=== PATIENT | male | born 1950 | race Caucasian/White ===

== ENCOUNTER 2023-07-01 06:32 | Outpatient (RCR) | payer MEDICARE, OTHER, SELFPAY | END 2023-07-01 23:59 | disposition home or self-care (01) | LOC: RST 06:32 | PROVIDERS: ATTENDING PHYSICIAN Specialist; FAMILY PHYSICIAN Family Medicine | DX: G31.09 Other frontotemporal neurocognitive disorder (principal); G40.89 Other seizures; R41.841 Cognitive communication deficit; R41.844 Frontal lobe and executive function deficit | CPT/HCPCS: 96125 ==

== ENCOUNTER 2023-08-11 09:22 | Outpatient (RCR) | payer MEDICARE, OTHER, SELFPAY | END 2023-08-11 23:59 | disposition home or self-care (01) | LOC: RST 09:22 | PROVIDERS: ATTENDING PHYSICIAN Specialist; FAMILY PHYSICIAN Family Medicine | DX: G31.09 Other frontotemporal neurocognitive disorder (principal); G40.89 Other seizures; R41.844 Frontal lobe and executive function deficit; R41.841 Cognitive communication deficit | CPT/HCPCS: 97129; 97130 ==

== ENCOUNTER 2023-09-08 09:39 | Outpatient (RCR) | payer MEDICARE, OTHER, SELFPAY | END 2023-09-08 23:59 | disposition home or self-care (01) | LOC: ROT 09:39 | PROVIDERS: ATTENDING PHYSICIAN Specialist; FAMILY PHYSICIAN Family Medicine | DX: G40.89 Other seizures (principal); Z73.6 Limitation of activities due to disability; G31.09 Other frontotemporal neurocognitive disorder; R41.841 Cognitive communication deficit; R41.844 Frontal lobe and executive function deficit | CPT/HCPCS: 97129; 97130; 97167; 97530; 97537 ==

== ENCOUNTER 2023-10-11 07:56 | Outpatient (RCR) | payer MEDICARE, OTHER, SELFPAY | END 2023-10-11 23:59 | disposition home or self-care (01) | LOC: ROT 07:56 | PROVIDERS: ATTENDING PHYSICIAN Specialist; FAMILY PHYSICIAN Family Medicine | DX: G40.89 Other seizures (principal); Z73.6 Limitation of activities due to disability; G31.09 Other frontotemporal neurocognitive disorder; R41.841 Cognitive communication deficit; R41.844 Frontal lobe and executive function deficit | CPT/HCPCS: 97129; 97130; 97537 ==

== ENCOUNTER 2023-10-25 06:27 | Outpatient (RCR) | payer MEDICARE, OTHER, SELFPAY | END 2023-10-25 23:59 | disposition home or self-care (01) | LOC: ROT 06:27 | PROVIDERS: ATTENDING PHYSICIAN Specialist; FAMILY PHYSICIAN Family Medicine | DX: G40.89 Other seizures (principal); Z73.6 Limitation of activities due to disability; G31.09 Other frontotemporal neurocognitive disorder; R41.841 Cognitive communication deficit; R41.844 Frontal lobe and executive function deficit | CPT/HCPCS: 97129; 97130; 97530 ==

== ENCOUNTER 2023-12-30 16:58 | Inpatient (IN) | payer MEDICARE, OTHER, SELFPAY ==
[2023-12-30] VITALS (8 sets, daily range): BP systolic 103–126; BP diastolic 68–88; BMI 21.2; BMI 20.7
[2023-12-30 12:18] LABS: % Basophils 0.6 % (0-2); % Eosinophils 1.6 % (0-6); % Immature Granulocytes 0.2 % (0-0.5); % Lymphocytes 12.7 % (20.5-51.1); % Monocytes 13.3 % (1.7-9.3); % Neutrophils 71.6 % (42.2-75.2); Absolute Eosinophils 0.1 10^3/uL (0-0.7); Absolute Lymphocytes 0.6 10^3/uL (1.2-3.4); Absolute Monocytes 0.7 10^3/uL (0.1-0.6); Absolute Neutrophils 3.5 10^3/uL (1.4-6.5); Hematocrit 40.5 % (39.0-52.0); Hemoglobin 13.7 g/dL (13.0-18.0); Mean Corp Hgb Conc. 33.8 g/dL (33.0-37.0); Mean Corpuscular Hgb 31.1 pg (27.0-31.0); Mean Platelet Volume 9.6 fL (7.4-10.4); Nucleated Red Blood Cells % 0 % (-); Platelet Count 208 10^3/uL (130-400)
[2023-12-30 12:35] LABS: Urine Albumin Negative (Neg - Trace); Urine Bilirubin Negative (Negative); Urine Character Clear (Clear); Urine Color Yellow; Urine Glucose Negative (Negative); Urine Ketone Negative (Negative); Urine Leukocyte Negative (Negative); Urine Nitrite Negative (Negative); Urine Occult Blood Negative (Negative); Urine Specific Gravity 1.005 (<1.030); Urine Urobilinogen Negative (Neg - 1+)
[2023-12-30 12:36] LABS: ALT (SGPT) 350 U/L (0-50); AST (SGOT) 228 U/L (17-59); Albumin 4.4 g/dl (3.5-5.0); Alkaline Phosphatase 370 U/L (38-126); Blood Urea Nitrogen 13 mg/dl (9-20); Calcium 9.9 mg/dl (8.4-10.2); Carbon Dioxide 28 mmol/L (22-30); Chloride 101 mmol/L (98-107); Glucose 136 mg/dl (70-99); Potassium 4.2 mmol/L (3.5-5.1); Sodium 138 mmol/L (135-145); Total Bilirubin 8.9 mg/dl (0.2-1.3); Total Protein 6.8 g/dl (6.3-8.2); eGFR > 60.00
--- NOTE | 2023-12-30 13:39 | ED.GENMED ---
History of Present Illness
General
Chief Complaint: Abnormal Lab Value
Time Seen by Provider: 12/30/23 13:27
History of Present Illness
History of Present Illness:
73-year-old male with history of hyperlipidemia and asthma stenosis presents to the emergency department due to abdominal pain and abnormal outpatient labs. He states that throughout the week he has had diffuse abdominal pain without modifying
factors, saw his PCP yesterday and had abnormal LFTs and thus was directed to the emergency department. Denies any fevers or chills. He does report dark urine and fady colored stool but denies any melena or hematochezia. Past history of
appendectomy
Past History
Past History
ED Past Medical History: Seizures (History of 1 seizure suspected to be related to sertraline) and Other (Asbestosis, diverticulosis, anxiety, depression)
Review of Systems
Review of Systems
Allergies reviewed?: Yes
All Other Systems: ROS reviewed and negative except as documented in HPI and ROS
Phy Exam
Physical Exam
Physical Exam:
GEN: Well appearing, NAD, WDWN
Eyes: PERRLA, EOMs intact, mild scleral icterus
HENT: NCAT, oral mucosa moist, no JVD, no cervical adenopathy.
Lungs: CTAB, no wheezes, rales, rhonchi, normal chest wall excursion
Cardiac: RRR, no M/R/G, no peripheral edema. Radial pulses 2+ bilat
Abdomen: Protuberant abdomen with diffuse tenderness and positive rebound tenderness, negative Garcia sign
Neuro: AO x 3
MSK: No gross deformity or ecchymosis. No edema. No digital clubbing
Skin: No rashes, petechiae. Normal color, no pallor or jaundice.
Psych: Calm, cooperative, proper hygiene
Course
Orders/Labs/Results
Orders:
Orders
12/30/23 12:05
Complete Blood Count/With Diff Urgent
Comprehensive Metabolic Panel Urgent
Creatine Phosphokinase Urgent
Comment: ADD ON
Lipase Urgent
Comment: ADD ON
12/30/23 12:06
Urinalysis Reflex To Culture Urgent
Date Specimen was Collected: 12/30/23
Time Specimen was Collected: 11:58
12/30/23 13:35
Add On- LAB Urgent
Tests Added?: lipase; CPK
CT Abd/Pel (IV only)-DH only Urgent
Comment:
Reason For Exam: abd pain, jaundice
12/30/23 13:39
HYDROmorphone [Dilaudid] 0.5 mg IV NOW STA
12/30/23 14:59
HYDROmorphone [Dilaudid] 0.5 mg IV NOW STA
12/30/23 Dinner
Regular
12/30/23 15:04
Prothrombin Time Urgent
12/30/23 15:15
GASTROINTESTINAL CONSULT Routine
Consulting Provider: Sharmin Olvera
Was physician already notified: Yes
Reason for consult: obstructive jaundice due to pancreatic head mass
12/30/23 16:47
Admit/Transfer Patient As Directed
Co-Sign Provider:
Level of Care: Inpatient admission
Assign to:: Medical/Surgical
Physician / Group: gerson juan
Diagnosis: obstructive jaundice 2/2 pancreatic head mass adenocarcinoma new,met r lung
Reason for Hospitalization: obstructive jaundice 2/2 pancreatic head mass adenocarcinoma new,met r lung
Expected length of stay greater than two midnights?: Yes
ELOS- Estimated Length of Stay in days: 4
I certify the patient meets the requirements for IP care: Yes
Code Status As Directed
Resuscitation Status: Do not resuscitate
Reached after discussion with pt or family/Healthcare POA: Yes
Based on pt advanced directive or healthcare POA form: Yes
Decision communicated with: Per patient with present
DNR Bracelet Application ONCE
12/30/23 16:49
PRN Pain Medication Management As Directed
May give lesser potent ordered pain med per pt: Yes
preference::
Protocol:: Medication orders for pain may be administered in a
manner that supports deferring to patient preference
when the pt is:
- Requesting an ordered lesser potent pain medication.
Least to most potent pain medications are defined
as: acetaminophen < NSAID < tramadol < opioids
(morphine, oxycodone, hydromorphone).
- Requesting a lesser dose of the same medication IF
ORDERED.
- Requesting a less intrusive route of administration
if both routes are prescribed by the provider (PO <
IV).
12/31/23 06:00
CA 19-9 [S] IN AM
Abnormal Lab Results
12/30/23 12/30/23
12:05 15:04
RBC 4.40 L 10^6/uL
(4.70-6.10)
MCH 31.1 H pg
(27.0-31.0)
Absolute Lymphs (auto) 0.6 L 10^3/uL
(1.2-3.4)
Absolute Monos (auto) 0.7 H 10^3/uL
(0.1-0.6)
Lymphocytes % 12.7 L %
(20.5-51.1)
Monocytes % 13.3 H %
(1.7-9.3)
PT 15.3 H Sec
(11.4-14.6)
Glucose 136 H mg/dl
(70-99)
Total Bilirubin 8.9 H mg/dl
(0.2-1.3)
AST 228 H U/L
(17-59)
ALT 350 H U/L
(0-50)
Alkaline Phosphatase 370 H U/L
(38-126)
Creatine Kinase 324 H U/L
(55-170)
12/30/23 12:05
12/30/23 12:05
Vital Signs
Initial and Last Documented VS:
Initial Vital Signs
Temp Pulse Resp BP Pulse Ox
98.1 F 92 18 108/73 92
12/30/23 11:55 12/30/23 11:55 12/30/23 11:55 12/30/23 11:55 12/30/23 11:55
Last Documented Vital Signs
Temp Pulse Resp BP Pulse Ox
98.1 F 92 18 108/82 94
12/30/23 11:55 12/30/23 11:55 12/30/23 11:55 12/30/23 19:00 12/30/23 19:00
MDM/Problems Addressed
MDM/Problems Addressed:
Patient is unfortunately found to have a pancreatic mass highly suspicious for neoplasm with obstructive cholestasis. Initially plan to admit the patient to this hospital for further management however for the immediate future we do not have
advanced GI interventions available, case was discussed with gastroenterology as well as [facility] for transfer, the case was accepted for transfer however due to capacity issues they will not feel the except the patient for
at least 24 to 48 hours. Will be admitted to the hospitalist service in the interim pending transfer
*Critical Care Note
Total Time (30-74mins, 75-104mins- exclusive of procedures): Not Applicable
ED Attending Note
-
Portions of this chart may have been created with voice recognition software.� Occasional wrong word or��sound alike� substitutions may have occurred due to the inherent limitations of voice recognition software.
Discharge Plan
Departure
Patient Disposition: Admit
Date of Disposition: 12/30/23
Time of Disposition: 15:00
Presentation/result/management discussed w/ accepting MD/DO: Hospitalist
Discharge Problem:
Mass of pancreas, Obstructive jaundice
Interventions
Interventions:
*Risk Screen - Suicide Last Done: 12/30/23 11:55
*General Assessment Last Done: 12/30/23 11:55
*Neglect/Abuse Screening Last Done: 12/30/23 11:55
*ED COVID-19 Vaccine History Last Done: 12/30/23 15:52
[2023-12-30 14:09] LABS: Creatine Phosphokinase 324 U/L (55-170); Lipase 151 U/L (23-300)
[2023-12-30] MEDS: DILAUDID 0.5 MG IV ×2 (15:05→21:54)
--- NOTE | 2023-12-30 15:07 | HPS.HSE ---
Addendum entered and electronically signed by NGOC Gaines 12/30/23 19:39:
Per Zelalem BARTHOLOMEW in [facility] confirm not likely to have a bed for the patient in the next 48 hours
Original Note:
Family Physician
-
Family Physician: Tanja Garcia PA-C
Chief Complaint
-
Abdominal pain, abnormal LFTs outpatient.
History of Present Illness
73-year-old male complaining of abdominal pain and outpatient abnormal labs. He reports having lower abdominal pain over the past week had outpatient labs drawn by his PCP showing abnormal LFTs and was advised to come to the ER. He is also
reporting dark urine and gordon colored stools over the past week. He states this is his chronic normal abdomen although appears distended to me on exam he denies that along with . He does report some decreased appetite and nausea this past week
and weight loss of 25 pounds in the past 6 months. He denies melena or hematochezia, fever, chills, chest pain, palpitations, shortness breath, cough, nausea, vomiting, urinary symptoms. He has past medical history of HLD, asthma, anxiety,
depression, diverticulosis, asbestosis, history of seizure suspect related to Wellbutrin 2020, second seizure March 14, 2023.
Medical History
Past Medical History
Past Medical History: Reports Other
Additional Past Medical History:
HLD
asthma
anxiety
depression
diverticulosis
asbestosis
history of seizure suspect related to Wellbutrin 2020, second seizure March 14, 2023.
Past Surgical History: Reports Other
Additional Past Surgical History:
Appendectomy
Cervical lumbar fusion
Hernia repair left inguinal
Nasal surgery
Social History
Tobacco: Non-smoker
Alcohol: None
Drug: None
Personal: ()
Living: With Family
Employment: Retired
Family History
Family History: Other (Mother [place] age 69, father age 85 old age, maternal grandfather gastric cancer, maternal grandmother breast cancer)
Allergies / Home Medications
Allergies reflects when Allergies were last updated in [employer].
Home Medications with original date entered in [employer]
Allergy/Medication List:
Allergies
Allergy/AdvReac Type Severity Reaction Status Date / Time
sertraline Allergy seizure Verified 12/30/23 11:55
Home Medications
acetaminophen 325 mg tablet (Tylenol) 650 mg PO Q6HPRN PRN mild pain 03/14/23
lamotrigine 150 mg tablet (Lamictal) 300 mg PO HS seizure 03/14/23
simvastatin 20 mg tablet (Zocor) 20 mg PO HS High Cholesterol 03/14/23
therapeutic multivitamin 1 tab PO QPM Supplement 03/14/23
lacosamide 100 mg tablet (Vimpat) 100 mg PO BID #60 tabs 03/18/23
aspirin 81 mg tablet,delayed release 81 mg PO DAILY 12/30/23
desvenlafaxine succinate 50 mg tablet,extended release 24 hr 50 mg PO DAILY 12/30/23
lamotrigine 25 mg tablet (Lamictal) 50 mg PO HS 12/30/23
quetiapine 25 mg tablet (Seroquel) 25 mg PO HS 12/30/23
Review of Systems
-
History Source: Patient and Family ( at bedside)
A 12 point ROS was completed and negative except as noted: Yes
Constitutional: Reports Weight Loss (25 pounds past 6 months); Denies Fever, Fatigue or Chills
EENT: Denies Sore Throat or Runny Nose
Respiratory: Denies Cough or Trouble Breathing
Cardiac: Denies Chest Pain, Diaphoresis or Palpitations
Abdomen/GI: Reports Abdominal Pain (Lower abdomen) and Other (Gordon colored stools); Denies Nausea, Vomiting, Diarrhea, Constipated, Bloody Stools or Black Stools
: Reports Dark Urine (Saadia); Denies Dysuria, Frequency, Flank Pain, Incontinence, Difficulty Voiding, Urgency or Bleeding
Musculoskeletal: Denies Joint Pain or Edema
Skin: Denies Itching or Rash
Neurological: Denies Dizzy, Headache or Weakness
Endocrine: Reports No Symptoms
Hematologic/Lymphatic: Reports No Symptoms
Psych: Reports Calm
Physical Exam
Vital Signs
Vital Signs
Temp Pulse Resp BP Pulse Ox
98.1 F 92 18 108/73 92
12/30/23 11:55 12/30/23 11:55 12/30/23 11:55 12/30/23 11:55 12/30/23 11:55
Physical Exam
General: Comfortable and Conversant; No Pain, Fever or Chills
HEENT: NormoCephalic, Anicteric, Moist mucous membranes, PERRLA, [place] Conjunctivae and No Ptosis
Respiratory: Clear; No Wheezes, Rales or Rhonchi
Cardiac: S1/S2 and Regular Rhythm; No Murmur, Rub, Gallop or Peripheral Edema
GI: Soft and Tender (Lower abdomen below umbilicus, tympanic with distention although patient with ports that is normal abdomen)
Rectal: Deferred by Provider
Genito-urinary: Deferred by me
Musculoskeletal: No Clubbing, No Cyanosis and No Edema
Skin: Warm and Dry; No Rash
Neuro: AO x 3, No Motor Deficits, Nonfocal/grossly intact, Cranial Nerves Intact and No Sensory Deficits; No Slurred Speech, Facial Droop, Tremors or Sedated
Psych: Calm
Laboratory Results
-
12/30/23 12:05
12/30/23 12:05
Laboratory Results
Total Bilirubin 8.9 mg/dl (0.2-1.3) H 12/30/23 12:05
AST 228 U/L (17-59) H 12/30/23 12:05
ALT 350 U/L (0-50) H 12/30/23 12:05
Alkaline Phosphatase 370 U/L (38-126) H 12/30/23 12:05
Lipase 151 U/L (23-300) 12/30/23 12:05
Impression/Plan
-
If unable to transfer to [facility] will admit here with below plan
Impression/plan:
Admit to [facility]
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
T. bili 8.9
AST 228, ALT 350, alk phos 370
-INR 1.22
-ER arranging admission to [facility] for endoscopic ultrasound with stent, unsure when bed will become available
-Consult GI
-IV Dilaudid as needed pain, IV Zofran as needed
-HOLD Zocor and aspirin
CT abdomen pelvis IV contrast:
1. PANCREATIC HEAD ADENOCARCINOMA completely obstructing the common bile and pancreatic ducts. Malignancy encasing and narrowing the common and proper hepatic arteries and occluding the
portal-mesenteric vein confluence.
2. Severe intrahepatic, proximal extrahepatic, and gallbladder distention secondary to SEVERE BILIARY OBSTRUCTION.
3. Moderate diffuse distention of the colon with air and fecal material suggesting an adynamic colonic ileus.
4. Mild circumferential wall thickening in the esophagus and gastroesophageal junction which is probably secondary to esophagitis and gastritis.
5. Severe multilevel discogenic degenerative disease in the lumbar spine and evidence for previous bilateral posterior instrumentation from L2 to L5.
6. New solid pulmonary nodules in the right middle and lower lobes. Diagnostic possibilities are (1) pulmonary metastases or (2) infectious/inflammatory pulmonary nodules.
#NEW Pancreatic head ADENOCARCINOMA with METS to lung RIGHT Middle lobe and Lower lobes�new
-Consult Oncology
#Colonic ileus-patient comfortable with bowel movements and able to eat food without vomiting
-Will continue regular diet monitor for nausea and vomiting
-IV NSS
-Monitor bowel movements
#Hx of seizures that were suspected related to Wellbutrin started 2020 with 1 seizure
Second seizure was March 14, 2023
-Continue Vimpat 100 mg twice daily, Lamictal 350 mg at bedtime
#HLD
-Hold Zocor
#Anxiety/depression
-Continue Seroquel 25 mg at bedtime, Pristiq 50 mg daily
Other PMH:
History asbestosis
Diverticulosis
DVT prophylaxis
SCDs
DNR per patient with present at bedside
[2023-12-30 15:24] LABS: INR 1.22; PT 15.3 Sec (11.4-14.6)
--- NOTE | 2023-12-30 15:52 | CON.GI ---
Addendum entered and electronically signed by Sharmin Olvera MD 12/30/23 17:11:
I saw and examined the patient.
The API ARCHITECT or PA's note was reviewed and I agree with the note.
Comment:
This patient is a 73-year-old man with a history of hyperlipidemia, asbestosis, and GERD. He is experiencing a 25 pound weight loss and some abdominal pain. He did notice that his urine was dark and did have incidental labs. His labs were
markedly abnormal including a bilirubin that was over 8. He was told by his physician to go to the emergency room. In the ER he did have a CAT scan that showed a complete obstruction of the CBD and pancreatic duct concerning for malignancy. There
was also a concern for mets.
abd: distended but soft
icteric, oriented
impression
obstructive jaundice
ileus, abd distention
plan:
diet as tolerated
follow lfts
will need transfer as our interventional endoscopist is not available for the next week. He does need transfer to a facility that has interventional endoscopy available. The ER is aware as is the family and tentatively the transfer is to [facility].
Original Note:
Consultation
-
Date/Time Consultation Requested: 12/30/23 1515
Date/Time Consultation Performed: 12/30/23 1530
Requesting Provider: NGOC Gaines
Performing Provider: NGOC Covarrubias, Sharmin Olvera MD
Reason for Consultation: obstructive Jaundice
Medical History
Chief Complaint / HPI
Chief Complaint: abdominal pain, jaundice
History of Present Illness:
Pt is a 73yo with hx Hyperlipidemia, asbestosis, seizure disorder, sleep apnea, diverticulosis, anxiety/depression presents with 25 lbs wt loss over last few months with increased GERD, and now mild abdominal pain. He also admits to dark urine and
soto stools and mild pain over last week with abnormal labs. On admission noted with stable CBC and rise in LFT's with bili 8.9, AST 228, ALT 350, alk phos [address] concerning for pancreatic head adeno CA wih complete obstruction of
CBD and pancreatic duct with concern for malignancy and narrowing of common and proper hepatic arteries and occluding portal mesenteric vein confluence with severe ductal and GB distention. Also noted ileus with distal esophageal thickening with
concern for pulm mets. No hx EGD in past. colonoscopy with diverticulosis about 3 years ago.
At this time patient admits to GERD but denies dysphagia, nausea/vomiting, diarrhea, constipation, or rectal bleeding.
Past Medical History
Past Medical History: Hypercholesterolemia, Seizures (? medication related last seizure 03/2023), Psychiatric (anxiety/depression) and Other (asbetosis, diverticulosis, sleep apnea)
Social History
Tobacco: Non-Smoker
Alcohol: None
Drug: None
Personal:
Living: With Family
Employment: Retired
Family History
Family History: Other (no family hx colon CA/polyps, pancreatic problems)
Allergies / Home Medications
Allergy/AdvReac Type Severity Reaction Status Date / Time
sertraline Allergy seizure Verified 12/30/23 11:55
�Medication �Instructions �Recorded
acetaminophen 325 mg tablet 650 mg PO Q6HPRN PRN mild pain 03/14/23
(Tylenol)
lamotrigine 150 mg tablet 300 mg PO HS seizure 03/14/23
(Lamictal)
simvastatin 20 mg tablet (Zocor) 20 mg PO HS High Cholesterol 03/14/23
therapeutic multivitamin 1 tab PO QPM Supplement 03/14/23
lacosamide 100 mg tablet (Vimpat) 100 mg PO BID #60 tabs 03/18/23
aspirin 81 mg tablet,delayed 81 mg PO DAILY 12/30/23
release
desvenlafaxine succinate 50 mg 50 mg PO DAILY 12/30/23
tablet,extended release 24 hr
lamotrigine 25 mg tablet (Lamictal) 50 mg PO HS 12/30/23
quetiapine 25 mg tablet (Seroquel) 25 mg PO HS 12/30/23
Review of Systems
-
History Source: Patient and Family
Constitutional: Reports Weight Loss and Other (decrease appetite )
EENT: Reports No Symptoms
Respiratory: Reports No Symptoms
Abdomen/GI: Reports Abdominal Pain and Other (decrease appetite , soto stools)
: Reports Dark Urine
Musculoskeletal: Reports No Symptoms
Skin: Reports No Symptoms
Neurological: Reports Weakness
Endocrine: Reports No Symptoms
Hematologic/Lymphatic: Reports No Symptoms
Vital Signs
Temp Pulse Resp BP Pulse Ox
98.1 F 92 18 108/73 92
12/30/23 11:55 12/30/23 11:55 12/30/23 11:55 12/30/23 11:55 12/30/23 11:55
Physical Exam
Exam
General: Well Developed, Well Nourished and No Apparent Distress
HEENT: Normocephalic and Other (jaundice with icteric sclera )
Respiratory: Clear
Cardiac: Regular Rhythm
GI: Soft, Non Tender and Distended (mild -- per pt chronic distention)
Musculoskeletal: No Clubbing and No Cyanosis
Skin: Warm and Dry
Neuro: Awake, Alert and AO x 3
Psych: Calm
Results
WBC 5.0 10^3/uL (4.8-10.8) 12/30/23 12:05
Hgb 13.7 g/dL (13.0-18.0) 12/30/23 12:05
Hct 40.5 % (39.0-52.0) 12/30/23 12:05
MCV 92.0 fL (80.0-94.0) 12/30/23 12:05
Plt Count 208 10^3/uL (130-400) 12/30/23 12:05
Absolute Neuts (auto) 3.5 10^3/uL (1.4-6.5) 12/30/23 12:05
PT 15.3 Sec (11.4-14.6) H 12/30/23 15:04
INR 1.22 12/30/23 15:04
Sodium 138 mmol/L (135-145) 12/30/23 12:05
Potassium 4.2 mmol/L (3.5-5.1) 12/30/23 12:05
Chloride 101 mmol/L (98-107) 12/30/23 12:05
Carbon Dioxide 28 mmol/L (22-30) 12/30/23 12:05
BUN 13 mg/dl (9-20) 12/30/23 12:05
Creatinine 0.8 mg/dL (0.7-1.3) 12/30/23 12:05
Calcium 9.9 mg/dl (8.4-10.2) 12/30/23 12:05
Total Bilirubin 8.9 mg/dl (0.2-1.3) H 12/30/23 12:05
AST 228 U/L (17-59) H 12/30/23 12:05
ALT 350 U/L (0-50) H 12/30/23 12:05
Alkaline Phosphatase 370 U/L (38-126) H 12/30/23 12:05
Lipase 151 U/L (23-300) 12/30/23 12:05
Diagnostic Image Results:
12/30/23 CT A/p with IV contrast
1. PANCREATIC HEAD ADENOCARCINOMA completely obstructing the common bile and pancreatic ducts. Malignancy encasing and narrowing the common and proper hepatic arteries and occluding the portal-mesenteric vein confluence.
2. Severe intrahepatic, proximal extrahepatic, and gallbladder distention secondary to SEVERE BILIARY OBSTRUCTION.
3. Moderate diffuse distention of the colon with air and fecal material suggesting an adynamic colonic ileus.
4. Mild circumferential wall thickening in the esophagus and gastroesophageal junction which is probably secondary to esophagitis and gastritis.
5. Severe multilevel discogenic degenerative disease in the lumbar spine and evidence for previous bilateral posterior instrumentation from L2 to L5.
6. New solid pulmonary nodules in the right middle and lower lobes. Diagnostic possibilities are (1) pulmonary metastases or (2) infectious/inflammatory pulmonary nodules.
Prior GI Procedures:
EGD: none
Colonoscopy: 3 years ago recalls diverticulosis.
Assessment / Plan
-
Pt is a 73yo with hx Hyperlipidemia, asbestosis, seizure disorder, sleep apnea, diverticulosis, anxiety/depression presents with 25 lbs wt loss over last few months with increased GERD, and now mild abdominal pain. He also admits to dark urine and
soto stools and mild pain over last week with abnormal labs. On admission noted with stable CBC and rise in LFT's with bili 8.9, AST 228, ALT 350, alk phos [address] concerning for pancreatic head adeno CA wih complete obstruction of
CBD and pancreatic duct with concern for malignancy and narrowing of common and proper hepatic arteries and occluding portal mesenteric vein confluence with severe ductal and GB distention. Also noted ileus with distal esophageal thickening with
concern for pulm mets.
-CT concern for pancreatic adeno with completed obstruction and occlusion of portal mesenteric vein confluence
-onset of wt loss, GERD, decreased appetite
-abdominal distention - chronic per patient noted ileus on CT
-esophageal thickening
-concern for pulm mets
other med problems:
-hyperlipidemia
-asbestosis
-seizure D/o
-sleep apnea
-diverticulosis
-anxiety/depression
PLAN:
etiology of jaundice with LFT's elevation with concern for obstructing pancreatic adeno CA vs other
pt will need EUS with ERCP
I reviewed with Dr. Davila unable to do today and no availability at [facility] for next 2 weeks
ER will reach out to other facility to see if can do ER to ER transfer
if unable to accept will need to reach out for transfer
trend LFT's
some ileus/distention but has been chronic and tolerating diet earlier today ok for diet with monitoring
add CA 19-9
updated hospitalist and ER
family updated
-
-
Thank you for consultation and allowing me to participate in the patient's care. Please call the novelty balloon assembler and packer GI physician during the after hours with any questions or concerns.
--- NOTE | 2023-12-30 16:59 | W.PN.UPDATE ---
Update Note
Progress Note Update
This is an addendum to the H&P written by aLchelle Davies on 12/30/2023. Patient seen and examined dependently with [employer].
73-year-old male past medical history of hyperlipidemia, asthma, anxiety/depression, diverticulosis, asbestosis, seizure related to Wellbutrin here with abdominal pain, dark urine and fady colored stool over the past week and abnormal outpatient
LFTs with weight loss and decreased appetite.
Labs show severe transaminitis with hyperbilirubinemia. CT abdomen pelvis shows pancreatic head adenocarcinoma completely obstructing common bile duct and pancreatic duct. Malignancy encasing and narrowing the common and proper hepatic arteries
and occluding the portal mesenteric vein confluence. There is severe biliary obstruction. Moderate diffuse distention of the colon with air and fecal matter suggesting adynamic colonic ileus. Mild circumferential wall thickening in the
esophagus/gastroesophageal junction secondary esophagitis/gastritis.
GI consulted as patient will require endoscopic ultrasound. Patient accepted at [facility] but no beds available. Regular diet. Hold statin.
--- NOTE | 2023-12-30 20:15 | PTCARENOTE ---
Received pt from ED via Stretcher. Pt able to ambulate off stretcher to standing scale with minimal assistance. AAO*4, VSS, Patient denies any chest pain or shortness of breath. All orders reviewed and acknowledged. Plan of care reviewed with
patient. Patient oriented to room with bed placed in low position and call blount within reach.
[2023-12-30] MEDS: NSS 1000 IV (21:05)
[2023-12-30] MEDS: LAMICTAL 350 MG PO (21:07)
[2023-12-30] MEDS: SEROQUEL 25 MG PO (21:07)
[2023-12-30] MEDS: VIMPAT 100 MG PO (21:07)
[2023-12-30 22:51] LABS: COVID-19 Antigen Negative (Negative)
--- NOTE | 2023-12-31 01:19 | W.PN.UPDATE ---
Update Note
Progress Note Update
RN notified DOCTOR OF [facility], patient has bed available at [facility] and berry picker machine operator time is at 0145. Transfer Authorization and Information form completed and in chart. Will place order to discharge patient.
--- NOTE | 2023-12-31 01:37 | PTCARENOTE ---
Patient being transferred to [facility] as per Transfer Authorization and Information Form for Pancreatic Mass. Transfer center at [facility] arranged BLS transport to [facility] at [facility] for room number
246. Nursing Hot Dog Vendor and covering ALTERATION TAILOR provider updated with transfer. Copies of chart, along with face sheet and transfer from given to transport. Patient updated with Hospital transfer and new room number.
== END 2023-12-31 01:40 | disposition short-term general hospital (02) | DRG 435 ==
LOC: 4 EAST ACU 16:58
PROVIDERS: Emergency Medicine; Physician Assistant; ADMITTING PHYSICIAN Hospitalist; CONSULT PHYSICIAN Internal Medicine; EMERGENCY PHYSICIAN Emergency Medicine; FAMILY PHYSICIAN Physician Assistant Medical
DX: C25.0 Malignant neoplasm of head of pancreas (principal); K83.1 Obstruction of bile duct; C78.01 Secondary malignant neoplasm of right lung; K56.7 Ileus, unspecified; K21.00 Gastro-esophageal reflux disease with esophagitis, without bleeding; K29.70 Gastritis, unspecified, without bleeding; F32.A Depression, unspecified; Z66 Do not resuscitate; F41.9 Anxiety disorder, unspecified; Z79.899 Other long term (current) drug therapy; Z79.82 Long term (current) use of aspirin
CPT/HCPCS: 74177; 80053; 81003; 82550; 83690; 85025; 85610; 87811; 96374; 96376; 99284; Q9967

== ENCOUNTER 2024-01-04 20:42 | Emergency (ER) | payer MEDICARE, OTHER, SELFPAY ==
[2024-01-04 20:51] VITALS: BP 94/71
--- NOTE | 2024-01-04 21:40 | ED.GENMED ---
History of Present Illness
General
Chief Complaint: Abdominal Pain
Source: patient and spouse
Time Seen by Provider: 01/04/24 21:23
History of Present Illness
History of Present Illness:
73-year-old male presents to the emergency room complaining of severe abdominal pain. Patient was recently seen here in the emerge at [place] and found to have a pancreatic mass. He was transferred to [facility] where he had a
endoscopic ultrasound with biopsy as well as biliary stent placement. Patient was discharged yesterday. He was having some mild to moderate pain but the pain became more severe today around dinnertime. Patient was discharged on oxycodone and
thought the pain might just be related to his last dose of medication wearing off. However he was given his evening dose of pain medicine without improvement. Also consideration to constipation because his last bowel movement was 2 days ago.
has observed his abdomen seems much more distended today. He is nauseous but has not vomited. Patient did take the Colace earlier today but has not had a bowel movement.
Past History
Past History
ED Past Medical History: Seizures (History of 1 seizure suspected to be related to sertraline) and Other (Asbestosis, diverticulosis, anxiety, depression)
Phy Exam
Physical Exam
Physical Exam:
General: Awake, Alert, Oriented X3. No acute distress.
Vitals: unremarkable
Head: Atraumatic
Eyes: Pupils equal, EOMI, scleral icterus
Throat: Airway intact, no exudates, mildly dry mucosa
Neck: Trachea midline
Lungs: Clear and equal b/l
Heart: Regular rate, no murmurs
Abd: Soft, distended, significantly tender to palpation,, No pulsatile mass
Rectal: No stool in the rectal
Neuro: Nonfocal
Skin: Warm, dry, no rash
Extremities: pulses equal b/l, no edema
Course
Orders/Labs/Results
Orders:
Orders
01/04/24 21:38
CT Abd/Pel (IV only)-DH only Urgent
Comment:
Reason For Exam: severe abd pain
Urinalysis Reflex To Culture Urgent
HYDROmorphone [Dilaudid] 1 mg IV NOW STA
Ondansetron Injectable [Zofran] 4 mg IV NOW STA
01/04/24 21:39
Lactated Ringers [Lr] 1,000 ml IV BOLUS
01/04/24 22:09
Complete Blood Count/With Diff Urgent
Comprehensive Metabolic Panel Urgent
Lipase Urgent
01/05/24 00:09
HYDROmorphone [Dilaudid] 1 mg .ROUTE .STK-MED ONE
01/05/24 00:14
HYDROmorphone [Dilaudid] 1 mg IV NOW STA
01/05/24 00:37
NG Tube [GI tube insertion- Treatment] ONCE
01/05/24 00:59
Lidocaine 2% [Lidocaine Uro-Jet 2%] 1 syringe .ROUTE .STK-MED ONE
Abnormal Lab Results
01/04/24
22:09
WBC 13.2 H 10^3/uL
(4.8-10.8)
RBC 4.51 L 10^6/uL
(4.70-6.10)
MCH 31.7 H pg
(27.0-31.0)
Abs Immat Gran (auto) 0.1 H 10^3/uL
(0-0.05)
Absolute Neuts (auto) 12.0 H 10^3/uL
(1.4-6.5)
Absolute Lymphs (auto) 0.2 L 10^3/uL
(1.2-3.4)
Absolute Monos (auto) 0.9 H 10^3/uL
(0.1-0.6)
Immature Gran % 0.6 H %
(0-0.5)
Neutrophils % 91.1 H %
(42.2-75.2)
Lymphocytes % 1.4 L %
(20.5-51.1)
Sodium 133 L mmol/L
(135-145)
Chloride 95 L mmol/L
(98-107)
Glucose 199 H mg/dl
(70-99)
Total Bilirubin 7.3 H mg/dl
(0.2-1.3)
AST 192 H U/L
(17-59)
ALT 310 H U/L
(0-50)
Alkaline Phosphatase 438 H U/L
(38-126)
01/04/24 22:09
01/04/24 22:09
Vital Signs
Initial and Last Documented VS:
Initial Vital Signs
Temp Pulse Resp BP Pulse Ox
97.8 F 111 20 94/71 90
01/04/24 20:51 01/04/24 20:51 01/04/24 20:51 01/04/24 20:51 01/04/24 20:51
Last Documented Vital Signs
Temp Pulse Resp BP Pulse Ox
97.8 F 100 18 118/93 89
01/04/24 20:51 01/05/24 01:45 01/05/24 01:45 01/05/24 01:00 01/05/24 01:30
MDM/Problems Addressed
Differential Diagnosis Includes:
Constipation, bowel obstruction, gastric outlet obstruction, ascites
MDM/Problems Addressed:
Patient presents with significant abdominal pain and abdominal distention. CT shows markedly dilated stomach and evidence of gastric outlet obstruction. NG tube was placed with large amount of gastric contents and air retrieved. Patient has
improvement in his level of pain. Given he just had procedure performed at [facility] we do not have endoscopic she can perform advanced procedures at this time we will transfer the patient back to [place]. Patient accepted by the hospitalist at
[facility].
*Radiology
Radiology exam reviewed: radiology read reviewed ([facility] report reviewed)
*Pulse Oximetry
Patient hypoxic: no
*Critical Care Note
Total Time (30-74mins, 75-104mins- exclusive of procedures): Not Applicable
Data Reviewed
Review of Other/Old Records Reveals: Other (Recent CT, ED record)
Patient Management
Social determinants of health affecting care: Strong social support
ED Attending Note
-
Portions of this chart may have been created with voice recognition software.� Occasional wrong word or��sound alike� substitutions may have occurred due to the inherent limitations of voice recognition software.
Discharge Plan
Departure
Patient Disposition: Acute Care Hospital
Date of Disposition: 01/05/24
Time of Disposition: 01:14
Admit to: Med/Surg
Condition: Fair
Discharge Problem:
Gastric outlet obstruction, Mass of pancreas
Prescriptions:
No Action
lamotrigine [Lamictal] 150 mg Tablet
300 mg PO HS
acetaminophen [Tylenol] 325 mg Tablet
650 mg PO Q6HPRN PRN (Reason: mild pain)
therapeutic multivitamin Tablet
1 tab PO DAILY
simvastatin [Zocor] 20 mg Tablet
20 mg PO HS
lacosamide [Vimpat] 100 mg tablet
100 mg PO BID Qty: 60 0RF
quetiapine [Seroquel] 25 mg Tablet
25 mg PO HS
aspirin 81 mg Tablet,Delayed Release (Dr/Ec)
81 mg PO DAILY
lamotrigine [Lamictal] 25 mg Tablet
50 mg PO HS
desvenlafaxine succinate 50 mg Tablet Extended Release 24 Hr
50 mg PO DAILY
Referrals:
Tanja Garcia PA-C [Family Provider] -
Hospital Transfer
Other hospital: [facility]
I certify that the patient requires transfer: Yes
Discussed case with accepting physician: Dr. Vu
Reason for transfer: availability of service and specialties available
Interventions
Interventions:
*Risk Screen - Suicide Last Done: 01/04/24 20:51
*General Assessment Last Done: 01/04/24 22:22
*Neglect/Abuse Screening Last Done: 01/04/24 20:51
ED- Fall Risk Assessment Last Done: 01/04/24 22:23
*ED COVID-19 Vaccine History Last Done: 01/04/24 22:22
FN-Vyeign-Bhzmwxpeci Assessment Last Done: 01/04/24 22:23
Discharge Date and Time
Print Language: ROMANSH
[2024-01-04 21:57] VITALS: BMI 21.0
[2024-01-04] MEDS: DILAUDID 1 MG IV (22:05)
[2024-01-04] MEDS: LR 1000 IV (22:06)
[2024-01-04] MEDS: ZOFRAN 4 MG IV (22:06)
[2024-01-04 22:21] LABS: % Basophils 0.3 % (0-2); % Immature Granulocytes 0.6 % (0-0.5); % Lymphocytes 1.4 % (20.5-51.1); % Monocytes 6.6 % (1.7-9.3); % Neutrophils 91.1 % (42.2-75.2); Absolute Immature Granulocytes 0.1 10^3/uL (0-0.05); Absolute Lymphocytes 0.2 10^3/uL (1.2-3.4); Absolute Monocytes 0.9 10^3/uL (0.1-0.6); Hematocrit 40.7 % (39.0-52.0); Hemoglobin 14.3 g/dL (13.0-18.0); Mean Corp Hgb Conc. 35.1 g/dL (33.0-37.0); Mean Corpuscular Hgb 31.7 pg (27.0-31.0); Mean Corpuscular Volume 90.2 fL (80.0-94.0); Mean Platelet Volume 9.8 fL (7.4-10.4); Nucleated Red Blood Cells % 0 % (-); Platelet Count 253 10^3/uL (130-400); Red Blood Cell Count 4.51 10^6/uL (4.70-6.10); Red Cell Dist. Width 13.4 % (11.5-14.5); White Blood Cell Count 13.2 10^3/uL (4.8-10.8)
[2024-01-04 22:39] LABS: ALT (SGPT) 310 U/L (0-50); AST (SGOT) 192 U/L (17-59); Albumin 4.3 g/dl (3.5-5.0); Alkaline Phosphatase 438 U/L (38-126); Blood Urea Nitrogen 14 mg/dl (9-20); Calcium 9.9 mg/dl (8.4-10.2); Carbon Dioxide 22 mmol/L (22-30); Chloride 95 mmol/L (98-107); Estimated Creatinine Clearance 84 ml/min; Glucose 199 mg/dl (70-99); Lipase 100 U/L (23-300); Potassium 3.9 mmol/L (3.5-5.1); Sodium 133 mmol/L (135-145); Total Bilirubin 7.3 mg/dl (0.2-1.3); Total Protein 6.8 g/dl (6.3-8.2); eGFR > 60.00
[2024-01-04 22:52] VITALS: BP 120/86
[2024-01-04 23:00] VITALS: BP 115/85
[2024-01-05 00:11] VITALS: BP 133/93
[2024-01-05] MEDS: DILAUDID 1 MG IV (00:14)
[2024-01-05 01:00] VITALS: BP 118/93
[2024-01-05 02:00] VITALS: BP 105/87
[2024-01-05] MEDS: DILAUDID 0.5 MG IV (03:24)
== END 2024-01-05 03:35 | disposition short-term general hospital (02) ==
LOC: EMR 20:42
PROVIDERS: EMERGENCY PHYSICIAN Emergency Medicine; FAMILY PHYSICIAN Physician Assistant Medical
DX: K31.1 Adult hypertrophic pyloric stenosis (principal); K86.9 Disease of pancreas, unspecified
CPT/HCPCS: 96374; 96375; 96376; 96361; 99285; 74177; 80053; 83690; 85025; Q9967

== ENCOUNTER 2024-02-11 03:39 | Inpatient (IN) | payer MEDICARE, OTHER, SELFPAY ==
[2024-02-10] VITALS (7 sets, daily range): BP systolic 84–96; BP diastolic 52–65; BMI 21.5
[2024-02-10 22:05] LABS: Hematocrit 12.1 % (39.0-52.0); Hemoglobin 3.6 g/dL (13.0-18.0); Mean Corp Hgb Conc. 29.8 g/dL (33.0-37.0); Mean Corpuscular Hgb 32.1 pg (27.0-31.0); Mean Platelet Volume 9.6 fL (7.4-10.4); Platelet Count 353 10^3/uL (130-400); Red Blood Cell Count 1.12 10^6/uL (4.70-6.10); Red Cell Dist. Width 18.7 % (11.5-14.5); White Blood Cell Count 10.7 10^3/uL (4.8-10.8)
[2024-02-10 22:17] LABS: Anisocytosis 4+; Normal RBC Morphology No
[2024-02-10 22:18] LABS: Acanthocytes 1+; Microcytosis 3+; Ovalocytes 1+; Polychromasia 2+; Target Cells 1+
[2024-02-10 22:19] LABS: Poikilocytosis 1+
[2024-02-10 22:20] LABS: % Basophils 0.1 % (0-2); % Eosinophils 0.2 % (0-6); % Immature Granulocytes 2.7 % (0-0.5); % Lymphocytes 6.6 % (20.5-51.1); % Monocytes 7.3 % (1.7-9.3); % Neutrophils 83.1 % (42.2-75.2); Absolute Immature Granulocytes 0.3 10^3/uL (0-0.05); Absolute Lymphocytes 0.7 10^3/uL (1.2-3.4); Absolute Monocytes 0.8 10^3/uL (0.1-0.6); Absolute Neutrophils 8.9 10^3/uL (1.4-6.5); Nucleated Red Blood Cells % 0.9 % (-)
[2024-02-10 22:23] LABS: ALT (SGPT) 43 U/L (0-50); AST (SGOT) 38 U/L (17-59); Albumin 2.7 g/dl (3.5-5.0); Alkaline Phosphatase 81 U/L (38-126); Blood Urea Nitrogen 43 mg/dl (9-20); Calcium 8.2 mg/dl (8.4-10.2); Carbon Dioxide 11 mmol/L (22-30); Chloride 101 mmol/L (98-107); Estimated Creatinine Clearance 74 ml/min; Glucose 250 mg/dl (70-99); Potassium 4.7 mmol/L (3.5-5.1); Sodium 137 mmol/L (135-145); Total Bilirubin 0.7 mg/dl (0.2-1.3); Total Protein 4.7 g/dl (6.3-8.2); eGFR > 60.00
--- NOTE | 2024-02-10 22:28 | ED.GENMED ---
History of Present Illness
<Zelalem García PA-C - Last Filed: 02/11/24 01:32>
General
Chief Complaint: Fainting/Passed Out
Time Seen by Provider: 02/10/24 21:56
History of Present Illness
History of Present Illness:
73-year-old male with history of pancreatic cancer presents to the emergency department for evaluation after a syncopal event at home. states the patient has been increasingly fatigued over the past week however today attempting to get up the
stairs he syncopized. Arrives by EMS. Markedly pale and hypotensive. He is scheduled to begin chemotherapy next week at [facility]. After initial diagnosis in mid December he was transferred to [place] where he had endoscopic ultrasound
with biopsy and biliary stent placement, this was then complicated by a gastric outlet obstruction and placement of a PEG tube.
Past History
<Zelalem García PA-C - Last Filed: 02/11/24 01:32>
Past History
ED Past Medical History: Seizures (History of 1 seizure suspected to be related to sertraline) and Other (Asbestosis, diverticulosis, anxiety, depression)
Review of Systems
<Zelalem García PA-C - Last Filed: 02/11/24 01:32>
Review of Systems
Allergies reviewed?: Yes
All Other Systems: ROS reviewed and negative except as documented in HPI and ROS
Phy Exam
<SHAUNNA Diaz Last Filed: 02/11/24 01:32>
Physical Exam
Physical Exam:
GEN: W ill-appearing, markedly pale, somnolent
Eyes: PERRLA, EOMs intact, no scleral icterus
HENT: NCAT, oral mucosa dry
Lungs: CTAB, no wheezes, rales, rhonchi, normal chest wall excursion
Cardiac: RRR, no M/R/G, no peripheral edema. Radial pulses 2+ bilat
Abdomen: Soft, mildly distended, biliary drain and feeding tube in place
Neuro: Somnolent, arouses to voice, disoriented, moves all extremities freely
MSK: No gross deformity or ecchymosis. No edema. No digital clubbing
Skin: No rashes, petechiae. Normal color, no pallor or jaundice.
Psych: Calm, cooperative, proper hygiene
Course
<Zelalem García PA-C - Last Filed: 02/11/24 01:32>
Orders/Labs/Results
Orders:
Orders
02/10/24 21:39
Electrocardiogram (*1) Urgent
Reason for Study: Syncope
02/10/24 21:41
EKG- Treatment ONCE
02/10/24 21:43
Complete Blood Count/With Diff Urgent
Comprehensive Metabolic Panel Urgent
02/10/24 22:05
Type And Crossmatch [Type+Screen] Urgent
02/10/24 22:11
Blood Bank Products [* Blood Bank Products] Urgent
Blood Bank Products: *Packed RBC Leuko(PRBC's)
Quantity: 2
Transfuse Today: Yes
Reason: Anemia
02/10/24 22:13
ABO2 Urgent
BBK Wristband Number:
Associate notified that ABO2 has been ordered: [id number]/CHIN
Date: 02/10/24
Time: 22:01
Underground Utility Locator ID: [id number]
02/10/24 22:23
Prothrombin Time Urgent
Is patient on Coumadin/Warfarin?: Unknown
02/10/24 22:31
Venous Blood Gas Urgent
%Oxygen/Room Air: 99
02/10/24 22:53
Blood Culture Q30M
ILONEL Source: Blood/Venous
Specimen Description:
02/10/24 22:55
Blood Culture Q30M
LIONEL Source: Blood/Venous
Specimen Description:
02/11/24 00:00
Ct Chest/Abd/Pel Angio W/Wo Iv Urgent
Reason For Exam: severe/rapid anemia eval for occult hemorrhage
02/11/24 00:48
Pantoprazole [Protonix IV] 80 mg IV NOW STA
02/11/24 01:00
Pantoprazole 80 mg/100 ml Nss [Protonix] 80 mg in 100 ml IV Q10H
Abnormal Lab Results
02/10/24 02/10/24 02/10/24
21:43 22:05 22:23
RBC 1.12 L 10^6/uL
(4.70-6.10)
Hgb 3.6 L* g/dL
(13.0-18.0)
Hct 12.1 L* %
(39.0-52.0)
MCV 108.0 H fL
(80.0-94.0)
MCH 32.1 H pg
(27.0-31.0)
MCHC 29.8 L g/dL
(33.0-37.0)
RDW 18.7 H %
(11.5-14.5)
Abs Immat Gran (auto) 0.3 H 10^3/uL
(0-0.05)
Absolute Neuts (auto) 8.9 H 10^3/uL
(1.4-6.5)
Absolute Lymphs (auto) 0.7 L 10^3/uL
(1.2-3.4)
Absolute Monos (auto) 0.8 H 10^3/uL
(0.1-0.6)
Immature Gran % 2.7 H %
(0-0.5)
Neutrophils % 83.1 H %
(42.2-75.2)
Lymphocytes % 6.6 L %
(20.5-51.1)
PT 15.7 H Sec
(11.4-14.6)
VBG pCO2
VBG pO2
VBG HCO3
Carbon Dioxide 11 L* mmol/L
(22-30)
BUN 43 H mg/dl
(9-20)
Glucose 250 H mg/dl
(70-99)
Calcium 8.2 L mg/dl
(8.4-10.2)
Total Protein 4.7 L g/dl
(6.3-8.2)
Albumin 2.7 L g/dl
(3.5-5.0)
Crossmatch IS Only See Detail
02/10/24
22:31
RBC
Hgb
Hct
MCV
MCH
MCHC
RDW
Abs Immat Gran (auto)
Absolute Neuts (auto)
Absolute Lymphs (auto)
Absolute Monos (auto)
Immature Gran %
Neutrophils %
Lymphocytes %
PT
VBG pCO2 32 L mmHg
(35-48)
VBG pO2 72 H mmHg
(30-50)
VBG HCO3 16.5 L mmol/L
(22-27)
Carbon Dioxide
BUN
Glucose
Calcium
Total Protein
Albumin
Crossmatch IS Only
02/10/24 21:43
02/10/24 21:43
Vital Signs
Initial and Last Documented VS:
Initial Vital Signs
BP
88/52
02/10/24 21:40
Last Documented Vital Signs
Temp Pulse Resp BP Pulse Ox
98.0 F 91 18 98/60 98
02/11/24 01:20 02/11/24 01:20 02/11/24 01:20 02/11/24 01:20 02/11/24 01:20
<Kacie Cuba MD - Last Filed: 02/10/24 23:14>
Orders/Labs/Results
Orders:
Orders
02/10/24 21:39
Electrocardiogram (*1) Urgent
Reason for Study: Syncope
02/10/24 21:41
EKG- Treatment ONCE
02/10/24 21:43
Complete Blood Count/With Diff Urgent
Comprehensive Metabolic Panel Urgent
02/10/24 22:05
Type And Crossmatch [Type+Screen] Urgent
02/10/24 22:11
Blood Bank Products [* Blood Bank Products] Urgent
Blood Bank Products: *Packed RBC Leuko(PRBC's)
Quantity: 2
Transfuse Today: Yes
Reason: Anemia
02/10/24 22:13
ABO2 Urgent
BBK Wristband Number:
Associate notified that ABO2 has been ordered: [id number]/CHIN
Date: 02/10/24
Time: 22:01
Underground Utility Locator ID: [id number]
02/10/24 22:23
Prothrombin Time Urgent
Is patient on Coumadin/Warfarin?: Unknown
02/10/24 22:31
Venous Blood Gas Urgent
%Oxygen/Room Air: 99
02/10/24 22:53
Blood Culture Q30M
LIONEL Source: Blood/Venous
Specimen Description:
02/10/24 22:55
Blood Culture Q30M
LIONEL Source: Blood/Venous
Specimen Description:
02/11/24 00:00
Ct Chest/Abd/Pel Angio W/Wo Iv Urgent
Reason For Exam: severe/rapid anemia eval for occult hemorrhage
02/11/24 00:48
Pantoprazole [Protonix IV] 80 mg IV NOW STA
02/11/24 01:00
Pantoprazole 80 mg/100 ml Nss [Protonix] 80 mg in 100 ml IV Q10H
Abnormal Lab Results
02/10/24 02/10/24 02/10/24
21:43 22:05 22:23
RBC 1.12 L 10^6/uL
(4.70-6.10)
Hgb 3.6 L* g/dL
(13.0-18.0)
Hct 12.1 L* %
(39.0-52.0)
MCV 108.0 H fL
(80.0-94.0)
MCH 32.1 H pg
(27.0-31.0)
MCHC 29.8 L g/dL
(33.0-37.0)
RDW 18.7 H %
(11.5-14.5)
Abs Immat Gran (auto) 0.3 H 10^3/uL
(0-0.05)
Absolute Neuts (auto) 8.9 H 10^3/uL
(1.4-6.5)
Absolute Lymphs (auto) 0.7 L 10^3/uL
(1.2-3.4)
Absolute Monos (auto) 0.8 H 10^3/uL
(0.1-0.6)
Immature Gran % 2.7 H %
(0-0.5)
Neutrophils % 83.1 H %
(42.2-75.2)
Lymphocytes % 6.6 L %
(20.5-51.1)
PT 15.7 H Sec
(11.4-14.6)
VBG pCO2
VBG pO2
VBG HCO3
Carbon Dioxide 11 L* mmol/L
(22-30)
BUN 43 H mg/dl
(9-20)
Glucose 250 H mg/dl
(70-99)
Calcium 8.2 L mg/dl
(8.4-10.2)
Total Protein 4.7 L g/dl
(6.3-8.2)
Albumin 2.7 L g/dl
(3.5-5.0)
Crossmatch IS Only See Detail
02/10/24
22:31
RBC
Hgb
Hct
MCV
MCH
MCHC
RDW
Abs Immat Gran (auto)
Absolute Neuts (auto)
Absolute Lymphs (auto)
Absolute Monos (auto)
Immature Gran %
Neutrophils %
Lymphocytes %
PT
VBG pCO2 32 L mmHg
(35-48)
VBG pO2 72 H mmHg
(30-50)
VBG HCO3 16.5 L mmol/L
(22-27)
Carbon Dioxide
BUN
Glucose
Calcium
Total Protein
Albumin
Crossmatch IS Only
02/10/24 21:43
02/10/24 21:43
Vital Signs
Initial and Last Documented VS:
Initial Vital Signs
BP
88/52
02/10/24 21:40
Last Documented Vital Signs
Temp Pulse Resp BP Pulse Ox
98.0 F 91 18 98/60 98
02/11/24 01:20 02/11/24 01:20 02/11/24 01:20 02/11/24 01:20 02/11/24 01:20
<Zelalem García PA-C - Last Filed: 02/11/24 01:32>
MDM/Problems Addressed
MDM/Problems Addressed:
Patient's severe blood loss anemia is most likely on the basis of occult GI bleed, CT does reveal severe reflux esophagitis and this may be contributory. Hemoccult was performed however there was no stool in the rectal vault thus this was likely a
false negative. Initially the CT angiogram of the chest abdomen pelvis was ordered due to the uncertainty regarding the chronicity of her severe anemia and this did not show any clear evidence of active extravasation however did incidentally note
bilateral subsegmental pulmonary emboli. At this time I feel it is advantageous to treat the patient's blood loss anemia and presumed GI bleed and withhold any anticoagulation for pulmonary embolisms particularly given that these are subsegmental
with no evidence for right heart strain. Certainly this could put the patient at high risk of further decompensation however he will be admitted to the IMU hospitalist service for further management.
<Zelalem García PA-C - Last Filed: 02/11/24 01:32>
*Critical Care Note
Total Time (30-74mins, 75-104mins- exclusive of procedures): 40 minutes
comment:
Critical care time: 40 minutes
Critical care time was exclusive of: Separately billable procedures, treating other patients, and teaching time
Critical care was necessary to treat or prevent imminent or life-threatening deterioration of the following conditions: Acute blood loss anemia/hypotension
Critical care time spent personally by me on the following activities:
[x] Review of old charts
[x] Obtaining history from patient or surrogate
[x] Ordering and review of the laboratory studies
[x] Ordering and review of radiographic studies
[x] Ordering and performing treatments and interventions
[x] Patient patient's response to treatment
[x] Development of treatment plan with patient or surrogate
<Zelalem García PA-C - Last Filed: 02/11/24 01:32>
Update Note
Update Note:
Reviewed notes from discharge summary from [place], where patient was admitted throughout the bulk of the early part of January. Patient was found during that hospital stay to have cholecystitis and biliary tube was placed, additionally due to
gastric outlet obstruction a gastrostomy tube was placed within a plan to exchange for a GJ tube 1 month later. His hemoglobin did downtrend from 10.4 down to a sonal of 8.1 during hospital stay, at time of discharge on 01/27 his hemoglobin was 8.4.
ED Attending Note
<Zelalem García PA-C - Last Filed: 02/11/24 01:32>
-
Portions of this chart may have been created with voice recognition software.� Occasional wrong word or��sound alike� substitutions may have occurred due to the inherent limitations of voice recognition software.
<Kacie Cuba MD - Last Filed: 02/10/24 23:14>
ED Attending Note
Patient seen and examined by attending physician: Yes
I performed the substantive portion of visit, reviewed & personally made and approve the management plan that is documented in note by myself or SOL.: Yes
ED Attending Note:
73 yr old male with recent dx of pancreatic ca, presents after experiencing syncope, overall profound weakness. noted to be pale and hypotensive. Of note, did have labs drawn 2 days ago in [place], ?results. Pt reports feeling tired/week,
denies bleeding/black stool/hematemsis/epistaxis etc etc. On exam, extremely pale, conj pale, mmdry, awake and oriented. Anemia noted, tx ordered as well as imaging to define etiology.
Discharge Plan
Departure
Patient Disposition: Admit
Date of Disposition: 02/11/24
Time of Disposition: 00:48
Admit to: IMU
Presentation/result/management discussed w/ accepting MD/DO: Hospitalist
Discharge Problem:
Acute blood loss anemia, Syncope, Bilateral pulmonary embolism, Esophagitis, reflux
Prescriptions:
No Action
lamotrigine [Lamictal] 150 mg Tablet
300 mg PO HS
acetaminophen [Tylenol] 325 mg Tablet
650 mg PO Q6HPRN PRN (Reason: mild pain)
therapeutic multivitamin Tablet
1 tab PO DAILY
simvastatin [Zocor] 20 mg Tablet
20 mg PO HS
lacosamide [Vimpat] 100 mg tablet
100 mg PO BID Qty: 60 0RF
quetiapine [Seroquel] 25 mg Tablet
25 mg PO HS
aspirin 81 mg Tablet,Delayed Release (Dr/Ec)
81 mg PO DAILY
lamotrigine [Lamictal] 25 mg Tablet
50 mg PO HS
desvenlafaxine succinate 50 mg Tablet Extended Release 24 Hr
50 mg PO DAILY
Referrals:
Van Duke MD [Family Provider] -
Interventions
Interventions:
*Risk Screen - Suicide Last Done: 02/10/24 21:45
*General Assessment Last Done: 02/10/24 21:45
*Neglect/Abuse Screening Last Done: 02/10/24 21:45
*ED COVID-19 Vaccine History Last Done: 02/10/24 21:54
ED- Cardiac Assessment Last Done: 02/10/24 21:54
ED- Neurological Assessment Last Done: 02/10/24 21:54
Discharge Date and Time
Print Language: MACEDONIAN
[2024-02-10 22:39] LABS: INR 1.22; PT 15.7 Sec (11.4-14.6)
[2024-02-10 22:49] LABS: Venous Blood Gas B.E. -8.9 mmol/L (-4 to +4); Venous Blood Gas HCO3 16.5 mmol/L (22-27); Venous Blood Gas O2 Sat % 98.1 %; Venous Blood Gas pCO2 32 mmHg (35-48); Venous Blood Gas pH 7.32 (7.32-7.43); Venous Blood Gas pO2 72 mmHg (30-50)
[2024-02-11] VITALS (40 sets, daily range): BP systolic 89–120; BP diastolic 54–77; BMI 19.7
[2024-02-11] MEDS: PROTONIX IV 80 MG IV (01:04)
[2024-02-11] MEDS: PROTONIX 100 IV ×2 (01:10→09:23)
--- NOTE | 2024-02-11 03:15 | HPS.HSE ---
Family Physician
-
Family Physician: Van Duke
Chief Complaint
-
Syncope
History of Present Illness
Patient is a 73y M with PMH significant for recently diagnosed pancreatic cancer with multiple associated complications who presents to ED complaining of syncope event at home. Patient states that he has been feeling progressively more weak and
fatigued over the past several days. He was initially hospitalized here 12/29 and found to have new pancreatic mass. He was transferred to [facility] at that time for endoscopic exam / stenting. He has since had multiple admissions at [facility] and was most
recently discharged Tuesday. He had placement of G-tube during that most recent hospital stay.
Patient notes progressive weakness / fatigue since his return home. Today while climbing the stairs with assistance from his , the patient became extremely weak and lost consciousness. He was lowered to the ground and there was apparently no
significant trauma or injury. Patient was brought to the ED for further evaluation and treatment.
Patient is extremely stoic and essentially denies all complaints other than fatigue at this time.
He denies any abdominal pain, back pain, N/V/D, bloody or black stools, chest pain, dyspnea, fevers / chills, etc.
Medical History
Past Medical History
Past Medical History: Reports Other
Additional Past Medical History:
Metastatic Pancreatic Cancer
Emphysematous Cholecystitis
Gastric Outlet Obstruction
Asbestosis
Anxiety / Depression
Seizure Disorder (presumed secondary to Wellbutrin)
Past Surgical History: Reports Other
Additional Past Surgical History:
ERCP with Bare Metal Biliary Stent
Cholecystostomy Tube Placement
Gastrostomy Tube Placement
R ACW Port Placement
Hernia Repair
Cervical Fusion
Nasal Surgery
Social History
Tobacco: Non-smoker
Alcohol: None
Drug: None
Personal:
Family History
Family History: Other (Mother: CAD MGF: Gastric Cancer MGM: Breast Cancer)
Allergies / Home Medications
Allergies reflects when Allergies were last updated in [employer].
Home Medications with original date entered in [employer]
Allergy/Medication List:
Allergies
Allergy/AdvReac Type Severity Reaction Status Date / Time
sertraline Allergy seizure Verified 01/04/24 20:51
Home Medications
acetaminophen 325 mg tablet (Tylenol) 650 mg PO Q6HPRN PRN mild pain 03/14/23
lamotrigine 150 mg tablet (Lamictal) 300 mg PO HS seizure 03/14/23
simvastatin 20 mg tablet (Zocor) 20 mg PO HS High Cholesterol 03/14/23
therapeutic multivitamin 1 tab PO DAILY Supplement 03/14/23
lacosamide 100 mg tablet (Vimpat) 100 mg PO BID #60 tabs 03/18/23
aspirin 81 mg tablet,delayed release 81 mg PO DAILY Blood Clot Prevention/Tx 12/30/23
desvenlafaxine succinate 50 mg tablet,extended release 24 hr 50 mg PO DAILY Mental Health/Anxiety 12/30/23
lamotrigine 25 mg tablet (Lamictal) 50 mg PO HS Seizures 12/30/23
quetiapine 25 mg tablet (Seroquel) 25 mg PO HS Mental Health/Anxiety 12/30/23
Review of Systems
-
History Source: Patient
A 12 point ROS was completed and negative except as noted: Yes
Constitutional: Reports Fatigue; Denies Fever or Chills
EENT: Denies Sore Throat
Respiratory: Denies Cough or Trouble Breathing
Cardiac: Denies Chest Pain or Palpitations
Abdomen/GI: Denies Abdominal Pain, Nausea, Vomiting, Diarrhea, Constipated, Bloody Stools, Black Stools or Anorexia
: Denies Dysuria, Frequency or Flank Pain
Musculoskeletal: Denies Joint Pain
Neurological: Reports Weakness; Denies Dizzy or Headache
Psych: Denies Depression or Anxiety
Physical Exam
Vital Signs
Vital Signs
Temp Pulse Resp BP Pulse Ox
98.1 F 88 18 100/65 100
02/11/24 02:39 02/11/24 02:39 02/11/24 02:39 02/11/24 02:39 02/11/24 02:39
Physical Exam
General: Other (Frail, chronically ill-appearing 73y M in no acute distress. Pale appearing.)
HEENT: PERRLA and Other (Dry MM.)
Respiratory: Other (Decreased at bases - otherwise clear.)
Cardiac: S1/S2 and Regular Rhythm; No Murmur
GI: Soft, Non Tender, Non Distended, Normal Bowel Sounds and Other (G-tube in place without bleeding / erythema. Med tube in place with scant biliary drainage in device. Site OK. No tenderness. Pos BS.)
Musculoskeletal: No Clubbing, No Cyanosis and Other (1+ pitting pedal edema.)
Skin: Other (R ACW port in place. Mild erythema overlying tunneled portion of port. No tenderness / induration.)
Neuro: Awake and Alert
Laboratory Results
-
02/10/24 21:43
02/10/24 21:43
Laboratory Results
PT 15.7 Sec (11.4-14.6) H 02/10/24 22:23
INR 1.22 02/10/24 22:23
Total Bilirubin 0.7 mg/dl (0.2-1.3) 02/10/24 21:43
AST 38 U/L (17-59) 02/10/24 21:43
ALT 43 U/L (0-50) 02/10/24 21:43
Alkaline Phosphatase 81 U/L (38-126) 02/10/24 21:43
Impression/Plan
-
A/P: Patient is a 73y M with PMH significant for pancreatic cancer and multiple associated complications who presents to ED this evening following a syncopal episode at home.
Severe Symptomatic Anemia
- Admit for further evaluation and treatment.
- Hgb today is 3.6. Recent discharge from [facility] (Tuesday) Hgb was 8.4. Was 14 during initial visit here in December.
- Patient denies any noted / gross bleeding at home. Including black / dark stools.
- Hemoccult in the ED today was reportedly negative but with no stool in rectal vault.
- Transfused initial 2 units PRBCs for now - will very likely require additional blood product support.
- Follow H&H and transfuse additional units as needed.
- CTA done in the ED this evening with no evidence of significant intra-abdominal / retroperitoneal bleeding, etc.
- Perhaps mild suggestion of R psoas hematoma - but doubtful this would account for such a precipitous Hgb drop.
- Patient not yet started on any chemo agents that could contribute to cytopenias.
- PPI infusion started in the ED and will continue.
- GI evaluation for additional recommendations.
- Monitor for clinical improvement coincident with improvement in anemia.
Syncope
- Syncopal episode at home very likely secondary to severe symptomatic anemia as noted above.
- ? seizure activity as well given prior h/o same (though reportedly med-induced) and marked anion gap acidosis on initial labs.
- Monitor on telemetry for any arrhythmia.
- Follow for any new/ recurrent symptoms.
Anion Gap Metabolic Acidosis
- Anion gap on initial labs is 25. Lactate added to labs and is pending.
- No known history of DM, but with new pancreatic malignancy, hyperglycemia, etc.
- IVF support with supplemental bicarb for now.
- Follow-up lactate level, A1C, etc.
- Follow labs / lytes for improvement with volume replacement, transfusion, etc.
Adenocarcinoma of the Pancreas
Emphysematous Cholecystitis secondary to the above
Gastric Outlet Obstruction secondary to the above
- Recent diagnosis with multiple complications as noted. Not yet started chemo (due to begin Tuesday per patient).
- Maintain med tube for now and monitor outputs.
- G-tube somewhat confounding as records note this was placed for functional gastric outlet obstruction / decompression; however, it was then utilized for feeds?
- There was tentative plan for exchange to G-J tube would would allow both - but this has not yet occurred.
- Will hold on tube feeds for now. G-tube can be used to vent to gravity if any N/V, etc.
- GI evaluation as noted above.
- Oncology evaluation for additional recommendations.
- Speech evaluation prior to advancing oral diet.
Bilateral Subsegmental Pulmonary Emboli
- Noted on CTA done today. No chest pain, dyspnea, palpitations, etc.
- Will hold on therapeutic anticoagulation for now given severe anemia / presumed blood loss and absence of symptoms related to PE.
- Heme/Onc evaluation as noted above.
- IR eval for consideration of IVC filter placement?
- Monitor for any new symptoms, hypoxemic, etc.
- Check Echo.
Seizure Disorder
- Reportedly seizures were attributed to Wellbutrin; however, patient remains on AED regimen.
- ? recurrent seizure resulting in syncope today - especially given acidosis?
- Seizure precautions.
- Continue current AED regimen without interruption.
- Monitor for any evidence of recurrent seizures.
Code Status: Full
[2024-02-11 03:42] LABS: Lactic Acid 2.2 mmol/L (0.7-2.0)
[2024-02-11 06:36] LABS: Glucose - Point of Care 140 mg/dl (70-99)
[2024-02-11 06:58] LABS: Hematocrit 16.1 % (39.0-52.0); Hemoglobin 5.4 g/dL (13.0-18.0)
[2024-02-11] MEDS: NOVOLOG FLEXPEN-LOW RESISTANCE SC ×2 (07:02→16:56)
--- NOTE | 2024-02-11 07:08 | CON.ONC ---
Impression
Impression
newly diagnosed metastatic pancreatic cancer, has not started systemic therapy yet
cholecystitis s/p perc med
G tube placed for functional gastric outlet obstruction/decompression but now being used for tube feeding since 01/25
symptomatic severe anemia
Plan
Plan
check ferritin, TIBC, iron sat, iron, B12, folate, retic
follow Bcx, Ucx
check heme stool, monitor for bleeding
check US LE
agree with transfusion support
OP follow up with primary oncologist at [facility] for next steps in medical oncology care.
Patient History
History of Present Illness
73yo M with recently diagnosed pancreatic cancer presented after a syncopal event at home. He has been feeling progressively weak for the past several days and upon climbing the stairs with his 's assistance, he experienced syncope. He was
lowered to the ground without traumatic injury. He had a G tube placed during his most recent [facility] hospitalization. Initial evaluation was notable for a Hgb 3.6g/dL, which has trended down from Hgb was 8.4g/dL during last [facility]
hospitalization, and 14g/dL during initial visit here in December. He denies any overt bleeding. CTA chest, ab, pelvis is pending. He was admitted and transfused with prbc.
Recall that he presented din December with obstructive jaundice, 25lb weight loss, and abdominal pain for which further work-up was diagnostic for pancreatic cancer. His diagnosis has been complicated by emphysematous cholecystitis s/p perc med
and he had a G tube placed for functional gastric outlet obstruction/decompression but now being used for tube feeding. There was a tentative plan to transition to GJ tube to allow for feeding and decompression, however, has not occurred yet. Due
to recurrent hospitalizations, no treatment has been initiated for his pancreatic cancer yet.
Clinically, denies fever, chills, cough, sob, sarkar, chest pain, palpitations, n/v/d/c or abdominal pain.
Afebrile, no hypoxia or hypotension
Past-Medical/Surgical History
PMH hyperlipidemia, asbestosis, seizure secondary to Wellbutrin, depression, anxiety, [place], and GERD
PSH ERCP with Bare Metal Biliary Stent, Cholecystostomy Tube Placement , Gastrostomy Tube Placement, R ACW Port Placement, Hernia Repair, Cervical Fusion, Nasal Surgery
Social non-smoker, denies ETOH or recreational drugs. LIves with
Family maternal grandmother breast cancer, maternal grandfather gastric cancer.
Patient Medication
�Medication �Instructions �Recorded �Confirmed �Last Taken �Type
acetaminophen 325 mg tablet 650 mg PO Q6HPRN PRN mild pain 03/14/23 02/10/24 12/29/23 History
(Tylenol)
lamotrigine 150 mg tablet 300 mg PO HS seizure 03/14/23 02/10/24 12/29/23 History
(Lamictal)
simvastatin 20 mg tablet (Zocor) 20 mg PO HS High Cholesterol 03/14/23 02/10/24 12/29/23 History
therapeutic multivitamin 1 tab PO DAILY Supplement 03/14/23 02/10/24 12/29/23 History
lacosamide 100 mg tablet (Vimpat) 100 mg PO BID #60 tabs 03/18/23 02/10/24 12/30/23 Rx
aspirin 81 mg tablet,delayed 81 mg PO DAILY Blood Clot 12/30/23 02/10/24 12/30/23 History
release Prevention/Tx
desvenlafaxine succinate 50 mg 50 mg PO DAILY Mental 12/30/23 02/10/24 12/30/23 History
tablet,extended release 24 hr Health/Anxiety
lamotrigine 25 mg tablet (Lamictal) 50 mg PO HS Seizures 12/30/23 02/10/24 12/29/23 History
quetiapine 25 mg tablet (Seroquel) 25 mg PO HS Mental Health/Anxiety 12/30/23 02/10/24 12/29/23 History
Active Medications
Generic Name Dose Route Start Last Admin
Trade Name Freq PRN Reason Stop Dose Admin
Acetaminophen 650 mg 02/11/24 05:59
Acetaminophen 325 Mg Tablet PO 03/10/24 05:58
Q4HPRN PRN
Mild Pain / Temp > 101
Dextrose 12.5 grams 02/11/24 05:59
Dextrose 50% (0.5 Grams/Ml) 50 Ml Syringe IV 03/10/24 05:58
[id number] PRN
hypoglycemia
Protocol
Glucagon 1 mg 02/11/24 05:59
Glucagon 1 Mg Vial IM 03/10/24 05:58
PRN PRN
hypoglycemia
Protocol
Pantoprazole Sodium 80 mg in 100 mls @ 10 mls/hr 02/11/24 01:00 02/11/24 01:10
Protonix IV 100 mls
Q10H BAO Administration
8 MG/HR
Sodium Bicarbonate 150 meq/ 1,150 mls @ 100 mls/hr 02/11/24 05:59
Sterile Water IV 02/12/24 05:58
.[id number] BAO
Insulin Aspart 0 units 02/11/24 06:00 02/11/24 07:02
Insulin Aspart Low Resistance 300 Units/3 Ml Pen.Injctr SC 03/10/24 05:59 Not Given
Q6 BAO
Protocol
Lacosamide 100 mg 02/11/24 08:00
Lacosamide (Vimpat) 100 Mg Tablet PO 03/10/24 07:59
BID BAO
Lamotrigine 300 mg 02/11/24 22:00
Lamotrigine 100 Mg Tablet PO 03/10/24 21:59
HS BAO
Lamotrigine 50 mg 02/11/24 22:00
Lamotrigine 25 Mg Chewable Tablet PO 03/10/24 21:59
HS BAO
Morphine Sulfate 2 mg 02/11/24 05:59
Morphine 2 Mg/Ml Syringe IV 02/25/24 05:58
Q4HPRN PRN
Severe Pain
Ondansetron HCl 4 mg 02/11/24 05:59
Ondansetron 4 Mg/2 Ml Vial IV 03/10/24 05:58
Q6HPRN PRN
nausea and vomiting
Quetiapine Fumarate 25 mg 02/11/24 22:00
Quetiapine 25 Mg Tablet PO 03/10/24 21:59
HS ABO
Sodium Chloride 0 flush 02/11/24 07:00
Sodium Chloride 0.9% (Flush) Syringe IV 03/10/24 06:59
PER PROTOCOL BAO
Review of Systems
-
Review of systems notable for HPI, otherwise negative
Physical Exam
-
General: No Apparent Distress
HEENT: Moist Mucous Membranes; Negative Jaundice
Cardiology: Normal Sinus Rhythm
Pulmonary: Clear
GI: Soft and Other (G tube)
Extremities: Pulses Present and Edema (+1 b/l LE)
Neurology: Non Focal
Skin: Warm and Other (mild erythema over chest port)
Psych: Calm
Labs
Lab Results
WBC 10.7 10^3/uL (4.8-10.8) 02/10/24 21:43
RBC 1.12 10^6/uL (4.70-6.10) L 02/10/24 21:43
Hgb Cancelled 02/11/24 23:59
Hct Cancelled 02/11/24 23:59
MCV 108.0 fL (80.0-94.0) H 02/10/24 21:43
MCH 32.1 pg (27.0-31.0) H 02/10/24 21:43
MCHC 29.8 g/dL (33.0-37.0) L 02/10/24 21:43
RDW 18.7 % (11.5-14.5) H 02/10/24 21:43
Plt Count 353 10^3/uL (130-400) 02/10/24 21:43
MPV 9.6 fL (7.4-10.4) 02/10/24 21:43
Abs Immat Gran (auto) 0.3 10^3/uL (0-0.05) H 02/10/24 21:43
Absolute Neuts (auto) 8.9 10^3/uL (1.4-6.5) H 02/10/24 21:43
Absolute Lymphs (auto) 0.7 10^3/uL (1.2-3.4) L 02/10/24 21:43
Absolute Monos (auto) 0.8 10^3/uL (0.1-0.6) H 02/10/24 21:43
Absolute Eos (auto) 0.0 10^3/uL (0-0.7) 02/10/24 21:43
Absolute Basos (auto) 0.0 10^3/uL (0-0.2) 02/10/24 21:43
Immature Gran % 2.7 % (0-0.5) H 02/10/24 21:43
Neutrophils % 83.1 % (42.2-75.2) H 02/10/24 21:43
Lymphocytes % 6.6 % (20.5-51.1) L 02/10/24 21:43
Monocytes % 7.3 % (1.7-9.3) 02/10/24 21:43
Eosinophils % 0.2 % (0-6) 02/10/24 21:43
Basophils % 0.1 % (0-2) 02/10/24 21:43
Creatinine 0.9 mg/dL (0.7-1.3) 02/10/24 21:43
Vital Signs
Vital Signs
Temp Pulse Resp BP Pulse Ox
98.1 F 91 18 107/70 96
02/11/24 02:39 02/11/24 06:01 02/11/24 05:30 02/11/24 06:00 02/11/24 06:18
--- NOTE | 2024-02-11 07:15 | PTCARENOTE ---
Pt admitted to ICU with IMU order. PT AAOX3, flat affect but pleasant. NSR in the tele monitor. +1 BLLE edema. Lung sounds are diminished and fine crackles at the bases of Rt lung. Shallow breathing, SaO2 95% in RA. Pt has a Rt biliary drain, and
mid abd Peg tube. pt states his last feed was 02/09. Pt continues to eat pureed diet. Abd is round. + BS. Q2 turn. Scarum is red and blanchable. pt appears comfortable in bed. Lab work drawn and send. Will continue w/ tx plan. Q6 accu checks done.
[2024-02-11 07:20] LABS: ALT (SGPT) 40 U/L (0-50); AST (SGOT) 59 U/L (17-59); Albumin 2.3 g/dl (3.5-5.0); Alkaline Phosphatase 60 U/L (38-126); Blood Urea Nitrogen 50 mg/dl (9-20); Calcium 7.7 mg/dl (8.4-10.2); Carbon Dioxide 26 mmol/L (22-30); Chloride 104 mmol/L (98-107); Direct Bilirubin 0.3 mg/dl (0.0-0.4); Estimated Creatinine Clearance 79 ml/min; Glucose 121 mg/dl (70-99); Magnesium 2.2 mg/dl (1.6-2.3); Phosphorus 4.6 mg/dl (2.5-4.5); Potassium 4.9 mmol/L (3.5-5.1); Sodium 137 mmol/L (135-145); Total Bilirubin 1.5 mg/dl (0.2-1.3); Total Protein 4.2 g/dl (6.3-8.2); eGFR > 60.00
[2024-02-11] MEDS: SODIUM BICARBONATE 1150 MEQ IV (07:58)
[2024-02-11 08:02] LABS: Reticulocyte Count 8.2 % (0.4-2.8)
[2024-02-11] MEDS: VIMPAT 100 MG PO ×2 (08:13→19:37)
--- NOTE | 2024-02-11 08:27 | PTCARENOTE ---
pt requested bedpan for bm. Had 50 ml clear fluid returned, no stool. GI PA at bedside and aware.
[2024-02-11 08:34] LABS: Iron 142 ug/dl (49-181)
[2024-02-11 08:41] LABS: Percent Saturation 52 % (20-50); Total Iron Binding Capacity 270 ug/dl (261-462)
--- NOTE | 2024-02-11 08:59 | CON.GI ---
Addendum entered and electronically signed by Aram Newman MD 02/11/24 13:33:
Of note, cscope [address] Cal lafleur prep and tics
Addendum entered and electronically signed by Aram Newman MD 02/11/24 13:30:
I saw and examined the patient.
The SHEARING MACHINE OPERATOR or PA's note was reviewed and I agree with the note.
Comment: 73-year-old male recent diagnosis of pancreatic cancer with plans to start chemo next week presenting with syncope in the setting of weakness and fatigue recently. He was found to have a hemoglobin of 3.6. He has been given 2 units of
blood and is currently at 5. He was discharged from [facility] according to the ER notes on January 27 with a hemoglobin of 8.4. No reports of overt bleeding. Guaiac both in the ER and by my physician plumber's assistant were negative. He underwent a CTA
chest abdomen pelvis which showed probable small intramuscular hematoma in the right psoas muscle, pulmonary emboli with no right heart strain, mild pulmonary fibrosis, stable dilated esophagus with distended stomach likely reflux disease gastric
distention improved, cholecystectomy tube, PEG tube, moderate ascites greater in the pelvis significantly progressed, pancreatic lesion with ductal dilation, portal vein thrombosis.
Patient with significant drop in hemoglobin with no overt bleeding. Hematoma may be playing a role but it is small and on discussion with Dr. Zamora hospitalist he feels it is less likely to be the explanation for such a significant drop in
hemoglobin. He could be bleeding from a GI source although would expect more overt bleeding.
Typically in the scenario with brown stool and anemia I would recommend an endoscopy and a colonoscopy but given his overall weakness and comorbidities, I think it is prudent to start with an upper endoscopy first. I discussed with the family and
patient at bedside and they are agreeable. We will plan for the endoscopy tentatively on Tuesday although if he has significant bleeding we will proceed with sooner. I will keep him on clear liquid diet in case he does have significant bleeding
requiring urgent endoscopy. I will switch his PPI drip for now to IV twice daily without significant over bleeding.
I discussed with both hospitalist and hematology and oncology regarding heparin gtt with PE/PVT decision is made to hold at this time.
Original Note:
Consultation
-
Date/Time Consultation Requested: 02/11/24 0559
Date/Time Consultation Performed: 02/11/24 0881
Requesting Provider: Dr. Arciniega
Performing Provider: Dr. Newman / Bev Webb PA-C
Reason for Consultation: anemia, pancreatic CA
Medical History
Chief Complaint / HPI
Chief Complaint: syncope
History of Present Illness:
This is a 73 year old male with a past medical history of recently diagnosed pancreatic cancer (metastatic to right lung), hyperlipidemia, asthma, seizures, depression and anxiety with multiple recent admission at [facility] (was just discharged
02/06/24) who presented to the hospital after syncopal episode at home, witnessed by , with complaints of progressive weakness and fatigue over the past few days. He denies any injury from recent syncope, states his was able to help lower
him to the ground. ER labs 02/10/24 revealed a severe anemia with hemoglobin on 3.6 and patient was transfused 2 units of PRBCs. Repeat Hgb 5.4, with macrocytic indices (MCV 108, MCH 32.1); iron studies and B12/folate pending. Patient denies any
melena or hematochezia. No dale bleeding. He denies abdominal pain, nausea, vomiting, diarrhea, fever or chills. He states he has felt constipated with last BM reportedly yesterday. CTA chest/abdomen/pelvis ordered; official read pending.
Hematology/Oncology also consulted.
Patient was last admitted at 12/30/23 with transfer to [facility] on 12/30 for EUS/ERCP as the pancreatic head mass was noted to be completely obstructing both the common bile duct and pancreatic duct, with ERCP with stenting performed on 01/02/24
at [facility]. He was discharged the following day but returned to on 01/03 with complaints of severe abdominal pain, had CT scan done with concern for gastric outlet obstruction. NGT was placed and patient was transferred back to [facility], where
he underwent endoscopy with ultimate GJ tube placement. He reports that he is scheduled to start chemotherapy next week with [facility], but also planned to seek a second opinion at [facility].
Past Medical History
Past Medical History: Other (recently diagnosed pancreatic cancer (metastatic to right lung), hyperlipidemia, asthma, seizures, depression and anxiety)
Past Surgical History: Other (ERCP with Metal Biliary Stent, Cholecystostomy Tube Placement, Gastrostomy Tube Placement, R ACW Port Placement, Hernia Repair, Cervical Fusion, Nasal Surgery)
Social History
Tobacco: Non-Smoker
Alcohol: None
Drug: None
Living: With Family
Family History
Family History: Other (maternal grandfather had stomach cancer; no other family history of GI malignancies)
Allergies / Home Medications
Allergy/AdvReac Type Severity Reaction Status Date / Time
sertraline Allergy seizure Verified 01/04/24 20:51
�Medication �Instructions �Recorded
acetaminophen 325 mg tablet 650 mg PO Q6HPRN PRN mild pain 03/14/23
(Tylenol)
lamotrigine 150 mg tablet 300 mg PO HS seizure 03/14/23
(Lamictal)
simvastatin 20 mg tablet (Zocor) 20 mg PO HS High Cholesterol 03/14/23
therapeutic multivitamin 1 tab PO DAILY Supplement 03/14/23
lacosamide 100 mg tablet (Vimpat) 100 mg PO BID #60 tabs 03/18/23
aspirin 81 mg tablet,delayed 81 mg PO DAILY Blood Clot 12/30/23
release Prevention/Tx
desvenlafaxine succinate 50 mg 50 mg PO DAILY Mental 12/30/23
tablet,extended release 24 hr Health/Anxiety
lamotrigine 25 mg tablet (Lamictal) 50 mg PO HS Seizures 12/30/23
quetiapine 25 mg tablet (Seroquel) 25 mg PO HS Mental Health/Anxiety 12/30/23
Review of Systems
-
History Source: Patient
All other systems: A 12 pt ROS was Negative except as stated above in HPI
Vital Signs
Temp Pulse Resp BP Pulse Ox
97.8 F 90 18 107/62 94
02/11/24 07:35 02/11/24 08:00 02/11/24 05:30 02/11/24 08:00 02/11/24 08:36
Physical Exam
Exam
General: Well Developed, Well Nourished and No Apparent Distress
Respiratory: Clear
Cardiac: Regular Rhythm
GI: Soft, Non Tender, Non Distended and Normal Bowel Sounds
Rectal: Other (no stool present in rectal vault; hemoccult negative)
Skin: Warm and Dry
Neuro: AO x 3
Psych: Calm
Results
WBC 10.7 10^3/uL (4.8-10.8) 02/10/24 21:43
Hgb Cancelled 02/11/24 23:59
Hct Cancelled 02/11/24 23:59
MCV 108.0 fL (80.0-94.0) H 02/10/24 21:43
Plt Count 353 10^3/uL (130-400) 02/10/24 21:43
Absolute Neuts (auto) 8.9 10^3/uL (1.4-6.5) H 02/10/24 21:43
PT 15.7 Sec (11.4-14.6) H 02/10/24 22:23
INR 1.22 02/10/24 22:23
Sodium 137 mmol/L (135-145) 02/11/24 06:35
Potassium 4.9 mmol/L (3.5-5.1) 02/11/24 06:35
Chloride 104 mmol/L (98-107) 02/11/24 06:35
Carbon Dioxide 26 mmol/L (22-30) 02/11/24 06:35
BUN 50 mg/dl (9-20) H 02/11/24 06:35
Creatinine 0.8 mg/dL (0.7-1.3) 02/11/24 06:35
Calcium 7.7 mg/dl (8.4-10.2) L 02/11/24 06:35
Total Bilirubin 1.5 mg/dl (0.2-1.3) H 02/11/24 06:35
AST 59 U/L (17-59) 02/11/24 06:35
ALT 40 U/L (0-50) 02/11/24 06:35
Alkaline Phosphatase 60 U/L (38-126) 02/11/24 06:35
Diagnostic Image Results:
CTA chest/abdomen/pelvis 02/11/24:
CT abdomen/pelvis 01/04/24:
1. Pronounced dilation of the stomach and proximal duodenum. Tapering of the duodenum in the region of the pancreatic head. Distention and fluid retention within the distal esophagus. Findings are suggestive of at least partial duodenal obstruction.
Evaluation for complete obstruction is limited by lack of oral contrast.
2. Interval stenting of the common bile duct with a metallic stent. Improved biliary ductal dilation. Expected pneumobilia.
3. Heterogeneity within the pancreatic head, most suggestive of pancreatic adenocarcinoma. Resulting dilation of the pancreatic duct.
4. Mild fecal retention within the cecum suggestive of mild constipation.
5. Dilation of the gallbladder, unchanged compared to prior CT.
6. Right inguinal hernia containing fat and fluid. No bowel loops within the hernia sac.
7. Small lung nodule at the right lung base, unchanged compared to prior study. Consider chest CT to evaluate for traumatic metastasis.
CT abdomen/pelvis 12/30/23:
1. PANCREATIC HEAD ADENOCARCINOMA completely obstructing the common bile and pancreatic ducts. Malignancy encasing and narrowing the common and proper hepatic arteries and occluding the portal-mesenteric vein confluence.
2. Severe intrahepatic, proximal extrahepatic, and gallbladder distention secondary to SEVERE BILIARY OBSTRUCTION.
3. Moderate diffuse distention of the colon with air and fecal material suggesting an adynamic colonic ileus.
4. Mild circumferential wall thickening in the esophagus and gastroesophageal junction which is probably secondary to esophagitis and gastritis.
5. Severe multilevel discogenic degenerative disease in the lumbar spine and evidence for previous bilateral posterior instrumentation from L2 to L5.
6. New solid pulmonary nodules in the right middle and lower lobes. Diagnostic possibilities are (1) pulmonary metastases or (2) infectious/inflammatory pulmonary nodules.
Prior GI Procedures:
EGD: at [facility] - to obtain full records for review
Colonoscopy: 2020, Dr. Mccall: fair prep; diverticulosis.
Assessment / Plan
-
73 year old male with recently diagnosed pancreatic cancer (metastatic to right lung) with multiple recent admission at [facility] (was just discharged 02/06/24) who presented to the hospital after syncopal episode with complaints of progressive
weakness, now with severe symptomatic anemia with initial hemoglobin of 3.6, now 5.4 after 2 units PRBCs. Concern for acute blood loss anemia but not presenting with melena, BRBPR and hemoccult negative on rectal exam.
IMPRESSION / PLAN:
Severe anemia, secondary to acute GI blood loss? vs other
- trend hemoglobin, tranfuse below 7 (additional order for PRBCs in per hospitalist)
- continue IVF
- continue PPI IV
- iron studies, B12 and folate pending
- appreciate Hematology input
- to consider endoscopic evaluation pending above, will discuss further with Dr. Newman
Pancreatic Adenocarcinoma
- to start chemotherapy at [facility] next week and patient reports wishing a second opinion at [facility]
- Oncology evaluation pending
G-J tube / recent GOO
- Per review of records, tube placed fro gastric oulet obstruction and then utlitzed for tube feedings, but patient had not needed tube feeds since most recent hospital discharge (02/06/24) as he was tolerating oral intake. OK to hold on tube
feeds at this time.
- NPO for now
Further GI recommendations to follow. Other medical issues managed per primary medical team and Hematology/Oncology.
-
-
Thank you for consultation and allowing me to participate in the patient's care. Please call the instrumentation engineering technician GI physician during the after hours with any questions or concerns.
[2024-02-11 10:46] LABS: Ferritin 42.7 ng/ml (17.9-464.0)
[2024-02-11 11:02] LABS: Glycohemoglobin (HgbA1c) 5.1 % (4.0-5.6)
[2024-02-11 11:18] LABS: Vitamin B12 958 pg/ml (239-931)
[2024-02-11 11:20] LABS: Hematocrit 15.8 % (39.0-52.0)
[2024-02-11 11:59] LABS: Glucose - Point of Care 152 mg/dl (70-99)
--- NOTE | 2024-02-11 12:04 | PTCARENOTE ---
Hgb resulted. N/O 2U PRCBC Pt offers no complaints. family at bedside. LE US. CB in reach
--- NOTE | 2024-02-11 12:35 | PTOTSP ---
Speech Language Pathology
Pt seen for clinical bedside swallow evaluation. Pt with hx of frontotemporal dementia with course of outpatient cognitive tx with KNITTING MACHINE TENDER at from June-October of this year. at bedside who stated G tube is used for 12 hours of tube feeds
overnight. Pt is limited to pureed items per GI at [facility] secondary to gastric outlet obstruction, but has no difficulty swallowing.
P.O. trials of thin liquids provided via cup and straw. No overt signs of aspiration. Also seen with single tsp of puree for evaluation purposes only. No oral or overt pharyngeal difficulty noted.
Recommend:
(1) Thin liquids (limited to clear liquids at this time per GI)
(2) Advance to IDDSI Level 4 (Puree) and thin liquids when cleared for solids
(3) General aspiration precautions
(4) Meds as tolerated
(5) KNITTING MACHINE TENDER to sign off. Please reconsult as indicated
[2024-02-11] MEDS: NOVOLOG FLEXPEN-LOW RESISTANCE 1 UNITS SC (12:45)
--- NOTE | 2024-02-11 13:00 | PTCARENOTE ---
VAT CALLED TO ACCESS RIGHT SQ PORT. UPON ASSESSMENT, AREA SURROUNDING PORT APPEARED SWOLLEN, WITH AREA OF 'FLUID' UNDER SKIN /SURROUNDING PORT. PER PT FAMILY, PORT RECENTLY PLACED, NEVER BEEN ACCESSED. THIS NURSE OPTED NOT TO ACCESS UNTIL MD
ASSESSES. PIV GIVEN AT THIS TIME, PRIMARY NURSE AWARE
--- NOTE | 2024-02-11 13:39 | W.PN.UPDATE ---
Update Note
Progress Note Update
Non-billable note
1. Acute anemia -reason unclear. Patient was just discharged from [facility] 7 days back and comes with hemoglobin of 3, no reported blood loss. CT abdomen pelvis showed small right psoas hematoma and some free pelvic fluid. No major
coagulopathy/thrombocytopenia and low concern of hemolysis. Reticulocyte count of 8.2 with appropriate bone marrow response. Patient got 2 units of blood and hemoglobin 5, 2 more units ordered.
2. Bilateral PE -small subcentimeter PE in both sides of lung. With new psoas hematoma/anemia we will hold on starting any blood thinners today. No RV strain by CT chest standard. Patient not hypotensive/hypoxic
3. Reported history of gastric outlet obstruction -patient have a G-tube in place which has been used for feeding as well per patient which clinically questionable. Will need further information for [facility].
4. Metastatic pancreatic cancer -patient have port a cath placed but not started on therapy yet. RN reported swelling at the Port-A-Cath site, will examine. Patient also had bare-metal stent placed in CBD.
5. Acute emphysematous cholecystitis -patient is status post cholecystostomy tube placement. CT abdomen pelvis showing air in liver parenchyma as well.
--- NOTE | 2024-02-11 14:45 | CM ---
Reviewed the chart notes and spoke with the patient's spouse via telephone. The patient resides with spouse in a two story home with five steps to enter. The patient has a rolling walker and CPAP. The patient is current with [facility], but no
SNF. The patient's pharmacy of choice is the [facility]. CM continues to be available to patient/family and is monitoring medical plan for needs at discharge.
Plan: Discharge plans will depend on the patient's progress.
--- NOTE | 2024-02-11 14:47 | CM ---
CM following re: discharge planning.
Reviewed pt's chart, met with pt. pt's spouse and daughter at bedside.
Pt is a 73 year old male, admitted with primary dx of Acute anemia
Pt reports he lives with spouse 2SH, 2 steps to enter, has 2 supportive children. Pt reports he is active with [facility] for peg tube management. Pt reports he ambulates with a walker at baseline. Peg tube supplies by [facility]
PCP: [facility]
Pharmacy: [facility]
D/C plan: most likely home with resumptions of [facility] and family support.
CM will follow with discharge plan updates as hospitalization progresses
--- NOTE | 2024-02-11 16:10 | PTCARENOTE ---
1st PRBC unit transfused, pt offers no complaints. Care provided, pt turned and repositioned. No bruising or redness. skin remains CDI. CB in reach. pt resting comfortably.
[2024-02-11 16:56] LABS: Glucose - Point of Care 147 mg/dl (70-99)
--- NOTE | 2024-02-11 16:56 | PTCARENOTE ---
second unit of prbc infusing as ordered. pt resting comfortably without complaint. abdomen more distended then this am, but pt without nausea/vomiting. no interest in dinner currently. family went home for night. will repeat labs after blood
completed.
[2024-02-11 19:09] LABS: Hematocrit 21.5 % (39.0-52.0); Hemoglobin 7.1 g/dL (13.0-18.0)
[2024-02-11 19:15] LABS: Lactic Acid 1.1 mmol/L (0.7-2.0)
--- NOTE | 2024-02-11 19:30 | PTCARENOTE ---
Received patient at 1900. Pt. currently awake, alert, and oriented. Denies pain/discomfort. Afebrile. Heart rhythm sinus. Blood pressure normotensive. Currently on room air. Lungs sound diminished. Clear liquid diet, good appetite. No signs of GI
bleeding at this time. Voiding in urinal without issue. Skin as documented. Discussed plan of care with patient. Vital signs stable at this time.
[2024-02-11] MEDS: NSS (PRESERVATIVE FREE) 10 ML IV (19:37)
[2024-02-11] MEDS: PROTONIX IV 40 MG IV (19:37)
[2024-02-11] MEDS: LAMICTAL 50 MG PO (21:05)
[2024-02-11] MEDS: LAMICTAL 300 MG PO (21:05)
[2024-02-11] MEDS: SEROQUEL 25 MG PO (21:06)
[2024-02-12] VITALS (12 sets, daily range): BP systolic 93–110; BP diastolic 60–78; BMI 19.9
[2024-02-12] MEDS: NOVOLOG FLEXPEN-LOW RESISTANCE SC ×2 (00:12→06:26)
[2024-02-12 00:16] LABS: Glucose - Point of Care 134 mg/dl (70-99)
[2024-02-12 00:41] LABS: Hematocrit 22.4 % (39.0-52.0); Hemoglobin 7.6 g/dL (13.0-18.0)
[2024-02-12 04:46] LABS: % Basophils 0.3 % (0-2); % Eosinophils 2.7 % (0-6); % Immature Granulocytes 1.3 % (0-0.5); % Lymphocytes 8.8 % (20.5-51.1); % Monocytes 7.6 % (1.7-9.3); % Neutrophils 79.3 % (42.2-75.2); Absolute Eosinophils 0.2 10^3/uL (0-0.7); Absolute Immature Granulocytes 0.1 10^3/uL (0-0.05); Absolute Lymphocytes 0.6 10^3/uL (1.2-3.4); Absolute Monocytes 0.5 10^3/uL (0.1-0.6); Absolute Neutrophils 5.3 10^3/uL (1.4-6.5); Hematocrit 24.3 % (39.0-52.0); Hemoglobin 7.9 g/dL (13.0-18.0); Mean Corp Hgb Conc. 32.5 g/dL (33.0-37.0); Mean Corpuscular Volume 89.3 fL (80.0-94.0); Mean Platelet Volume 9.5 fL (7.4-10.4); Nucleated Red Blood Cells % 0.9 % (-); Platelet Count 202 10^3/uL (130-400); Red Blood Cell Count 2.72 10^6/uL (4.70-6.10); Red Cell Dist. Width 19.7 % (11.5-14.5); White Blood Cell Count 6.7 10^3/uL (4.8-10.8)
[2024-02-12 06:19] LABS: ALT (SGPT) 55 U/L (0-50); AST (SGOT) 72 U/L (17-59); Albumin 2.5 g/dl (3.5-5.0); Alkaline Phosphatase 72 U/L (38-126); Blood Urea Nitrogen 39 mg/dl (9-20); Calcium 7.9 mg/dl (8.4-10.2); Carbon Dioxide 28 mmol/L (22-30); Chloride 105 mmol/L (98-107); Direct Bilirubin 0.3 mg/dl (0.0-0.4); Estimated Creatinine Clearance 79 ml/min; Glucose 116 mg/dl (70-99); LDH 324 U/L (120-246); Potassium 3.6 mmol/L (3.5-5.1); Sodium 138 mmol/L (135-145); Total Bilirubin 1.2 mg/dl (0.2-1.3); Total Protein 4.5 g/dl (6.3-8.2); eGFR > 60.00
[2024-02-12 06:23] LABS: Glucose - Point of Care 139 mg/dl (70-99)
--- NOTE | 2024-02-12 07:07 | W.PN.ONC2 ---
Today's Communication / Plan
-
f/u haptoglobin, REECE
NAVIN -IV iron ordered
transfuse prn
GI eval underway
heparin gtt once bleeding excluded, if tolerates heparin then doac at dc
OP follow up with primary oncologist for next steps in malignancy management at [facility]
Impression
Impression
newly diagnosed metastatic pancreatic cancer, has not started systemic therapy yet
cholecystitis s/p perc med
G tube placed for functional gastric outlet obstruction/decompression but now being used for tube feeding since 01/25
symptomatic severe anemia. Ferritin <50 suggestive of NAVIN. No B12 or folate deficiency. Retic 8.2, mild elevation LDH with mild transaminitis and normal bili
Several bilateral subcentimeter lower lobe, and right middle lobe pulmonary emboli. Mild clot burden. No evidence of deep venous thrombosis of the lower extremities bilaterally
possible portal vein thrombosis
constipation
Plan
Plan
In the absence of infection, IV iron ordered
f/u haptoglobin, REECE
follow Bcx, Ucx
check heme stool, monitor for bleeding
GI evaluation underway
agree with transfusion support prn Hgb <7g/dL or sxs anemia
Several b/l lower lobe & RML pulmonary emboli with Mild clot burden and no evidence of deep venous thrombosis of the lower extremities bilaterally and possible portal vein thrombosis due to concern for bleeding presenting with severe anemia hgb
~4g/dL, would hold off on anticoagulation until bleeding excluded. High risk VTE propagation with malignancy, immobility, hospitalization so would start heparin gtt once bleeding excluded and transition to DOAC at d/c if stable on heparin gtt
OP follow up with primary oncologist at [place] for next steps in medical oncology care.
Subjective/Objective
Subjective
denies overt bleeding
Vital Signs:
Vital Signs
Temp Pulse Resp BP Pulse Ox
97.7 F 72 13 107/65 95
02/11/24 23:13 02/12/24 06:00 02/12/24 06:00 02/12/24 06:00 02/12/24 05:00
Lab Results:
Laboratory Data
WBC 6.7 10^3/uL (4.8-10.8) 02/12/24 04:23
Hgb 7.9 g/dL (13.0-18.0) L 02/12/24 04:23
Plt Count 202 10^3/uL (130-400) D 02/12/24 04:23
PT 15.7 Sec (11.4-14.6) H 02/10/24 22:23
INR 1.22 02/10/24 22:23
eGFR > 60.00 02/12/24 04:23
Orders
Orders
Orders From Last 24 Hours
02/11/24 07:36
Add On- LAB Routine
02/11/24 07:37
Stool for occult blood [Hemetest Stools] As Directed
02/11/24 07:38
Venous Doppler Lwr Ext Bilat [US Periph Venous LOWER Ext Huber] Urgent
[2024-02-12] MEDS: NSS (PRESERVATIVE FREE) 10 ML IV ×2 (07:16→20:21)
[2024-02-12] MEDS: PROTONIX IV 40 MG IV ×2 (07:16→20:21)
[2024-02-12] MEDS: VIMPAT 100 MG PO ×2 (07:17→20:20)
[2024-02-12 08:02] LABS: Glucose - Point of Care 139 mg/dl (70-99)
--- NOTE | 2024-02-12 09:39 | PTCARENOTE ---
Pt had moderate coffee ground/liquid dark stool. Heme +. Attending, GI and Oncology notified. Pt offers no complaints. hypoactive bsx4. abd soft NT. Pt denies abd pain, tenderness, cramping. CB in reach
--- NOTE | 2024-02-12 10:00 | PTCARENOTE ---
Attending notified pt's abd notably more distended and firm in comparison to this morning's assessment. bowel sounds hypoactive x4. Pt denies any pain, tenderness even on palpitation. bedside, US completed by attending. updated at bedside.
[2024-02-12 10:46] LABS: Hematocrit 22.9 % (39.0-52.0); Hemoglobin 7.4 g/dL (13.0-18.0)
--- NOTE | 2024-02-12 12:35 | PTCARENOTE ---
pt had not voided this shift, bladder scan for 705. encouraged and able to use urinal for 150ml. pvr 525. straight cath yields only 25ml. Pt denies discomfort. Abd remains distended, hypoactive and firm. at bedside, CB in reach.
--- NOTE | 2024-02-12 13:40 | W.PN.HOSP.TC ---
Addendum entered and electronically signed by Wellington Zamora MD 02/12/24 14:34:
Records from [facility] on physical chart and reviewed
Last hbg of 8.4 on 01/28
Original Note:
Today's Communication/Plan
-
see note
Assessment / Plan
Assessment / Plan
CTA a/p
Probable small intramuscular hematoma of the right psoas muscle
Several bilateral subcentimeter lower lobe, and right middle lobe pulmonary emboli. Mild clot burden. No evidence of right heart strain.
Bilateral pulmonary nodules. Stable right middle lobe. Others are new. Likely postinflammatory/postinfectious change in the right lower lobe. Continued surveillance recommended. This will be emailed to the [place] [facility]
Mild pulmonary fibrosis in the right middle lobe. Stable
Stable dilated esophagus with a distended stomach likely reflux disease. Gastric distention is improved.
Cholecystostomy tube. New. Pneumobilia. Stable. Gastric tube. New
Moderate abdominopelvic ascites, greater in the pelvis. Significantly progressed.
Hypodense pancreatic head lesion concerning for malignancy. More obvious on today's study.Associated pancreatic ductal dilatation. Stable.
CBD stent. Stable. Nonvisualization of the portal vein suggesting thrombosis. Probably stable
Simple left renal cyst. Stable. Bilateral too small to characterize hypodense renal lesions likely benign cysts. Stable.
Moderate fecal material throughout the colon. Progressed.
Right inguinal fat and fluid-containing hernia. Improved.
Mild diffuse bladder wall thickening. This can be seen with cystitis or bladder outlet obstruction. Improved.
LE venous Doppler
No evidence of deep venous thrombosis of the lower extremities bilaterally.
Port-a-cath site
Adjacent to the anterior chest wall [id number] catheter, there is a nonspecific hypoechoic to anechoic collection measuring 3.8 x 1.2 x 4.8 cm

1. Acute blood loss anemia
Presumed upper GI bleed - Episode of melena
- Patient was just discharged from [facility] 7 days back and comes with hemoglobin of 3
- no reported blood loss at admission, but had black stools today.
- Patient on currently on clear liquid diet
- Maintain on IV PPI BID
- GI planning to do an EGD tomorrow
- CT abdomen pelvis showed small right psoas hematoma and some free pelvic fluid.
- No major coagulopathy/thrombocytopenia and low concern of hemolysis. Reticulocyte count of 8.2 with appropriate bone marrow response.
- Patient got total 4 unit of blood transfusion, further H&H ordered and will require transfusion for hbg 7
2. Bilateral PE
Small psoas hematoma
-small subcentimeter PE in both sides of lung.
-With new psoas hematoma/anemia we will hold on starting any blood thinners today.
-No RV strain by CT chest standard. Patient not hypotensive/hypoxic
-Once patient remains stable from all bleeding perspective patient should be considered for DOAC
3. Reported history of gastric outlet obstruction
-patient have a G-tube in place which has been used for feeding as well per patient which clinically questionable.
-Will need further information for [facility].
4. Metastatic pancreatic cancer
Moderate ascites
Possible portal vein thrombosis
-patient have port a cath placed but not started on therapy yet.
-Patient also had bare-metal stent placed in CBD.
-IRAD consulted for diagnostic paracentesis and will help with the staging as well
-Patient have recent Port-A-Cath placed which is likely small hematoma, actual site does not look inflamed/infected. Continue monitoring
5. Acute emphysematous cholecystitis
-patient is status post cholecystostomy tube placement.
-CT abdomen pelvis showing air in liver parenchyma as well.
6. Transaminitis
-Minimal and with above-mentioned liver/GB issues related
DVTPPX - scd
Full code
Total time spent : 52 mins
I personally saw and examined the patient.
I have reviewed all diagnostic interpretations and treatment plans as written.
Time includes patient management by me, time spent at the patients bedside, time to review lab and imaging results, discussing patient care, documentation in the medical record, and time spent with the family or caregiver and discussing care plan
with RN/Consultants.
Anticipated Discharge: > 48 hours
Subjective/Interval History
-
Date of Service: February 12, 2024
have episode of black liquid stool in morning today
afebrile
BP soft
patient not voicing any complains
Objective Data
-
Labs:
Laboratory Results
02/12/24 02/12/24 02/12/24
04:23 10:37 16:15
WBC 6.7
Hgb 7.9 L 7.4 L Pending
Hct 24.3 L 22.9 L Pending
Plt Count 202 D
Sodium 138
Potassium 3.6 D
Chloride 105
Carbon Dioxide 28
BUN 39 H
Creatinine 0.8
Glucose 116 H
Calcium 7.9 L
Total Bilirubin 1.2
AST 72 H
ALT 55 H
Alkaline Phosphatase 72
02/12/24
22:15
WBC
Hgb Pending
Hct Pending
Plt Count
Sodium
Potassium
Chloride
Carbon Dioxide
BUN
Creatinine
Glucose
Calcium
Total Bilirubin
AST
ALT
Alkaline Phosphatase
Vital Signs:
Vital Signs
Temp Pulse Resp BP Pulse Ox
98.3 F 79 20 98/60 95
02/12/24 11:00 02/12/24 12:00 02/12/24 12:00 02/12/24 12:00 02/12/24 12:00
I&O
02/11/24 02/12/24 02/13/24
06:59 06:59 06:59
Intake Total 500 / 500 1756.9 / 1756.9
Output Total 450 / 450 1400 / 1400
Balance 50 / 50 356.9 / 356.9 -
Review of Systems
-
Respiratory: Reports No Symptoms
Cardiac: Reports No Symptoms
Abdomen/GI: Reports No Symptoms
Physical Exam
-
General: No Apparent Distress
HEENT: Oxygen
Respiratory: Clear to Auscultation
Cardiac: Regular Rhythm and S1/S2; Negative Murmur, Rub or Gallop
GI: Soft, Nontender and Nondistended; Negative Organomegaly
Rectal: Deferred by Provider
Musculoskeletal: No Edema
Skin: Negative Rash
Neuro: Nonfocal/Grossly Intact
[2024-02-12] MEDS: FERRLECIT 110 MG IV (14:01)
[2024-02-12] MEDS: TYLENOL 650 MG PO (15:35)
--- NOTE | 2024-02-12 17:02 | W.PN.GI.CBS2 ---
Today's Communication / Plan
-
egd tmwr, para tmwr
Assessment / Plan
-
73-year-old male recent diagnosis of pancreatic cancer with plans to start chemo next week presenting with syncope in the setting of weakness and fatigue recently. He was found to have a hemoglobin of 3.6. He has been given 2 units of blood and is
currently at 5. He was discharged from [place] according to the ER notes on January 28 with a hemoglobin of 8.4. No reports of overt bleeding. Guaiac both in the ER and by my physician fleet assistant were negative. He underwent a CTA chest abdomen
pelvis which showed probable small intramuscular hematoma in the right psoas muscle, pulmonary emboli with no right heart strain, mild pulmonary fibrosis, stable dilated esophagus with distended stomach likely reflux disease gastric distention
improved, cholecystectomy tube, PEG tube, moderate ascites greater in the pelvis significantly progressed, pancreatic lesion with ductal dilation, portal vein thrombosis. Also has history of GOO with a G tube placed and acute emphysematous
cholecystitis s/p med tube.
Patient with significant drop in hemoglobin with no overt bleeding. Hematoma may be playing a role but it is small and on discussion with Dr. Zamora hospitalist he feels it is less likely to be the explanation for such a significant drop in
hemoglobin. He could be bleeding from a GI source although would expect more overt bleeding. Small amount of dark stool today.
Recommendations:
- para tomorrow
- EGD tomorrow - of note, history of GOO distended stomach on CT will need to be reviewed with anesthesia
- IV PPI BID
- Clears today - added Ensure clear, NPO after midnight
- Hold AC for now with severe anemia, hematoma (has PE, PVT on CT)
D/w hospitalist and oncologist.
Subjective
Subjective
Date of Service: February 12, 2024
coffee ground/dark stool per RN
Objective
Data Reviewed
Laboratory Data:
Laboratory Results
02/12/24 04:23
Laboratory Results
PT 15.7 Sec (11.4-14.6) H 02/10/24 22:23
INR 1.22 02/10/24 22:23
Phosphorus 4.6 mg/dl (2.5-4.5) H 02/11/24 06:35
Magnesium 2.2 mg/dl (1.6-2.3) 02/11/24 06:35
Total Bilirubin 1.2 mg/dl (0.2-1.3) 02/12/24 04:23
AST 72 U/L (17-59) H 02/12/24 04:23
ALT 55 U/L (0-50) H 02/12/24 04:23
Alkaline Phosphatase 72 U/L (38-126) 02/12/24 04:23
Vital Signs and I&O:
Vital Signs
Temp Pulse Resp BP Pulse Ox
98.1 F 79 20 98/60 95
02/12/24 15:00 02/12/24 12:00 02/12/24 12:00 02/12/24 12:00 02/12/24 12:00
I&O
02/11/24 02/12/24 02/13/24
06:59 06:59 06:59
Intake Total 500 / 500 1756.9 / 1756.9
Output Total 450 / 450 1400 / 1400
Balance 50 / 50 356.9 / 356.9 -25 / 25
Physical Exam
Physical Exam
HEENT: Other (temporal wasting)
Cardiology: Normal Sinus Rhythm
Pulmonary: Clear
GI: Distended and Non Tender
[2024-02-12 18:39] LABS: Hematocrit 21.9 % (39.0-52.0); Hemoglobin 7.1 g/dL (13.0-18.0)
--- NOTE | 2024-02-12 20:00 | PTCARENOTE ---
resumed care of pt sitting up in bed watching tv. Pt AAOx3, flat affect noted. HR in the 70's in NSR on the monitor. POX 94% on Ra. Lungs dec. hypo bowel with Gtube in place, nothing infusing at this time. Right lower abd bili drain in place with no
output noted. Pt requested to use bedpan, pt had moderate sized loose black bm, heme +. Dipti care provided. Bladder scanned performed, 429ml, pt reports wanting to wait to try to void, states no issues voiding. Round dist abd. Pt denies abd pain at
this time. Weak pedal pulses present. +1 pitting B/L LE edema noted. Knee high seq in place. Denture care provided. CHG bath provided. Pt positioned per comfort. Call blount in reach. Will continue to monitor.
[2024-02-12] MEDS: SEROQUEL 25 MG PO (21:59)
[2024-02-12] MEDS: LAMICTAL 300 MG PO (21:59)
[2024-02-12] MEDS: LAMICTAL 50 MG PO (21:59)
[2024-02-12 22:17] LABS: Hematocrit 21.6 % (39.0-52.0); Hemoglobin 7.2 g/dL (13.0-18.0)
[2024-02-13] VITALS (45 sets, daily range): BP systolic 88–107; BP diastolic 60–75; PULSE 2–85; BMI 20.4
--- NOTE | 2024-02-13 | PTCARENOTE ---
Pt able to void without difficulty, 200ml dark deepa urine. POX 91% while sleeping. 2 LO2 NC applied. No other changes in assessment noted at this time. Pt resting comfortably. Will continue to monitor.
[2024-02-13 04:56] LABS: Hematocrit 21.9 % (39.0-52.0); Hemoglobin 7.3 g/dL (13.0-18.0); Mean Corp Hgb Conc. 33.3 g/dL (33.0-37.0); Mean Corpuscular Hgb 29.9 pg (27.0-31.0); Mean Corpuscular Volume 89.8 fL (80.0-94.0); Mean Platelet Volume 9.4 fL (7.4-10.4); Platelet Count 166 10^3/uL (130-400); Red Blood Cell Count 2.44 10^6/uL (4.70-6.10); Red Cell Dist. Width 19.5 % (11.5-14.5)
[2024-02-13 05:25] LABS: Blood Urea Nitrogen 24 mg/dl (9-20); Calcium 7.4 mg/dl (8.4-10.2); Carbon Dioxide 28 mmol/L (22-30); Chloride 103 mmol/L (98-107); Estimated Creatinine Clearance 94 ml/min; Glucose 115 mg/dl (70-99); Potassium 3.2 mmol/L (3.5-5.1); Sodium 135 mmol/L (135-145); eGFR > 60.00
[2024-02-13 06:06] LABS: Haptoglobin 118 mg/dL (30-200)
[2024-02-13] MEDS: KCL 270 MEQ IV (06:41)
--- NOTE | 2024-02-13 08:17 | CM ---
Addendum entered by Rosemarie Marx 02/13/24 08:52:
Patient stated that his PCP is Dr. Waite and confirmed on paperwork from [facility] recent hospitalization earlier in Jan.
Addendum entered by Rosemarie Marx 02/13/24 08:45:
Patient states that he does use the CPAP machine at home.
Original Note:
Patient seen at bedside in ICU. Patient resting, CM will continue to follow for discharge planning needs.
Plan: home with [facility] for BHARTI, watch for further SNF needs.
--- NOTE | 2024-02-13 08:45 | W.PN.HOSP.TC ---
Today's Communication/Plan
-
EGD and paracentesis
PT/OT
consider transfusion
Assessment / Plan
Assessment / Plan
pt is a 73 year old male
Acute blood loss anemia with melena--could be due to recent G/J placement vs other ( CT abdomen pelvis showed small right psoas hematoma and some free pelvic fluid)--Patient was just discharged from [facility] 7 days [employer] and comes with
hemoglobin of 3--received 4 units pRBC--HGB still 7.3--consider another transfusion--would try to keep HGB ~9--d/c HGB from [facility] ~8.4--apprec GI--cont PPI BID, for EGD today
Bilateral PE with Small psoas hematoma--unfortunately not anticoagulation candidate at this time due to acute blood loss anemia--will need re-evaluation
Reported history of gastric outlet obstruction--G/J tube placed at [facility] on 01/29--records reviewed
Metastatic pancreatic cancer ( to lung) with Moderate ascites and Possible portal vein thrombosis--recent diagnosis and has not started on therapy yet--ONC at [place]--Patient also had bare-metal stent placed in CBD--for IR paracentesis
Acute emphysematous cholecystitis with transaminitis--patient is status post cholecystostomy tube placement---CT abdomen pelvis showing air in liver parenchyma as well.
hypokalemia/hypocalcemia--replete as needed
DVTPPX - scd
code status --Full code--would likely need GOC discussion......pt wants agreesive therapy as per [facility] records
likely will need SNF at d/c
Anticipated Discharge: > 48 hours
Subjective/Interval History
-
Date of Service: February 13, 2024
pt c/o abdominal pain
Objective Data
-
Labs:
Laboratory Results
02/12/24 02/13/24 02/13/24
22:10 04:23 04:23
WBC 5.0
Hgb 7.2 L Cancelled 7.3 L
Hct 21.6 L Cancelled
Plt Count
Sodium
Potassium
Chloride
Carbon Dioxide
BUN
Creatinine
Glucose
Calcium
02/13/24
04:23
WBC
Hgb
Hct 21.9 L
Plt Count 166
Sodium 135
Potassium 3.2 L
Chloride 103
Carbon Dioxide 28
BUN 24 H
Creatinine 0.7
Glucose 115 H
Calcium 7.4 L
Vital Signs:
max temp for 24 hours
02/12/24
19:20
Temp 98.6 F
Vital Signs
Temp Pulse Resp BP Pulse Ox
97.5 F 79 16 100/64 99
02/13/24 07:41 02/13/24 06:00 02/13/24 06:00 02/13/24 06:00 02/13/24 06:00
I&O
02/12/24 02/13/24 02/14/24
06:59 06:59 06:59
Intake Total 1756.9 / 1756.9 480 / 480
Output Total 1400 / 1400 475 / 475
Balance 356.9 / 356.9 5 / 5
Review of Systems
-
All other systems: Reviewed and negative
Abdomen/GI: Reports Abdominal Pain
Physical Exam
-
General: Appears Chronically Ill and Cachectic
HEENT: Normocephalic, Atraumatic and Oxygen
Respiratory: Clear to Auscultation; Negative Wheezes or Rhonchi
Cardiac: Regular Rhythm and S1/S2; Negative Murmur
GI: Soft, Nondistended, Normal Bowel Sounds and Tender (lower abdomen both quadrants--no guarding or rebound)
Musculoskeletal: No Clubbing and No Cyanosis; Negative No Edema (2+ LE edema bilaterally)
Neuro: Awake and Alert
Psych: Calm
[2024-02-13] MEDS: PROTONIX IV 40 MG IV ×2 (09:17→20:24)
[2024-02-13] MEDS: NSS (PRESERVATIVE FREE) 10 ML IV ×2 (09:17→20:24)
[2024-02-13] MEDS: VIMPAT 100 MG PO ×2 (09:17→20:26)
[2024-02-13] MEDS: MORPHINE SULFATE 2 MG IV (09:53)
--- NOTE | 2024-02-13 12:46 | PN.CDI ---
CDI
- -
CDI:
Physician Documentation Request
Admit Date: 02/11/24 03:39
Dear Doctor Eva,
Please review the following and provide your response in the progress notes.
Clinical Indicators:
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
- Unintentional weight loss >5% in 1 month
- Nutrient intake </= 75% estimated energy needs, >/= 1 month
- 02/10 Oncology 'he presented in December with...25lb weight loss'
Based on the above information and your assessment, which of the following most accurately represents the patient's nutritional status?
Severe protein calorie malnutrition
Other (please specify)
L[place]y Criteria ([facility] Hospitalist 2017)
2 or more criteria must be present for either
non severe or severe malnutrition
Note that the criteria differs related to the
presence of an acute or chronic illness
Acute Illness Chronic Illness
Energy Intake Non Severe: <75% for >7 days Non Severe: <75% for >1 month
Severe: <50% for >5 days Severe: <75% for >1 month
Weight Loss Non Severe: 1-2% over 1 week Non Severe: 5% over 1 month
5% over 1 month 7.5% over 3 months
7.5% over 3 months 10% over 6 months
1 year N/A 20% over 1 year
Severe: >2% over 1 week Severe: >5% over 1 month
>5% over 1 month >7.5% over 3 months
>7.5% over 3 months >10% over 6 months
1 year N/A >20% over 1 year
Body Fat Non Severe: Mild Decrease Non Severe: Mild Loss
Severe: Moderate Decrease Severe: Severe Loss
Muscle Mass Non Severe: Mild Decrease Non Severe: Mild Loss
Severe: Moderate Decrease Severe: Severe Loss
Fluid Accumulation Non Severe: Mild Accumulation Non Severe: Mild Accumulation
Severe: Moderate to severe Severe: Moderate to severe
accumulation accumulation
Reduced User Support Analyst Strength Non Severe: N/A Non Severe: N/A
Severe: Measurably reduced Severe: Measurably reduced
Additional criteria that can be used to Determine if Mild or Moderate Malnutrition (Merck Manual 2018)
Mild Moderate Severe
Albumin gm/dl <3.0 gm/dl <2.5 gm/dl <2.0 gm/dl
Pre Albumin mg/dl <15 gm/dl <10 mg/dl <5.0 mg/dl
BMI <18.5 <17 <16
Use of terms such as suspected, likely, concern for, or probable (associated with a specific diagnosis that is being evaluated, monitored, or treated as if it exists) are acceptable and can be coded in the inpatient setting, when documented at the
time of discharge.
Thank you,
Naina Aplpe RN
CDI Specialist
Please use your independent medical judgment in providing your response.
--- NOTE | 2024-02-13 13:36 | W.PN.UPDATE ---
Update Note
Progress Note Update
- Imaging reviwed. CT from 02/11/24 shows only a small volume of pelvic ascites. Not enough for paracentesis
- Portal, iliac, and common femoral veins are patent on this exam.
[2024-02-13] MEDS: FERRLECIT 110 MG IV (14:25)
--- NOTE | 2024-02-13 21:13 | W.PN.ONC2 ---
Today's Communication / Plan
-
GI workup for bleeding, ongoing
UE Doppler to eval for LUE clot in area of erythema around IV.
Impression
Impression
Newly diagnosed locally advanced pancreatic cancer
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
Marked hemolgobin drop, GIB suspected
Cholecystitis s/p perc med
G tube placed for functional gastric outlet obstruction/decompression but now being used for tube feeding since 01/25
Right middle lobe pulmonary emboli, mild clot burden
Possible portal vein thrombosis
Constipation
Failure to thrive
Plan
Plan
EGD done today showed esophagitis with no bleeding and a non-bleeding gastric ulcer with a clean ulcer base.
Paracentesis ordered due to ascites identified on scan, however there was not enough fluid to tap.
Suggest colonoscopy, contrast can be given via feeding tube.
Anticoagulation still on hold but pt is a set-up for more clots due to prostate cancer and immobility. If no bleeding on colonoscopy would suggest resuming at least prophylaxis-dose Lovenox.
Pending recovery, pt will transfer care to our group.
Discussed with pt and that PS would need to improve for treatment.
NGS does not appear to have been performed yet on biopsy specimen from [place].
Denies pain.
Subjective/Objective
Chief Complaint
Heme/Onc follow up of locally advance pancreatic cancer
Subjective
Pt c/o pain in L arm near site of IV. Very weak.
Vital Signs:
Vital Signs
Temp Pulse Resp BP Pulse Ox
99.3 F 90 14 100/68 93
02/13/24 21:00 02/13/24 17:15 02/13/24 17:15 02/13/24 17:15 02/13/24 17:15
Lab Results:
Laboratory Data
WBC 5.0 10^3/uL (4.8-10.8) 02/13/24 04:23
Hgb 7.3 g/dL (13.0-18.0) L 02/13/24 04:23
Hgb Cancelled 02/13/24 04:23
Plt Count 166 10^3/uL (130-400) 02/13/24 04:23
PT 15.7 Sec (11.4-14.6) H 02/10/24 22:23
INR 1.22 02/10/24 22:23
eGFR > 60.00 02/13/24 04:23
Physical Exam
Awake, alert, cachectic
Heart regular
Lungs clear anteriorly
Abd soft
L arm with faint erythema and induration at IV site
[2024-02-13] MEDS: LAMICTAL 300 MG PO (22:22)
[2024-02-13] MEDS: LAMICTAL 50 MG PO (22:22)
[2024-02-13] MEDS: SEROQUEL 25 MG PO (22:22)
[2024-02-14] VITALS (45 sets, daily range): BP systolic 88–110; BP diastolic 58–77; PULSE 2–100; BMI 19.9
[2024-02-14 05:35] LABS: Hematocrit 24.8 % (39.0-52.0); Hemoglobin 7.7 g/dL (13.0-18.0); Mean Corpuscular Hgb 29.7 pg (27.0-31.0); Mean Corpuscular Volume 95.8 fL (80.0-94.0); Mean Platelet Volume 9.6 fL (7.4-10.4); Platelet Count 161 10^3/uL (130-400); Red Blood Cell Count 2.59 10^6/uL (4.70-6.10); Red Cell Dist. Width 20.2 % (11.5-14.5); White Blood Cell Count 4.5 10^3/uL (4.8-10.8)
[2024-02-14 05:50] LABS: ALT (SGPT) 36 U/L (0-50); AST (SGOT) 33 U/L (17-59); Albumin 2.2 g/dl (3.5-5.0); Alkaline Phosphatase 83 U/L (38-126); Blood Urea Nitrogen 18 mg/dl (9-20); Calcium 7.7 mg/dl (8.4-10.2); Carbon Dioxide 24 mmol/L (22-30); Chloride 107 mmol/L (98-107); Estimated Creatinine Clearance 94 ml/min; Glucose 104 mg/dl (70-99); Magnesium 2.3 mg/dl (1.6-2.3); Potassium 3.7 mmol/L (3.5-5.1); Sodium 136 mmol/L (135-145); Total Bilirubin 0.7 mg/dl (0.2-1.3); Total Protein 4.1 g/dl (6.3-8.2); eGFR > 60.00
--- NOTE | 2024-02-14 05:51 | W.PN.GI.CBS2 ---
Today's Communication / Plan
-
Please see assessment and plan for details.
Assessment / Plan
-
1. Anemia : With 5 g drop over short period of time, unclear source, though doubt GI luminal source with no gross bleeding, brown bowel movements and heme negative x 2. He did have a clean-based gastric ulcer, though again no signs of bleeding
now. There was no blood seen on EGD, and while there was extrinsic compression of the duodenal bulb causing partial gastric outlet obstruction there is no obvious tumor invasion or bleeding source. Benefit of colonoscopy is likely very small,
again without any gross bleeding, and would be difficult to accomplish as he has a G-tube for decompression and J-tube for feeding, cannot give large-volume through J-tube for preparation. His acute drop is likely multifactorial, though 'ascites
'noted could be malignant and bloody ascites, though too small to tap, also with small psoas muscle hematoma. At this point would continue PPI twice daily given gastric ulcer noted, though again was clean-based. He has had no signs of active GI
bleeding here and remained stable. His small clean-based ulcer is of low risk of bleeding, and there are no GI contraindications to anticoagulation if indicated with close observation. Will hold on further GI workup for now, continue supportive
care.
We will sign off now, please call back with any further questions.
Subjective
Subjective
Date of Service: February 14, 2024
Patient feeling okay, no bowel movements overnight, no nausea or vomiting. Hemoglobin remained stable.
Objective
Data Reviewed
Laboratory Data:
Laboratory Results
02/14/24 05:05
02/14/24 05:05
Laboratory Results
PT 15.7 Sec (11.4-14.6) H 02/10/24 22:23
INR 1.22 02/10/24 22:23
Phosphorus 4.6 mg/dl (2.5-4.5) H 02/11/24 06:35
Magnesium 2.3 mg/dl (1.6-2.3) 02/14/24 05:05
Total Bilirubin 0.7 mg/dl (0.2-1.3) 02/14/24 05:05
AST 33 U/L (17-59) 02/14/24 05:05
ALT 36 U/L (0-50) 02/14/24 05:05
Alkaline Phosphatase 83 U/L (38-126) 02/14/24 05:05
Vital Signs and I&O:
Vital Signs
Temp Pulse Resp BP Pulse Ox
97.6 F 78 12 101/69 99
02/14/24 03:30 02/14/24 03:30 02/14/24 03:30 02/14/24 03:30 02/14/24 03:30
I&O
02/12/24 02/13/24 02/14/24
06:59 06:59 06:59
Intake Total 1756.9 / 1756.9 480 / 480 240 / 240
Output Total 1400 / 1400 475 / 475 300 / 300
Balance 356.9 / 356.9 5 / 5 -60 / -60
Physical Exam
Physical Exam
General: NAD
Abdomen: normal bowel sounds, soft, no tenderness, no masses or bruits, no ascites, G-tube and J-tube clean, dry and intact
--- NOTE | 2024-02-14 08:26 | W.PN.HOSP.TC ---
Today's Communication/Plan
-
consult dietary for tube feeds
transfer to tele
no need for IVC filter
can start anticoagulation if desired with close observation as per GI
Assessment / Plan
Assessment / Plan
pt is a 73 year old male
Acute blood loss anemia with melena--could be due to recent G placement vs other ( CT abdomen pelvis showed small right psoas hematoma and some free pelvic fluid)--Patient was just discharged from [facility] 7 days RN SURGICAL and comes with
hemoglobin of 3--received 4 units pRBC--HGB 7.7--would try to keep HGB ~9--d/c HGB from [facility] ~8.4--apprec GI--cont PPI BID, s/p EGD with LA grade B esophagitis with one non bleeding cratereed gastric ulcer with clean base
Bilateral PE with Small psoas hematoma--unfortunately not anticoagulation candidate at this time due to acute blood loss anemia--GI clearing for anticoagulation if desired--do not believe needs IVC filter at this time
Reported history of gastric outlet obstruction--G tube placed at [facility] on 01/29 with plans to convert to G/J--would not feed orally, consult dietary for tube feeds (pt was on at home but kind of feeds were not documented that I could find in the
records)--records reviewed
Metastatic pancreatic cancer ( to lung) with Moderate ascites and Possible portal vein thrombosis--recent diagnosis and has not started on therapy yet--ONC at [place], wants to switch here per onc note--Patient also had bare-metal stent placed in
CBD--not enough ascites for IR paracentesis
Acute emphysematous cholecystitis with transaminitis--patient is status post cholecystostomy tube placement---CT abdomen pelvis showing air in liver parenchyma as well.
hypokalemia/hypocalcemia--replete as needed
DVTPPX - scd
code status --Full code--would likely need GOC discussion......pt wants aggressive therapy as per [facility] records
likely will need SNF at d/c--PT/OT
ok for transfer to tele
Anticipated Discharge: > 48 hours
Subjective/Interval History
-
Date of Service: February 14, 2024
pt wants to eat
Objective Data
-
Labs:
Laboratory Results
02/14/24
05:05
WBC 4.5 L
Hgb 7.7 L
Hct 24.8 L
Plt Count 161
Sodium 136
Potassium 3.7
Chloride 107
Carbon Dioxide 24
BUN 18
Creatinine 0.7
Glucose 104 H
Calcium 7.7 L
Total Bilirubin 0.7
AST 33
ALT 36
Alkaline Phosphatase 83
Vital Signs:
max temp for 24 hours
02/13/24
21:00
Temp 99.3 F
Vital Signs
Temp Pulse Resp BP Pulse Ox
97.5 F 76 13 102/66 100
02/14/24 08:01 02/14/24 06:15 02/14/24 06:15 02/14/24 06:15 02/14/24 06:15
I&O
02/13/24 02/14/24 02/15/24
06:59 06:59 06:59
Intake Total 480 / 480 240 / 240
Output Total 475 / 475 300 / 300
Balance 5 / 5 -60 / -60
Review of Systems
-
All other systems: Reviewed and negative
Physical Exam
-
General: Appears Chronically Ill and Cachectic
HEENT: Normocephalic and Atraumatic; Negative Oxygen
Respiratory: Clear to Auscultation; Negative Wheezes or Rhonchi
Cardiac: Regular Rhythm and S1/S2; Negative Murmur
GI: Soft, Nontender, Nondistended, Normal Bowel Sounds and Other (Gtube in place)
Musculoskeletal: No Clubbing, No Cyanosis and No Edema
Neuro: Awake and Alert
Psych: Calm
[2024-02-14] MEDS: PROTONIX IV 40 MG IV ×2 (08:37→20:12)
[2024-02-14] MEDS: VIMPAT 100 MG PO ×2 (08:37→20:13)
[2024-02-14] MEDS: NSS (PRESERVATIVE FREE) 10 ML IV ×2 (08:37→20:12)
--- NOTE | 2024-02-14 08:51 | CM ---
Patient seen at bedside in ICU. Patient states he feels better and plan is for home with VN vs SNF. CM will continue to follow for discharge needs.
Plan; SNF vs home with VN
--- NOTE | 2024-02-14 08:57 | PTCARENOTE ---
report received, assessments per work list. patient with flat affect, denies pain or nausea. lungs with diminished breath sounds. monitor nsr. gtube intact. no residual. right perc tube to bili bag. no drainage. incontinent of large amount urine and
black stool. am care provided. right chest wall port with swelling and bruising around site. d/w VAT RN. hospitalist at bedside. reviewed plan, patient downgrade to tele level of care. call blount in reach
--- NOTE | 2024-02-14 11:34 | W.PN.UPDATE ---
Update Note
Progress Note Update
called by radiology--positive DVT in brachial vein and superficial thrombus in cephalic vein
pt also with severe protein calorie malnutrition
--- NOTE | 2024-02-14 12:41 | PTCARENOTE ---
transfer to [address] [place] [address] with tele pack and all belongings without issue
[2024-02-14] MEDS: FERRLECIT 110 MG IV (13:17)
--- NOTE | 2024-02-14 14:07 | W.PN.ONC2 ---
Today's Communication / Plan
-
appreciate GI input that there are no GI contraindications for anticoagulation
close monitoring of H/H and bleeding
optimize PS and nutritional status
Impression
Impression
Newly diagnosed locally advanced pancreatic cancer
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
Marked hemoglobin drop, GIB suspected
Cholecystitis s/p perc med
G tube placed for functional gastric outlet obstruction/decompression but now being used for tube feeding since 01/25
Right middle lobe pulmonary emboli, mild clot burden, UE DVT
Possible portal vein thrombosis
Constipation
Failure to thrive
Plan
Plan
EGD done 02/12 showed esophagitis with no bleeding and a non-bleeding gastric ulcer with a clean ulcer base. GI does not plan for coloscopy
Paracentesis ordered due to ascites identified on scan, however there was not enough fluid to tap.
If no bleeding would suggest heparin gtt with close monitoring of H/H
Pending recovery, pt will transfer care to our group.
PS would need to improve for treatment.
NGS does not appear to have been performed yet on biopsy specimen from [place].
Denies pain.
Subjective/Objective
Subjective
Vital Signs:
Vital Signs
Temp Pulse Resp BP Pulse Ox
97.6 F 88 16 105/69 96
02/14/24 12:42 02/14/24 12:42 02/14/24 12:42 02/14/24 12:42 02/14/24 12:42
Lab Results:
Laboratory Data
WBC 4.5 10^3/uL (4.8-10.8) L 02/14/24 05:05
Hgb 7.7 g/dL (13.0-18.0) L 02/14/24 05:05
Plt Count 161 10^3/uL (130-400) 02/14/24 05:05
PT 15.7 Sec (11.4-14.6) H 02/10/24 22:23
INR 1.22 02/10/24 22:23
eGFR > 60.00 02/14/24 05:05
Orders
Orders
Orders From Last 24 Hours
02/14/24
US Periph Venous UPPER Ext LT Urgent
[2024-02-14 15:15] LABS: APTT 36.1 Sec (23.4-35.0)
[2024-02-14 15:40] LABS: Hematocrit 26.8 % (39.0-52.0); Hemoglobin 8.5 g/dL (13.0-18.0); Mean Corp Hgb Conc. 31.7 g/dL (33.0-37.0); Mean Corpuscular Hgb 29.7 pg (27.0-31.0); Mean Corpuscular Volume 93.7 fL (80.0-94.0); Mean Platelet Volume 9.5 fL (7.4-10.4); Platelet Count 201 10^3/uL (130-400); Red Blood Cell Count 2.86 10^6/uL (4.70-6.10); Red Cell Dist. Width 20.6 % (11.5-14.5); White Blood Cell Count 5.4 10^3/uL (4.8-10.8)
[2024-02-14] MEDS: HEPARIN 25000 UNITS/250 ML IV (15:55)
--- NOTE | 2024-02-14 16:24 | PTCARENOTE ---
Heparin gtt started. TF started. Jevity 1.5 20/hr and 25 flush from [id number]. Will pass along to nightshift RN.
[2024-02-14] MEDS: SEROQUEL 25 MG PO (21:13)
[2024-02-14] MEDS: LIPITOR 10 MG PO (21:13)
[2024-02-14] MEDS: LAMICTAL 300 MG PO (21:13)
[2024-02-14] MEDS: LAMICTAL 50 MG PO (21:13)
[2024-02-14 22:48] LABS: APTT 123.5 Sec (23.4-35.0)
[2024-02-15] VITALS (10 sets, daily range): BP systolic 92–115; BP diastolic 61–77; PULSE 3–96; O2SAT 94; BMI 20.2
[2024-02-15 05:10] LABS: Hematocrit 25.1 % (39.0-52.0); Hemoglobin 7.9 g/dL (13.0-18.0); Mean Corp Hgb Conc. 31.5 g/dL (33.0-37.0); Mean Corpuscular Hgb 29.2 pg (27.0-31.0); Mean Corpuscular Volume 92.6 fL (80.0-94.0); Mean Platelet Volume 9.7 fL (7.4-10.4); Platelet Count 186 10^3/uL (130-400); Red Blood Cell Count 2.71 10^6/uL (4.70-6.10); Red Cell Dist. Width 20.7 % (11.5-14.5); White Blood Cell Count 5.7 10^3/uL (4.8-10.8)
[2024-02-15 05:24] LABS: APTT 154.5 Sec (23.4-35.0)
[2024-02-15 05:50] LABS: ALT (SGPT) 34 U/L (0-50); AST (SGOT) 33 U/L (17-59); Albumin 2.3 g/dl (3.5-5.0); Alkaline Phosphatase 97 U/L (38-126); Blood Urea Nitrogen 13 mg/dl (9-20); Calcium 7.6 mg/dl (8.4-10.2); Carbon Dioxide 25 mmol/L (22-30); Estimated Creatinine Clearance 106 ml/min; Glucose 118 mg/dl (70-99); Magnesium 2.2 mg/dl (1.6-2.3); Potassium 3.3 mmol/L (3.5-5.1); Sodium 133 mmol/L (135-145); Total Bilirubin 0.6 mg/dl (0.2-1.3); eGFR > 60.00
[2024-02-15 05:59] LABS: Chloride 103 mmol/L (98-107); Total Protein 4.2 g/dl (6.3-8.2)
--- NOTE | 2024-02-15 07:25 | PTCARENOTE ---
Pt bladder scan this morning for decreased urine output 650 cc on bladder scan, pt refusing to straight cath despite education provided.
[2024-02-15] MEDS: KCL 270 MEQ IV (08:51)
[2024-02-15] MEDS: NSS (PRESERVATIVE FREE) 10 ML IV ×2 (08:52→20:02)
[2024-02-15] MEDS: PRISTIQ 50 MG PO (08:52)
[2024-02-15] MEDS: VIMPAT 100 MG PO ×2 (08:52→20:02)
[2024-02-15] MEDS: THERAGRAN 1 TABLET PO (08:52)
[2024-02-15] MEDS: PROTONIX IV 40 MG IV ×2 (08:52→20:01)
--- NOTE | 2024-02-15 08:53 | W.PN.ONC2 ---
Today's Communication / Plan
-
HgB stable. IV heparin with DoAC (Eliquis) at time of D/C.
Impression
Impression
Newly diagnosed locally advanced pancreatic cancer
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
Marked hemoglobin drop, GIB suspected
Cholecystitis s/p perc med
G tube placed for functional gastric outlet obstruction/decompression but now being used for tube feeding since 01/25
Right middle lobe pulmonary emboli, mild clot burden, UE DVT
Possible portal vein thrombosis
Constipation
Failure to thrive
Plan
Plan
EGD done 02/12 showed esophagitis with no bleeding and a non-bleeding gastric ulcer with a clean ulcer base. GI does not plan for coloscopy
Paracentesis ordered due to ascites identified on scan, however there was not enough fluid to tap.
If no bleeding would suggest heparin gtt with close monitoring of H/H
Pending recovery, pt will transfer care to our group.
PS would need to improve for treatment.
NGS does not appear to have been performed yet on biopsy specimen from [place].
Denies pain.
Subjective/Objective
Chief Complaint
ACS Heme Onc
Subjective
No complaints to report. Currently on BiPAP so just answering yes no. He is not scheduled for colonoscopy.
Vital Signs:
Vital Signs
Temp Pulse Resp BP Pulse Ox
97.1 F 85 16 92/61 96
02/15/24 08:38 02/15/24 08:38 02/15/24 08:38 02/15/24 08:38 02/15/24 08:38
Lab Results:
Laboratory Data
WBC 5.7 10^3/uL (4.8-10.8) 02/15/24 04:49
Hgb 7.9 g/dL (13.0-18.0) L 02/15/24 04:49
Plt Count 186 10^3/uL (130-400) 02/15/24 04:49
PT 15.7 Sec (11.4-14.6) H 02/10/24 22:23
INR 1.22 02/10/24 22:23
APTT 154.5 Sec (23.4-35.0) H* 02/15/24 04:49
eGFR > 60.00 02/15/24 04:49
Physical Exam
Cardiology: S1 and S2
Pulmonary: Clear
GI: Soft
--- NOTE | 2024-02-15 13:02 | W.PN.HOSP.TC ---
Today's Communication/Plan
-
d/c planning
Assessment / Plan
Assessment / Plan
pt is a 73 year old male
Acute blood loss anemia with melena--could be due to recent G placement vs other ( CT abdomen pelvis showed small right psoas hematoma and some free pelvic fluid)--Patient was just discharged from [facility] 7 days [employer] and comes with
hemoglobin of 3--received 4 units pRBC--HGB 7.7--would try to keep HGB ~9--d/c HGB from [facility] ~8.4--apprec GI--cont PPI BID, s/p EGD with LA grade B esophagitis with one non bleeding cratereed gastric ulcer with clean base
brachial DVT (deep) and cephalic thrombosis (superficial)--cont IV heparin drip--? change to Eliquis
Bilateral PE with Small psoas hematoma---GI clearing for anticoagulation if desired--do not believe needs IVC filter at this time
Reported history of gastric outlet obstruction--G tube placed at [facility] on 01/29 with plans to convert to G/J--would not feed orally, consult dietary for tube feeds (pt was on at home but kind of feeds were not documented that I could find in the
records)--records reviewed--apprec dietary
Metastatic pancreatic cancer ( to lung) with Moderate ascites and Possible portal vein thrombosis--recent diagnosis and has not started on therapy yet--ONC at [place], wants to switch here per onc note--Patient also had bare-metal stent placed in
CBD--not enough ascites for IR paracentesis
Acute emphysematous cholecystitis with transaminitis--patient is status post cholecystostomy tube placement, pt will need to return to [facility] for tube removal--CT abdomen pelvis showing air in liver parenchyma as well.
hypokalemia/hypocalcemia--replete as needed
DVTPPX - scd
code status --Full code--would likely need GOC discussion......pt wants aggressive therapy as per [facility] records--hospice appropriate
likely will need SNF at d/c--PT/OT
Anticipated Discharge: 24 - 48 hours
Subjective/Interval History
-
Date of Service: February 15, 2024
wants tubes changed here--despite my saying he needs to go back to [facility]
Objective Data
-
Labs:
Laboratory Results
02/15/24 02/15/24
04:49 12:30
WBC 5.7
Hgb 7.9 L
Hct 25.1 L
Plt Count 186
APTT 154.5 H* Pending
Sodium 133 L
Potassium 3.3 L
Chloride 103
Carbon Dioxide 25
BUN 13
Creatinine 0.6 L
Glucose 118 H
Calcium 7.6 L
Total Bilirubin 0.6
AST 33
ALT 34
Alkaline Phosphatase 97
Vital Signs:
max temp for 24 hours
02/14/24
15:50
Temp 98.2 F
Vital Signs
Temp Pulse Resp BP Pulse Ox
97.9 F 95 16 94/63 95
02/15/24 12:05 02/15/24 12:05 02/15/24 12:05 02/15/24 12:05 02/15/24 12:05
I&O
02/14/24 02/15/24 02/16/24
06:59 06:59 06:59
Intake Total 240 / 240 2280 / 2280
Output Total 300 / 300 350 / 350
Balance -60 / -60 1929 / 1929
Review of Systems
-
All other systems: Reviewed and negative
Physical Exam
-
General: Appears Chronically Ill and Cachectic
HEENT: Normocephalic and Atraumatic; Negative Oxygen
Respiratory: Clear to Auscultation; Negative Wheezes or Rhonchi
Cardiac: Regular Rhythm and S1/S2; Negative Murmur
GI: Soft, Nontender, Normal Bowel Sounds, Distended, Peg Tube and Other (perc med tube)
Musculoskeletal: No Clubbing, No Cyanosis and No Edema
Neuro: Awake and Alert
--- NOTE | 2024-02-15 13:19 | CM ---
Addendum entered by Rosemarie Marx 02/15/24 16:12:
referral sent to [facility].
Original Note:
Patient seen at bedside with physician and . Patient requested referral to [facility] for rehab. CM will send referral to SNF, pending response. CM will continue to follow for discharge planning needs.
Plan; SNF
[2024-02-15 13:35] LABS: APTT 62.9 Sec (23.4-35.0)
[2024-02-15] MEDS: FERRLECIT 110 MG IV (14:38)
--- NOTE | 2024-02-15 15:00 | CHAP ---
Msgr. Joshua Maldonado of [facility] in [place] anointed Kobi and gave him Holy Communion.
--- NOTE | 2024-02-15 16:50 | W.PN.UPDATE ---
Update Note
Progress Note Update
Asked to see patient again about his various tubes and the possibility of changing these or removing them. Patient has been feeling okay, tolerating G-tube feedings with no difficulty. We discussed that while the G-tube could be switched out to a
GJ tube, the site needs to mature, usually done around 2 months. Has been tolerating G-tube feedings there is no emergency to switch this to a GJ, though this may be beneficial in the future given his partial gastric outlet obstruction. In that
regard he has been tolerating tube feeds in the stomach without difficulty, and agree with the liquid diet as tolerated, even soft foods should be okay, though avoid any bulky foods, and small, frequent meals. On review of his CT scan he has a
metal biliary stent in place and his LFTs have been normal. Percutaneous cholecystostomy tube was likely placed for obstruction of cystic duct, and this has been draining without any issues. This will need to stay in place for decompression of the
gallbladder. We discussed that any change of these tubes should be done at [place] where they replaced in the first place. I discussed with him at length, understood my rationale and he was comfortable with this plan.
[2024-02-15] MEDS: HEPARIN 25000 UNITS/250 ML IV (17:24)
[2024-02-15 20:42] LABS: APTT > 200 Sec (23.4-35.0)
[2024-02-15 21:41] LABS: APTT > 200 Sec (23.4-35.0)
[2024-02-15] MEDS: LAMICTAL 50 MG PO (21:57)
[2024-02-15] MEDS: SEROQUEL 25 MG PO (21:57)
[2024-02-15] MEDS: LIPITOR 10 MG PO (21:58)
[2024-02-15] MEDS: LAMICTAL 300 MG PO (21:58)
[2024-02-16] VITALS (9 sets, daily range): BP systolic 100–123; BP diastolic 67–80; PULSE 3; BMI 20.4
[2024-02-16 06:27] LABS: APTT 135.5 Sec (23.4-35.0)
[2024-02-16 06:37] LABS: Hematocrit 23.4 % (39.0-52.0); Hemoglobin 7.5 g/dL (13.0-18.0); Mean Corp Hgb Conc. 32.1 g/dL (33.0-37.0); Mean Corpuscular Volume 93.6 fL (80.0-94.0); Mean Platelet Volume 9.4 fL (7.4-10.4); Platelet Count 184 10^3/uL (130-400); Red Cell Dist. Width 20.5 % (11.5-14.5); White Blood Cell Count 5.2 10^3/uL (4.8-10.8)
[2024-02-16] MEDS: VIMPAT 100 MG PO ×2 (08:28→20:48)
[2024-02-16] MEDS: PRISTIQ 50 MG PO (08:28)
[2024-02-16] MEDS: NSS (PRESERVATIVE FREE) 10 ML IV ×2 (08:29→20:48)
[2024-02-16] MEDS: THERAGRAN 1 TABLET PO (08:29)
[2024-02-16] MEDS: PROTONIX IV 40 MG IV ×2 (08:29→20:48)
--- NOTE | 2024-02-16 08:31 | W.PN.ONC2 ---
Today's Communication / Plan
-
hep gtt, doac at dc if no bleeding on heparin gtt
GI to consider colonoscopy for melena this morning
will arrange OP follow up upon dc
Impression
Impression
Newly diagnosed locally advanced pancreatic cancer
Paracentesis ordered due to ascites identified on scan, however there was not enough fluid to tap.
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
admitted with Hgb ~4g/dL
EGD 02/12 - esophagitis with no bleeding and a non-bleeding gastric ulcer with a clean ulcer base. GI does not plan for coloscopy
Cholecystitis s/p perc med
G tube placed for functional gastric outlet obstruction/decompression but now being used for tube feeding since 01/25
Right middle lobe pulmonary emboli, mild clot burden, UE DVT
Possible portal vein thrombosis
Constipation
Failure to thrive
Plan
Plan
monitor closely for bleeding on heparin gtt and transition to DOAC at dc
Pending recovery, pt will transfer care to our group.
PS would need to improve for treatment.
NGS does not appear to have been performed yet on biopsy specimen from [place].
Subjective/Objective
Subjective
black stool today
at bedside provided updates
Vital Signs:
Vital Signs
Temp Pulse Resp BP Pulse Ox
98.1 F 95 18 106/70 96
02/16/24 03:29 02/16/24 03:29 02/16/24 03:29 02/16/24 03:29 02/16/24 03:29
Lab Results:
Laboratory Data
WBC 5.2 10^3/uL (4.8-10.8) 02/16/24 05:53
Hgb 7.5 g/dL (13.0-18.0) L 02/16/24 05:53
Plt Count 184 10^3/uL (130-400) 02/16/24 05:53
PT 15.7 Sec (11.4-14.6) H 02/10/24 22:23
INR 1.22 02/10/24 22:23
APTT 135.5 Sec (23.4-35.0) H 02/16/24 05:53
eGFR > 60.00 02/15/24 04:49
Physical Exam
HEENT: Moist Mucous Membranes; No Jaundice
Cardiology: Normal Sinus Rhythm
Pulmonary: Clear
GI: Soft
Extremities: Pulses Present; No Edema
Neuro: Non Focal
--- NOTE | 2024-02-16 10:24 | W.PN.HOSP.TC ---
Today's Communication/Plan
-
asked GI to reconsult
serial H&H
may need further transfusion
Assessment / Plan
Assessment / Plan
pt is a 73 year old male
we will not be removing or exchanging any tubes (med tube, G tube, etc) as they were placed at [facility]. He needs to return there for further manipulation of them. This is not emergent.
Acute blood loss anemia with melena---nursing reports black stool today, constant--could be old blood?, asked GI to reconsult--could be due to recent G placement vs other (CT abdomen pelvis showed small right psoas hematoma and some free pelvic
fluid)--Patient was just discharged from [facility] 7 days [employer] and came here with hemoglobin of 3--received 4 units pRBC---d/c HGB from [facility] ~8.4--apprec GI--cont PPI BID, s/p EGD with LA grade B esophagitis with one non bleeding cratered
gastric ulcer with clean base
brachial DVT (deep) and cephalic thrombosis (superficial)--cont IV heparin drip--? change to Eliquis--possible he won't be candidate for ANY anticoagulation
Bilateral PE with Small psoas hematoma---GI clearing for anticoagulation if desired--do not believe needs IVC filter at this time
Reported history of gastric outlet obstruction--G tube placed at [facility] on 01/29 with plans to convert to G/J--would not feed food orally, only clears, cont tube feeds (pt was on at home but kind of feeds were not documented that I could find in the
records)--records reviewed--apprec dietary
Metastatic pancreatic cancer ( to lung) with Moderate ascites and Possible portal vein thrombosis--recent diagnosis and has not started on therapy yet--ONC at [place], wants to switch here per onc note--Patient also had bare-metal stent placed in
CBD--not enough ascites for IR paracentesis
Acute emphysematous cholecystitis with transaminitis--patient is status post cholecystostomy tube placement, pt will need to return to [facility] for tube removal--CT abdomen pelvis showing air in liver parenchyma as well.
hypokalemia/hypocalcemia--replete as needed
DVTPPX - scd
code status --Full code--would likely need GOC discussion......pt wants aggressive therapy as per [facility] records--hospice appropriate but remains FULL CODE
likely will need SNF at d/c--PT/OT
Anticipated Discharge: 24 - 48 hours
Subjective/Interval History
-
Date of Service: February 16, 2024
pt getting washed--nursing reports black stool 'pouring' out
Objective Data
-
Labs:
Laboratory Results
02/16/24 02/16/24
05:53 14:00
WBC 5.2
Hgb 7.5 L
Hct 23.4 L
Plt Count 184
APTT 135.5 H Pending
Vital Signs:
max temp for 24 hours
02/16/24
03:29
Temp 98.1 F
Vital Signs
Temp Pulse Resp BP Pulse Ox
97.7 F 99 16 113/75 94
02/16/24 07:40 02/16/24 07:40 02/16/24 07:40 02/16/24 07:40 02/16/24 07:40
I&O
02/15/24 02/16/24 02/17/24
06:59 06:59 06:59
Intake Total 2280 / 2280 1855 / 1855
Output Total 350 / 350 700 / 700
Balance 193 / 0 1155 / 1155
Review of Systems
-
All other systems: Reviewed and negative
Physical Exam
-
General: Appears Chronically Ill
HEENT: Normocephalic and Atraumatic
Respiratory: Clear to Auscultation; Negative Wheezes or Rhonchi
Cardiac: Regular Rhythm and S1/S2; Negative Murmur
GI: Soft, Nontender, Normal Bowel Sounds, Distended, Peg Tube and Other (perc med tube)
Musculoskeletal: No Clubbing, No Cyanosis and No Edema
Neuro: Awake and Alert
Psych: Calm
--- NOTE | 2024-02-16 10:28 | CM ---
Patient seen at bedside by physician. Patient in process of bed bath. Awaiting response from [facility]. CM will continue to follow for discharge planning needs.
Plan; SNF; pending response
--- NOTE | 2024-02-16 14:14 | W.PN.GI.CBS2 ---
Today's Communication / Plan
-
Please see assessment and plan for details.
Assessment / Plan
-
1. Melena: has remained hemodynamically stable, and hemoglobin has remained stable since admission.His initial presentation had heme-negative brown stool x 2 and unclear source of his drop with no gross bleeding, though was not on anticoagulation
at that time. EGD showed clean-based ulcer and duodenal compression, though no obvious source of bleeding then, no ulceration at the PEG insertion site. At this point we will plan EGD again tomorrow given new melena in the setting of heparin, will
hold heparin 4 hours prior to EGD and hold tube feedings in the morning. Will continue to trend hemoglobin and PPI twice daily. It is possible this could have been old blood from previous procedures as he has had no significant bowel movements
during this hospitalization.
2. Locally advanced pancreatic cancer: With biliary obstruction and partial gastric outlet obstruction due to compression in the duodenal bulb, status post G-tube, metal biliary stent and cholecystostomy tube for gallbladder decompression. He has
been tolerating tube feeds without difficulty, and discussed could follow-up at [place] in couple of months to change to a GJ tube if needed.
Subjective
Subjective
Date of Service: February 16, 2024
Called back to see patient secondary to melena. He had a melenic stool this morning and last night per nursing. Overall he is active and feeling well, tolerating tube feeds, no nausea or vomiting, has been hemodynamically stable.
Objective
Data Reviewed
Laboratory Data:
Laboratory Results
02/16/24 05:53
02/15/24 04:49
Laboratory Results
PT 15.7 Sec (11.4-14.6) H 02/10/24 22:23
INR 1.22 02/10/24 22:23
APTT 135.5 Sec (23.4-35.0) H 02/16/24 05:53
Phosphorus 4.6 mg/dl (2.5-4.5) H 02/11/24 06:35
Magnesium 2.2 mg/dl (1.6-2.3) 02/15/24 04:49
Total Bilirubin 0.6 mg/dl (0.2-1.3) 02/15/24 04:49
AST 33 U/L (17-59) 02/15/24 04:49
ALT 34 U/L (0-50) 02/15/24 04:49
Alkaline Phosphatase 97 U/L (38-126) 02/15/24 04:49
Vital Signs and I&O:
Vital Signs
Temp Pulse Resp BP Pulse Ox
97.7 F 93 16 100/67 93
02/16/24 11:20 02/16/24 11:20 02/16/24 11:20 02/16/24 11:20 02/16/24 11:20
I&O
02/15/24 02/16/24 02/17/24
06:59 06:59 06:59
Intake Total 2280 / 2280 1855 / 1855
Output Total 350 / 350 700 / 700
Balance 1930 / 1930 1155 / 1155
Physical Exam
Physical Exam
General: NAD
Abdomen: normal bowel sounds, soft, no tenderness, no masses or bruits, no ascites, PEG site intact
[2024-02-16 14:42] LABS: APTT 69.9 Sec (23.4-35.0)
[2024-02-16] MEDS: FERRLECIT 110 MG IV (15:08)
[2024-02-16 19:32] LABS: Hematocrit 24.1 % (39.0-52.0)
[2024-02-16] MEDS: HEPARIN 25000 UNITS/250 ML IV (20:55)
[2024-02-16 21:23] LABS: APTT 149.7 Sec (23.4-35.0)
[2024-02-16] MEDS: LAMICTAL 50 MG PO (22:33)
[2024-02-16] MEDS: LIPITOR 10 MG PO (22:34)
[2024-02-16] MEDS: SEROQUEL 25 MG PO (22:34)
[2024-02-16] MEDS: LAMICTAL 300 MG PO (22:34)
[2024-02-17] VITALS (13 sets, daily range): BP systolic 92–147; BP diastolic 58–80; PULSE 3–79; BMI 20.6
[2024-02-17 05:29] LABS: APTT 52.9 Sec (23.4-35.0)
[2024-02-17 07:26] LABS: ALT (SGPT) 31 U/L (0-50); AST (SGOT) 30 U/L (17-59); Albumin 2.5 g/dl (3.5-5.0); Alkaline Phosphatase 118 U/L (38-126); Blood Urea Nitrogen 7 mg/dl (9-20); Calcium 7.8 mg/dl (8.4-10.2); Carbon Dioxide 22 mmol/L (22-30); Chloride 104 mmol/L (98-107); Estimated Creatinine Clearance 110 ml/min; Glucose 104 mg/dl (70-99); Magnesium 2.2 mg/dl (1.6-2.3); Potassium 3.6 mmol/L (3.5-5.1); Sodium 134 mmol/L (135-145); Total Bilirubin 0.6 mg/dl (0.2-1.3); Total Protein 4.7 g/dl (6.3-8.2); eGFR > 60.00
[2024-02-17 09:19] LABS: Hematocrit 25.7 % (39.0-52.0); Hemoglobin 8.2 g/dL (13.0-18.0); Mean Corp Hgb Conc. 31.9 g/dL (33.0-37.0); Mean Corpuscular Hgb 30.4 pg (27.0-31.0); Mean Corpuscular Volume 95.2 fL (80.0-94.0); Mean Platelet Volume 9.5 fL (7.4-10.4); Platelet Count 198 10^3/uL (130-400); Red Cell Dist. Width 21.8 % (11.5-14.5); White Blood Cell Count 5.8 10^3/uL (4.8-10.8)
[2024-02-17] MEDS: THERAGRAN 1 TABLET PO (09:30)
[2024-02-17] MEDS: NSS (PRESERVATIVE FREE) 10 ML IV ×2 (09:30→20:48)
[2024-02-17] MEDS: VIMPAT 100 MG PO ×2 (09:30→20:45)
[2024-02-17] MEDS: PRISTIQ 50 MG PO (09:30)
[2024-02-17] MEDS: PROTONIX IV 40 MG IV ×2 (09:30→20:47)
--- NOTE | 2024-02-17 09:52 | W.PN.HOSP.TC ---
Today's Communication/Plan
-
EGD today
IV heparin to restart at GI indication post EGD
Assessment / Plan
Assessment / Plan
pt is a 73 year old male
we will not be removing or exchanging any tubes (med tube, G tube, etc) as they were placed at [facility]. He needs to return there for further manipulation of them. This is not emergent.
Acute blood loss anemia with melena---nursing reports black stool, constant--could be old blood?, asked GI to reconsult, for EGD 02/17/24, HGB stable at 8.2--could be due to recent G placement vs other (CT abdomen pelvis showed small right psoas
hematoma and some free pelvic fluid)--Patient was just discharged from [facility] 7 days [employer] and came here with hemoglobin of 3--received 4 units pRBC---d/c HGB from [facility] ~8.4--apprec GI--cont PPI BID, s/p EGD with LA grade B esophagitis with
one non bleeding cratered gastric ulcer with clean base
brachial DVT (deep) and cephalic thrombosis (superficial)--cont IV heparin drip--? change to Eliquis--possible he won't be candidate for ANY anticoagulation?
Bilateral PE with Small psoas hematoma---GI clearing for anticoagulation if desired--do not believe needs IVC filter at this time
Reported history of gastric outlet obstruction--G tube placed at [facility] on 01/29 with plans to convert to G/J--would not feed food orally, only clears, cont tube feeds (pt was on at home but kind of feeds were not documented that I could find in the
records)--records reviewed--apprec dietary
Metastatic pancreatic cancer ( to lung) with Moderate ascites and Possible portal vein thrombosis--recent diagnosis and has not started on therapy yet--ONC at [place], wants to switch here per onc note--Patient also had bare-metal stent placed in
CBD--not enough ascites for IR paracentesis
Acute emphysematous cholecystitis with transaminitis--patient is status post cholecystostomy tube placement, pt will need to return to [facility] for tube removal--CT abdomen pelvis showing air in liver parenchyma as well.
hypokalemia/hypocalcemia--replete as needed
DVTPPX - scd
code status --Full code--would likely need GOC discussion......pt wants aggressive therapy as per [facility] records--hospice appropriate but remains FULL CODE
likely will need SNF at d/c--PT/OT
Anticipated Discharge: 24 - 48 hours
Subjective/Interval History
-
Date of Service: February 17, 2024
pt waiting for EGD--nursing still reports black stool
Objective Data
-
Labs:
Laboratory Results
02/17/24 02/17/24 02/17/24
05:01 06:30 08:41
WBC 5.8
Hgb 8.2 L
Hct 25.7 L
Plt Count 198
APTT 52.9 H
Sodium 134 L
Potassium 3.6
Chloride 104
Carbon Dioxide 22
BUN 7 L
Creatinine 0.6 L
Glucose 104 H
Calcium 7.8 L
Total Bilirubin 0.6
AST 30
ALT 31
Alkaline Phosphatase 118
02/17/24
11:30
WBC
Hgb
Hct
Plt Count
APTT Pending
Sodium
Potassium
Chloride
Carbon Dioxide
BUN
Creatinine
Glucose
Calcium
Total Bilirubin
AST
ALT
Alkaline Phosphatase
Vital Signs:
max temp for 24 hours
02/16/24
23:01
Temp 98.0 F
Vital Signs
Temp Pulse Resp BP Pulse Ox
97.3 F 90 17 110/74 97
02/17/24 07:20 02/17/24 07:20 02/17/24 07:20 02/17/24 07:20 02/17/24 07:20
I&O
02/16/24 02/17/24 02/18/24
06:59 06:59 06:59
Intake Total 1855 / 1855 120 / 120
Output Total 700 / 700 303 / 303
Balance 1155 / 1155 -183 / -183
Review of Systems
-
All other systems: Reviewed and negative
Physical Exam
-
General: Appears Chronically Ill and Cachectic
HEENT: Normocephalic, Atraumatic and Other (CPAP/BIPAP)
Respiratory: Clear to Auscultation; Negative Wheezes or Rhonchi
Cardiac: Regular Rhythm and S1/S2; Negative Murmur
GI: Soft, Nontender, Normal Bowel Sounds and Distended
Musculoskeletal: No Clubbing, No Cyanosis and No Edema
Neuro: Awake
Psych: Calm
--- NOTE | 2024-02-17 10:05 | CM ---
Addendum entered by Rosemarie Marx 02/17/24 16:23:
Patient updated about plan for transfer and IMM form left in the room for her to sign tomorrow. CM completed transfer forms and placed on chart. CM will continue to follow for discharge planning needs.
Plan; transfer to SNF tuesday. Please call report to [phone]/fax [phone]
Addendum entered by Rosemarie Marx 02/17/24 15:29:
Patient accepted for transfer on tuesday to [facility], pending physician assessment. CM forwarded changes in tube feeding information to [facility] liaison. CM will continue to follow for discharge planning needs.
Original Note:
Patient seen at bedside with physician. Pending testing. Patient for possible transfer to [facility] when medically appropriate. Pending assessment CM awaiting confirmation of bed availability at [facility]. CM will continue to follow for discharge planning
needs.
Plan; SNF pending acceptance and medical treatment plan
[2024-02-17 14:29] LABS: APTT 35.9 Sec (23.4-35.0)
--- NOTE | 2024-02-17 15:00 | PTCARENOTE ---
This RN advised morning rate examiner Hep gtt on hold at 0800 so 1100 APTT not necessary. An APTT was drawn at 1401 by rate examiner but Hep gtt not running and on hold and to resume at 1700. No further action required at this time for APTT level
since Hep gtt on hold.
[2024-02-17] MEDS: LAMICTAL 50 MG PO (21:42)
[2024-02-17] MEDS: LIPITOR 10 MG PO (21:43)
[2024-02-17] MEDS: LAMICTAL 300 MG PO (21:43)
[2024-02-17] MEDS: SEROQUEL 25 MG PO (21:43)
[2024-02-17 23:18] LABS: APTT 64.3 Sec (23.4-35.0)
[2024-02-18] VITALS (11 sets, daily range): BP systolic 92–142; BP diastolic 61–90; PULSE 3–91; BMI 20.7
[2024-02-18 05:55] LABS: Hematocrit 22.7 % (39.0-52.0); Hemoglobin 7.1 g/dL (13.0-18.0); Mean Corp Hgb Conc. 31.3 g/dL (33.0-37.0); Mean Corpuscular Hgb 29.6 pg (27.0-31.0); Mean Corpuscular Volume 94.6 fL (80.0-94.0); Mean Platelet Volume 9.4 fL (7.4-10.4); Platelet Count 171 10^3/uL (130-400); Red Cell Dist. Width 21.5 % (11.5-14.5); White Blood Cell Count 10.1 10^3/uL (4.8-10.8)
[2024-02-18 06:08] LABS: APTT 98.8 Sec (23.4-35.0)
--- NOTE | 2024-02-18 06:19 | PTCARENOTE ---
Pt with increased confusion this shift, however easily redirected and oriented. Bowel and bladder incontinents x2. Stools remain dark loose. Offered no complaints. TF maintained at 20ml/hr w/ 25ml/hr flush, and also on clear liq diet, tolerated
well.
[2024-02-18 06:22] LABS: Blood Urea Nitrogen 9 mg/dl (9-20); Calcium 7.8 mg/dl (8.4-10.2); Chloride 103 mmol/L (98-107); Estimated Creatinine Clearance 110 ml/min; Glucose 125 mg/dl (70-99); Magnesium 2.1 mg/dl (1.6-2.3); Potassium 3.3 mmol/L (3.5-5.1); Sodium 134 mmol/L (135-145); eGFR > 60.00
[2024-02-18 06:30] LABS: Carbon Dioxide 22 mmol/L (22-30)
[2024-02-18] MEDS: PROTONIX IV 40 MG IV ×2 (09:20→20:18)
[2024-02-18] MEDS: THERAGRAN 1 TABLET PO (09:20)
[2024-02-18] MEDS: NSS (PRESERVATIVE FREE) 10 ML IV ×2 (09:20→20:18)
[2024-02-18] MEDS: KCL ELIXIR 40 MEQ TUBE (09:20)
[2024-02-18] MEDS: VIMPAT 100 MG PO ×2 (09:21→20:18)
[2024-02-18] MEDS: PRISTIQ 50 MG PO (09:21)
[2024-02-18] MEDS: FLUSH (NSS) 2 FLUSH IV (09:27)
--- NOTE | 2024-02-18 09:30 | PTCARENOTE ---
Order obtained for TF feeding of 70ml/hr which is his goal rate that he had already made. Cont rate at 70ml/hr with water flush 25ml/hr. Tube feeds start at 16:00 and remain on until 9:00am the next day.
--- NOTE | 2024-02-18 10:58 | W.PN.GI.CBS2 ---
Today's Communication / Plan
-
trend HH
Assessment / Plan
-
1. Upper GI bleed with recurrent bleeding after he was started on heparin status post repeat EGD yesterday and was noted to have fundus ulcer with visible vessel and oozing and was treated with epinephrine, cautery and 2 clips. No bleeding at the
end of the procedure. Continue PPI twice daily, continue to trend hemoglobin if he continues to drop may need to DC heparin drip and place IVC filter.
2. Locally advanced pancreatic cancer: With biliary obstruction and partial gastric outlet obstruction due to compression in the duodenal bulb, status post G-tube, metal biliary stent and cholecystostomy tube for gallbladder decompression. He has
been tolerating tube feeds without difficulty, and discussed could follow-up at [place] in couple of months to change to a GJ tube if needed.
Subjective
Subjective
Date of Service: February 18, 2024
He did have 1 dark stool yesterday and hemoglobin dropped from 8.2 yesterday to 7.1, BUN is normal, his last blood transfusion was on 02/11/2024 he is received a total of 4 units of packed red blood cells so far, his heparin was also restarted last
night after repeat EGD with hemostasis
Objective
Data Reviewed
Laboratory Data:
Laboratory Results
02/18/24 05:27
02/18/24 05:27
Laboratory Results
PT 15.7 Sec (11.4-14.6) H 02/10/24 22:23
INR 1.22 02/10/24 22:23
APTT 98.8 Sec (23.4-35.0) H 02/18/24 05:27
Phosphorus 4.6 mg/dl (2.5-4.5) H 02/11/24 06:35
Magnesium 2.1 mg/dl (1.6-2.3) 02/18/24 05:27
Total Bilirubin 0.6 mg/dl (0.2-1.3) 02/17/24 06:30
AST 30 U/L (17-59) 02/17/24 06:30
ALT 31 U/L (0-50) 02/17/24 06:30
Alkaline Phosphatase 118 U/L (38-126) 02/17/24 06:30
Vital Signs and I&O:
Vital Signs
Temp Pulse Resp BP Pulse Ox
97.3 F 102 18 127/85 95
02/18/24 07:50 02/18/24 07:50 02/18/24 07:50 02/18/24 07:50 02/18/24 07:50
I&O
02/17/24 02/18/24 02/19/24
06:59 06:59 06:59
Intake Total 120 / 120 1040 / 1040
Output Total 303 / 303 400 / 400
Balance -183 / -183 640 / 640
Physical Exam
Physical Exam
Cardiology: Normal Sinus Rhythm
Pulmonary: Clear
GI: Soft, Non Distended, Non Tender and Normal Bowel Sounds
--- NOTE | 2024-02-18 10:59 | W.PN.HOSP.TC ---
Today's Communication/Plan
-
transfuse pRBC today
Assessment / Plan
Assessment / Plan
pt is a 73 year old male
we will not be removing or exchanging any tubes (med tube, G tube, etc) as they were placed at [facility]. He needs to return there for further manipulation of them. This is not emergent.
Acute blood loss anemia with melena--- asked GI to reconsult, EGD 02/17/24 showed oozing gastric ulcer with visible vessel--cauterized, injected--Patient was just discharged from [facility] 7 days [employer] and came here with hemoglobin of
3--received 4 units pRBC---d/c HGB from [facility] ~8.4--apprec GI--cont PPI BID, 02/13/24 s/p EGD with LA grade B esophagitis with one non bleeding cratered gastric ulcer with clean base--will transfuse 1 unit pRBC for HGB of 7.1 (down from 8.2 day prior)
brachial DVT (deep) and cephalic thrombosis (superficial)--cont IV heparin drip--? change to Eliquis--possible he won't be candidate for ANY anticoagulation?
Bilateral PE with Small psoas hematoma---GI clearing for anticoagulation if desired--do not believe needs IVC filter at this time
Reported history of gastric outlet obstruction--G tube placed at [facility] on 01/29 with plans to convert to G/J--would not feed food orally, only clears, cont tube feeds--records reviewed--apprec dietary, on osmolite goal 70ml/hr from 4PM to 9AM, clears
9AM to 4PM
Metastatic pancreatic cancer ( to lung) with Moderate ascites and Possible portal vein thrombosis--recent diagnosis and has not started on therapy yet--ONC at [place], wants to switch here per onc note--Patient also had bare-metal stent placed in
CBD--not enough ascites for IR paracentesis
Acute emphysematous cholecystitis with transaminitis--patient is status post cholecystostomy tube placement, pt will need to return to [facility] for tube removal--CT abdomen pelvis showing air in liver parenchyma as well.
hypokalemia/hypocalcemia--replete as needed
DVTPPX - scd
code status --Full code--would likely need GOC discussion......pt wants aggressive therapy as per [facility] records--hospice appropriate but remains FULL CODE
likely will need SNF at d/c--PT/OT
Anticipated Discharge: 24 - 48 hours
Subjective/Interval History
-
Date of Service: February 18, 2024
pt without c/o
Objective Data
-
Labs:
Laboratory Results
02/17/24 02/18/24 02/18/24
23:01 05:27 12:30
WBC 10.1
Hgb 7.1 L
Hct 22.7 L
Plt Count 171
APTT 64.3 H 98.8 H Pending
Sodium 134 L
Potassium 3.3 L
Chloride 103
Carbon Dioxide 22
BUN 9
Creatinine 0.6 L
Glucose 125 H
Calcium 7.8 L
Vital Signs:
max temp for 24 hours
02/17/24
19:45
Temp 99 F
Vital Signs
Temp Pulse Resp BP Pulse Ox
97.3 F 102 18 127/85 95
02/18/24 07:50 02/18/24 07:50 02/18/24 07:50 02/18/24 07:50 02/18/24 07:50
I&O
02/17/24 02/18/24 02/19/24
06:59 06:59 06:59
Intake Total 120 / 120 1040 / 1040
Output Total 303 / 303 400 / 400
Balance -183 / -183 640 / 640
Review of Systems
-
All other systems: Reviewed and negative
Physical Exam
-
General: No Apparent Distress, Appears Chronically Ill and Cachectic
HEENT: Normocephalic and Atraumatic
Respiratory: Clear to Auscultation; Negative Wheezes or Rhonchi
Cardiac: Regular Rhythm and S1/S2; Negative Murmur
GI: Soft, Nontender, Normal Bowel Sounds, Distended, Peg Tube and Other (perc med tube)
Musculoskeletal: No Clubbing, No Cyanosis and No Edema
Neuro: Awake and Alert
[2024-02-18 12:57] LABS: APTT 125.2 Sec (23.4-35.0)
[2024-02-18] MEDS: HEPARIN 25000 UNITS/250 ML IV (13:25)
--- NOTE | 2024-02-18 14:59 | PTCARENOTE ---
Pt with extreme very large liquid BM that is dark in color. 1 unit of PRBC finishing up from earlier today. Heparin drip infusing without difficulty
--- NOTE | 2024-02-18 15:58 | CHAP ---
Spoke with , May, who was calm and accepting of the situation, 'just hoping for the best.' She asked about Holy Communion on Tuesday - I assured her that the Eucharistic Ministers usually come late morning. Emotional and spiritual support
provided.
[2024-02-18] MEDS: XANAX 0.25 MG PO (16:07)
[2024-02-18] MEDS: LIPITOR 10 MG PO (20:18)
[2024-02-18] MEDS: LAMICTAL 50 MG PO (20:18)
[2024-02-18] MEDS: SEROQUEL 25 MG PO (20:18)
[2024-02-18] MEDS: LAMICTAL 300 MG PO (20:20)
[2024-02-18 20:44] LABS: APTT 59.9 Sec (23.4-35.0)
[2024-02-18 21:38] LABS: Hematocrit 25.6 % (39.0-52.0); Hemoglobin 8.5 g/dL (13.0-18.0)
[2024-02-19] VITALS (8 sets, daily range): BP systolic 105–133; BP diastolic 69–86; PULSE 3–96; BMI 20.5
[2024-02-19 04:44] LABS: APTT 59.5 Sec (23.4-35.0)
[2024-02-19 04:45] LABS: Blood Urea Nitrogen 7 mg/dl (9-20); Carbon Dioxide 22 mmol/L (22-30); Chloride 107 mmol/L (98-107); Estimated Creatinine Clearance 111 ml/min; Glucose 128 mg/dl (70-99); Magnesium 2.2 mg/dl (1.6-2.3); Phosphorus 2.2 mg/dl (2.5-4.5); Potassium 3.9 mmol/L (3.5-5.1); Sodium 134 mmol/L (135-145); eGFR > 60.00
[2024-02-19 04:59] LABS: Hematocrit 26.1 % (39.0-52.0); Hemoglobin 8.1 g/dL (13.0-18.0); Mean Corpuscular Hgb 30.3 pg (27.0-31.0); Mean Corpuscular Volume 97.8 fL (80.0-94.0); Mean Platelet Volume 9.8 fL (7.4-10.4); Platelet Count 126 10^3/uL (130-400); Red Blood Cell Count 2.67 10^6/uL (4.70-6.10); Red Cell Dist. Width 21.2 % (11.5-14.5); White Blood Cell Count 5.1 10^3/uL (4.8-10.8)
--- NOTE | 2024-02-19 08:52 | W.PN.GI.CBS2 ---
Today's Communication / Plan
-
DC heparin
IVC filer
consider palliative care consult
trend HB
Assessment / Plan
-
1. Upper GI bleed with recurrent bleeding after he was started on heparin status post repeat EGD 02/16 and was noted to have fundus ulcer with visible vessel and oozing and was treated with epinephrine, cautery and 2 clips. No bleeding at the end
of the procedure. Continue PPI twice daily. He did have an episode of melena yesterday unclear if it is old blood, hemoglobin responded to 1 unit of packed red blood cells but given high risk of rebleeding would DC heparin for now and consider IVC
filter, TT sent to Dr. Velasquez
2. Locally advanced pancreatic cancer: With biliary obstruction and partial gastric outlet obstruction due to compression in the duodenal bulb, status post G-tube, metal biliary stent and cholecystostomy tube for gallbladder decompression. He has
been tolerating tube feeds without difficulty, and discussed could follow-up at [place] in couple of months to change to a GJ tube if needed.
Given multiple comorbidities with underlying cancer may need to consider palliative care or hospice care if patient and family agreeable would recommend palliative care consult
Subjective
Subjective
Date of Service: February 19, 2024
He is confused today and not oriented to place or time, hemoglobin is 8.1 up from 7.1 yesterday after 1 unit of packed red blood cells he did have 1 large episode of melena yesterday afternoon and a smaller episode later in the evening none since
then
Objective
Data Reviewed
Laboratory Data:
Laboratory Results
02/19/24 04:11
02/19/24 04:11
Laboratory Results
PT 15.7 Sec (11.4-14.6) H 02/10/24 22:23
INR 1.22 02/10/24 22:23
APTT 59.5 Sec (23.4-35.0) H 02/19/24 04:11
Phosphorus 2.2 mg/dl (2.5-4.5) L 02/19/24 04:11
Magnesium 2.2 mg/dl (1.6-2.3) 02/19/24 04:11
Total Bilirubin 0.6 mg/dl (0.2-1.3) 02/17/24 06:30
AST 30 U/L (17-59) 02/17/24 06:30
ALT 31 U/L (0-50) 02/17/24 06:30
Alkaline Phosphatase 118 U/L (38-126) 02/17/24 06:30
Vital Signs and I&O:
Vital Signs
Temp Pulse Resp BP Pulse Ox
98.2 F 91 17 121/73 99
02/19/24 03:33 02/19/24 03:33 02/19/24 03:33 02/19/24 03:33 02/19/24 03:33
I&O
02/18/24 02/19/24 02/20/24
06:59 06:59 06:59
Intake Total 1040 / 1040 2019 / 2020
Output Total 400 / 400 800 / 800
Balance 640 / 640 1220 / 1220
Physical Exam
Physical Exam
Cardiology: Normal Sinus Rhythm
Pulmonary: Clear
GI: Soft, Distended (mildly distended), Non Tender and Normal Bowel Sounds
[2024-02-19] MEDS: PRISTIQ 50 MG PO (08:59)
[2024-02-19] MEDS: PROTONIX IV 40 MG IV ×2 (08:59→20:39)
[2024-02-19] MEDS: NSS (PRESERVATIVE FREE) 10 ML IV ×2 (08:59→20:39)
[2024-02-19] MEDS: VIMPAT 100 MG PO ×2 (08:59→20:38)
[2024-02-19] MEDS: THERAGRAN 1 TABLET PO (08:59)
[2024-02-19] MEDS: FLUSH (NSS) 2 FLUSH IV (09:02)
--- NOTE | 2024-02-19 11:04 | W.PN.HOSP.TC ---
Today's Communication/Plan
-
STAT abg, head ct, ammonia
stop IV heparin
consult IR for IVC filter and paracentesis
Assessment / Plan
Assessment / Plan
pt is a 73 year old male
we will not be removing or exchanging any tubes (med tube, G tube, etc) as they were placed at [facility]. He needs to return there for further manipulation of them. This is not emergent.
confusion--worsening per nursing and --with IV heparin, check STAT CT scan head r/o bleed, with O2 and uses CPAP, check STAT ABG r/o hypercapnia, with abdominal distention and met pancreatic ca, check STAT ammonia level--could be due to low dose
xanax that I gave for anxiety 02/18/24--will stop
Acute blood loss anemia with melena--- asked GI to reconsult, EGD 02/17/24 showed oozing gastric ulcer with visible vessel--cauterized, injected--Patient was just discharged from [facility] 7 days [employer] and came here with hemoglobin of
3--received 4 units pRBC---d/c HGB from [facility] ~8.4--apprec GI--cont PPI BID, 02/13/24 s/p EGD with LA grade B esophagitis with one non bleeding cratered gastric ulcer with clean base-- transfused 1 unit pRBC for HGB of 7.1 on 02/18/24 (down from 8.2 day
prior)--now 8.1
brachial DVT (deep) and cephalic thrombosis (superficial)--stop IV heparin drip--no eliquis--possible he won't be candidate for ANY anticoagulation?--will need IVC filter--IRAD consulted for Tuesday
Bilateral PE with Small psoas hematoma---GI clearing for anticoagulation if desired--for IVC filter--will consult IR
Reported history of gastric outlet obstruction--G tube placed at [facility] on 01/29 with plans to convert to G/J--would not feed food orally, only clears, cont tube feeds--records reviewed--apprec dietary, on osmolite goal 70ml/hr from 4PM to 9AM, clears
9AM to 4PM
Metastatic pancreatic cancer ( to lung) with Moderate ascites and Possible portal vein thrombosis--recent diagnosis and has not started on therapy yet--ONC at [place], wants to switch here per onc note--Patient also had bare-metal stent placed in
CBD--not enough ascites for IR paracentesis
Acute emphysematous cholecystitis with transaminitis--patient is status post cholecystostomy tube placement, pt will need to return to [facility] for tube removal--CT abdomen pelvis showing air in liver parenchyma as well.
hypokalemia/hypocalcemia--replete as needed
DVTPPX - scd
code status --Full code- need GOC discussion......pt wants aggressive therapy as per [facility] records--hospice appropriate but remains FULL CODE
Anticipated Discharge: > 48 hours
Subjective/Interval History
-
Date of Service: February 19, 2024
nursing and report that pt more confused
Objective Data
-
Labs:
Laboratory Results
02/19/24 02/19/24 02/19/24
04:11 10:52 11:00
WBC 5.1
Hgb 8.1 L
Hct 26.1 L
Plt Count 126 L D
APTT 59.5 H Pending
HCO3 Pending
Sodium 134 L
Potassium 3.9
Chloride 107
Carbon Dioxide 22
BUN 7 L
Creatinine 0.5 L
Glucose 128 H
Calcium 8.0 L
Vital Signs:
max temp for 24 hours
02/19/24
03:33
Temp 98.2 F
Vital Signs
Temp Pulse Resp BP Pulse Ox
97.6 F 92 16 105/69 98
02/19/24 07:35 02/19/24 07:35 02/19/24 07:35 02/19/24 07:35 02/19/24 08:30
I&O
02/18/24 02/19/24 02/20/24
06:59 06:59 06:59
Intake Total 1040 / 1040 2019
Output Total 400 / 400 800 / 800
Balance 640 / 640 1220 / 1220
Review of Systems
-
Unable to obtain full review of systems at this time due to: Acuity
Physical Exam
-
General: Appears Chronically Ill and Cachectic
HEENT: Normocephalic, Atraumatic and Oxygen
Respiratory: Clear to Auscultation; Negative Wheezes or Rhonchi
Cardiac: Regular Rhythm and S1/S2; Negative Murmur
GI: Soft, Nontender, Normal Bowel Sounds and Distended
Musculoskeletal: No Clubbing, No Cyanosis and No Edema
Neuro: Awake
Psych: Confused
[2024-02-19 11:32] LABS: Ammonia < 9 umol/L (9-30)
[2024-02-19 12:25] LABS: B.E. 3.3 mmol/L; HCO3 26.5 mmol/L (21-28); O2 Saturation % 99.5 % (94-98); PCO2 34 mmHg (35-48); PO2 106 mmHg (83-108)
[2024-02-19] MEDS: LAMICTAL 300 MG PO (22:23)
[2024-02-19] MEDS: LAMICTAL 50 MG PO (22:23)
[2024-02-19] MEDS: SEROQUEL 25 MG PO (22:24)
[2024-02-19] MEDS: LIPITOR 10 MG PO (22:24)
[2024-02-20] VITALS (8 sets, daily range): BP systolic 92–105; BP diastolic 59–71; PULSE 3–95; O2SAT 98; BMI 20.4
[2024-02-20] MEDS: XANAX 0.25 MG PO (05:18)
--- NOTE | 2024-02-20 05:29 | PTCARENOTE ---
Pt with increase confusion since start of shift. Needs frequent repositioning in bed d/t restlessness. 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
clearing which increased towards morning. TF on hold at 0515 after revenue liaison HOME HEALTH ASSISTANT made aware, new order for PCXR.
[2024-02-20 07:40] LABS: Hematocrit 25.4 % (39.0-52.0); Hemoglobin 7.8 g/dL (13.0-18.0); Mean Corp Hgb Conc. 30.7 g/dL (33.0-37.0); Mean Corpuscular Hgb 30.2 pg (27.0-31.0); Mean Corpuscular Volume 98.4 fL (80.0-94.0); Mean Platelet Volume 9.3 fL (7.4-10.4); Platelet Count 171 10^3/uL (130-400); Red Blood Cell Count 2.58 10^6/uL (4.70-6.10); Red Cell Dist. Width 20.7 % (11.5-14.5); White Blood Cell Count 5.4 10^3/uL (4.8-10.8)
--- NOTE | 2024-02-20 07:54 | W.PN.UPDATE ---
Update Note
Progress Note Update
Received consult for IVC filter. The patient has upper extremity DVT, no lower extremity DVT on US dated 02/11/24. IVC filter would offer no protection from PE arising from upper extremity DVT, therefore the risks of placing filter likely outweigh
the benefits at this time.
D/W Dr. Velasquez.
[2024-02-20 07:55] LABS: ALT (SGPT) 27 U/L (0-50); AST (SGOT) 26 U/L (17-59); Albumin 2.3 g/dl (3.5-5.0); Alkaline Phosphatase 116 U/L (38-126); Blood Urea Nitrogen 8 mg/dl (9-20); Calcium 8.1 mg/dl (8.4-10.2); Carbon Dioxide 27 mmol/L (22-30); Chloride 104 mmol/L (98-107); Estimated Creatinine Clearance 109 ml/min; Glucose 107 mg/dl (70-99); Magnesium 2.1 mg/dl (1.6-2.3); Potassium 4.4 mmol/L (3.5-5.1); Sodium 134 mmol/L (135-145); Total Bilirubin 0.5 mg/dl (0.2-1.3); Total Protein 4.4 g/dl (6.3-8.2); eGFR > 60.00
[2024-02-20] MEDS: NSS (PRESERVATIVE FREE) 10 ML IV ×2 (08:35→20:44)
[2024-02-20] MEDS: PROTONIX IV 40 MG IV ×2 (08:35→20:44)
[2024-02-20] MEDS: PRISTIQ 50 MG PO (08:36)
[2024-02-20] MEDS: VIMPAT 100 MG PO ×2 (08:36→20:44)
[2024-02-20] MEDS: THERAGRAN 1 TABLET PO (08:36)
--- NOTE | 2024-02-20 10:08 | W.PN.HOSP.TC ---
Today's Communication/Plan
-
Paracentesis
Held conversation about GOC with -advised hospice as appropriate next step, will continue to follow as no decision made yet
Assessment / Plan
Assessment / Plan
73yo M with PMHX of pancreatic CA came with syncope, found severe anemia 2/2 GIB. Patient with complictaed comorbidiites, managed in [facility] with GJ tube, cholecystostomy, R chemo-port (with hypoechoic structure on US) - to be managed in
[facility]. GOC needs to be clarified too.
A/P:
#Acute blood loss anemia 2/2 GIB
#GERD
#PUD
CTA on admiison without significant bleeding. Minimal changes concerning for R psoas hematoma
s/p transfusion
GI s/p EGD on 02/13/24 and 02/17/24 (due to recurrent bleeding) - gastric ulcer with visible vessel
PPI
As per GI - advised alternative mgmt of thrombosis, avoid anticoagulation, high risk for bleeding
Serial CBC
#Pancreatic adenocarcinoma with emphysematous cholecystitis and gastric outlet obstruction with GJ tube and cholecystostomy, CBD stent
#Subcentimeter lung nodules
Hematology consult - outpatient f/u for treatment if functional status will alow
Continue tube mgmt in as previously planned
cont tube feeds
#Transient in-hospital delirium
seen on previous admissions too and at that time contributed to the seizures
HEad CT without bleeding
No hypercapnia
Ammonia low
monitor
#Ascites with abdominal distension
most likely 2/2 PVT
Paracentesis on 02/20/24
#b/l pulmonary embolism
#PVT
#LUE DVT
Not a candidate for anticoagulation with recurrent anemia and GIB
No LE DVT - as agreed with IRAD - no role for IVC finter
#Seizure d/o
seizure precautions
cont home meds
#R inguinal hernia
Non-incarcerated
#Pulmonary fibrosis with hypoxic respiratory failure
wean off O2 as tolerated
#L renal cyst
#Constipation
laxatives
no significant follow up advised
#Hx of CVA
#HLD
#Anxiety
cont home meds
DVt ppx SCDs
Full code
I have spent at least 59min reviewing chart, test results, communication with consultants and direct patient care
Anticipated Discharge: 24 - 48 hours
Subjective/Interval History
-
Date of Service: February 20, 2024
Objective Data
-
Labs:
Laboratory Results
02/20/24
06:49
WBC 5.4
Hgb 7.8 L
Hct 25.4 L
Plt Count 171 D
Sodium 134 L
Potassium 4.4
Chloride 104
Carbon Dioxide 27
BUN 8 L
Creatinine 0.6 L
Glucose 107 H
Calcium 8.1 L
Total Bilirubin 0.5
AST 26
ALT 27
Alkaline Phosphatase 116
Vital Signs:
Vital Signs
Temp Pulse Resp BP Pulse Ox
97.2 F 94 16 95/63 96
02/20/24 07:30 02/20/24 07:30 02/20/24 07:30 02/20/24 07:30 02/20/24 07:30
I&O
02/19/24 02/20/24 02/21/24
06:59 06:59 06:59
Intake Total 2019 1370 / 1370
Output Total 800 / 800
Balance 1220 / 1220 1370 / 1370
Review of Systems
-
History Source: Patient
Physical Exam
-
General: No Apparent Distress and Comfortable
Respiratory: Clear to Auscultation
Cardiac: Regular Rhythm
GI: Soft, Nontender, Distended, Peg Tube and Other (cholecytostomy )
Genito-urinary: No Costovertebral Tender
Musculoskeletal: No Clubbing, No Cyanosis and No Edema
Neuro: Awake, Alert, Oriented and AO x 3
Psych: Calm
--- NOTE | 2024-02-20 11:22 | W.PN.GI.CBS2 ---
Today's Communication / Plan
-
for para today
DW family to consider hospice care
Assessment / Plan
-
1. Upper GI bleed with recurrent bleeding after he was started on heparin status post repeat EGD 02/16 and was noted to have fundus ulcer with visible vessel and oozing and was treated with epinephrine, cautery and 2 clips. No bleeding at the end
of the procedure. Continue PPI twice daily. He did have an episode of melena 02/17, hemoglobin responded to 1 unit of packed red blood cells but given high risk of rebleeding would DC heparin for now and consider IVC filter, no further bleeding
2. Locally advanced pancreatic cancer: With biliary obstruction and partial gastric outlet obstruction due to compression in the duodenal bulb, status post G-tube, metal biliary stent and cholecystostomy tube for gallbladder decompression. He has
been tolerating tube feeds without difficulty, and discussed could follow-up at [place] in couple of months to change to a GJ tube if needed.
3. Abdomen is more distended today and is scheduled for a paracenteses, he does have portal vein thrombosis. Could be malignant ascites also
4. Altered mental status he did have a head CT which was negative yesterday could be related to delirium and metabolic encephalopathy
Given multiple comorbidities with underlying cancer may need to consider hospice care spoke to at bedside she is considering hospice
will be available as needed
Subjective
Subjective
Date of Service: February 20, 2024
Patient is drowsy and confused head CT was negative 02/18
No further melena, last BM was on 02/17, hemoglobin relatively stable abdomen more distended and is scheduled for paracentesis today
Objective
Data Reviewed
Laboratory Data:
Laboratory Results
02/20/24 06:49
02/20/24 06:49
Laboratory Results
PT 15.7 Sec (11.4-14.6) H 02/10/24 22:23
INR 1.22 02/10/24 22:23
APTT Cancelled 02/19/24 11:00
Phosphorus 2.2 mg/dl (2.5-4.5) L 02/19/24 04:11
Magnesium 2.1 mg/dl (1.6-2.3) 02/20/24 06:49
Total Bilirubin 0.5 mg/dl (0.2-1.3) 02/20/24 06:49
AST 26 U/L (17-59) 02/20/24 06:49
ALT 27 U/L (0-50) 02/20/24 06:49
Alkaline Phosphatase 116 U/L (38-126) 02/20/24 06:49
Vital Signs and I&O:
Vital Signs
Temp Pulse Resp BP Pulse Ox
98.8 F 82 18 99/68 99
02/20/24 11:14 02/20/24 11:14 02/20/24 11:14 02/20/24 11:14 02/20/24 11:14
I&O
02/19/24 02/20/24 02/21/24
06:59 06:59 06:59
Intake Total 2019 / 2019 1370 / 1370
Output Total 800 / 800
Balance 1220 / 1220 1370 / 1370
Physical Exam
Physical Exam
Cardiology: Normal Sinus Rhythm
Pulmonary: Clear
GI: Soft, Distended, Non Tender and Normal Bowel Sounds
--- NOTE | 2024-02-20 16:08 | CM ---
Reviewed the chart notes. Per notes, family considering hospice. PT recommending SNF. CM continues to be available to patient/family and is monitoring medical plan for needs at discharge.
Plan: Discharge plans will depend on family's decisions.
[2024-02-20] MEDS: SEROQUEL 25 MG PO (21:34)
[2024-02-20] MEDS: LAMICTAL 50 MG PO (21:34)
[2024-02-20] MEDS: LIPITOR 10 MG PO (21:34)
[2024-02-20] MEDS: LAMICTAL 300 MG PO (21:34)
[2024-02-21] VITALS (9 sets, daily range): BP systolic 92–132; BP diastolic 66–76; PULSE 3–90; O2SAT 97; BMI 19.9
[2024-02-21 08:33] LABS: % Basophils 0.2 % (0-2); % Eosinophils 5.3 % (0-6); % Immature Granulocytes 0.7 % (0-0.5); % Lymphocytes 6.5 % (20.5-51.1); % Monocytes 7.7 % (1.7-9.3); % Neutrophils 79.6 % (42.2-75.2); Absolute Eosinophils 0.2 10^3/uL (0-0.7); Absolute Lymphocytes 0.3 10^3/uL (1.2-3.4); Absolute Monocytes 0.3 10^3/uL (0.1-0.6); Absolute Neutrophils 3.3 10^3/uL (1.4-6.5); Hematocrit 27.9 % (39.0-52.0); Hemoglobin 8.7 g/dL (13.0-18.0); Mean Corp Hgb Conc. 31.2 g/dL (33.0-37.0); Mean Corpuscular Volume 99.3 fL (80.0-94.0); Mean Platelet Volume 9.6 fL (7.4-10.4); Nucleated Red Blood Cells % 0 % (-); Platelet Count 164 10^3/uL (130-400); Red Blood Cell Count 2.81 10^6/uL (4.70-6.10); Red Cell Dist. Width 19.9 % (11.5-14.5); White Blood Cell Count 4.2 10^3/uL (4.8-10.8)
[2024-02-21] MEDS: THERAGRAN 1 TABLET PO (08:45)
[2024-02-21] MEDS: PRISTIQ 50 MG PO (08:45)
[2024-02-21] MEDS: VIMPAT 100 MG PO ×2 (08:45→21:44)
[2024-02-21] MEDS: NSS (PRESERVATIVE FREE) 10 ML IV ×2 (08:46→21:42)
[2024-02-21] MEDS: PROTONIX IV 40 MG IV ×2 (08:46→21:43)
[2024-02-21 08:48] LABS: ALT (SGPT) 28 U/L (0-50); AST (SGOT) 27 U/L (17-59); Albumin 2.7 g/dl (3.5-5.0); Alkaline Phosphatase 124 U/L (38-126); Blood Urea Nitrogen 8 mg/dl (9-20); Calcium 8.2 mg/dl (8.4-10.2); Carbon Dioxide 26 mmol/L (22-30); Chloride 102 mmol/L (98-107); Estimated Creatinine Clearance 106 ml/min; Glucose 157 mg/dl (70-99); Potassium 4.2 mmol/L (3.5-5.1); Sodium 134 mmol/L (135-145); Total Bilirubin 0.4 mg/dl (0.2-1.3); Total Protein 4.8 g/dl (6.3-8.2); eGFR > 60.00
[2024-02-21] MEDS: NSS 250 IV (09:04)
--- NOTE | 2024-02-21 09:13 | W.PN.ONC2 ---
Today's Communication / Plan
-
Continue GOC and dispo planning
Impression
Impression
Newly diagnosed locally advanced pancreatic cancer
Paracentesis ordered due to ascites identified on scan, however there was not enough fluid to tap.
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
admitted with Hgb ~4g/dL
EGD 02/12 - esophagitis with no bleeding and a non-bleeding gastric ulcer with a clean ulcer base. Repeat EGD after heparin gtt showed bleeding ulcer tx wtih epi, cautery & clips
Cholecystitis s/p perc med
G tube placed for functional gastric outlet obstruction/decompression but now being used for tube feeding since 01/25
Right middle lobe pulmonary emboli, mild clot burden, UE DVT
Possible portal vein thrombosis
Constipation
Failure to thrive
Plan
Plan
I provided updates to pt via phone, per pt request, questions answered. We reviewed that in PS would need to improve to be eligible for systemic therapy. We also reviewed option for comfort care.
anticoagulation on hold, GI evaluation notable for bleeding ulcer. Appreciate IR consult -IVC filter would offer no protection from PE arising from upper extremity DVT, therefore the risks of placing filter likely outweigh the benefits at this time
Pending recovery, pt will transfer care to our group.
PS would need to improve for treatment.
NGS does not appear to have been performed yet on biopsy specimen from [place].
Subjective/Objective
Subjective
no new complaints
Vital Signs:
Vital Signs
Temp Pulse Resp BP Pulse Ox
98.0 F 82 16 92/70 94
02/21/24 08:45 02/21/24 08:45 02/21/24 08:45 02/21/24 08:45 02/21/24 08:45
Lab Results:
Laboratory Data
WBC 4.2 10^3/uL (4.8-10.8) L 02/21/24 07:32
Hgb 8.7 g/dL (13.0-18.0) L 02/21/24 07:32
Plt Count 164 10^3/uL (130-400) 02/21/24 07:32
PT 15.7 Sec (11.4-14.6) H 02/10/24 22:23
INR 1.22 02/10/24 22:23
APTT Cancelled 02/19/24 11:00
eGFR > 60.00 02/21/24 07:31
Physical Exam
HEENT: No Jaundice
Pulmonary: Other (diminished)
GI: Distended
Neuro: Other (lethargic, arousable to name, A&Ox3, follows commands)
[2024-02-21 10:15] LABS: Urine Albumin Negative (Neg - Trace); Urine Bilirubin Negative (Negative); Urine Character Clear (Clear); Urine Color Yellow; Urine Glucose Negative (Negative); Urine Ketone Negative (Negative); Urine Leukocyte Negative (Negative); Urine Nitrite Negative (Negative); Urine Occult Blood Negative (Negative); Urine Specific Gravity 1.005 (<1.030); Urine Urobilinogen 1+ (Neg - 1+)
--- NOTE | 2024-02-21 12:10 | CM ---
Addendum entered by Perla Hua RN 02/22/24 10:17:
IMM signed and placed on chart.
Plan: Discharge to [facility] today.
Call report to: [phone]
Fax report to: [phone]
Medical necessity and transport forms on chart.
Original Note:
Reviewed the chart notes and spoke with the patient and his spouse at the bedside. Patient is ready for discharge per attending. Updated clinicals sent to [facility] for review. CM continues to be available to patient/family and is monitoring medical
plan for needs at discharge.
Plan: Discharge to SNF once bed secured. No precert required.
--- NOTE | 2024-02-21 12:13 | W.PN.HOSP.TC ---
Today's Communication/Plan
-
cont monitoring
CM for rehab
Assessment / Plan
Assessment / Plan
73yo M with PMHX of pancreatic CA came with syncope, found severe anemia 2/2 GIB. Patient with complicated comorbidities, managed in [facility] with GJ tube, cholecystostomy, R chemo-port (with hypoechoic structure on US) - to be managed in
[place]. However patient developed confusion with profound weakness. Repeated workup neg for new infection and LFT WNL. Most likely transient delirium 2/2 poor functional status and comorbidities. Plan for SNF and if improving - might be able to
follow up with Oncology for eventual treatment. Otherwise he and his understand that the best option will be hospice. Due to GIB and anemia anticoagulation was stopped as per agreement with Hematology and GI.
A/P:
#Acute blood loss anemia 2/2 GIB
#GERD
#PUD
CTA on admiison without significant bleeding. Minimal changes concerning for R psoas hematoma
s/p transfusion
GI s/p EGD on 02/13/24 and 02/17/24 (due to recurrent bleeding) - gastric ulcer with visible vessel
PPI
As per GI - advised alternative mgmt of thrombosis, avoid anticoagulation, high risk for bleeding
Serial CBC
#Pancreatic adenocarcinoma with emphysematous cholecystitis and gastric outlet obstruction with GJ tube and cholecystostomy, CBD stent
#Subcentimeter lung nodules
Hematology consult - outpatient f/u for treatment if functional status will allow
Continue tube mgmt in as previously planned
cont tube feeds
#Transient in-hospital delirium
seen on previous admissions too and at that time contributed to the seizures
HEad CT without bleeding
No pneumonia
No UA
LFT WNL
No hypercapnia
Ammonia low
monitor
#Ascites with abdominal distension
most likely 2/2 PVT
Paracentesis on 02/20/24
#b/l pulmonary embolism
#PVT
#LUE DVT
Not a candidate for anticoagulation with recurrent anemia and GIB
No LE DVT - as agreed with IRAD - no role for IVC filter
#Seizure d/o
seizure precautions
cont home meds
#R inguinal hernia
Non-incarcerated
#Pulmonary fibrosis with hypoxic respiratory failure
wean off O2 as tolerated
#L renal cyst
#Constipation
laxatives
no significant follow up advised
#Hx of CVA
#HLD
#Anxiety
cont home meds
DVT ppx SCDs
DNR/DNI as per patient and discussion bedside
I have spent at least 57 min reviewing chart, test results, communication with consultants and direct patient care
Anticipated Discharge: Within 24 hours
Subjective/Interval History
-
Date of Service: February 21, 2024
Objective Data
-
Labs:
Laboratory Results
02/21/24 02/21/24
07:31 07:32
WBC 4.2 L
Hgb 8.7 L
Hct 27.9 L
Plt Count 164
Sodium 134 L
Potassium 4.2
Chloride 102
Carbon Dioxide 26
BUN 8 L
Creatinine 0.6 L
Glucose 157 H
Calcium 8.2 L
Total Bilirubin 0.4
AST 27
ALT 28
Alkaline Phosphatase 124
Vital Signs:
Vital Signs
Temp Pulse Resp BP Pulse Ox
98.0 F 82 16 92/70 94
02/21/24 08:45 02/21/24 08:45 02/21/24 08:45 02/21/24 08:45 02/21/24 08:45
I&O
02/20/24 02/21/24 02/22/24
06:59 06:59 06:59
Intake Total 1370 / 1370 1320 / 1320
Output Total 40 / 40
Balance 1370 / 1370 1320 / 1320 -40 / -40
Review of Systems
-
History Source: Patient and Family
Constitutional: Reports Fatigue
Physical Exam
-
General: No Apparent Distress
Respiratory: Clear to Auscultation
Cardiac: Regular Rhythm
GI: Soft, Nontender, Nondistended, Peg Tube and Other (perc med with clear bile)
Neuro: Awake, Alert, Oriented and AO x 3
Psych: Calm
--- NOTE | 2024-02-21 14:31 | HOSPNOTE ---
Spoke with spouse. The plan is for patient to try rehab at [facility]. The spouse understands there is a very real possibility that patient will not be able to rehab and will need hospice care. The spouse has my card and will call me if patient will
go home with hospice services. Equipment will be needed prior to discharge to home after rehab. The spouse also understands that the patient may decline prior to rehab and then we will discuss home hospice. Will continue to follow.
[2024-02-21] MEDS: LIPITOR 10 MG PO (21:44)
[2024-02-21] MEDS: SEROQUEL 25 MG PO (21:44)
[2024-02-21] MEDS: LAMICTAL 50 MG PO (21:44)
[2024-02-21] MEDS: LAMICTAL 300 MG PO (21:44)
[2024-02-22 00:08] LABS: Glucose - Point of Care 155 mg/dl (70-99)
[2024-02-22 03:21] VITALS: BP 92/62
[2024-02-22 05:00] VITALS: PULSE 3; PULSE 80
[2024-02-22 06:00] VITALS: BMI 19.4
--- NOTE | 2024-02-22 07:27 | W.PN.ONC2 ---
Today's Communication / Plan
-
Awaiting placement. PS would need to improve to be eligible for palliative chemotherapy
Impression
Impression
Locally advanced pancreatic cancer
Paracentesis ordered due to ascites identified on scan, however there was not enough fluid to tap.
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
admitted with Hgb ~4g/dL
EGD 02/12 - esophagitis with no bleeding and a non-bleeding gastric ulcer with a clean ulcer base. Repeat EGD after heparin gtt showed bleeding ulcer tx wtih epi, cautery & clips
Cholecystitis s/p perc med
G tube placed for functional gastric outlet obstruction/decompression but now being used for tube feeding since 01/25
Right middle lobe pulmonary emboli, mild clot burden, UE DVT
Possible portal vein thrombosis
Constipation
Failure to thrive
Plan
Plan
I provided updates to pt via phone, per pt request, questions answered. We reviewed that in PS would need to improve to be eligible for systemic therapy. We also reviewed option for comfort care.
anticoagulation on hold, GI evaluation notable for bleeding ulcer. Appreciate IR consult -IVC filter would offer no protection from PE arising from upper extremity DVT, therefore the risks of placing filter likely outweigh the benefits at this time
Pending recovery, pt will transfer care to our group.
PS would need to improve for treatment.
NGS does not appear to have been performed yet on biopsy specimen from [facility].
Subjective/Objective
Chief Complaint
ACS Heme ONC
Subjective
No C/O
Vital Signs:
Vital Signs
Temp Pulse Resp BP Pulse Ox
98.0 F 85 16 92/62 95
02/22/24 03:21 02/22/24 03:21 02/22/24 03:21 02/22/24 03:21 02/22/24 03:21
Lab Results:
Laboratory Data
WBC 4.2 10^3/uL (4.8-10.8) L 02/21/24 07:32
Hgb 8.7 g/dL (13.0-18.0) L 02/21/24 07:32
Plt Count 164 10^3/uL (130-400) 02/21/24 07:32
PT 15.7 Sec (11.4-14.6) H 02/10/24 22:23
INR 1.22 02/10/24 22:23
APTT Cancelled 02/19/24 11:00
eGFR > 60.00 02/21/24 07:31
Physical Exam
PE unchanged
[2024-02-22 07:45] VITALS: BP 102/70
--- NOTE | 2024-02-22 08:19 | W.PN.HOSP.TC ---
Today's Communication/Plan
-
CM for rehab d/c. Medically stable for d/c
Assessment / Plan
Assessment / Plan
73yo M with PMHX of pancreatic CA came with syncope, found severe anemia 2/2 GIB. Patient with complicated comorbidities, managed in [facility] with GJ tube, cholecystostomy, R chemo-port (with hypoechoic structure on US) - to be managed in
[place]. However patient developed confusion with profound weakness. Repeated workup neg for new infection and LFT WNL. Most likely transient delirium 2/2 poor functional status and comorbidities. Plan for SNF and if improving - might be able to
follow up with Oncology for eventual treatment. Otherwise he and his understand that the best option will be hospice. Due to GIB and anemia anticoagulation was stopped as per agreement with Hematology and GI. Currently risk will overweight
benefit for anticoagulation, maybe a canndidate in future, defer to Hematology/ Medically stable for D/C
A/P:
#Acute blood loss anemia 2/2 GIB
#GERD
#PUD
CTA on admission without significant bleeding. Minimal changes concerning for R psoas hematoma
s/p transfusion
GI s/p EGD on 02/13/24 and 02/17/24 (due to recurrent bleeding) - gastric ulcer with visible vessel
PPI
As per GI - advised alternative mgmt of thrombosis, avoid anticoagulation, high risk for bleeding
Serial CBC
#minimal leukopenia
most likely cancer related
#Pancreatic adenocarcinoma with emphysematous cholecystitis and gastric outlet obstruction with GJ tube and cholecystostomy, CBD stent
#Subcentimeter lung nodules
Hematology consult - outpatient f/u for treatment if functional status will allow
Continue tube mgmt in as previously planned
cont tube feeds
#Transient in-hospital delirium
seen on previous admissions too and at that time contributed to the seizures
HEad CT without bleeding
No pneumonia
No UA
LFT WNL
No hypercapnia
Ammonia low
monitor
#Ascites with abdominal distension
most likely 2/2 PVT
Paracentesis on 02/20/24
#b/l pulmonary embolism
#PVT
#LUE DVT
Not a candidate for anticoagulation with recurrent anemia and GIB
No LE DVT - as agreed with IRAD - no role for IVC filter
#Seizure d/o
seizure precautions
cont home meds
#R inguinal hernia
Non-incarcerated
#Pulmonary fibrosis with hypoxic respiratory failure
wean off O2 as tolerated
#L renal cyst
#Constipation
laxatives
no significant follow up advised
#Hx of CVA
#HLD
#Anxiety
cont home meds
#SALVATORE
cont CPAP
DVT ppx SCDs
DNR/DNI as per patient and discussion bedside
I have spent at least 37 min reviewing chart, test results, communication with consultants and direct patient care
Anticipated Discharge: Within 24 hours
Subjective/Interval History
-
Date of Service: February 22, 2024
Objective Data
-
Vital Signs:
Vital Signs
Temp Pulse Resp BP Pulse Ox
98.0 F 85 16 92/62 95
02/22/24 03:21 02/22/24 03:21 02/22/24 03:21 02/22/24 03:21 02/22/24 03:21
I&O
02/21/24 02/22/24 02/23/24
06:59 06:59 06:59
Intake Total 1320 / 1320 920 / 920
Output Total 40 / 40
Balance 1320 / 1320 880 / 880
Review of Systems
-
History Source: Patient
All other systems: Reviewed and negative
Physical Exam
-
General: No Apparent Distress
GI: Soft, Nontender and Nondistended
Neuro: Awake, Alert, Oriented and AO x 3
Psych: Calm
[2024-02-22] MEDS: VIMPAT 100 MG PO (08:47)
[2024-02-22] MEDS: PRISTIQ 50 MG PO (08:47)
[2024-02-22] MEDS: NSS (PRESERVATIVE FREE) 10 ML IV (08:48)
[2024-02-22] MEDS: THERAGRAN 1 TABLET PO (08:48)
[2024-02-22] MEDS: PROTONIX IV 40 MG IV (08:48)
[2024-02-22 11:05] VITALS: BP 93/63
[2024-02-22 11:35] VITALS: BP 93/63; BP 95/72; PULSE 88; O2SAT 93
--- NOTE | 2024-02-22 12:47 | W.DCSUMMARY ---
Addendum entered and electronically signed by Alberto Torres MD 02/22/24 13:07:
Called - agreeable with d/c, discussed diet
Original Note:
Discharge Summary
Discharge Data
Date of Admission: 02/11/24
Date of Discharge: 02/22/24
-
Pending Results: No
Hospital Course
73yo M with PMHX of pancreatic CA came with syncope, found severe anemia 2/2 GIB. Patient with complicated comorbidities, managed in [facility] with GJ tube, cholecystostomy, R chemo-port (with hypoechoic structure on US) - to be managed in
[place]. However patient developed confusion with profound weakness. Repeated workup neg for new infection and LFT WNL. Most likely transient delirium 2/2 poor functional status and comorbidities. Plan for SNF and if improving - might be able to
follow up with Oncology for eventual treatment. Otherwise he and his understand that the best option will be hospice. Due to GIB and anemia anticoagulation was stopped as per agreement with Hematology and GI. Currently risk will overweight
benefit for anticoagulation, maybe a canndidate in future, defer to Hematology. Medically stable for D/C. Appropriate to cont on Jevity 1.0 until Osmolite 1.2 obtained in SNF
I have spent at least 37 min reviewing chart, test results, communication with consultants and direct patient care
Patient was managed for:
#Acute blood loss anemia 2/2 GIB
#GERD
#PUD
#minimal leukopenia
#Pancreatic adenocarcinoma with emphysematous cholecystitis and gastric outlet obstruction with GJ tube and cholecystostomy, CBD stent
#Subcentimeter lung nodules
#Transient in-hospital delirium
#Ascites with abdominal distension
#b/l pulmonary embolism
#PVT
#LUE DVT
#Seizure d/o
#R inguinal hernia
#Pulmonary fibrosis with hypoxic respiratory failure
#L renal cyst
#Constipation
#Hx of CVA
#HLD
#Anxiety
#SALVATORE
Discharge Plan
-
Patient Disposition: Residential/SNF
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
acute emphysematous cholecystitis with transaminitis and percutaneous cholecystostomy tube placement, hypokalemia/hypocalcemia
Condition: Fair
Diet: Tube feeding and Other diet
Additional Diets: Jevity 1.0 until osmolite 1.2 in--70mls/hr from 4PM through 9AM for both--clears 9AM to 4 PM
Activity: As tolerated
Driving Restrictions: No driving
Bathing Restrictions: None
Activity Restrictions/Additional Instructions:
Continue to follow with previously recommended specialists in [facility]
Referrals:
Van Duke MD [Family Provider] - in less than 1 week
Orlando Greer MD [Active] - in two to four weeks
Prescriptions:
New
pantoprazole [address] for susp in packet
40 mg PO BID Qty: 60 0RF
Continued
lamotrigine [Lamictal] 150 mg Tablet
300 mg PO HS
acetaminophen [Tylenol] 325 mg Tablet
650 mg PO Q6HPRN PRN (Reason: mild pain)
therapeutic multivitamin Tablet
1 tab PO DAILY
simvastatin [Zocor] 20 mg Tablet
20 mg PO HS
lacosamide [Vimpat] 100 mg tablet
100 mg PO BID Qty: 60 0RF
quetiapine [Seroquel] 25 mg Tablet
25 mg PO HS
aspirin 81 mg Tablet,Delayed Release (Dr/Ec)
81 mg PO DAILY
lamotrigine [Lamictal] 25 mg Tablet
50 mg PO HS
desvenlafaxine succinate 50 mg Tablet Extended Release 24 Hr
50 mg PO DAILY
Discharge Orders:
Discharge Patient (As Directed); Ordered 02/22/24
Ordered By: Alberto Torres
Discharge Date and Time
Print Language: GABONESE
[2024-02-22 15:30] VITALS: BP 102/71
[2024-02-22 21:53] LABS: Lamotrigine (Lamictal) 8.2 ug/mL (3.0-15.0)
== END 2024-02-22 19:05 | DRG 377 ==
LOC: 2 NORTH 03:39
PROVIDERS: Hospitalist; Internal Medicine; Internal Medicine Gastroenterology; Physician Assistant; ADMITTING PHYSICIAN Hospitalist; ATTENDING PHYSICIAN Internal Medicine; CONSULT PHYSICIAN Internal Medicine Gastroenterology; CONSULT PHYSICIAN Internal Medicine Hematology & Oncology; EMERGENCY PHYSICIAN Emergency Medicine; FAMILY PHYSICIAN Family Medicine
PROC: 30233N1 Transfusion of Nonautologous Red Blood Cells into Peripheral Vein, Percutaneous Approach (ICD-10-PCS; 2024-02-10)
PROC: 5A09357 Assistance with Respiratory Ventilation, Less than 24 Consecutive Hours, Continuous Positive Airway Pressure (ICD-10-PCS; 2024-02-13)
PROC: 0DJ08ZZ Inspection of Upper Intestinal Tract, Via Natural or Artificial Opening Endoscopic (ICD-10-PCS; 2024-02-13)
PROC: 0W3P8ZZ Control Bleeding in Gastrointestinal Tract, Via Natural or Artificial Opening Endoscopic (ICD-10-PCS; 2024-02-17)
PROC: 0D568ZZ Destruction of Stomach, Via Natural or Artificial Opening Endoscopic (ICD-10-PCS; 2024-02-17)
PROC: 3E0G8GC Introduction of Other Therapeutic Substance into Upper GI, Via Natural or Artificial Opening Endoscopic (ICD-10-PCS; 2024-02-17)
DX: K25.0 Acute gastric ulcer with hemorrhage (principal); E43 Unspecified severe protein-calorie malnutrition; I26.94 Multiple subsegmental thrombotic pulmonary emboli without acute cor pulmonale; I26.99 Other pulmonary embolism without acute cor pulmonale; I81 Portal vein thrombosis; K83.1 Obstruction of bile duct; G93.41 Metabolic encephalopathy; J96.91 Respiratory failure, unspecified with hypoxia; C25.0 Malignant neoplasm of head of pancreas; E87.20 Acidosis, unspecified; R18.0 Malignant ascites; K81.0 Acute cholecystitis; K31.1 Adult hypertrophic pyloric stenosis; D62 Acute posthemorrhagic anemia; C78.01 Secondary malignant neoplasm of right lung; Z68.1 Body mass index [BMI] 19.9 or less, adult; I82.622 Acute embolism and thrombosis of deep veins of left upper extremity; F05 Delirium due to known physiological condition; D50.9 Iron deficiency anemia, unspecified; R55 Syncope and collapse; I95.9 Hypotension, unspecified; F41.9 Anxiety disorder, unspecified; R73.9 Hyperglycemia, unspecified; G40.909 Epilepsy, unspecified, not intractable, without status epilepticus; G47.33 Obstructive sleep apnea (adult) (pediatric); E78.00 Pure hypercholesterolemia, unspecified; K59.00 Constipation, unspecified; S70.01XA Contusion of right hip, initial encounter; F32.A Depression, unspecified; K21.00 Gastro-esophageal reflux disease with esophagitis, without bleeding; E87.6 Hypokalemia; R62.7 Adult failure to thrive; E83.51 Hypocalcemia; J61 Pneumoconiosis due to asbestos and other mineral fibers; K40.90 Unilateral inguinal hernia, without obstruction or gangrene, not specified as recurrent; N28.1 Cyst of kidney, acquired; K31.89 Other diseases of stomach and duodenum; K82.8 Other specified diseases of gallbladder; R74.01 Elevation of levels of liver transaminase levels; X58.XXXA Exposure to other specified factors, initial encounter; Y93.9 Activity, unspecified; Y92.9 Unspecified place or not applicable; Z66 Do not resuscitate; Z79.82 Long term (current) use of aspirin; Z80.0 Family history of malignant neoplasm of digestive organs; Z82.49 Family history of ischemic heart disease and other diseases of the circulatory system; Z80.3 Family history of malignant neoplasm of breast; Z88.8 Allergy status to other drugs, medicaments and biological substances; Z93.1 Gastrostomy status; Z86.73 Personal history of transient ischemic attack (TIA), and cerebral infarction without residual deficits
CPT/HCPCS: 36430; 36600; 70450; 71045; 71275; 74174; 76705; 76882; 80048; 80053; 80076; 80175; 81003; 82140; 82607; 82728; 82746; 82805; 82962; 83010; 83036; 83540; 83550; 83605; 83615; 83735; 84100; 85014; 85018; 85025; 85027; 85045; 85610; 85730; 86850; 86880; 86900; 86901; 86920; 87040; 92610; 93005; 93306; 93970; 93971; 94660; 96365; 96366; 97110; 97163; 97167; 97530; 99291; J2916; P9016; Q9967

== ENCOUNTER → 2024-02-27 10:41 | Outpatient (REF) | payer MEDICARE, OTHER, SELFPAY ==
[2024-02-27 12:19] LABS: % Basophils 0.8 % (0-2); % Eosinophils 4.7 % (0-6); % Immature Granulocytes 0.6 % (0-0.5); % Lymphocytes 8.2 % (20.5-51.1); % Monocytes 8.2 % (1.7-9.3); % Neutrophils 77.5 % (42.2-75.2); Absolute Eosinophils 0.2 10^3/uL (0-0.7); Absolute Lymphocytes 0.4 10^3/uL (1.2-3.4); Absolute Monocytes 0.4 10^3/uL (0.1-0.6); Hematocrit 30.6 % (39.0-52.0); Hemoglobin 9.2 g/dL (13.0-18.0); Mean Corp Hgb Conc. 30.1 g/dL (33.0-37.0); Mean Corpuscular Hgb 29.9 pg (27.0-31.0); Mean Corpuscular Volume 99.4 fL (80.0-94.0); Mean Platelet Volume 9.7 fL (7.4-10.4); Nucleated Red Blood Cells % 0 % (-); Platelet Count 249 10^3/uL (130-400); Red Blood Cell Count 3.08 10^6/uL (4.70-6.10); Red Cell Dist. Width 18.4 % (11.5-14.5); White Blood Cell Count 5.1 10^3/uL (4.8-10.8)
[2024-02-27 12:38] LABS: Blood Urea Nitrogen 11 mg/dl (9-20); Calcium 8.8 mg/dl (8.4-10.2); Carbon Dioxide 28 mmol/L (22-30); Chloride 97 mmol/L (98-107); Glucose 131 mg/dl (70-99); Potassium 4.1 mmol/L (3.5-5.1); Sodium 133 mmol/L (135-145); eGFR > 60.00
== END ==
LOC: OLABP 10:41
PROVIDERS: ATTENDING PHYSICIAN Family Medicine
DX: D62 Acute posthemorrhagic anemia (principal); K92.1 Melena; R55 Syncope and collapse; K31.1 Adult hypertrophic pyloric stenosis; K81.0 Acute cholecystitis; E87.6 Hypokalemia; E83.51 Hypocalcemia
CPT/HCPCS: 36415; 80048; 85025

== ENCOUNTER 2024-03-01 02:31 | Emergency (ER) | payer MEDICARE, OTHER, SELFPAY ==
[2024-03-01 02:37] VITALS: BP 117/85
[2024-03-01 02:38] VITALS: BP 117/85
[2024-03-01 02:45] VITALS: BMI 19.4
[2024-03-01 03:00] VITALS: BP 109/81
--- NOTE | 2024-03-01 03:07 | ED.GENMED ---
History of Present Illness
General
Chief Complaint: Catheter/Tube Problem
Source: patient, ambulance crew and previous hospital records (Recent lengthy hospitalization 02/11/2024 to February 22, 2024)
Exam Limitations: none
Time Seen by Provider: 03/01/24 02:52
Nursing documentation reviewed up to this point in time: agreed with
History of Present Illness
History of Present Illness:
This is a 73-year-old gentleman who was recently diagnosed with metastatic pancreatic cancer December of this year. Initially following with [facility] specialist and underwent PEG tube placement for gastric outlet obstruction while
hospitalized at [place] in December. He was also noted to have cholecystitis and cholecystotomy tube was placed during that hospitalization in December as well.
Was hospitalized here in January with severe symptomatic anemia related to bleeding gastric ulcer. Received blood transfusion, upper endoscopy with cauterization. He was stabilized and discharged February 21 to [facility] for prison care.
He continues at [facility] for inpatient physical therapy and plans to transition [facility] care [facility] with his initial appointment early March.
Thus far has been too debilitated to initiate treatment for his pancreatic cancer.
He states his cholecystotomy tube has had no drainage for more than 2 weeks and plan was to remove this tube in the near future.
He got up out of bed tonight to go to the bathroom and it was at this time that he noticed his cholecystotomy tube had become dislodged.
He denies abdominal pain, denies vomiting, denies fever. He does note some a chronic headache for which she takes Tylenol intermittently. Requesting a dose of Tylenol now.
Past History
Past History
ED Past Medical History: Cancer (Pancreatic cancer), Hypercholesterolemia, Seizures (History of 1 seizure suspected to be related to sertraline), Psychiatric and Other (Asbestosis, diverticulosis, anxiety, depression)
ED Past Surgical History: Orthopedic and Other (PEG tube, cholecystotomy tube)
Social History
Tobacco: Non-smoker
Alcohol: None
Drug: None
Personal:
Living: with family (Currently residing at [facility] for rehab)
Employment: Retired
Family History
Family History: Other (Noncontributory)
Phy Exam
Physical Exam
Physical Exam:
GENERAL: 73-year-old gentleman appears somewhat older than stated age. Bright and alert, pleasant, appears in no acute distress.
EYE: pupils equal and reactive. anicteric
NECK: Supple, nontender, no meningismus, no significant adenopathy.
ENT: oral mucosa is moist.
CARDIAC: Regular rate and rhythm. no murmur.
LUNGS: Clear breath sounds bilaterally, no acute respiratory distress, no wheezes/rales/rhonchi
ABDOMEN: Soft, moderately distended, without focal tenderness, right upper quadrant cholecystotomy tube site is moderately stenosed, no drainage, no erythema, no palpable tenderness. No r/g, no cvat. normoactive BS.
NEUROLOGICAL: Alert and oriented x3, no focal neuro deficits.
SKIN: Warm and dry, minimally pale and color, skin intact. No rash.
MUSCULOSKELETAL: No C/C/E. peripheral pulses are full and equal b/l. No palpable tenderness.
PSYCH: Normal and appropriate interaction.
Course
Orders/Labs/Results
Orders:
Orders
03/01/24 03:07
Acetaminophen [Tylenol] 500 mg PO NOW STA
Vital Signs
Initial and Last Documented VS:
Initial Vital Signs
BP
117/85
03/01/24 02:37
Last Documented Vital Signs
Temp Pulse Resp BP Pulse Ox
98.0 F 84 19 112/84 95
03/01/24 02:38 03/01/24 04:50 03/01/24 04:50 03/01/24 04:50 03/01/24 04:50
MDM/Problems Addressed
Differential Diagnosis Includes:
Patient presents with dislodgment of the cholecystotomy tube.
Reports no drainage from the tube for more than 2 weeks. He has not had a fever, no abdominal pain and notes that plan was to remove this tube in the near future.
He is noted to have moderate ascites but abdomen is soft without appreciable tenderness.
He is afebrile, normotensive. Vital signs within normal limits.
Cholecystotomy site is dry without erythema, nontender.
At this point no indication to replace tube and no indication for laboratory studies as overall exam is reassuring, nontender.
Will discharge back to [facility] for continued care and plan for follow-up with oncology as already scheduled.
Chronic conditions affecting care: Immunosuppressed and Cancer
*Pulse Oximetry
Patient hypoxic: no
*Critical Care Note
Total Time (30-74mins, 75-104mins- exclusive of procedures): Not Applicable
ED Attending Note
-
Portions of this chart may have been created with voice recognition software.� Occasional wrong word or��sound alike� substitutions may have occurred due to the inherent limitations of voice recognition software.
Discharge Plan
Departure
Patient Disposition: Assisted/SNF
Date of Disposition: 03/01/24
Time of Disposition: 03:07
Patient with high blood pressure during this ER visit?: No
Condition: Good
Discharge Problem:
dislodgement of cholecystotomy tube
Prescriptions:
No Action
lamotrigine [Lamictal] 150 mg Tablet
300 mg PO HS
acetaminophen [Tylenol] 325 mg Tablet
650 mg PO Q6HPRN PRN (Reason: mild pain)
therapeutic multivitamin Tablet
1 tab PO DAILY
simvastatin [Zocor] 20 mg Tablet
20 mg PO HS
lacosamide [Vimpat] 100 mg tablet
100 mg PO BID Qty: 60 0RF
quetiapine [Seroquel] 25 mg Tablet
25 mg PO HS
aspirin 81 mg Tablet,Delayed Release (Dr/Ec)
81 mg PO DAILY
lamotrigine [Lamictal] 25 mg Tablet
50 mg PO HS
desvenlafaxine succinate 50 mg Tablet Extended Release 24 Hr
50 mg PO DAILY
pantoprazole [address] for susp in packet
40 mg PO BID Qty: 60 0RF
Referrals:
Vince Tineo MD [Family Provider] - Call in 1-3 days for appt
Activity Restrictions/Additional Instructions:
Follow-up with your oncologist as already scheduled
Interventions
Interventions:
*Risk Screen - Suicide Last Done: 03/01/24 02:38
*General Assessment Last Done: 03/01/24 02:38
*Neglect/Abuse Screening Last Done: 03/01/24 02:46
ED- Fall Risk Assessment Last Done: 03/01/24 02:46
*ED COVID-19 Vaccine History Last Done: 03/01/24 02:45
*Nursing Disposition Last Done: 03/01/24 05:05
KD-Nmlpeo-Etngtolbnb Assessment Last Done: 03/01/24 02:46
ED-Male Genitourinary Assessment Last Done: 03/01/24 02:46
Discharge Date and Time
Discharge Date/Time: 03/01/24 05:05
Print Language: SWISS
[2024-03-01] MEDS: TYLENOL 500 MG PO (03:15)
[2024-03-01 04:50] VITALS: BP 112/84
== END 2024-03-01 05:05 ==
LOC: EMR 02:31
PROVIDERS: EMERGENCY PHYSICIAN Emergency Medicine; FAMILY PHYSICIAN Family Medicine
DX: T85.520A Displacement of bile duct prosthesis, initial encounter (principal); X58.XXXA Exposure to other specified factors, initial encounter; C25.9 Malignant neoplasm of pancreas, unspecified; E78.00 Pure hypercholesterolemia, unspecified; Z93.1 Gastrostomy status; Z79.60 Long term (current) use of unspecified immunomodulators and immunosuppressants
CPT/HCPCS: 99283

== ENCOUNTER → 2024-03-02 11:00 | Outpatient (REF) | payer MEDICARE, OTHER, SELFPAY ==
[2024-03-02 11:31] LABS: Blood Urea Nitrogen 7 mg/dl (9-20); Calcium 8.8 mg/dl (8.4-10.2); Carbon Dioxide 27 mmol/L (22-30); Chloride 98 mmol/L (98-107); Glucose 123 mg/dl (70-99); Potassium 4.4 mmol/L (3.5-5.1); Sodium 132 mmol/L (135-145); eGFR > 60.00
== END ==
LOC: OLABP 11:00
PROVIDERS: ATTENDING PHYSICIAN Family Medicine
DX: D62 Acute posthemorrhagic anemia (principal); K92.1 Melena; R55 Syncope and collapse; K31.1 Adult hypertrophic pyloric stenosis; K81.1 Chronic cholecystitis; R74.01 Elevation of levels of liver transaminase levels; E87.6 Hypokalemia
CPT/HCPCS: 36415; 80048

== ENCOUNTER 2024-03-11 13:50 | Inpatient (IN) | payer MEDICARE, OTHER, SELFPAY ==
[2024-03-11] VITALS (30 sets, daily range): BP systolic 71–129; BP diastolic 43–86; PULSE 98–103; BMI 20.1; BMI 21.4
--- NOTE | 2024-03-11 09:32 | ED.GENMED ---
History of Present Illness
General
Chief Complaint: Abdominal Symptoms
Source: patient and spouse
Exam Limitations: none
Time Seen by Provider: 03/11/24 09:02
Nursing documentation reviewed up to this point in time: agreed with
History of Present Illness
History of Present Illness:
73 yo male here for 'I threw up black bile.' Diagnosed with metastatic pancreatic cancer 12/2023, admitted to [facility], had PEG tube placed and cholecystostomy tube. He was hospitalized here in January with severe symptomatic anemia related to a
bleeding gastric ulcer. Had blood transfusion, upper endoscopy and cauterization. He was then discharged February 21 to [facility] for snf care. His cholecystostomy tube has since dislodged and has not been replaced as other health
issues prevailed. He has no appointment for it to be replaced.
His G-tube is scheduled to be changed to a J-tube on 03/19/2024 at [facility].
Patient has an appointment with heme-onc here on 03/15/2024
Pt denies pain. Has felt dizzy past few days. Noted dark stools. Feels constipated
Past History
Past History
ED Past Medical History: Cancer (Pancreatic cancer), Hypercholesterolemia, Seizures (History of 1 seizure suspected to be related to sertraline), Psychiatric and Other (Asbestosis, diverticulosis, anxiety, depression)
ED Past Surgical History: Orthopedic and Other (PEG tube, cholecystotomy tube)
Social History
Tobacco: Non-smoker
Alcohol: None
Drug: None
Personal:
Living: with family (Currently residing at [facility] for rehab)
Employment: Retired
Family History
Family History: Other (Noncontributory)
Review of Systems
Review of Systems
Allergies reviewed?: Yes
All Other Systems: ROS reviewed and negative except as documented in HPI and ROS
Constitutional: Reports fatigue; Denies fever
Respiratory: Denies trouble breathing
Cardiac: Denies chest pain or syncope
ABD/GI: Reports constipated, black stools and other (PEG tube feedings only); Denies abdominal pain, nausea, vomiting or diarrhea
: Denies dysuria or difficulty voiding
Musculoskeletal: Denies edema
Skin: Reports no symptoms
Neurological: Reports dizzy; Denies headache
Phy Exam
Physical Exam
Physical Exam:
GENERAL: No acute distress. A&Ox3. Frail
CONSTITUTIONAL: Afebrile.
EYES: clear, conjunctivae normal
ENMT: moist mucus membranes, Pharynx nl
RESPIRATORY: Regular respirations, nonlabored, lungs clear.
CARDIOVASCULAR: Regular rate and rhythm, no murmurs, no rubs.
GI: Soft, nontender, normal BS
Rectal: Black stool hematest positive
MUSCULOSKELETAL: Moves with ease. Well perfused.
SKIN: Warm, dry, pink
PSYCH: Depressed mood and affect. Well kept, interactive and appropriate
NEUROLOGIC: Awake, alert and oriented. No focal neurological deficits
Course
Orders/Labs/Results
Orders:
Orders
03/11/24 09:32
IV Insert/Care/Rem.- Treatment PRN
Pantoprazole 80 mg/100 ml Nss [Protonix] 80 mg in 100 ml IV NOW
Pantoprazole [Protonix IV] 80 mg IV NOW STA
03/11/24 09:53
Type+Screen Urgent
Complete Blood Count/With Diff Urgent
Comprehensive Metabolic Panel Urgent
Lipase Urgent
Manual Differential Urgent
PTT Urgent
Prothrombin Time Urgent
03/11/24 Lunch
NPO
Allow oral meds: Yes
Allow clear liquids: No
03/11/24 10:17
* Blood Bank Products Urgent
Blood Bank Products: *Packed RBC Leuko(PRBC's)
Quantity: 2
Transfuse Today: Yes
Reason: Anemia
Other reason: GI Bleed
03/11/24 10:20
IV Insert/Care/Rem.- Treatment PRN
03/11/24 11:10
0.9% Sodium Chloride 500 ml [Nss] 500 ml IV BOLUS
03/11/24 13:20
Consult Gastroenterology [GASTROINTESTINAL CONSULT] Routine
Consulting Provider: Sierra Benavides
Was physician already notified: Yes
03/11/24 13:30
0.9% Sodium Chloride 1000 ml [Nss] 1,000 ml IV 60 mls/hr
03/11/24 13:33
Admit/Transfer Patient As Directed
Co-Sign Provider:
Level of Care: Inpatient admission
Assign to:: Telemetry
Physician / Group: Gena Jain
Diagnosis: GI Bleed
Reason for Telemetry: Chest Pain syndromes
Date to Stop Telemetry: 03/13/24
Time to Stop Telemetry: 11:00
Reason for Hospitalization: GI Bleed
Expected length of stay greater than two midnights?: Yes
ELOS- Estimated Length of Stay in days: 4
I certify the patient meets the requirements for IP care: Yes
PRN Pain Medication Management As Directed
May give lesser potent ordered pain med per pt: Yes
preference::
Protocol:: Medication orders for pain may be administered in a
manner that supports deferring to patient preference
when the pt is:
- Requesting an ordered lesser potent pain medication.
Least to most potent pain medications are defined
as: acetaminophen < NSAID < tramadol < opioids
(morphine, oxycodone, hydromorphone).
- Requesting a lesser dose of the same medication IF
ORDERED.
- Requesting a less intrusive route of administration
if both routes are prescribed by the provider (PO <
IV).
03/11/24 13:34
Code Status As Directed
Resuscitation Status: Do not resuscitate
Reached after discussion with pt or family/Healthcare POA: Yes
DNR Bracelet Application ONCE
03/11/24 13:36
COVID-19 Antigen Routine
Source: Nasal Swab
Influenza A+B Rapid Molecular Routine
LIONEL Source: Nasal Swab
Specimen Description:
03/11/24 13:[address] Non Medication Order As Directed
Physician Order: please TT me (or overnight provider post 7PM) Hg and Na results
Above order entered?: Yes
03/11/24 14:56
UA Reflex to Culture [Urinalysis Reflex To Culture] Routine
Date Specimen was Collected: 03/11/24
Time Specimen was Collected: 14:54
Urine Osmolality Random [Osmolality, Random Urine] Urgent
Date Specimen was Collected: 03/11/24
Time Specimen was Collected: 14:54
Urine Sodium Urgent
Date Specimen was Collected: 03/11/24
Time Specimen was Collected: 14:54
03/11/24 15:39
Pantoprazole 80 mg/100 ml Nss [Protonix] 80 mg in 100 ml IV Q10H
03/11/24 15:39
Activity As Directed
Activity Level: As Tolerated
INT (Intravenous Needle Therapy) As Directed
Comment: Place 2 IV catheters of the largest bore possible until stable
Orthostatic Vital Signs As Directed
Orthostatic VS Frequency: Now
Comment: then every four hours for twenty-four hours
Pneumatic Compression Sleeves As Directed
Type: Knee high
Vital Signs As Directed
Frequency: Per unit guidelines
DX Deep Vein Thrombosis Video Routine
03/11/24 16:00
Hemoglobin Q6H
Sodium Q6H
03/11/24 22:00
Hemoglobin Q6H
Sodium Q6H
03/12/24 04:00
Hemoglobin Q6H
Sodium Q6H
03/12/24 06:00
Complete Blood Count/No Diff IN AM
Comprehensive Metabolic Panel IN AM
03/12/24 10:00
Hemoglobin Q6H
Sodium Q6H
03/13/24 11:00
DC Protocol for Telemetry ONCE
Abnormal Lab Results
03/11/24
09:53
RBC 2.28 L 10^6/uL
(4.70-6.10)
Hgb 6.9 L* g/dL
(13.0-18.0)
Hct 21.5 L %
(39.0-52.0)
MCV 94.3 H fL
(80.0-94.0)
MCHC 32.1 L g/dL
(33.0-37.0)
RDW 16.5 H %
(11.5-14.5)
Band Neutrophils 19 H %
(0-3)
Lymphocytes (Manual) 7 L %
(20-51)
Monocytes (Manual) 10 H %
(2-9)
APTT 37.8 H Sec
(23.4-35.0)
Sodium 124 L mmol/L
(135-145)
Chloride 86 L mmol/L
(98-107)
Carbon Dioxide 33 H mmol/L
(22-30)
BUN 36 H mg/dl
(9-20)
Creatinine 0.6 L mg/dL
(0.7-1.3)
Glucose 187 H mg/dl
(70-99)
Total Protein 4.4 L g/dl
(6.3-8.2)
Albumin 2.5 L g/dl
(3.5-5.0)
Lipase 588 H U/L
(23-300)
Crossmatch IS Only See Detail
03/11/24 09:53
03/11/24 09:53
Vital Signs
Initial and Last Documented VS:
Initial Vital Signs
Temp Pulse Resp BP Pulse Ox
97.6 F 97 18 112/82 96
03/11/24 08:01 03/11/24 08:01 03/11/24 08:01 03/11/24 08:01 03/11/24 08:01
Last Documented Vital Signs
Temp Pulse Resp BP Pulse Ox
97.5 F 91 18 126/86 98
03/11/24 16:26 03/11/24 16:26 03/11/24 16:26 03/11/24 16:26 03/11/24 16:26
MDM/Problems Addressed
Differential Diagnosis Includes:
PUD, upper GI bleed
MDM/Problems Addressed:
73 yo male here for 'I threw up black bile.' Diagnosed with metastatic pancreatic cancer 12/2023, admitted to [facility], had PEG tube placed and cholecystostomy tube. He was hospitalized here in January with severe symptomatic anemia related to a
bleeding gastric ulcer. Had blood transfusion, upper endoscopy and cauterization. He was then discharged February 21 to [facility] for snf care. His cholecystostomy tube has since dislodged and has not been replaced as other health
issues prevailed. He has no appointment for it to be replaced.
His G-tube is scheduled to be changed to a J-tube on 03/19/2024 at [facility].
Patient has an appointment with heme-onc here on 03/15/2024
Pt denies pain. Has felt dizzy past few days. Noted dark stools. Feels constipated
11:00 AM:
CBC: Hgb 6.9
CMP: Na 124 BUN 36 (most likely volume depleted, IV NSS ordered)
Lipase 588
Blood consent signed and scanned into chart, 2 units packed red blood cells ordered
Plan: Admit: GI bleed, Dehydration, Hospitalist notified of admission
*Critical Care Note
Total Time (30-74mins, 75-104mins- exclusive of procedures): Not Applicable
ED Attending Note
-
Portions of this chart may have been created with voice recognition software.� Occasional wrong word or��sound alike� substitutions may have occurred due to the inherent limitations of voice recognition software.
Discharge Plan
Departure
Patient Disposition: Admit
Date of Disposition: 03/11/24
Time of Disposition: 11:06
Admit to: Med/Surg
Presentation/result/management discussed w/ accepting MD/DO: Hospitalist
Condition: Serious
Discharge Problem:
Acute GI bleeding, Pancreatic cancer, Acute dehydration
Interventions
Interventions:
*Risk Screen - Suicide Last Done: 03/11/24 08:01
*General Assessment Last Done: 03/11/24 08:01
*Neglect/Abuse Screening Last Done: 03/11/24 09:09
ED- Fall Risk Assessment Last Done: 03/11/24 15:40
*ED COVID-19 Vaccine History Last Done: 03/11/24 08:01
*Nursing Disposition Last Done: 03/11/24 15:40
NK-Zolkvo-Amferjwzhi Assessment Last Done: 03/11/24 09:12
Discharge Date and Time
Discharge Date/Time: 03/11/24 15:40
[2024-03-11 10:12] LABS: INR 1.08; PT 14.5 Sec (11.4-14.6)
[2024-03-11 10:13] LABS: APTT 37.8 Sec (23.4-35.0)
[2024-03-11 10:14] LABS: Hematocrit 21.5 % (39.0-52.0); Hemoglobin 6.9 g/dL (13.0-18.0); Mean Corp Hgb Conc. 32.1 g/dL (33.0-37.0); Mean Corpuscular Hgb 30.3 pg (27.0-31.0); Mean Corpuscular Volume 94.3 fL (80.0-94.0); Mean Platelet Volume 9.3 fL (7.4-10.4); Platelet Count 299 10^3/uL (130-400); Red Blood Cell Count 2.28 10^6/uL (4.70-6.10); Red Cell Dist. Width 16.5 % (11.5-14.5); White Blood Cell Count 5.8 10^3/uL (4.8-10.8)
[2024-03-11] MEDS: PROTONIX 100 IV (10:14)
[2024-03-11] MEDS: PROTONIX IV 80 MG IV (10:14)
[2024-03-11 10:17] LABS: ALT (SGPT) 22 U/L (0-50); AST (SGOT) 24 U/L (17-59); Albumin 2.5 g/dl (3.5-5.0); Alkaline Phosphatase 116 U/L (38-126); Blood Urea Nitrogen 36 mg/dl (9-20); Calcium 8.5 mg/dl (8.4-10.2); Carbon Dioxide 33 mmol/L (22-30); Chloride 86 mmol/L (98-107); Estimated Creatinine Clearance 107 ml/min; Glucose 187 mg/dl (70-99); Lipase 588 U/L (23-300); Potassium 4.2 mmol/L (3.5-5.1); Sodium 124 mmol/L (135-145); Total Bilirubin 0.2 mg/dl (0.2-1.3); Total Protein 4.4 g/dl (6.3-8.2); eGFR > 60.00
[2024-03-11] MEDS: NSS 500 IV (11:29)
--- NOTE | 2024-03-11 11:31 | EDRN ---
patient has no physical symptoms, vs changes, or subjective complaints. denies symptoms of transfusion blood reaction at this time. rate increased.
[2024-03-11 12:17] LABS: Absolute Neutrophils -Man Diff 4.6 10^3/uL (1.4-6.5); Band Neutrophils 19 % (0-3); Lymphocytes 7 % (20-51); Monocytes 10 % (2-9); Segmented Neutrophils 62 % (42-75)
[2024-03-11 12:18] LABS: Atypical Lymphocytes 2 %; Normal RBC Morphology No; Platelets Checked YES
[2024-03-11 12:19] LABS: Anisocytosis Slight; Poikilocytosis Slight
[2024-03-11 12:21] LABS: Ovalocytes FEW; Tear Drop Red Blood Cells FEW
[2024-03-11 12:22] LABS: Target Cells FEW; Total Cells Counted 100
--- NOTE | 2024-03-11 12:58 | HPS.HSE ---
Addendum entered and electronically signed by Gena Jain MD 03/11/24 19:37:
hold [employer] SNRI given Hyponatremia - resume once Na stable
Addendum entered and electronically signed by Gena Jain MD 03/11/24 16:18:
IMPRESSION:
There is pronounced gastric dilation with fluid extending into the distal esophagus, increased from prior and may represent an element of gastric outlet obstruction and possibly secondary to the below described pancreatic mass
There is a persistent mild ill-defined mass within the pancreatic head with associated pancreatic duct dilation and atrophy favored to represent pancreatic malignancy.
There are numerous new hypodensities within the liver which measure up to 9 mm and are too small to accurately characterize however are suspicious for hepatic metastasis.
There is mild wall thickening throughout the small bowel suspicious for an element of enteritis
There is high-grade stenosis/occlusion of the confluence of the portal veins/proximal main portal vein which is similar to prior and may be secondary to external compression view of the pancreatic lesion and possible thrombus. There is additional
severe stenosis within the proximal common hepatic artery.
Small volume ascites.
Interval removal of the percutaneous cholecystostomy tube. There is stable appearance of the CBD stent.
-discussed with GI and will place G tube to intermittent suction
-likely needs G-J tube (per , they are awaiting an appointment at [facility])
-will place formal Oncology consult
-Urine Na < 5 - continue IVF
-awaiting blood cultures - Zosyn then ordered (given bandemia and bowel pathologY)
Addendum entered and electronically signed by Gena Jain MD 03/11/24 15:06:
Given bandemia, will order CT A/P with IV contrast
blood cultures ordered
will start IV Zosyn while awaiting results
Addendum entered and electronically signed by Gena Jain MD 03/11/24 13:42:
Seizure Disorder
-*awaiting home med rec
Original Note:
Family Physician
-
Family Physician: NGOC Giles
Chief Complaint
-
vomiting
History of Present Illness
Mr. Kobi Beck is a 73 yo man with hx recently diagnosed pancreatic cancer (01/04) with biliary and gastric outlet obstruction s/p GJ tube, s/p cholecystostomy, recent admission 02/10-02/22/24 for GIB (s/p EGD 02/16 showing fundus ulcer with visible
vessel s/p epi, cautery, clips), PE now off AC given risk with GIB presents to the ER with vomiting up 'black bile.'
Patient states he was nauseated yesterday and vomited bile. Then this morning he noticed black vomit and came to the ER. No fevers/chills. + a couple of days of cough/congestion. His last BM was 2 days ago, he has been passing gas. No chest
pain or shortness of breath.
He was seen in the ER on 03/01, his cholecystotomy tube was dislodged.
Medical History
Past Medical History
Past Medical History: Reports Other
Additional Past Medical History:
Metastatic Pancreatic Cancer
Emphysematous Cholecystitis
Gastric Outlet Obstruction
Asbestosis
Anxiety / Depression
Seizure Disorder (presumed secondary to Wellbutrin)
Past Surgical History: Reports Other
Additional Past Surgical History:
ERCP with Bare Metal Biliary Stent
Cholecystostomy Tube Placement
Gastrostomy Tube Placement
R ACW Port Placement
Hernia Repair
Cervical Fusion
Nasal Surgery
Social History
Tobacco: Non-smoker
Alcohol: None
Drug: None
Personal:
Family History
Family History: Other (Mother: CAD MGF: Gastric Cancer MGM: Breast Cancer)
Allergies / Home Medications
Allergies reflects when Allergies were last updated in [employer].
Home Medications with original date entered in [employer]
Allergy/Medication List:
Allergies
Allergy/AdvReac Type Severity Reaction Status Date / Time
buspirone Allergy Unknown Verified 03/11/24 08:05
sertraline Allergy seizure Verified 03/11/24 08:05
Home Medications
acetaminophen 325 mg tablet (Tylenol) 650 mg PO Q6HPRN PRN mild pain 03/14/23
lamotrigine 150 mg tablet (Lamictal) 300 mg PO HS seizure 03/14/23
simvastatin 20 mg tablet (Zocor) 20 mg PO HS High Cholesterol 03/14/23
therapeutic multivitamin 1 tab PO DAILY Supplement 03/14/23
lacosamide 100 mg tablet (Vimpat) 100 mg PO BID #60 tabs 03/18/23
aspirin 81 mg tablet,delayed release 81 mg PO DAILY Blood Clot Prevention/Tx 12/30/23
desvenlafaxine succinate 50 mg tablet,extended release 24 hr 50 mg PO DAILY Mental Health/Anxiety 12/30/23
lamotrigine 25 mg tablet (Lamictal) 50 mg PO HS Seizures 12/30/23
quetiapine 25 mg tablet (Seroquel) 25 mg PO HS Mental Health/Anxiety 12/30/23
pantoprazole 40 mg granules delayed-release for susp in packet 40 mg PO BID #60 ea 02/22/24
*awaiting med rec completion
Review of Systems
-
History Source: Patient
A 12 point ROS was completed and negative except as noted: Yes
Physical Exam
Vital Signs
Vital Signs
Temp Pulse Resp BP Pulse Ox
98 F 92 26 110/77 93
03/11/24 12:33 03/11/24 12:30 03/11/24 12:30 03/11/24 12:20 03/11/24 12:30
Physical Exam
General: No Apparent Distress and Other (frail appearing )
HEENT: PERRLA
Respiratory: Clear; No Wheezes
Cardiac: S1/S2 and Regular Rhythm
GI: Other (G-J tube; abdominal distention, non-tender )
Musculoskeletal: No Edema
Skin: Warm and Dry; No Rash
Neuro: AO x 3
Psych: Calm
Laboratory Results
-
03/11/24 09:53
03/11/24 09:53
Laboratory Results
PT 14.5 Sec (11.4-14.6) 03/11/24 09:53
INR 1.08 03/11/24 09:53
APTT 37.8 Sec (23.4-35.0) H 03/11/24 09:53
Total Bilirubin 0.2 mg/dl (0.2-1.3) 03/11/24 09:53
AST 24 U/L (17-59) 03/11/24 09:53
ALT 22 U/L (0-50) 03/11/24 09:53
Alkaline Phosphatase 116 U/L (38-126) 03/11/24 09:53
Lipase 588 U/L (23-300) H 03/11/24 09:53
Data Reviewed
-
Diagnostic Radiology: Report Reviewed by me
Lab Data: Labs Reviewed by me
Impression/Plan
-
Mr. Kobi Beck is a 73 yo man with hx recently diagnosed pancreatic cancer (01/04) with biliary and gastric outlet obstruction s/p GJ tube, s/p cholecystostomy tube, recent admission 02/10-02/22/24 for GIB (s/p EGD 02/16 showing fundus ulcer with
visible vessel s/p epi, cautery, clips), PE now off AC given risk with GIB presents to the ER with vomiting up 'black bile.'
Triage VS: T 97.6, P 97, RR 18, BP 112/82, SpO2 96%
LABS: WBC 5.8, Hg 6.9, PLT 299, bands 19%, Na 124, K+ 4.2, Cl 86, CO2 33, BUN 36, Cr 0.6, Glucose 187, T. Bili 0.2, AST 24, ALT 22, Alk Phos 116
*ordered for 1 unit PRBC
MAR: IV Protonix gtt and NS 500cc
Acute Blood Loss Anemia
Hx PUD with recent admission 02/10-02/22/24
-receiving 1 unit PRBC in the ER
-admit to telemetry
-trend Hg
-continue IV Protonix gtt
-hold [employer] aspirin (awaiting med rec)
-GI consult
-keep NPO
-obtaining obstruction series given abdominal distention, no BM
Hyponatremia
-patient reports drinking water although concern for dehydration with vomiting
-F/U urine studies
-gentle IVF for now with close monitoring of Na
-Renal consult if Na does not improve
Bandemia
-no obvious infectious source
-follow up CXR with obstruction series
-F/U UA
-F/U flu and covid
-F/U blood cultures
Hx Metastatic Pancreatic Cancer with biliary and Gastric outlet obstruction
-s/p GJ tube
-hold TF while undergoing GIB work up
-hx cholecystostomy tube that was fell out 03/01 - seen in ER
-per last Oncology notes, functional status would need to improve in order to receive palliative chemoatherapy
Hx PE
Brachial DVT
-AC stopped last admission given high bleeding risk
-IVC filter wasn't indicated as clot propagated from UE
DVT PPx SCD
DNR - confirmed on admission
76 minutes spent on patient care
--- NOTE | 2024-03-11 14:03 | EDRN ---
patient denies any symptoms of transfusion reaction
[2024-03-11 14:04] LABS: COVID-19 Antigen Negative (Negative)
[2024-03-11 15:17] LABS: Urine Albumin Negative (Neg - Trace); Urine Bilirubin Negative (Negative); Urine Character Clear (Clear); Urine Color Yellow; Urine Glucose Negative (Negative); Urine Ketone Negative (Negative); Urine Leukocyte Negative (Negative); Urine Nitrite Negative (Negative); Urine Occult Blood Negative (Negative); Urine Specific Gravity 1.015 (<1.030); Urine Urobilinogen Negative (Neg - 1+); Urine pH 6.5 (5.0-9.0)
[2024-03-11 15:23] LABS: Osmolality Urine 651 mOsm/kg (300-900)
[2024-03-11 15:50] LABS: Urine Sodium < 5 mmol/L (30-90)
[2024-03-11] MEDS: LIDOCAINE 4% PATCH 1 PATCH TOPICAL (17:12)
[2024-03-11] MEDS: NSS 1000 IV (17:35)
[2024-03-11 19:21] LABS: Sodium 124 mmol/L (135-145)
[2024-03-11 19:58] LABS: Hemoglobin 9.6 g/dL (13.0-18.0)
--- NOTE | 2024-03-11 20:04 | PTCARENOTE ---
G tube placed to suction as ordered. Patient drained [address] Jain and made aware. Made patient comfortable. Cont to assess patient status.
[2024-03-11] MEDS: ZOSYN 50 IV (20:30)
[2024-03-11] MEDS: TYLENOL 650 MG PO (20:31)
[2024-03-11] MEDS: VIMPAT 100 MG PO (20:32)
[2024-03-11] MEDS: SEROQUEL 25 MG PO (20:32)
[2024-03-11 20:36] LABS: Magnesium 1.9 mg/dl (1.6-2.3); Phosphorus 3.5 mg/dl (2.5-4.5)
[2024-03-11] MEDS: LAMICTAL 300 MG PO (20:38)
[2024-03-11] MEDS: LAMICTAL 50 MG PO (20:38)
[2024-03-11] MEDS: PROTONIX IV 40 MG IV (22:23)
[2024-03-11] MEDS: NSS (PRESERVATIVE FREE) 10 ML IV (22:23)
[2024-03-12] VITALS (7 sets, daily range): BP systolic 78–114; BP diastolic 51–71; PULSE 84–102
[2024-03-12] MEDS: ZOSYN 50 IV ×3 (02:13→13:46)
[2024-03-12 02:18] LABS: Hemoglobin 9.5 g/dL (13.0-18.0)
[2024-03-12 02:26] LABS: Sodium 126 mmol/L (135-145)
[2024-03-12] MEDS: NSS 1000 IV ×2 (05:27→17:46)
[2024-03-12 05:52] LABS: Hematocrit 25.8 % (39.0-52.0); Hemoglobin 8.5 g/dL (13.0-18.0); Mean Corp Hgb Conc. 32.9 g/dL (33.0-37.0); Mean Corpuscular Hgb 29.5 pg (27.0-31.0); Mean Corpuscular Volume 89.6 fL (80.0-94.0); Mean Platelet Volume 9.1 fL (7.4-10.4); Platelet Count 252 10^3/uL (130-400); Red Blood Cell Count 2.88 10^6/uL (4.70-6.10); Red Cell Dist. Width 16.6 % (11.5-14.5); White Blood Cell Count 6.6 10^3/uL (4.8-10.8)
[2024-03-12 06:31] LABS: ALT (SGPT) 21 U/L (0-50); AST (SGOT) 23 U/L (17-59); Albumin 2.2 g/dl (3.5-5.0); Alkaline Phosphatase 119 U/L (38-126); Blood Urea Nitrogen 30 mg/dl (9-20); Calcium 7.9 mg/dl (8.4-10.2); Carbon Dioxide 25 mmol/L (22-30); Chloride 94 mmol/L (98-107); Estimated Creatinine Clearance 111 ml/min; Glucose 134 mg/dl (70-99); Potassium 4.2 mmol/L (3.5-5.1); Sodium 126 mmol/L (135-145); Total Bilirubin 1.4 mg/dl (0.2-1.3); Total Protein 4.2 g/dl (6.3-8.2); eGFR > 60.00
[2024-03-12] MEDS: LIDOCAINE 4% PATCH 1 PATCH TOPICAL (08:29)
[2024-03-12] MEDS: VIMPAT 100 MG PO ×2 (08:30→20:45)
[2024-03-12] MEDS: NSS (PRESERVATIVE FREE) 10 ML IV ×2 (08:30→20:46)
[2024-03-12] MEDS: PROTONIX IV 40 MG IV ×2 (08:30→20:46)
[2024-03-12 09:02] LABS: Sodium 126 mmol/L (135-145)
--- NOTE | 2024-03-12 09:13 | W.PN.HOSP.TC ---
Today's Communication/Plan
-
see bold
Assessment / Plan
Assessment / Plan
HPI: 73 yo man with hx recently diagnosed pancreatic cancer (01/04) with biliary and gastric outlet obstruction s/p GJ tube, s/p cholecystostomy, recent admission 02/10-02/22/24 for GIB (s/p EGD 02/16 showing fundus ulcer with visible vessel s/p epi,
cautery, clips), PE now off AC given risk with GIB presents to the ER with vomiting up 'black bile.'
Patient states he was nauseated yesterday and vomited bile. Then this morning he noticed black vomit and came to the ER. No fevers/chills. + a couple of days of cough/congestion. His last BM was 2 days ago, he has been passing gas. No chest
pain or shortness of breath.
He was seen in the ER on 03/01, his cholecystotomy tube was dislodged.
Acute Blood Loss Anemia
History of PUD with recent admission 02/10-02/22/24
Possible gastric outlet obstruction
-Hemoglobin 8.5 today, improved from 6.9 status post 2 units packed red blood cells on 03/11
-Hold [employer] aspirin
-GI following, continue G-tube to low intermittent suction
-Continue IV Protonix gtt, trend Hgb
Hyponatremia
-Patient reports drinking water although concern for dehydration with vomiting
-Urine Na < 5
-Hold Desvenlafaxine, gentle IV fluids, trend sodium
Bandemia
-COVID/flu negative, urine analysis negative
-Infectious workup negative
-Monitor off antibiotics
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
-S/p GJ tube. Hold TF while undergoing GIB work up
-Hx cholecystostomy tube that fell out 03/01 - seen in ER
-Per last Oncology notes, functional status would need to improve in order to receive palliative chemotherapy
-Oncology consulted
Hx PE
Brachial DVT
-AC stopped last admission given high bleeding risk
-IVC filter wasn't indicated as clot propagated from UE
DVT PPx SCD
DNR - confirmed on admission
Updated at bedside 03/12
Total time spent to see the patient on the floor, examine the patient, review data and lab results, discuss treatment plan with patient, nursing staff around 50 minutes.
Physical Exam
General: Appears chronically ill, no acute distress
HEENT: Normocephalic, Atraumatic, EOMI, MMM
Respiratory: Clear to Auscultation bilaterally
Cardiac: Normal S1/S2, Regular Rate and Rhythm
GI: Soft, distended, nontender
Extremities: No Clubbing, Cyanosis
Neuro: Nonfocal/Grossly Intact
Anticipated Discharge: > 48 hours
Subjective/Interval History
-
Date of Service: March 12, 2024
Patient complains of constipation. His last bowel movement was 3 days ago. Hematemesis resolved. No fever. No chest pain, no shortness of breath.
Objective Data
-
Labs:
Laboratory Results
03/12/24 03/12/24 03/12/24
02:09 05:38 08:02
WBC 6.6
Hgb 9.5 L 8.5 L
Hct 25.8 L
Plt Count 252
Sodium 126 L 126 L 126 L
Potassium 4.2
Chloride 94 L
Carbon Dioxide 25
BUN 30 H
Creatinine 0.6 L
Glucose 134 H
Calcium 7.9 L
Total Bilirubin 1.4 H D
AST 23
ALT 21
Alkaline Phosphatase 119
03/12/24
14:00
WBC
Hgb
Hct
Plt Count
Sodium Pending
Potassium
Chloride
Carbon Dioxide
BUN
Creatinine
Glucose
Calcium
Total Bilirubin
AST
ALT
Alkaline Phosphatase
Vital Signs:
Vital Signs
Temp Pulse Resp BP Pulse Ox
97.9 F 85 20 110/71 98
03/12/24 08:22 03/12/24 08:22 03/12/24 08:22 03/12/24 08:22 03/12/24 08:22
I&O
03/11/24 03/12/24 03/13/24
06:59 06:59 06:59
Intake Total 875 / 875
Output Total 2950 / 2950
Balance -2074 /
--- NOTE | 2024-03-12 12:02 | CON.GI ---
Addendum entered and electronically signed by Aram Newman MD 03/12/24 19:54:
I saw and examined the patient.
The TEAMSITE DEVELOPER or PA's note was reviewed and I agree with the note.
Comment: 73-year-old male with recent diagnosis of pancreatic cancer December 2023 metastatic to lung, reviewing recent imaging also looks to have potential liver metastasis, possible thrombus who has not received any treatment at this point due to
recurrent hospitalizations both here and [place]. He did receive G-tube for functional gastric outlet obstruction and decompression. Complicating his diagnosis of pancreatic cancer he had emphysematous cholecystitis requiring cholecystectomy to
which has since fallen out. He was admitted February 10 with hemoglobin of 3.6 who ultimately underwent an upper endoscopy on February 12 and was found to have a gastric ulcer at that time it was not bleeding as well as esophagitis. He had ongoing
melena and repeat endoscopy was done on February 16 oozing ulcer with a visible vessel which was injected and treated with cautery. Both scopes there was a duodenal deformity likely due to extrinsic compression from the pancreatic mass. During his
last admission, attempted paracentesis was unsuccessful as he did not have enough fluid to drain.
Patient now comes in with coffee-ground emesis. He was found to have a hemoglobin of 6.9 requiring 2 units of blood and has appropriately responded to hemoglobin of 9.1. G-tube is draining dark fluid. CT was done which showed gastric dilation
increased from prior likely element of gastric outlet obstruction and possibly due to pancreatic mass.
He was also found to have a significant bandemia on arrival of and he has remained afebrile. Blood cultures are pending.
With coffee-ground emesis and drop in hemoglobin, he may need a repeat endoscopy possibly tomorrow. He has remained NPO. We will ensure he does not have any fevers with his bandemia overnight. He may require intubation given the gastric outlet
obstruction. I suspect the bleeding is from the gastric ulcer that he had earlier this month. I did discuss with patient and the on the phone regarding possible endoscopy tomorrow. Continue PPI.
I discussed with oncology and he needs a GJ tube prior to discharge to allow for feeding. Plan in the morning to reach out to GI, surgery, oncology, interventional radiology to see how to best arrange for future GJ tube.
Original Note:
Consultation
-
Date/Time Consultation Requested: 03/11/24 1320
Date/Time Consultation Performed: 03/12/24 1140
Requesting Provider: Dr. Jain
Performing Provider: Dr. Newman/[facility] Trammell
Reason for Consultation: GI bleed
Medical History
Chief Complaint / HPI
Chief Complaint: syncope
History of Present Illness:
73 year old male with a past medical history of recently diagnosed pancreatic cancer 12/2023 (metastatic to right lung) status post EUS/ERCP at [facility] on 12/31/2023 obstructing both the common bile duct and pancreatic duct with ERCP and stenting
performed on 01/02/2024, hyperlipidemia, asthma, seizures, depression, anxiety, percutaneous cholecystostomy for emphysematous cholecystitis December 2023 (became dislodged 03/01/2024 and not replaced), portal vein thrombosis, pulmonary embolism,
right psoas muscle hematoma, mild pulmonary fibrosis, ascites, gastric outlet obstruction status post G-tube, upper extremity DVT, LA grade B reflux esophagitis, gastric ulcer with visible vessel (treated with injection epinephrine, bipolar cautery,
2 hemostatic clips) duodenal deformity (EGD 02/17/2024) who was scheduled to follow-up with Alem Nunez for conversion of his gastric tube to a GJ tube on 03/19/2024 and follow-up with [facility] for discussion of starting treatment of
his metastatic pancreatic cancer on 03/15/2024. Presents to the emergency room with coffee-ground emesis. The patient has been using his G-tube without any issues. They have been flushing it without any noticeable return of coffee grounds. The
patient was constipated and had not have a bowel movement for 2 days. Was recommended to use a Senokot. Yesterday the patient had abrupt onset of vomiting of brown material and proceeded to come to the emergency room. We are asked to evaluate for
upper GI bleed. The patient's G-tube was hooked up to low intermittent suction with approximately 2500 cc of coffee-ground material removed. Hemoglobin on arrival was 6.9 down from 9.2 on 02/27/2024. Patient has received 2 units of leukoreduced
red blood cells. Hemoglobin is currently 8.5. Patient denies any abdominal pain. He does have chronic back pain. He was started on a pantoprazole drip. He still has not had a bowel movement. CT of the abdomen and pelvis shows stool throughout
entire colon. He denies any fevers, chills, melena, dysphagia or odynophagia. He did have a significant bandemia on arrival of 19. Blood cultures are pending. He is afebrile. CT of the abdomen and pelvis with IV contrast shows pronounced
gastric dilatation with fluid in the visualized esophagus similar to prior. May represent an element of gastric outlet obstruction possibly secondary to the below described pancreatic mass. Persistent mild ill-defined mass within the pancreatic
head with associated pancreatic duct dilatation and atrophy favored to represent pancreatic malignancy. Mild wall thickening throughout the small bowel. Mild colonic stool burden. Endoclips present within the cecum and ascending colon. Small
volume free fluid in the abdomen. No free air. Numerous new hypodensities within the liver measuring up to 9 mm and are too small to accurately characterize however suspicious for hepatic metastasis. High-grade stenosis/occlusion of the
confluence of the portal vein/proximal main portal vein which is similar to prior may be secondary to external compression view of the pancreatic lesion and possible thrombus. There is additional severe stenosis within the proximal common hepatic
artery. Interval removal percutaneous cholecystostomy tube. Stable appearance of the CBD stent.
Past Medical History
Past Medical History: Other (recently diagnosed pancreatic cancer (metastatic to right lung), hyperlipidemia, asthma, seizures, depression and anxiety)
Past Surgical History: Other (ERCP with Metal Biliary Stent, Cholecystostomy Tube Placement, Gastrostomy Tube Placement, R ACW Port Placement, Hernia Repair, Cervical Fusion, Nasal Surgery)
Social History
Tobacco: Non-Smoker
Alcohol: None
Drug: None
Living: With Family
Family History
Family History: Other (maternal grandfather had stomach cancer; no other family history of GI malignancies)
Allergies / Home Medications
Allergy/AdvReac Type Severity Reaction Status Date / Time
buspirone Allergy Unknown Verified 03/11/24 08:05
sertraline Allergy seizure Verified 03/11/24 08:05
�Medication �Instructions �Recorded
acetaminophen 325 mg tablet 650 mg PO Q6HPRN PRN mild pain 03/14/23
(Tylenol)
lamotrigine 150 mg tablet 300 mg PO HS seizure 03/14/23
(Lamictal)
simvastatin 20 mg tablet (Zocor) 20 mg PO HS High Cholesterol 03/14/23
therapeutic multivitamin 1 tab PO DAILY Supplement 03/14/23
lacosamide 100 mg tablet (Vimpat) 100 mg PO BID #60 tabs 03/18/23
aspirin 81 mg tablet,delayed 81 mg PO DAILY Blood Clot 12/30/23
release Prevention/Tx
desvenlafaxine succinate 50 mg 50 mg PO DAILY Mental 12/30/23
tablet,extended release 24 hr Health/Anxiety
lamotrigine 25 mg tablet (Lamictal) 50 mg PO HS Seizures 12/30/23
quetiapine 25 mg tablet (Seroquel) 25 mg PO HS Mental Health/Anxiety 12/30/23
pantoprazole 40 mg granules 40 mg PO DAILYPRN PRN gerd 03/11/24
delayed-release for susp in packet
Review of Systems
-
All other systems: A 12 pt ROS was Negative except as stated above in HPI
Vital Signs
Temp Pulse Resp BP Pulse Ox
97.9 F 85 20 110/71 98
03/12/24 08:22 03/12/24 08:22 03/12/24 08:22 03/12/24 08:22 03/12/24 11:21
Physical Exam
Exam
General: Other (Cachectic)
HEENT: Anicteric
Respiratory: Clear (Anterior)
Cardiac: Regular Rhythm
GI: Soft, Non Tender, Non Distended, Normal Bowel Sounds and Other (PEG tube left upper quadrant, placed to suction. Suction canister with approximately 2500 cc coffee-ground material)
Skin: Warm and Dry
Neuro: AO x 3
Psych: Calm
Results
WBC 6.6 10^3/uL (4.8-10.8) 03/12/24 05:38
Hgb 8.5 g/dL (13.0-18.0) L 03/12/24 05:38
Hct 25.8 % (39.0-52.0) L 03/12/24 05:38
MCV 89.6 fL (80.0-94.0) 03/12/24 05:38
Plt Count 252 10^3/uL (130-400) 03/12/24 05:38
PT 14.5 Sec (11.4-14.6) 03/11/24 09:53
INR 1.08 03/11/24 09:53
APTT 37.8 Sec (23.4-35.0) H 03/11/24 09:53
Sodium 126 mmol/L (135-145) L 03/12/24 08:02
Potassium 4.2 mmol/L (3.5-5.1) 03/12/24 05:38
Chloride 94 mmol/L (98-107) L 03/12/24 05:38
Carbon Dioxide 25 mmol/L (22-30) 03/12/24 05:38
BUN 30 mg/dl (9-20) H 03/12/24 05:38
Creatinine 0.6 mg/dL (0.7-1.3) L 03/12/24 05:38
Calcium 7.9 mg/dl (8.4-10.2) L 03/12/24 05:38
Total Bilirubin 1.4 mg/dl (0.2-1.3) H D 03/12/24 05:38
AST 23 U/L (17-59) 03/12/24 05:38
ALT 21 U/L (0-50) 03/12/24 05:38
Alkaline Phosphatase 119 U/L (38-126) 03/12/24 05:38
Lipase 588 U/L (23-300) H 03/11/24 09:53
Diagnostic Image Results:
CT abdomen and pelvis with IV contrast:
IMPRESSION:
There is pronounced gastric dilation with fluid extending into the distal esophagus, increased from prior and may represent an element of gastric outlet obstruction and possibly secondary to the below described pancreatic mass.
There is a persistent mild ill-defined mass within the pancreatic head with associated pancreatic duct dilation and atrophy favored to represent pancreatic malignancy.
There are numerous new hypodensities within the liver which measure up to 9 mm and are too small to accurately characterize however are suspicious for hepatic metastasis.
There is mild wall thickening throughout the small bowel suspicious for an element of enteritis
There is high-grade stenosis/occlusion of the confluence of the portal veins/proximal main portal vein which is similar to prior and may be secondary to external compression view of the pancreatic lesion and possible thrombus. There is additional
severe stenosis within the proximal common hepatic artery.
Small volume ascites.
Interval removal of the percutaneous cholecystostomy tube. There is stable appearance of the CBD stent.
Electronically signed by Zelalem Sherwood MD, 03/11/2024 3:56 PM
Prior GI Procedures:
EGD 02/17/24: ([facility])
- LA Grade B reflux esophagitis with no bleeding.
- Oozing gastric ulcer with a visible vessel.
Injected. Treated with bipolar cautery. Clips were
placed. 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
- A gastric tube was found in the stomach.
- Duodenal deformity.
- Normal first portion of the duodenum and second
portion of the duodenum.
-No specimens collected
EGD 02/13/24 ([facility])
- LA Grade B esophagitis with no bleeding.
- Non-bleeding gastric ulcer with a clean ulcer base
([place] Class III).
- A gastric tube was found in the stomach.
- Duodenal deformity.
- No specimens collected.
EGD: at [facility] - to obtain full records for review EUS/ERCP at [facility] on 12/31/2023 obstructing both the common bile duct and pancreatic duct with ERCP and stenting performed on 01/02/2024
Colonoscopy: 2020, Dr. Mccall: fair prep; diverticulosis.
Assessment / Plan
-
73 year old male with a past medical history of recently diagnosed pancreatic cancer 12/2023 (metastatic to right lung) status post EUS/ERCP at [facility] on 12/31/2023 obstructing both the common bile duct and pancreatic duct with ERCP and stenting
performed on 01/02/2024, hyperlipidemia, asthma, seizures, depression, anxiety, percutaneous cholecystostomy for emphysematous cholecystitis December 2023 (became dislodged 03/01/2024 and not replaced), portal vein thrombosis, pulmonary embolism,
right psoas muscle hematoma, mild pulmonary fibrosis, ascites, gastric outlet obstruction status post G-tube, upper extremity DVT, LA grade B reflux esophagitis, gastric ulcer with visible vessel (treated with injection epinephrine, bipolar cautery,
2 hemostatic clips) duodenal deformity (EGD 02/17/2024) who was scheduled to follow-up with A[facility] Nunez for conversion of his gastric tube to a GJ tube on 03/19/2024 and follow-up with [facility] for discussion of starting treatment of
his metastatic pancreatic cancer on 03/15/2024. Presents to the emergency room with coffee-ground emesis. The patient was constipated and had not have a bowel movement for 2 days. Was recommended to use a Senokot. Yesterday the patient had abrupt
onset of vomiting of brown material and proceeded to come to the emergency room. We are asked to evaluate for upper GI bleed. The patient's G-tube was hooked up to low intermittent suction with approximately 2500 cc of coffee-ground material
removed. Hemoglobin on arrival was 6.9 down from 9.2 on 02/27/2024. Patient has received 2 units of leukoreduced red blood cells. Hemoglobin is currently 8.5.
Impression:
Acute blood loss anemia
Metastatic pancreatic cancer, has not started treatment
Probable gastric outlet obstruction secondary to above, has G-tube. Was to be converted to GJ at [facility] 03/19/2023.
History of nonbleeding gastric ulcer status posttreatment (epi, bipolar cautery 2 hemostatic clips 02/17/2024)
Large fecal burden seen throughout entire colon
Bandemia
History of emphysematous cholecystitis with prior cholecystostomy tube (dislodged 03/01/2024, not replaced)
Plan:
-Continue pantoprazole
-Continue G-tube to low intermittent suction
-Continue IV fluids
-Heme-onc consult pending
-Await blood cultures
-Await repeat hemoglobin
-Milk of molasses enema today
-Repeat abdominal x-ray tomorrow
-To consider EGD
-CBC/CMP in a.m.
-Further recommendations to be forthcoming
-
-
Thank you for consultation and allowing me to participate in the patient's care. Please call the route contractor GI physician during the after hours with any questions or concerns.
[2024-03-12 14:15] LABS: Hemoglobin 9.1 g/dL (13.0-18.0)
[2024-03-12 14:52] LABS: Sodium 127 mmol/L (135-145)
--- NOTE | 2024-03-12 15:30 | CM ---
Pt seen bedside w/ spouse. Initial assessment completed.
Pt reports that he lives w/ spouse in a 2STH- 4 steps to enter the home
Pt is independent w/ the use of a walker. No other DME identified
Pt prev was at [facility] up until a week ago, pt was admitted for 2 weeks for skilled rehab
Pt is current w/ [facility]
Address, point of contact and insurance verified
PCP: Dr. Garcia
Pharmacy: [facility] for immediate scripts. Pt uses [facility]
Per chart, GI following, cont G tube
Oncology consulted- Recent dx of pancreatic cancer
Plan: CM will cont to follow hospital course for d/c planning
[2024-03-12] MEDS: SEROQUEL 25 MG PO (20:44)
[2024-03-12] MEDS: LAMICTAL 50 MG PO (20:44)
[2024-03-12] MEDS: TYLENOL 650 MG PO (20:45)
[2024-03-12] MEDS: LAMICTAL 300 MG PO (20:45)
--- NOTE | 2024-03-12 22:14 | CON.ONC ---
Impression
Impression
Pancreatic cancer complicated by gastric outlet obstruction
UGIB, possibly from previously identified ulcer
Plan
Plan
Case d/w Dr. Newman, GIB may be from previously identified ulcer.
Pt/family asking whether the G tube conversion to GJ tube could be done here. During last admission, they had the impression that the conversion would need to be done at [facility] since G-tube was initially placed there. They would like to be able to
keep their care here at [place].
Pt appeared very deconditioned and ill at previous admission, but it sounds like he regained performance status while at rehab. He is still hopeful for treatment.
Consider surgery and/or Rad Onc consults regarding options for management of gastric outlet obstruction.
Thank you for consult, will follow along with you.
Patient History
History of Present Illness
73-year-old man known to us from previous hospitalization. He was recently diagnosed with pancreatic cancer complicated by gastric outlet obstruction. He was first hospitalized at [place] where he underwent placement of G-tube, then presented to [facility] after syncopal event at home, found to have hemoglobin of 3.6. On 02/16, he underwent upper endoscopy during which an oozing cratered gastric ulcer was identified and coagulated with bipolar probe. Two hemostatic clips were
placed. Patient was discharged to [facility] for rehab and his tells me that he really did very well there. At home, he was ambulatory but then started vomiting prompting evaluation in the emergency room on 03/11. Imaging was consistent with
gastric outlet obstruction. Plan has been to convert G-tube to a GJ tube but has had a lot of difficulty getting this procedure scheduled at [place]. It has now been scheduled for March 19. Meanwhile, he has an appointment with Dr. Greer
to discuss possible systemic therapy. Patient and are concerned that he will lose ground gained during his recent rehab stay. There is some frustration with the difficulty of getting GJ tube conversion scheduled.
Past-Medical/Surgical History
Past Medical History:
Pancreatic Cancer complicated by gastric outlet obstruction
Emphysematous Cholecystitis
Asbestosis
Anxiety / Depression
Seizure Disorder (presumed secondary to Wellbutrin)
Deconditioning, improved following [place] stay
Past Surgical History:
ERCP with Bare Metal Biliary Stent
Cholecystostomy Tube Placement
Gastrostomy Tube Placement
R ACW Port Placement
Hernia Repair
Cervical Fusion
Nasal Surgery
Social History:
Tobacco: Non-smoker
Alcohol: None
Drug: None
Personal:
Family History
MGF: Gastric Cancer
MGM: Breast Cancer
Patient Medication
�Medication �Instructions �Recorded �Confirmed �Last Taken �Type
acetaminophen 325 mg tablet 650 mg PO Q6HPRN PRN mild pain 03/14/23 03/11/24 03/10/24 History
(Tylenol)
lamotrigine 150 mg tablet 300 mg PO HS seizure 03/14/23 03/11/24 03/10/24 History
(Lamictal)
simvastatin 20 mg tablet (Zocor) 20 mg PO HS High Cholesterol 03/14/23 03/11/24 03/10/24 History
therapeutic multivitamin 1 tab PO DAILY Supplement 03/14/23 03/11/24 03/10/24 History
lacosamide 100 mg tablet (Vimpat) 100 mg PO BID #60 tabs 03/18/23 03/11/24 12/30/23 Rx
aspirin 81 mg tablet,delayed 81 mg PO DAILY Blood Clot 12/30/23 03/11/24 03/10/24 History
release Prevention/Tx
desvenlafaxine succinate 50 mg 50 mg PO DAILY Mental 12/30/23 03/11/24 03/10/24 History
tablet,extended release 24 hr Health/Anxiety
lamotrigine 25 mg tablet (Lamictal) 50 mg PO HS Seizures 12/30/23 03/11/24 03/10/24 History
quetiapine 25 mg tablet (Seroquel) 25 mg PO HS Mental Health/Anxiety 12/30/23 03/11/24 03/10/24 History
pantoprazole 40 mg granules 40 mg PO DAILYPRN PRN gerd 03/11/24 03/11/24 Unknown History
delayed-release for susp in packet
Active Medications
Generic Name Dose Route Start Last Admin
Trade Name Freq PRN Reason Stop Dose Admin
Acetaminophen 650 mg 03/11/24 15:39 03/12/24 20:45
Acetaminophen 325 Mg Tablet PO 04/08/24 15:38 650 mg
Q6HPRN PRN Administration
mild pain
Desvenlafaxine Succinate 50 mg 03/11/24 16:00 03/11/24 16:45
Desvenlafaxine Succinate (Pristiq) 50 Mg Tab.Er.24h PO 04/08/24 15:59 Not Given
DAILY BAO
Sodium Chloride 1,000 mls @ 75 mls/hr 03/11/24 13:30 03/12/24 17:46
Nss IV 1,000 mls
.[id number] BAO Administration
Lacosamide 100 mg 03/11/24 20:00 03/12/24 20:45
Lacosamide (Vimpat) 100 Mg Tablet PO 04/08/24 19:59 100 mg
BID BAO Administration
Lamotrigine 50 mg 03/11/24 22:00 03/12/24 20:44
Lamotrigine 25 Mg Chewable Tablet PO 04/08/24 21:59 50 mg
HS BAO Administration
Lamotrigine 300 mg 03/11/24 22:00 03/12/24 20:45
Lamotrigine 100 Mg Tablet PO 04/08/24 21:59 300 mg
HS BAO Administration
Lidocaine 1 patch 03/11/24 15:39 03/12/24 08:29
Lidocaine 4% Topical Patch TOPICAL 04/08/24 15:38 1 patch
DAILY BAO Administration
Protocol
Pantoprazole Sodium 40 mg 03/11/24 21:00 03/12/24 20:46
Pantoprazole Sodium 40 Mg/10 Ml Vial IV 04/08/24 20:59 40 mg
BID BAO Administration
Quetiapine Fumarate 25 mg 03/11/24 22:00 03/12/24 20:44
Quetiapine 25 Mg Tablet PO 04/08/24 21:59 25 mg
HS BAO Administration
Sodium Chloride 10 ml 03/11/24 21:00 03/12/24 20:46
Sodium Chloride 0.9% (Preservative Free) 10 Ml Vial IV 04/08/24 20:59 10 ml
BID BAO Administration
Review of Systems
-
History Source: Patient, Family and Records
All Other Systems: Reviewed and Negative
Constitutional: Reports Weight Loss
EENT: Reports No Symptoms
Respiratory: Reports No Symptoms
Cardiac: Reports No Symptoms
GI: Reports Abdominal Pain, Nausea and Vomiting
Breast: Reports No Symptoms
: Reports No Symptoms
Musculoskeletal: Reports No Symptoms
Skin: Reports No Symptoms
Neuro: Reports No Symptoms
Endocrine: Reports No Symptoms
Hematologic/Lymphatic: Reports No Symptoms
Allergy / Immunology: Reports No Symptoms
Psych: Reports No Symptoms
Physical Exam
-
Awake, alert
G-tube to suction draining dark bilious fluid
Heart regular
Lung clear
Abd soft, mildly bloated
Extrem no edema
Neuro grossly non-focal
Labs
Lab Results
WBC 6.6 10^3/uL (4.8-10.8) 03/12/24 05:38
RBC 2.88 10^6/uL (4.70-6.10) L 03/12/24 05:38
Hgb 9.1 g/dL (13.0-18.0) L 03/12/24 13:44
Hct 25.8 % (39.0-52.0) L 03/12/24 05:38
MCV 89.6 fL (80.0-94.0) 03/12/24 05:38
MCH 29.5 pg (27.0-31.0) 03/12/24 05:38
MCHC 32.9 g/dL (33.0-37.0) L 03/12/24 05:38
RDW 16.6 % (11.5-14.5) H 03/12/24 05:38
Plt Count 252 10^3/uL (130-400) 03/12/24 05:38
MPV 9.1 fL (7.4-10.4) 03/12/24 05:38
Creatinine 0.6 mg/dL (0.7-1.3) L 03/12/24 05:38
Vital Signs
Vital Signs
Temp Pulse Resp BP Pulse Ox
97.4 F 89 16 94/64 96
03/12/24 20:33 03/12/24 20:33 03/12/24 20:33 03/12/24 20:33 03/12/24 20:33
[2024-03-13] VITALS (18 sets, daily range): BP systolic 92–124; BP diastolic 65–83; PULSE 85; BMI 21.4
[2024-03-13] MEDS: NSS 1000 IV (05:21)
--- NOTE | 2024-03-13 07:55 | W.PN.UPDATE ---
Update Note
Progress Note Update
Reviewed recent hospital course and CT findings with concern for malignant gastric outlet obstruction secondary to pancreatic malignancy. Less likely from previous gastric ulcer (seen earlier on 02/2024). Would benefit from repeat EGD given CT
findings and if this is related to a malignant GOO, patient would benefit from either surgical oncology consultation and/or potential Interventional GI with stenting (ie duodenal stent / LAMS) if not a surgical candidate for palliation of
obstruction. Discussed with patient at bedside this AM and amenable to pursuing EGD for further evaluation. Keep NPO. Messaged primary internal medicine team. See same day EGD report for additional findings and recommendations.
[2024-03-13] MEDS: LIDOCAINE 4% PATCH 1 PATCH TOPICAL (07:56)
[2024-03-13] MEDS: NSS (PRESERVATIVE FREE) 10 ML IV ×2 (07:56→20:40)
[2024-03-13] MEDS: PROTONIX IV 40 MG IV ×2 (07:56→20:40)
[2024-03-13] MEDS: VIMPAT 100 MG PO (07:57)
--- NOTE | 2024-03-13 09:11 | W.PN.ONC2 ---
Today's Communication / Plan
-
f/u EGD, surgical oncology consult, GI evaluation for palliative stent
Impression
Impression
Pancreatic cancer complicated by gastric outlet obstruction
UGIB, possibly from previously identified ulcer
Plan
Plan
During last admission, they had the impression that the conversion would need to be done at [facility] since G-tube was initially placed there. They would like to be able to keep their care here at [place].
Pt appeared very deconditioned and ill at previous admission, but it sounds like he regained performance status while at rehab. He is still hopeful for treatment.
Consider surgery and/or Rad Onc consults regarding options for management of gastric outlet obstruction.
Subjective/Objective
Subjective
off unit for EGD. not seen or examined. chart reviewed.
Vital Signs:
Vital Signs
Temp Pulse Resp BP Pulse Ox
97.6 F 87 16 109/68 93
03/13/24 08:25 03/13/24 08:25 03/13/24 08:25 03/13/24 08:25 03/13/24 08:25
Lab Results:
Laboratory Data
WBC 6.6 10^3/uL (4.8-10.8) 03/12/24 05:38
Hgb 9.1 g/dL (13.0-18.0) L 03/12/24 13:44
Plt Count 252 10^3/uL (130-400) 03/12/24 05:38
PT 14.5 Sec (11.4-14.6) 03/11/24 09:53
INR 1.08 03/11/24 09:53
APTT 37.8 Sec (23.4-35.0) H 03/11/24 09:53
eGFR > 60.00 03/12/24 05:38
[2024-03-13 09:53] LABS: Hematocrit 25.8 % (39.0-52.0); Hemoglobin 8.2 g/dL (13.0-18.0); Mean Corp Hgb Conc. 31.8 g/dL (33.0-37.0); Mean Corpuscular Hgb 29.6 pg (27.0-31.0); Mean Corpuscular Volume 93.1 fL (80.0-94.0); Mean Platelet Volume 9.3 fL (7.4-10.4); Platelet Count 218 10^3/uL (130-400); Red Blood Cell Count 2.77 10^6/uL (4.70-6.10); Red Cell Dist. Width 16.6 % (11.5-14.5); White Blood Cell Count 5.4 10^3/uL (4.8-10.8)
[2024-03-13 10:45] LABS: ALT (SGPT) 23 U/L (0-50); AST (SGOT) 29 U/L (17-59); Albumin 2.3 g/dl (3.5-5.0); Alkaline Phosphatase 152 U/L (38-126); Blood Urea Nitrogen 22 mg/dl (9-20); Calcium 7.9 mg/dl (8.4-10.2); Carbon Dioxide 22 mmol/L (22-30); Chloride 100 mmol/L (98-107); Estimated Creatinine Clearance 111 ml/min; Glucose 94 mg/dl (70-99); Phosphorus 3.6 mg/dl (2.5-4.5); Potassium 3.4 mmol/L (3.5-5.1); Sodium 130 mmol/L (135-145); Total Bilirubin 0.6 mg/dl (0.2-1.3); Total Protein 4.3 g/dl (6.3-8.2); eGFR > 60.00
[2024-03-13 10:54] LABS: % Basophils 0.9 % (0-2); % Eosinophils 2.6 % (0-6); % Immature Granulocytes 1.7 % (0-0.5); % Lymphocytes 7.5 % (20.5-51.1); % Monocytes 9.5 % (1.7-9.3); % Neutrophils 77.8 % (42.2-75.2); Absolute Basophils 0.1 10^3/uL (0-0.2); Absolute Eosinophils 0.1 10^3/uL (0-0.7); Absolute Immature Granulocytes 0.1 10^3/uL (0-0.05); Absolute Lymphocytes 0.4 10^3/uL (1.2-3.4); Absolute Monocytes 0.5 10^3/uL (0.1-0.6); Absolute Neutrophils 4.2 10^3/uL (1.4-6.5); Nucleated Red Blood Cells % 0 % (-)
--- NOTE | 2024-03-13 11:31 | SUR.PHASEI ---
patient without pain in pacu, tearful, Dr Ye spoke with patient and attempted to contact , Dr Ye explained endo findings and possible plans. Surgery will see patient.
--- NOTE | 2024-03-13 11:38 | PTCARENOTE ---
pt back from GI lab s/p EGD. pt is AAO*3, tearful. denies any pain. at the bedside updated. pt is oriented to the room. call blount within the reach. plan of care ongoing.
--- NOTE | 2024-03-13 13:07 | W.CON.PAL ---
Consultation
-
Date/Time Consultation Requested: 03/13/24
Date/Time Consultation Performed: 03/13/24
Requesting Provider: Dr. Hyde
Performing Provider: Dr. Rangel
Reason for Consult: Goals of Care Discussion
Primary Diagnosis: Pancreatic Cancer
Related Diagnosis: Gastric outlet obstruction
Consult Requested By: Patient's Physician
Reason for Admission
Illness Course/HPI
Kobi is a 73 y/o male admitted to hospital for GI bleeding 03/11. He was recently diagnosed with pancreatic cancer in december of this year, when he presented with abdominal pain. was hospitalized 02/10-02/21 for anemia - hgb 3.6, discharged to [facility] days after rehab when rehospitalized. Has not been able to start any systemic therapy yet due to complications and hospitalizations.
Functional Status
At his baseline a few months was indepednent. living with his in a [address] home - has first floor bathroom.
Currently very weak. unable to eat.
has 2 children + 4 grandchildren who live in the area
Goals of Care Discussion
-
Individuals Present for Discussion & Relationship to Patient:
Patient & spouse
Patient able to participate in discussion at time of visit: Yes
Patient Goals
Patient and spouse aware that his type of cancer is aggressive, and that his condition at the moment is poor. His goals are to get the gastric procedure (scheduled later this afternoon) to help with the gastric outlet obstruction and would like to
be able to at least try chemotherapy or some type of systemic therapy. Eligibilty for such therapy will depend on his performance status at that time. As he was getting ready for his procedure, I spoke with outside of the room. discussed
palliative care and hospice services. At this time they are not ready for hospice. Code status is DNR as already ordered.
Pain & Symptom Assessment
-
Denies pain at this time. feels anxious and worried. not vomiting currently
Objective Data
-
Objective Data:
Vital Signs
Temp Pulse Resp BP Pulse Ox
97.2 F 87 18 109/74 94
03/13/24 11:35 03/13/24 11:35 03/13/24 11:35 03/13/24 11:35 03/13/24 11:40
Laboratory Results
03/13/24 07:32
03/13/24 07:32
PT 14.5 Sec (11.4-14.6) 03/11/24 09:53
INR 1.08 03/11/24 09:53
APTT 37.8 Sec (23.4-35.0) H 03/11/24 09:53
Total Protein 4.3 g/dl (6.3-8.2) L 03/13/24 07:32
Albumin 2.3 g/dl (3.5-5.0) L 03/13/24 07:32
Urine Color Yellow 03/11/24 14:56
Urine Clarity Clear (Clear) 03/11/24 14:56
Urine pH 6.5 (5.0-9.0) 03/11/24 14:56
Ur Specific [place] 1.015 (<1.030) 03/11/24 14:56
Urine Ketones Negative (Negative) 03/11/24 14:56
Urine Bilirubin Negative (Negative) 03/11/24 14:56
Palliative Performance Scale
Palliative Performance Scale:
PPS Level Ambulation Activity & Evidence of Disease Self Care Intake Conscious Level
100% Full Normal Activity & Work; Full Intake Full
No Evidence of Disease
90% Full Normal Activity & Work; Full Normal Full
Some Evidence of Disease
80% Full Normal Activity with Effort Full Normal or Full
Some Evidence of Disease Reduced
70% Reduced Unable Normal Job/Work Full Normal or Full
Significant Disease Reduced
60% Reduced Unable Hobby/Housework Occasional Normal or Full or Confusion
Significant Disease Assistance Reduced
50% Mainly Sit/Lie Unable to do Any Work Considerable Normal or Full or Confusion
Extensive Disease Assistance Req'd Reduced
40% Mainly in Bed Unable to do Most Activity Mainly Assistance Normal or Full or Drowsy;
Extensive Disease Reduced +/- Confusion
30% Totally Bed Unable to do Any Activity Total Care Normal or Full or Drowsy;
Bound Extensive Disease Reduced +/- Confusion
20% Totally Bed Bound Unable to do Any Activity Total Care Minimal to Full or Drowsy;
Extensive Disease Sips +/- Confusion
10% Totally Bed Bound Unable to do Any Activity Total Care Mouth Care Drowsy or Coma;
Extensive Disease Only +/- Confusion
0%
PPS Score Level:
Palliative Performance Score Response
Palliative Performance Score Response: 40%
Assessment / Plan
-
Assessment/Plan:
For surgical procedure for gastric outlet obstruction this afternoon.
Goals are treatment oriented, patient + family aware that his condition is serious.
Code status DNR.
--- NOTE | 2024-03-13 14:13 | W.IMMPOSTOP ---
Surgical Immed Post Op Note
-
Primary Surgeon: Christiano Fairchild MD
Pre-op Diagnosis: Gastric outlet obstruction from a pancreatic head tumor
Post-op Diagnosis: Same
Procedure Performed: Exploratory laparotomy and gastrojejunstomy bypass
Anesthesia Type: General
Specimen / Cultures: None
Estimated Blood Loss: 5 cc
Complications: none
Operative Findings: Gastric obstruction
--- NOTE | 2024-03-13 15:10 | TRANSFER ---
pt transferred to [facility] s/p gastric bypass. report given to DOMO Rm. belongings sent to [facility] RM [id number].
--- NOTE | 2024-03-13 15:11 | PTCARENOTE ---
Telephone report received from GRAINER MACHINE and patient arrived in bed @15:11 on O2 with jiménez bag, NGT & IVF infusing; VSS; brought to bedside; personal belongings brought from [facility].
--- NOTE | 2024-03-13 15:18 | CM ---
Chart reviewed. Pt transferred to following upper GI endoscopy procedure.
Per chart, palliative consulted, pt and family does not wish to explore hospice at this time
Recent dx of Pancreatic cancer
Current w/ [facility]

Plan: Home; [facility] w/ [facility]
CM will cont to follow for d/c planning
--- NOTE | 2024-03-13 16:14 | W.PN.HOSP.TC ---
Today's Communication/Plan
-
see bold
Assessment / Plan
Assessment / Plan
HPI: 73 yo man with hx recently diagnosed pancreatic cancer (01/04) with biliary and gastric outlet obstruction s/p GJ tube, s/p cholecystostomy, recent admission 02/10-02/22/24 for GIB (s/p EGD 02/16 showing fundus ulcer with visible vessel s/p epi,
cautery, clips), PE now off AC given risk with GIB presents to the ER with vomiting up 'black bile.'
Patient states he was nauseated yesterday and vomited bile. Then this morning he noticed black vomit and came to the ER. No fevers/chills. + a couple of days of cough/congestion. His last BM was 2 days ago, he has been passing gas. No chest
pain or shortness of breath.
He was seen in the ER on 03/01, his cholecystotomy tube was dislodged.
Acute Blood Loss Anemia
History of PUD with recent admission 02/10-02/22/24
Gastric outlet obstruction
-Hemoglobin 8.2, was 8.5, improved from 6.9 status post 2 units packed red blood cells on 03/11
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 S/p G-tube to low intermittent suction
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
-Appreciate surgical oncology input, status post Exploratory laparotomy and gastrojejunstomy bypass 03/[address] Fairchild
-Continue Protonix 40 mg IV twice daily, trend Hgb
-NPO, IVFs, continue IV Ancef as per surgical oncology
Hyponatremia
-Patient reports drinking water although concern for dehydration with vomiting
-Urine Na < 5
-Hold Desvenlafaxine, gentle IV fluids, trend sodium
Bandemia
-COVID/flu negative, urine analysis negative, blood cultures NTD
-Infectious workup negative
-Currently on IV Ancef postoperatively as per surgical oncology
Constipation
-Status post milk of molasses enema 03/12
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
-S/p GJ tube. Hold TF while undergoing GIB work up
-Hx cholecystostomy tube that fell out 03/01 - seen in ER
-Per last Oncology notes, functional status would need to improve in order to receive palliative chemotherapy
-Seen by oncology, patient wishes to continue palliative chemo when able
Hx PE
Brachial DVT
-AC stopped last admission given high bleeding risk
-IVC filter wasn't indicated as clot propagated from UE
DVT prophylaxis�subcu Lovenox
DNR - confirmed on admission
Updated at bedside 03/13
Total time spent to see the patient on the floor, examine the patient, review data and lab results, discuss treatment plan with patient, nursing staff around 51 minutes.
Physical Exam
General: Appears chronically ill, no acute distress
HEENT: Normocephalic, Atraumatic, EOMI, MMM
Respiratory: Clear to Auscultation bilaterally
Cardiac: Normal S1/S2, Regular Rate and Rhythm
GI: Soft, distended, appropriately tender, incision dressed
Extremities: No Clubbing, Cyanosis
Neuro: Nonfocal/Grossly Intact
Anticipated Discharge: > 48 hours
Subjective/Interval History
-
Date of Service: March 12, 2024
Patient seen after his surgery. Denies pain, denies nausea, denies vomiting. No fever. No chest pain, no shortness of breath.
Objective Data
-
Labs:
Laboratory Results
03/12/24 03/12/24 03/12/24
05:38 08:02 13:44
WBC 6.6
Hgb 8.5 L 9.1 L
Hct 25.8 L
Plt Count 252
Sodium 126 L 126 L 127 L
Potassium 4.2
Chloride 94 L
Carbon Dioxide 25
BUN 30 H
Creatinine 0.6 L
Glucose 134 H
Calcium 7.9 L
Total Bilirubin 1.4 H D
AST 23
ALT 21
Alkaline Phosphatase 119
Vital Signs:
Vital Signs
Temp Pulse Resp BP Pulse Ox
97.7 F 85 20 110/71 96
03/12/24 12:20 03/12/24 08:22 03/12/24 08:22 03/12/24 08:22 03/12/24 12:20
I&O
03/11/24 03/12/24 03/13/24
06:59 06:59 06:59
Intake Total 875 / 875
Output Total 2950 / 2950 250 / 250
Balance -2074 / -5 -250 / -250
[2024-03-13] MEDS: NSS IV (16:35)
[2024-03-13] MEDS: D5LR 1000 IV (16:40)
--- NOTE | 2024-03-13 17:45 | PTCARENOTE ---
-->[place] catheter placed in OR, awaiting order for indication & removal date (temporarily documented end of life care), will give detailed report to following nurse to follow up.
[2024-03-13] MEDS: ANCEF 10 IV (20:45)
[2024-03-14] MEDS: D5LR 1000 IV ×3 (00:15→16:38)
[2024-03-14 03:40] VITALS: BP 107/70
[2024-03-14] MEDS: ANCEF 10 IV ×3 (03:51→20:12)
[2024-03-14 07:27] LABS: Hematocrit 24.8 % (39.0-52.0); Hemoglobin 8.2 g/dL (13.0-18.0); Mean Corp Hgb Conc. 33.1 g/dL (33.0-37.0); Mean Corpuscular Hgb 30.6 pg (27.0-31.0); Mean Corpuscular Volume 92.5 fL (80.0-94.0); Mean Platelet Volume 9.1 fL (7.4-10.4); Platelet Count 266 10^3/uL (130-400); Red Blood Cell Count 2.68 10^6/uL (4.70-6.10); Red Cell Dist. Width 16.8 % (11.5-14.5)
[2024-03-14 07:29] LABS: Blood Urea Nitrogen 20 mg/dl (9-20); Calcium 7.8 mg/dl (8.4-10.2); Carbon Dioxide 24 mmol/L (22-30); Chloride 102 mmol/L (98-107); Estimated Creatinine Clearance 111 ml/min; Glucose 185 mg/dl (70-99); Sodium 131 mmol/L (135-145); eGFR > 60.00
--- NOTE | 2024-03-14 07:57 | W.PN.HOSP.TC ---
Today's Communication/Plan
-
see bold
Assessment / Plan
Assessment / Plan
HPI: 73 yo man with hx recently diagnosed pancreatic cancer (01/04) with biliary and gastric outlet obstruction s/p GJ tube, s/p cholecystostomy, recent admission 02/10-02/22/24 for GIB (s/p EGD 02/16 showing fundus ulcer with visible vessel s/p epi,
cautery, clips), PE now off AC given risk with GIB presents to the ER with vomiting up 'black bile.'
Patient states he was nauseated yesterday and vomited bile. Then this morning he noticed black vomit and came to the ER. No fevers/chills. + a couple of days of cough/congestion. His last BM was 2 days ago, he has been passing gas. No chest
pain or shortness of breath.
He was seen in the ER on 03/01, his cholecystotomy tube was dislodged.
Acute Blood Loss Anemia
History of PUD with recent admission 02/10-02/22/24
Gastric outlet obstruction
-Hemoglobin 8.2, was 8.5, improved from 6.9 status post 2 units packed red blood cells on 03/11
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 S/p G-tube to low intermittent suction
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
-Appreciate surgical oncology input, status post Exploratory laparotomy and gastrojejunstomy bypass 03/[address] Fairchild
-Continue Protonix 40 mg IV twice daily, trend Hgb
-NG tube to be removed 03/14, hook gastrostomy tube to intermittent suction, possible liquid diet if output has decreased
-NPO, IVFs, continue IV Ancef as per surgical oncology
Hyponatremia
-Patient reports drinking water although concern for dehydration with vomiting
-Urine Na < 5
-Hold Desvenlafaxine, gentle IV fluids, trend sodium
Bandemia
-COVID/flu negative, urine analysis negative, blood cultures NTD
-Infectious workup negative
-Currently on IV Ancef postoperatively as per surgical oncology
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
-S/p GJ tube. Hold TF while undergoing GIB work up
-Hx cholecystostomy tube that fell out 03/01 - seen in ER
-Per last Oncology notes, functional status would need to improve in order to receive palliative chemotherapy
-Seen by oncology, patient wishes to continue palliative chemo when able
Anxiety
� IV Ativan as needed
Constipation
-Status post milk of molasses enema 03/12
Hypokalemia
� Replete as needed
Hx PE
Brachial DVT
-AC stopped last admission given high bleeding risk
-IVC filter wasn't indicated as clot propagated from UE
DVT prophylaxis�subcu Lovenox
DNR - confirmed on admission
Updated at bedside 03/13
Total time spent to see the patient on the floor, examine the patient, review data and lab results, discuss treatment plan with patient, nursing staff around 41 minutes.
Physical Exam
General: Appears chronically ill, no acute distress
HEENT: Normocephalic, Atraumatic, EOMI, MMM
Respiratory: Clear to Auscultation bilaterally
Cardiac: Normal S1/S2, Regular Rate and Rhythm
GI: Soft, distended, appropriately tender, incision dressed
Extremities: No Clubbing, Cyanosis
Neuro: Nonfocal/Grossly Intact
Anticipated Discharge: > 48 hours
Subjective/Interval History
-
Date of Service: March 13, 2024
Nursing staff reports patient feels anxious. No abdominal pain, no nausea. No fever, no chest pain, no shortness of breath.
Objective Data
-
Labs:
Laboratory Results
03/13/24
07:32
WBC 5.4
Hgb 8.2 L
Hct 25.8 L
Plt Count 218
Sodium 130 L
Potassium 3.4 L
Chloride 100
Carbon Dioxide 22
BUN 22 H
Creatinine 0.6 L
Glucose 94
Calcium 7.9 L
Total Bilirubin 0.6
AST 29
ALT 23
Alkaline Phosphatase 152 H
Vital Signs:
Vital Signs
Temp Pulse Resp BP Pulse Ox
97.4 F 84 18 102/73 4
03/13/24 15:51 03/13/24 15:51 03/13/24 15:51 03/13/24 15:51 03/13/24 15:51
I&O
03/12/24 03/13/24 03/14/24
06:59 06:59 06:59
Intake Total 875 / 875 2400 / 2400 275 / 275
Output Total 2950 / 2950 450 / 450 675 / 675
Balance -2074 / -2074 1950 / 1950 -400 / -400
[2024-03-14 08:00] VITALS: BP 103/71
[2024-03-14] MEDS: NSS (PRESERVATIVE FREE) 10 ML IV ×2 (08:45→20:12)
[2024-03-14] MEDS: PROTONIX IV 40 MG IV ×2 (08:45→20:12)
--- NOTE | 2024-03-14 10:01 | W.PN.GENERIC ---
Assessment / Plan
-
S/p gastrojejunostomy bypass for GOO POD #1
Surgically stable
NGT dc'd
Will connect gastrostomy tube to intermittent suction.
If gastrostomy output decrease, will start liquid diet
OOB and ambulate w/ gastrostomy tube off suction.
Physician Progress Note
Subjective
No complaints. Some confusion as per .
Objective
Vital Signs
Temp Pulse Resp BP Pulse Ox
97.8 F 91 18 103/71 97
03/14/24 08:00 03/14/24 08:00 03/14/24 08:00 03/14/24 08:00 03/14/24 08:00
Lab Results
03/14/24 06:44
03/14/24 06:44
Abdomen - distended but soft
NGT output >400cc
--- NOTE | 2024-03-14 10:32 | W.PN.ONC2 ---
Today's Communication / Plan
-
- hgb stable at 8.2 g/dl. Continue to monitor.
- ADAT s/p bypass.
Impression
Impression
Pancreatic cancer complicated by gastric outlet obstruction
UGIB, possibly from previously identified ulcer
Plan
Plan
EGD revealed likely malignant stricture with oozing at duodenum, path pending.
Dr Alvarado performed ex-lap with G-J bypass 03/13. Plan to slowly advanced diet.
EGD with oozing at stricture, grade D esophagitis. IV PPI started. Hgb overall stable today at 8.2 g/dl. CBC daily, transfuse < 8.0 g/dl.
pt has Onc follow up with [facility] / to discuss systemic therapy. Will reschedule closer to d/c.
encouraged OOB, PT, continued efforts with nutrition.
Subjective/Objective
Chief Complaint
GOO, locally advanced pancreatic cancer
Subjective
Pt s/p G-J bypass surgery yesterday after EGD showed likely malignant stricture with oozing at duodenum. NGT pulled this am. Pt denies abdominal pain, abdomen softer per .
Vital Signs:
Vital Signs
Temp Pulse Resp BP Pulse Ox
97.8 F 91 18 103/71 97
03/14/24 08:00 03/14/24 08:00 03/14/24 08:00 03/14/24 08:00 03/14/24 08:00
Lab Results:
Laboratory Data
WBC 7.0 10^3/uL (4.8-10.8) 03/14/24 06:44
Hgb 8.2 g/dL (13.0-18.0) L 03/14/24 06:44
Plt Count 266 10^3/uL (130-400) D 03/14/24 06:44
PT 14.5 Sec (11.4-14.6) 03/11/24 09:53
INR 1.08 03/11/24 09:53
APTT 37.8 Sec (23.4-35.0) H 03/11/24 09:53
eGFR > 60.00 03/14/24 06:44
Physical Exam
HEENT: No Jaundice
Cardiology: Normal Sinus Rhythm
Pulmonary: Clear
GI: Soft and Distended; No Normal Bowel Sounds (decreased) or Fluid Wave
Extremities: No Edema
Neuro: Non Focal
Review of Systems
Review of Systems
Constitutional: Reports Fatigue
Respiratory: Denies Dyspnea
Cardiovascular: Denies Chest Pain
Gastrointestinal: Reports Other (constipation ); Denies Nausea/Vomiting or Diarrhea
[2024-03-14 11:16] VITALS: BP 105/72
[2024-03-14] MEDS: ATIVAN 0.5 MG IV (12:01)
[2024-03-14] MEDS: NSS (PRESERVATIVE FREE) 0.25 ML IV (12:02)
--- NOTE | 2024-03-14 14:41 | W.PN.GI.CBS2 ---
Today's Communication / Plan
-
-- gi signing off
Assessment / Plan
-
73 year old male with a past medical history of recently diagnosed pancreatic cancer 12/2023 (metastatic to right lung) status post EUS/ERCP at [facility] on 12/31/2023 obstructing both the common bile duct and pancreatic duct with ERCP and stenting
performed on 01/02/2024, hyperlipidemia, asthma, seizures, depression, anxiety, percutaneous cholecystostomy for emphysematous cholecystitis December 2023 (became dislodged 03/01/2024 and not replaced), portal vein thrombosis, pulmonary embolism,
right psoas muscle hematoma, mild pulmonary fibrosis, ascites, gastric outlet obstruction status post G-tube, upper extremity DVT, LA grade B reflux esophagitis, gastric ulcer with visible vessel (treated with injection epinephrine, bipolar cautery,
2 hemostatic clips) duodenal deformity (EGD 02/17/2024) who was scheduled to follow-up with [facility] for conversion of his gastric tube to a GJ tube on 03/19/2024 and follow-up with [facility] for discussion of starting treatment of
his metastatic pancreatic cancer on 03/15/2024. Presents to the emergency room with coffee-ground emesis. The patient was constipated and had not have a bowel movement for 2 days. Was recommended to use a Senokot. Yesterday the patient had abrupt
onset of vomiting of brown material and proceeded to come to the emergency room. We are asked to evaluate for upper GI bleed. The patient's G-tube was hooked up to low intermittent suction with approximately 2500 cc of coffee-ground material
removed. Hemoglobin on arrival was 6.9 down from 9.2 on 02/27/2024. Patient has received 2 units of leukoreduced red blood cells. Hemoglobin is currently 8.5.
Impression:
Acute blood loss anemia
Metastatic pancreatic cancer, has not started treatment
Probable gastric outlet obstruction secondary to above, has G-tube. Was to be converted to GJ at [facility] 03/19/2023.
History of nonbleeding gastric ulcer status posttreatment (epi, bipolar cautery 2 hemostatic clips 02/17/2024)
Large fecal burden seen throughout entire colon
Bandemia
History of emphysematous cholecystitis with prior cholecystostomy tube (dislodged 03/01/2024, not replaced)
Plan:
-Continue pantoprazole
-Continue G-tube to low intermittent suction for now and now per surgery
-Continue IV fluids
-Heme-onc consult done and outpatient management
GI will sign off, management per surg onc and med onc
Subjective
Subjective
Date of Service: March 14, 2024
patient tolerated surgery well. denies pain. no BM yet
Objective
Data Reviewed
Laboratory Data:
Laboratory Results
03/14/24 06:44
03/14/24 06:44
Laboratory Results
PT 14.5 Sec (11.4-14.6) 03/11/24 09:53
INR 1.08 03/11/24 09:53
APTT 37.8 Sec (23.4-35.0) H 03/11/24 09:53
Phosphorus 3.6 mg/dl (2.5-4.5) 03/13/24 07:32
Magnesium 2.0 mg/dl (1.6-2.3) 03/13/24 07:32
Total Bilirubin 0.6 mg/dl (0.2-1.3) 03/13/24 07:32
AST 29 U/L (17-59) 03/13/24 07:32
ALT 23 U/L (0-50) 03/13/24 07:32
Alkaline Phosphatase 152 U/L (38-126) H 03/13/24 07:32
Lipase 588 U/L (23-300) H 03/11/24 09:53
Vital Signs and I&O:
Vital Signs
Temp Pulse Resp BP Pulse Ox
97.4 F 87 16 105/72 98
03/14/24 11:16 03/14/24 11:16 03/14/24 11:16 03/14/24 11:16 03/14/24 11:16
I&O
03/13/24 03/14/24 03/15/24
06:59 06:59 06:59
Intake Total 2400 / 2400 2180 / 2270 90 / 90
Output Total 450 / 450 2300 / 2650 350 / 350
Balance 1950 / 1950 -120 / -380 -260 / -260
Physical Exam
Physical Exam
HEENT: Anicteric
GI: Soft and Normal Bowel Sounds (Hypoactive bowel sounds, gastrostomy not currently hooked up to suction)
Neuro: Non Focal
[2024-03-14 15:06] VITALS: BP 104/70
[2024-03-14 19:52] VITALS: BP 106/72
[2024-03-14 23:35] VITALS: BP 114/79
[2024-03-15] MEDS: D5LR 1000 IV ×3 (00:15→19:39)
[2024-03-15 03:25] VITALS: BP 115/81
[2024-03-15] MEDS: ANCEF 10 IV ×2 (04:13→12:05)
[2024-03-15 07:24] LABS: ALT (SGPT) 20 U/L (0-50); AST (SGOT) 48 U/L (17-59); Albumin 2.3 g/dl (3.5-5.0); Alkaline Phosphatase 145 U/L (38-126); Blood Urea Nitrogen 15 mg/dl (9-20); Calcium 7.9 mg/dl (8.4-10.2); Carbon Dioxide 26 mmol/L (22-30); Chloride 103 mmol/L (98-107); Estimated Creatinine Clearance 111 ml/min; Glucose 162 mg/dl (70-99); Potassium 3.5 mmol/L (3.5-5.1); Sodium 134 mmol/L (135-145); Total Bilirubin 0.4 mg/dl (0.2-1.3); Total Protein 4.5 g/dl (6.3-8.2); eGFR > 60.00
[2024-03-15 07:45] VITALS: BP 123/85
--- NOTE | 2024-03-15 08:25 | W.PN.HOSP.TC ---
Today's Communication/Plan
-
see bold
Assessment / Plan
Assessment / Plan
HPI: 73 yo man with hx recently diagnosed pancreatic cancer (01/04) with biliary and gastric outlet obstruction s/p GJ tube, s/p cholecystostomy, recent admission 02/10-02/22/24 for GIB (s/p EGD 02/16 showing fundus ulcer with visible vessel s/p epi,
cautery, clips), PE now off AC given risk with GIB presents to the ER with vomiting up 'black bile.'
Patient states he was nauseated yesterday and vomited bile. Then this morning he noticed black vomit and came to the ER. No fevers/chills. + a couple of days of cough/congestion. His last BM was 2 days ago, he has been passing gas. No chest
pain or shortness of breath.
He was seen in the ER on 03/01, his cholecystotomy tube was dislodged.
Acute Blood Loss Anemia
History of PUD with recent admission 02/10-02/22/24
Gastric outlet obstruction
-Hemoglobin 8.2, was 8.5, improved from 6.9 status post 2 units packed red blood cells on 03/11
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 S/p G-tube to low intermittent suction
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
-Appreciate surgical oncology input, status post Exploratory laparotomy and gastrojejunstomy bypass 03/[address] Fairchild
-Continue Protonix 40 mg IV twice daily, trend Hgb
-NG tube removed 03/14, gastrostomy tube clamped with trail of clear liquids 1/2
-IVFs, continue IV Ancef, okay for oral meds as per surgical oncology
Hyponatremia
-Patient reports drinking water although concern for dehydration with vomiting
-Urine Na < 5
-Hold Desvenlafaxine, gentle IV fluids, trend sodium
Bandemia
-COVID/flu negative, urine analysis negative, blood cultures NTD
-Infectious workup negative
-Currently on IV Ancef postoperatively as per surgical oncology
Urinary retention
� [place] inserted 03/13
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
-S/p GJ tube. Hold TF while undergoing GIB work up
-Hx cholecystostomy tube that fell out 03/01 - seen in ER
-Per last Oncology notes, functional status would need to improve in order to receive palliative chemotherapy
-Seen by oncology, patient wishes to continue palliative chemo when able
Anxiety
� IV Ativan as needed
Constipation
-Status post milk of molasses enema 03/12
Hypokalemia
� Replete as needed
Hx PE
Brachial DVT
-AC stopped last admission given high bleeding risk
-IVC filter wasn't indicated as clot propagated from UE
DVT prophylaxis�subcu Lovenox
DNR - confirmed on admission
Updated at bedside 03/15
Total time spent to see the patient on the floor, examine the patient, review data and lab results, discuss treatment plan with patient, nursing staff around 42 minutes.
Physical Exam
General: Appears chronically ill, no acute distress
HEENT: Normocephalic, Atraumatic, EOMI, MMM
Respiratory: Clear to Auscultation bilaterally
Cardiac: Normal S1/S2, Regular Rate and Rhythm
GI: Soft, distended, appropriately tender, incision dressed
Extremities: No Clubbing, Cyanosis
Neuro: Nonfocal/Grossly Intact
Anticipated Discharge: > 48 hours
Subjective/Interval History
-
Date of Service: March 14, 2024
Patient denies abdominal pain. No chest pain, no shortness of breath. No fever, no vomiting
Objective Data
-
Labs:
Laboratory Results
03/14/24
06:44
WBC 7.0
Hgb 8.2 L
Hct 24.8 L
Plt Count 266 D
Sodium 131 L
Potassium 4.0
Chloride 102
Carbon Dioxide 24
BUN 20
Creatinine 0.6 L
Glucose 185 H
Calcium 7.8 L
Vital Signs:
Vital Signs
Temp Pulse Resp BP Pulse Ox
97.4 F 87 16 105/72 98
03/14/24 11:16 03/14/24 11:16 03/14/24 11:16 03/14/24 11:16 03/14/24 11:16
I&O
03/13/24 03/14/24 03/15/24
06:59 06:59 06:59
Intake Total 2400 / 2400 2180 / 2270 90 / 90
Output Total 450 / 450 2300 / 2650 350 / 350
Balance 1950 / 1950 -120 / -380 -260 / -260
[2024-03-15] MEDS: PROTONIX IV 40 MG IV ×2 (09:00→19:40)
[2024-03-15] MEDS: NSS (PRESERVATIVE FREE) 10 ML IV ×2 (09:00→19:39)
[2024-03-15] MEDS: FLUSH (NSS) 2 FLUSH IV (09:01)
--- NOTE | 2024-03-15 09:05 | W.PN.ONC2 ---
Today's Communication / Plan
-
- Hgb stable at 8.2 g/d yesterday, CBC today pending. Continue to monitor.
- ADAT s/p bypass.
Impression
Impression
Pancreatic cancer complicated by gastric outlet obstruction
UGIB, possibly from previously identified ulcer
Plan
Plan
EGD revealed likely malignant stricture with oozing at duodenum, path pending.
Dr Alvarado performed ex-lap with G-J bypass 03/13. Plan to slowly advanced diet.
EGD with oozing at stricture, grade D esophagitis. IV PPI started. CBC daily, transfuse < 8.0 g/dl.
Will reschedule Dr. Greer follow up closer to d/c.
encouraged OOB, PT, continued efforts with nutrition.
Subjective/Objective
Subjective
sitting in chair
Vital Signs:
Vital Signs
Temp Pulse Resp BP Pulse Ox
97.9 F 105 16 123/85 92
03/15/24 07:45 03/15/24 07:45 03/15/24 07:45 03/15/24 07:45 03/15/24 07:45
Lab Results:
Laboratory Data
WBC 7.0 10^3/uL (4.8-10.8) 03/14/24 06:44
Hgb 8.2 g/dL (13.0-18.0) L 03/14/24 06:44
Plt Count 266 10^3/uL (130-400) D 03/14/24 06:44
PT 14.5 Sec (11.4-14.6) 03/11/24 09:53
INR 1.08 03/11/24 09:53
APTT 37.8 Sec (23.4-35.0) H 03/11/24 09:53
eGFR > 60.00 03/15/24 06:17
Physical Exam
HEENT: Moist Mucous Membranes; No Jaundice
Pulmonary: Clear
Extremities: Pulses Present; No Edema
[2024-03-15 09:25] VITALS: BP 122/84; PULSE 105; PULSE 106; O2SAT 92
[2024-03-15] MEDS: ATIVAN 0.5 MG IV ×2 (10:19→17:58)
[2024-03-15] MEDS: NSS (PRESERVATIVE FREE) 0.25 ML IV ×2 (10:19→17:58)
[2024-03-15 11:20] VITALS: BP 106/72
--- NOTE | 2024-03-15 11:53 | W.PN.GENERIC ---
Assessment / Plan
-
S/p Gastrojejunostomy POD #2
Surgical stable
Gastrostomy output decreasing.
Will clamp gastrostomy tube
Start clear liquid
If tolerates clears, will advance to full tomorrow
He needs to ambulate
Oral meds restarted
IVF dec 75 cc from 125 cc
Physician Progress Note
Subjective
Stable. Denies N/V. l
Objective
Vital Signs
Temp Pulse Resp BP Pulse Ox
97.9 F 105 16 106/72 95
03/15/24 11:20 03/15/24 11:20 03/15/24 11:20 03/15/24 11:20 03/15/24 11:20
Lab Results
03/14/24 06:44
03/15/24 06:17
Abd - distended but soft
--- NOTE | 2024-03-15 11:53 | W.PN.PAL2 ---
Today's Communication
-
Palliative care follow up
tolerated gastric bypass procedure. Hoping to start oral hydration/nutrition/medications today if approved.
Patient with increased anxiety, concerned about his seizure meds and NPO status - did receive ativan earlier today which helped with anxiety
Patient without symptoms of pain, small volume bile in suction device
Goals remain treatment oriented with palliative intent.
Assessment / Plan
-
Assessment/Plan:
Plan for outpatient palliative care on discharge
goals are clear.
DNR code status
total floor time 20 mins
Reason for Admission
Illness Course/HPI
Kobi is a 73 y/o male admitted to hospital for GI bleeding 03/11. He was recently diagnosed with pancreatic cancer in december of this year, when he presented with abdominal pain. was hospitalized 02/10-02/21 for anemia - hgb 3.6, discharged [facility] was home for 5 days after rehab when rehospitalized. Has not been able to start any systemic therapy yet due to complications and hospitalizations.
Functional Status
At his baseline a few months was indepednent. living with his in a [address] home - has first floor bathroom.
Currently very weak. unable to eat.
has 2 children + 4 grandchildren who live in the area
Goals of Care Discussion
-
Individuals Present for Discussion & Relationship to Patient:
Patient & spouse
Patient able to participate in discussion at time of visit: Yes
Patient Goals
treatment oriented
Pain & Symptom Assessment
-
Patient tired, received ativan earlier for anxiety.
Objective Data
-
Objective Data:
Vital Signs
Temp Pulse Resp BP Pulse Ox
97.9 F 105 16 106/72 95
03/15/24 11:20 03/15/24 11:20 03/15/24 11:20 03/15/24 11:20 03/15/24 11:20
Laboratory Results
03/14/24 06:44
03/15/24 06:17
PT 14.5 Sec (11.4-14.6) 03/11/24 09:53
INR 1.08 03/11/24 09:53
APTT 37.8 Sec (23.4-35.0) H 03/11/24 09:53
Total Protein 4.5 g/dl (6.3-8.2) L 03/15/24 06:17
Albumin 2.3 g/dl (3.5-5.0) L 03/15/24 06:17
Urine Color Yellow 03/11/24 14:56
Urine Clarity Clear (Clear) 03/11/24 14:56
Urine pH 6.5 (5.0-9.0) 03/11/24 14:56
Ur Specific [place] 1.015 (<1.030) 03/11/24 14:56
Urine Ketones Negative (Negative) 03/11/24 14:56
Urine Bilirubin Negative (Negative) 03/11/24 14:56
Palliative Performance Scale
Palliative Performance Scale:
PPS Level Ambulation Activity & Evidence of Disease Self Care Intake Conscious Level
100% Full Normal Activity & Work; Full Intake Full
No Evidence of Disease
90% Full Normal Activity & Work; Full Normal Full
Some Evidence of Disease
80% Full Normal Activity with Effort Full Normal or Full
Some Evidence of Disease Reduced
70% Reduced Unable Normal Job/Work Full Normal or Full
Significant Disease Reduced
60% Reduced Unable Hobby/Housework Occasional Normal or Full or Confusion
Significant Disease Assistance Reduced
50% Mainly Sit/Lie Unable to do Any Work Considerable Normal or Full or Confusion
Extensive Disease Assistance Req'd Reduced
40% Mainly in Bed Unable to do Most Activity Mainly Assistance Normal or Full or Drowsy;
Extensive Disease Reduced +/- Confusion
30% Totally Bed Unable to do Any Activity Total Care Normal or Full or Drowsy;
Bound Extensive Disease Reduced +/- Confusion
20% Totally Bed Bound Unable to do Any Activity Total Care Minimal to Full or Drowsy;
Extensive Disease Sips +/- Confusion
10% Totally Bed Bound Unable to do Any Activity Total Care Mouth Care Drowsy or Coma;
Extensive Disease Only +/- Confusion
0%
PPS Score Level:
Palliative Performance Score Response
Palliative Performance Score Response: 50%
Physical Exam
-
General: Well Developed and No Apparent Distress
Psych: Calm
--- NOTE | 2024-03-15 15:10 | CM ---
Addendum entered by Perla Hua RN 03/15/24 16:14:
Patient agreeable to referral being sent to [facility]. Referral sent.
Original Note:
Reviewed the chart notes. Gastrostomy tube clamped. Clear liquid diet. CM continues to be available to patient/family and is monitoring medical plan for needs at discharge.
Plan: Discharge plans will depend on the patient's progress. PT recommending SNF.
[2024-03-15 18:17] VITALS: BP 136/75
[2024-03-15] MEDS: VIMPAT 100 MG PO (19:39)
[2024-03-15] MEDS: LAMICTAL 300 MG PO (21:07)
[2024-03-15] MEDS: SEROQUEL 25 MG PO (21:07)
[2024-03-15] MEDS: LAMICTAL 50 MG PO (22:23)
[2024-03-15 23:28] VITALS: BP 103/64
[2024-03-16] VITALS (8 sets, daily range): BP systolic 96–121; BP diastolic 63–86
[2024-03-16 05:51] LABS: Hematocrit 22.7 % (39.0-52.0); Hemoglobin 7.5 g/dL (13.0-18.0); Mean Corpuscular Hgb 30.9 pg (27.0-31.0); Mean Corpuscular Volume 93.4 fL (80.0-94.0); Mean Platelet Volume 8.8 fL (7.4-10.4); Platelet Count 181 10^3/uL (130-400); Red Blood Cell Count 2.43 10^6/uL (4.70-6.10); Red Cell Dist. Width 16.8 % (11.5-14.5); White Blood Cell Count 4.6 10^3/uL (4.8-10.8)
[2024-03-16 06:03] LABS: Blood Urea Nitrogen 10 mg/dl (9-20); Calcium 7.8 mg/dl (8.4-10.2); Carbon Dioxide 27 mmol/L (22-30); Chloride 104 mmol/L (98-107); Estimated Creatinine Clearance 111 ml/min; Glucose 124 mg/dl (70-99); Magnesium 1.9 mg/dl (1.6-2.3); Phosphorus 2.3 mg/dl (2.5-4.5); Potassium 3.4 mmol/L (3.5-5.1); Sodium 135 mmol/L (135-145); eGFR > 60.00
--- NOTE | 2024-03-16 08:24 | W.PN.GENERIC ---
Assessment / Plan
-
S/p Gastrojejunostomy bypass POD #3
Will increase diet to full liquid
He needs to ambulate for many reasons.
PT to see patient
Will give suppository
Physician Progress Note
Subjective
no complaints. Although he stated that his is having BMs, none documented. No N/V
Objective
Vital Signs
Temp Pulse Resp BP Pulse Ox
97.8 F 91 18 103/64 93
03/15/24 23:28 03/15/24 23:28 03/15/24 23:28 03/15/24 23:28 03/15/24 23:28
Lab Results
03/16/24 05:19
03/16/24 05:19
Abdomen is distended. Some tenderness from the incision. Incision - CDI
--- NOTE | 2024-03-16 08:31 | W.PN.HOSP.TC ---
Today's Communication/Plan
-
see bold
Assessment / Plan
Assessment / Plan
HPI: 73 yo man with hx recently diagnosed pancreatic cancer (01/04) with biliary and gastric outlet obstruction s/p GJ tube, s/p cholecystostomy, recent admission 02/10-02/22/24 for GIB (s/p EGD 02/16 showing fundus ulcer with visible vessel s/p epi,
cautery, clips), PE now off AC given risk with GIB presents to the ER with vomiting up 'black bile.'
Patient states he was nauseated yesterday and vomited bile. Then this morning he noticed black vomit and came to the ER. No fevers/chills. + a couple of days of cough/congestion. His last BM was 2 days ago, he has been passing gas. No chest
pain or shortness of breath. He was seen in the ER on 03/01, his cholecystotomy tube was dislodged.
A/P:
Gastric outlet obstruction
-Appreciate surgical oncology input, status post exploratory laparotomy and gastrojejunstomy bypass 03/[address] Fairchild
-NG tube removed 03/14, gastrostomy tube clamped, diet advanced to full liquids 03/16
-S/p IV Ancef, okay for oral meds as per surgical oncology
Acute Blood Loss Anemia
History of PUD with recent admission 02/10-02/22/24
-Hold MILITARY COMM[employer]ICATION[employer] SPECIALIST aspirin.
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
-Hemoglobin 7.5, was 8.2, was 8.5, improved from 6.9 status post 2 units packed red blood cells on 03/11
-Will transfuse third unit of packed red blood cells today, continue Protonix 40 mg IV twice daily, trend Hgb
Hyponatremia
-Patient reports drinking water although concern for dehydration with vomiting
-Urine Na < 5
-Hold Desvenlafaxine, gentle IV fluids, trend sodium
Bandemia
-COVID/flu negative, urine analysis negative, blood cultures NTD
-Infectious workup negative
-S/p IV Ancef postoperatively as per surgical oncology
Urinary retention
� [place] inserted 03/13
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
-S/p GJ tube. Hold TF while undergoing GIB work up
-Hx cholecystostomy tube that fell out 03/01 - seen in ER
-Per last Oncology notes, functional status would need to improve in order to receive palliative chemotherapy
-Seen by oncology, patient wishes to continue palliative chemo when able
Anxiety
� IV Ativan as needed
Constipation
-Status post milk of molasses enema 03/12
Hypokalemia
� Replete as needed
Hypophosphatemia
� Replete as needed
Hx PE
Brachial DVT
-AC stopped last admission given high bleeding risk
-IVC filter wasn't indicated as clot propagated from UE
DVT prophylaxis�subcu Lovenox
DNR - confirmed on admission
Updated at bedside 03/15
Total time spent to see the patient on the floor, examine the patient, review data and lab results, discuss treatment plan with patient, nursing staff around 50 minutes.
Physical Exam
General: Appears chronically ill, no acute distress
HEENT: Normocephalic, Atraumatic, EOMI, MMM
Respiratory: Clear to Auscultation bilaterally
Cardiac: Normal S1/S2, Regular Rate and Rhythm
GI: Soft, distended, appropriately tender, incision dressed
Extremities: No Clubbing, Cyanosis
Neuro: Nonfocal/Grossly Intact
Anticipated Discharge: > 48 hours
Subjective/Interval History
-
Date of Service: March 16, 2024
Patient denies abdominal pain. No nausea, no vomiting. No fever. No chest pain.
Objective Data
-
Labs:
Laboratory Results
03/16/24
05:19
WBC 4.6 L
Hgb 7.5 L
Hct 22.7 L
Plt Count 181 D
Sodium 135
Potassium 3.4 L
Chloride 104
Carbon Dioxide 27
BUN 10
Creatinine 0.6 L
Glucose 124 H
Calcium 7.8 L
Vital Signs:
Vital Signs
Temp Pulse Resp BP Pulse Ox
97.8 F 91 18 103/64 93
03/15/24 23:28 03/15/24 23:28 03/15/24 23:28 03/15/24 23:28 03/15/24 23:28
I&O
03/15/24 03/16/24 03/17/24
06:59 06:59 06:59
Intake Total 3090 / 3090 2720 / 2720
Output Total 1350 / 1350 100 / 100
Balance 1740 / 1740 2620 / 2620
--- NOTE | 2024-03-16 08:38 | W.PN.ONC2 ---
Today's Communication / Plan
-
goals remain restorative
Impression
Impression
pancreatic cancer complicated by gastric outlet obstruction S/p Gastrojejunostomy bypass 03/13, path diagnostic for adenocarcinoma discussed with pt and at bedside
UGIB, possibly from previously identified ulcer
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
Plan
Plan
advance diet per surgery
on IV PPI.
CBC daily
transfuse < 8.0 g/dl
Will reschedule Dr. Greer follow up closer to d/c.
encouraged OOB, PT, continued efforts with nutrition.
Palliative care following
Subjective/Objective
Subjective
no new complaints
Vital Signs:
Vital Signs
Temp Pulse Resp BP Pulse Ox
97.8 F 91 18 103/64 93
03/15/24 23:28 03/15/24 23:28 03/15/24 23:28 03/15/24 23:28 03/15/24 23:28
Lab Results:
Laboratory Data
WBC 4.6 10^3/uL (4.8-10.8) L 03/16/24 05:19
Hgb 7.5 g/dL (13.0-18.0) L 03/16/24 05:19
Plt Count 181 10^3/uL (130-400) D 03/16/24 05:19
PT 14.5 Sec (11.4-14.6) 03/11/24 09:53
INR 1.08 03/11/24 09:53
APTT 37.8 Sec (23.4-35.0) H 03/11/24 09:53
eGFR > 60.00 03/16/24 05:19
[2024-03-16] MEDS: GLYCERIN SUPPOSITORY ADULT 1 SUPP RECTAL (09:50)
[2024-03-16] MEDS: D5LR 1000 IV (09:50)
[2024-03-16] MEDS: NSS (PRESERVATIVE FREE) 10 ML IV ×2 (09:50→20:00)
[2024-03-16] MEDS: VIMPAT 100 MG PO ×2 (09:50→20:00)
[2024-03-16] MEDS: KCL 20 MEQ PO (09:50)
[2024-03-16] MEDS: PROTONIX IV 40 MG IV ×2 (09:50→20:00)
[2024-03-16] MEDS: NEUTRA-PHOS POWDER PACKET 250 MG PO ×4 (09:51→22:05)
--- NOTE | 2024-03-16 13:01 | CM ---
Reviewed the chart notes. S/p Gastrojejunostomy bypass POD #3. Patient now on full liquid diet. CM continues to be available to patient/family and is monitoring medical plan for needs at discharge.
Plan: Discharge to SNF when medically stable and bed secured. No precert will be required.
--- NOTE | 2024-03-16 17:19 | W.PN.UPDATE ---
Update Note
Progress Note Update
Brief GI Note:
Contacted by pathology yesterday evening with biopsies from prior EGD back on 03/13 confirming adenocarcinoma, likely secondary to patient's known pancreatic mass resulting in outlet obstruction. See pathology comment as below. Discussed pathology
results with patient at beside today. Ultimately, defer to Oncology regarding further management and treatment if patient is a candidate for chemotherapy.
A. Small bowel, duodenal mass/stricture, cold forcep biopsy: Adenocarcinoma.
See comment.
Comment: The biopsy shows fragments of infiltrating carcinoma, strongly positive for CK7 and
patchy positive for CK20. Benign small bowel mucosa is noted. No definitive precursor lesion
(e.g. adenoma) is identified. Given the clinical history provided of a pancreatic mass, this may
represent extension of a primary pancreatic adenocarcinoma, however a primary duodenal
adenocarcinoma and ampullary adenocarcinoma are also in the differential, among others.
Clinical and radiologic correlation advised.
MSI testing by immunohistochemistry is interpreted as no loss of nuclear expression of MMR
proteins (MLH1, MSH2, MSH6, and PMS2). These results show low probability of
microsatellite instability-high (MSI-H). Background nonneoplastic tissue/internal control with
intact nuclear expression are present.
Please contact GI for any other questions or concerns.
[2024-03-16] MEDS: SEROQUEL 25 MG PO (22:05)
[2024-03-16] MEDS: LAMICTAL 50 MG PO (22:05)
[2024-03-16] MEDS: LAMICTAL 300 MG PO (22:05)
[2024-03-16] MEDS: D5LR IV (22:32)
[2024-03-17] MEDS: D5LR 1000 IV (05:21)
--- NOTE | 2024-03-17 07:13 | W.PN.HOSP.TC ---
Today's Communication/Plan
-
see bold
Assessment / Plan
Assessment / Plan
HPI: 73 yo man with hx recently diagnosed pancreatic cancer (01/04) with biliary and gastric outlet obstruction s/p GJ tube, s/p cholecystostomy, recent admission 02/10-02/22/24 for GIB (s/p EGD 02/16 showing fundus ulcer with visible vessel s/p epi,
cautery, clips), PE now off AC given risk with GIB presents to the ER with vomiting up 'black bile.'
Patient states he was nauseated yesterday and vomited bile. Then this morning he noticed black vomit and came to the ER. No fevers/chills. + a couple of days of cough/congestion. His last BM was 2 days ago, he has been passing gas. No chest
pain or shortness of breath. He was seen in the ER on 03/01, his cholecystotomy tube was dislodged.
A/P:
Gastric outlet obstruction
-Appreciate surgical oncology input, status post exploratory laparotomy and gastrojejunstomy bypass 03/[address] Fairchild
-NG tube removed 03/14, gastrostomy tube clamped, diet advanced to full liquids 03/16 -tolerating
-S/p IV Ancef, okay for oral meds as per surgical oncology
-Surgical oncology signed off, follow-up in the office in 1-2 weeks for staple removal
Acute Blood Loss Anemia
History of PUD with recent admission 02/10-02/22/24
-Hold [employer]S aspirin.
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
-Pathology results confirm adenocarcinoma, likely from pancreatic malignancy
-Hemoglobin 9.3 status post 3rd unit of packed red blood cells, improved from 7.5
-Continue Protonix 40 mg IV twice daily, trend Hgb
Hyponatremia
-Patient reports drinking water although concern for dehydration with vomiting
-Urine Na < 5
-Hold Desvenlafaxine, gentle IV fluids, trend sodium
Bandemia
-COVID/flu negative, urine analysis negative, blood cultures NTD
-Infectious workup negative
-S/p IV Ancef postoperatively as per surgical oncology
Urinary retention
� [place] inserted 03/13
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
-S/p GJ tube. Hold TF while undergoing GIB work up
-Hx cholecystostomy tube that fell out 03/01 - seen in ER
-Per last Oncology notes, functional status would need to improve in order to receive palliative chemotherapy
-Seen by oncology, patient wishes to continue palliative chemo when able
Anxiety
� IV Ativan as needed
Constipation
-Status post milk of molasses enema and glycerin suppository
-Continue glycerin suppository as needed
Hypokalemia
� Replete as needed
Hypophosphatemia
� Replete as needed
Hx PE
Brachial DVT
-AC stopped last admission given high bleeding risk
-IVC filter wasn't indicated as clot propagated from UE
DVT prophylaxis�subcu Lovenox
DNR - confirmed on admission
Updated at bedside 03/15
Total time spent to see the patient on the floor, examine the patient, review data and lab results, discuss treatment plan with patient, nursing staff around 40 minutes.
Physical Exam
General: Appears chronically ill, no acute distress
HEENT: Normocephalic, Atraumatic, EOMI, MMM
Respiratory: Clear to Auscultation bilaterally
Cardiac: Normal S1/S2, Regular Rate and Rhythm
GI: Soft, distended, appropriately tender, incision dressed
Extremities: No Clubbing, Cyanosis
Neuro: Nonfocal/Grossly Intact
Anticipated Discharge: > 48 hours
Subjective/Interval History
-
Date of Service: March 17, 2024
Patient complains of abdominal pain, 5 out of 10 in intensity. He is tolerating his full liquid diet. Had some nausea, no vomiting. No chest pain, no shortness of breath. No fever.
Objective Data
-
Labs:
Laboratory Results
03/17/24
06:00
WBC Pending
Hgb Pending
Hct Pending
Plt Count Pending
Sodium Pending
Potassium Pending
Chloride Pending
Carbon Dioxide Pending
BUN Pending
Creatinine Pending
Glucose Pending
Calcium Pending
Vital Signs:
Vital Signs
Temp Pulse Resp BP Pulse Ox
98.1 F 96 18 96/71 92
03/16/24 23:44 03/16/24 23:44 03/16/24 23:44 03/16/24 23:44 03/16/24 23:44
I&O
03/16/24 03/17/24 03/18/24
06:59 06:59 06:59
Intake Total 2720 / 2720 1870 / 1870
Output Total 100 / 100 200 / 200
Balance 2620 / 2620 1670 / 1670
[2024-03-17 07:30] VITALS: BP 91/63
[2024-03-17 08:40] LABS: Hematocrit 28.8 % (39.0-52.0); Hemoglobin 9.3 g/dL (13.0-18.0); Mean Corp Hgb Conc. 32.3 g/dL (33.0-37.0); Mean Corpuscular Volume 92.9 fL (80.0-94.0); Mean Platelet Volume 9.3 fL (7.4-10.4); Platelet Count 174 10^3/uL (130-400); Red Cell Dist. Width 17.3 % (11.5-14.5)
[2024-03-17] MEDS: VIMPAT 100 MG PO ×2 (08:57→19:45)
[2024-03-17] MEDS: PROTONIX IV 40 MG IV ×2 (08:57→19:45)
[2024-03-17] MEDS: NSS (PRESERVATIVE FREE) 10 ML IV ×2 (08:57→19:44)
[2024-03-17] MEDS: NEUTRA-PHOS POWDER PACKET 250 MG PO ×4 (08:57→21:54)
[2024-03-17 09:06] LABS: Blood Urea Nitrogen 10 mg/dl (9-20); Calcium 7.8 mg/dl (8.4-10.2); Carbon Dioxide 25 mmol/L (22-30); Chloride 104 mmol/L (98-107); Estimated Creatinine Clearance 111 ml/min; Glucose 137 mg/dl (70-99); Phosphorus 2.7 mg/dl (2.5-4.5); Potassium 3.4 mmol/L (3.5-5.1); Sodium 134 mmol/L (135-145); eGFR > 60.00
[2024-03-17] MEDS: ROXICODONE 5 MG PO (10:10)
[2024-03-17] MEDS: KCL 40 MEQ PO (10:10)
--- NOTE | 2024-03-17 11:44 | W.PN.SURGUPD ---
Surgical Update
Surgical Update
Tolerating diet.
Surgically stable.
I will see him back in my office in 1-2 weeks for staple removal ([phone]).
[2024-03-17 15:25] VITALS: BP 95/69
[2024-03-17] MEDS: COLACE 100 MG PO (19:45)
[2024-03-17] MEDS: MYLICON 80 MG PO (20:24)
[2024-03-17] MEDS: ATIVAN 0.5 MG IV (21:52)
[2024-03-17] MEDS: LAMICTAL 50 MG PO (21:53)
[2024-03-17] MEDS: SEROQUEL 25 MG PO (21:54)
[2024-03-17] MEDS: LAMICTAL 300 MG PO (21:54)
[2024-03-17 23:40] VITALS: BP 104/75
--- NOTE | 2024-03-18 01:52 | W.PN.UPDATE ---
Update Note
Progress Note Update
RN reports abd very distended and firm. Bladder scan was done which showed >700ml. When attempted to straight cath pt with no urine output. Asked to eval pt.
At bedside pt denies pain. Abd quite distended, tympanic and firm. No pain with palpation. No signs of infection at surgical sight. Attempted to place jiménez cath (no issues with insertion) but absolutely no urine output returned. Likely bladder scan
picking up possible ascitic fluid? Decided to send pt for CT abd due to size of abd. Want to make sure pt without ileus or obstruction (pt started on reg diet today). Temporarily left jiménez in place until return from CT scan.
0145 Ct scan shows no obstruction or ileus. small amt free air likely due to surgery. LArge amount of free fluid in abd. See scanned report for detained report.
Will place IR consult for paracentesis eval . RN will remove jiménez now that pt is back from CT scan.
--- NOTE | 2024-03-18 02:01 | PTCARENOTE ---
Pt stomach was firm & distended and pt was not voiding. Pt voided 50cc but b/s showed he was retaining over 800. I tried SC pt and only 50 came out, b/s pt again now retaining 788cc. Contacted DESIZING PAD OPERATOR she placed a [place] with no urine output. DESIZING PAD OPERATOR ordered a
CAT scan of the pt's abdomen and pelvis. CT showed a large amount of free fluid in the abdomen and pelvis, [place] removed after CT. DESIZING PAD OPERATOR placed an IR consult for paracentesis.
[2024-03-18 05:43] LABS: Hematocrit 28.3 % (39.0-52.0); Hemoglobin 9.2 g/dL (13.0-18.0); Mean Corp Hgb Conc. 32.5 g/dL (33.0-37.0); Mean Corpuscular Hgb 30.1 pg (27.0-31.0); Mean Corpuscular Volume 92.5 fL (80.0-94.0); Mean Platelet Volume 9.3 fL (7.4-10.4); Platelet Count 176 10^3/uL (130-400); Red Blood Cell Count 3.06 10^6/uL (4.70-6.10); Red Cell Dist. Width 16.9 % (11.5-14.5); White Blood Cell Count 6.1 10^3/uL (4.8-10.8)
[2024-03-18 05:55] LABS: Blood Urea Nitrogen 10 mg/dl (9-20); Calcium 7.6 mg/dl (8.4-10.2); Carbon Dioxide 26 mmol/L (22-30); Chloride 103 mmol/L (98-107); Estimated Creatinine Clearance 111 ml/min; Glucose 109 mg/dl (70-99); Potassium 3.9 mmol/L (3.5-5.1); Sodium 133 mmol/L (135-145); eGFR > 60.00
[2024-03-18 07:35] VITALS: BP 91/63
[2024-03-18] MEDS: PROTONIX IV 40 MG IV ×2 (08:12→20:40)
[2024-03-18] MEDS: NSS (PRESERVATIVE FREE) 10 ML IV ×2 (08:12→20:40)
[2024-03-18] MEDS: COLACE 100 MG PO ×2 (08:12→20:43)
[2024-03-18] MEDS: NEUTRA-PHOS POWDER PACKET 250 MG PO ×2 (08:12→14:05)
[2024-03-18] MEDS: VIMPAT 100 MG PO ×2 (08:12→20:44)
--- NOTE | 2024-03-18 08:16 | W.PN.HOSP.TC ---
Today's Communication/Plan
-
Discharge to short-term rehab when bed available
Assessment / Plan
Assessment / Plan
HPI: 73 yo man with hx recently diagnosed pancreatic cancer (01/04) with biliary and gastric outlet obstruction s/p GJ tube, s/p cholecystostomy, recent admission 02/10-02/22/24 for GIB (s/p EGD 02/16 showing fundus ulcer with visible vessel s/p epi,
cautery, clips), PE now off AC given risk with GIB presents to the ER with vomiting up 'black bile.'
Patient states he was nauseated yesterday and vomited bile. Then this morning he noticed black vomit and came to the ER. No fevers/chills. + a couple of days of cough/congestion. His last BM was 2 days ago, he has been passing gas. No chest
pain or shortness of breath. He was seen in the ER on 03/01, his cholecystotomy tube was dislodged.
A/P:
Gastric outlet obstruction
-Appreciate surgical oncology input, status post exploratory laparotomy and gastrojejunstomy bypass 03/[address] Fairchild
-NG tube removed 03/14, gastrostomy tube clamped, diet advanced to reg 03/17 -tolerating
-S/p IV Ancef, okay for oral meds as per surgical oncology
-Surgical oncology signed off, follow-up in the office in 1-2 weeks for staple removal
Acute Blood Loss Anemia
History of PUD with recent admission 02/10-02/22/24
-Hold PALLIATIVE MEDICINE PHYSICIAN aspirin.
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
-Pathology results confirm adenocarcinoma, likely from pancreatic malignancy
-Hemoglobin 9.3 status post 3rd unit of packed red blood cells, improved from 7.5
-Continue Protonix 40 mg twice daily, trend Hgb
Hyponatremia
-Patient reports drinking water although concern for dehydration with vomiting
-Urine Na < 5
-Hold Desvenlafaxine, gentle IV fluids, trend sodium
Bandemia
-COVID/flu negative, urine analysis negative, blood cultures NTD
-Infectious workup negative
-S/p IV Ancef postoperatively as per surgical oncology
Urinary retention
� [place] inserted 03/13
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
-S/p GJ tube. Hold TF while undergoing GIB work up
-Hx cholecystostomy tube that fell out 03/01 - seen in ER
-Per last Oncology notes, functional status would need to improve in order to receive palliative chemotherapy
-Seen by oncology, patient wishes to continue palliative chemo when able
Anxiety
� IV Ativan as needed
Constipation
-Status post milk of molasses enema and glycerin suppository
-Continue glycerin suppository as needed
Hypokalemia
� Replete as needed
Hypophosphatemia
� Replete as needed
Hx PE
Brachial DVT
-AC stopped last admission given high bleeding risk
-IVC filter wasn't indicated as clot propagated from UE
DVT prophylaxis�subcu Lovenox
DNR - confirmed on admission
Updated on phone 03/17
Dispo -discharge to short-term rehab when bed available - notified 03/17
Total time spent to see the patient on the floor, examine the patient, review data and lab results, discuss treatment plan with patient, nursing staff around 41 minutes.
Physical Exam
General: Appears chronically ill, no acute distress
HEENT: Normocephalic, Atraumatic, EOMI, MMM
Respiratory: Clear to Auscultation bilaterally
Cardiac: Normal S1/S2, Regular Rate and Rhythm
GI: Soft, distended, appropriately tender, incision dressed
Extremities: No Clubbing, Cyanosis
Neuro: Nonfocal/Grossly Intact
Anticipated Discharge: 24 - 48 hours
Subjective/Interval History
-
Date of Service: March 18, 2024
Patient is tolerating his regular diet. No chest pain, no shortness of breath. No abdominal pain, no vomiting. No fever.
Objective Data
-
Labs:
Laboratory Results
03/18/24
05:12
WBC 6.1
Hgb 9.2 L
Hct 28.3 L
Plt Count 176
Sodium 133 L
Potassium 3.9
Chloride 103
Carbon Dioxide 26
BUN 10
Creatinine 0.6 L
Glucose 109 H
Calcium 7.6 L
Vital Signs:
Vital Signs
Temp Pulse Resp BP Pulse Ox
97.4 F 89 16 91/63 93
03/18/24 07:35 03/18/24 07:35 03/18/24 07:35 03/18/24 07:35 03/18/24 07:35
I&O
03/17/24 03/18/24 03/19/24
06:59 06:59 06:59
Intake Total 1870 / 1870 1775 / 1775
Output Total 200 / 200 150 / 150
Balance 1670 / 1670 1625 / 1625
[2024-03-18 14:12] LABS: Urine Albumin Trace (Neg - Trace); Urine Bilirubin 1+ (Negative); Urine Character Clear (Clear); Urine Color Amber; Urine Glucose Negative (Negative); Urine Ketone 1+ (Negative); Urine Leukocyte Trace (Negative); Urine Nitrite Negative (Negative); Urine Occult Blood 2+ (Negative); Urine Specific Gravity 1.015 (<1.030); Urine Urobilinogen 4+ (Neg - 1+)
[2024-03-18 14:23] LABS: Urine Mucus Few
[2024-03-18 14:24] LABS: Urine Granular Cast 0-2 /LPF (0)
[2024-03-18 14:25] LABS: Urine White Cell 21-25 /HPF (0-5)
[2024-03-18 14:26] LABS: Urine Bacteria Few (Negative)
--- NOTE | 2024-03-18 14:36 | W.PN.UPDATE ---
Update Note
Progress Note Update
Nursing staff reports patient is having urinary retention. He is only able to void 50 mL. Urine analysis shows possible urinary tract infection.
Night team tried to straight cath him yesterday, unable to get any urine. His creatinine is normal.
He had a CT of the abdomen and pelvis last night which showed:
Increased large volume abdominopelvic ascites. A few small foci of free air are likely related to the recent exploratory laparotomy and gastrojejunal bypass but clinical correlation is recommended. Decreased fluid distention of the stomach and
increased diffuse gastric wall thickening compared to the previous exam. Redemonstration of a malignant pancreatic head mass and multifocal hepatic metastatic disease.
Will check renal bladder ultrasound, start Rocephin for possible urinary tract infection, follow-up on urine culture. IR has been consulted for paracentesis.
[2024-03-18] MEDS: ROCEPHIN 1000 MG IV (15:06)
[2024-03-18] MEDS: STERILE WATER FOR INJECTION 10 ML IV (15:07)
[2024-03-18] MEDS: Pyridium 100 MG PO (15:21)
[2024-03-18 15:28] VITALS: BP 88/68
[2024-03-18] MEDS: ROXICODONE 5 MG PO (15:54)
[2024-03-18] MEDS: LAMICTAL 300 MG PO (21:58)
[2024-03-18] MEDS: SEROQUEL 25 MG PO (21:59)
[2024-03-18] MEDS: LAMICTAL 50 MG PO (21:59)
[2024-03-18 23:35] VITALS: BP 98/70
[2024-03-19 05:06] LABS: Hematocrit 29.7 % (39.0-52.0); Hemoglobin 9.5 g/dL (13.0-18.0); Mean Corpuscular Hgb 29.3 pg (27.0-31.0); Mean Corpuscular Volume 91.7 fL (80.0-94.0); Mean Platelet Volume 9.3 fL (7.4-10.4); Platelet Count 202 10^3/uL (130-400); Red Blood Cell Count 3.24 10^6/uL (4.70-6.10); Red Cell Dist. Width 16.7 % (11.5-14.5)
[2024-03-19 05:33] LABS: Blood Urea Nitrogen 11 mg/dl (9-20); Calcium 7.8 mg/dl (8.4-10.2); Carbon Dioxide 22 mmol/L (22-30); Chloride 101 mmol/L (98-107); Estimated Creatinine Clearance 111 ml/min; Glucose 109 mg/dl (70-99); Phosphorus 3.3 mg/dl (2.5-4.5); Potassium 3.8 mmol/L (3.5-5.1); Sodium 129 mmol/L (135-145); eGFR > 60.00
--- NOTE | 2024-03-19 05:56 | W.PN.HOSP.TC ---
Today's Communication/Plan
-
cont empiric ceftriaxone
monitor urine output
IR eval paracentesis
Albumin infusion post-paracentesis
Assessment / Plan
Assessment / Plan
HPI: 73 yo man with hx recently diagnosed pancreatic cancer (01/04) with biliary and gastric outlet obstruction s/p GJ tube, s/p cholecystostomy, recent admission 02/10-02/22/24 for GIB (s/p EGD 02/16 showing fundus ulcer with visible vessel s/p epi,
cautery, clips), PE now off AC given risk with GIB presents to the ER with vomiting up 'black bile.'
Patient states he was nauseated yesterday and vomited bile. Then this morning he noticed black vomit and came to the ER. No fevers/chills. + a couple of days of cough/congestion. His last BM was 2 days ago, he has been passing gas. No chest
pain or shortness of breath. He was seen in the ER on 03/01, his cholecystotomy tube was dislodged.
A/P:
Gastric outlet obstruction
-Appreciate surgical oncology input, status post exploratory laparotomy and gastrojejunstomy bypass 03/[address] Fiarchild
-NG tube removed 03/14, gastrostomy tube clamped, diet advanced to reg 03/17 -tolerating
-S/p IV Ancef, okay for oral meds as per surgical oncology
-Surgical oncology signed off, follow-up in the office in 1-2 weeks for staple removal
Dysuria
started empirically on Ceftriaxone for possible UTI
Bladder Renal US appreciated no hydronephrosis, nephrolithiasis, mild chronic b/l renal disease
Ascites
IR eval requested paracentesis
follow up fluid studies cultures
Albumin Infusion post-paracentesis
Acute Blood Loss Anemia
History of PUD with recent admission 02/10-02/22/24
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
-Pathology results confirm adenocarcinoma, likely from pancreatic malignancy
-Hemoglobin 9.3 status post 3rd unit of packed red blood cells, improved from 7.5
-Continue Protonix 40 mg twice daily, trend Hgb
Hyponatremia
-Patient reports drinking water although concern for dehydration with vomiting
-Urine Na < 5
-Hold Desvenlafaxine, gentle IV fluids, trend sodium
-Na since improved, IVF support completed
Bandemia
-COVID/flu negative, urine analysis negative, blood cultures NTD
-Infectious workup negative
-S/p IV Ancef postoperatively as per surgical oncology
Urinary retention
� [place] inserted 03/13 since discontinued, passed trial of void
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
-S/p GJ tube. Hold TF while undergoing GIB work up
-Hx cholecystostomy tube that fell out 03/01 - seen in ER
-Per last Oncology notes, functional status would need to improve in order to receive palliative chemotherapy
-Seen by oncology, patient wishes to continue palliative chemo when able
Anxiety
� IV Ativan as needed
Constipation
-Status post milk of molasses enema and glycerin suppository
-Continue glycerin suppository as needed
Hypokalemia
� Replete as needed
Hypophosphatemia
� Replete as needed
Hx PE
Brachial DVT
-AC stopped last admission given high bleeding risk
-IVC filter wasn't indicated as clot propagated from UE
DVT prophylaxis�subcu Lovenox
DNR - confirmed on admission
discussed with patient and patient's May
Total time spent to see the patient on the floor, examine the patient, review data and lab results, discuss treatment plan with patient, nursing staff around 42 minutes.
Physical Exam
General: Appears chronically ill, no acute distress
HEENT: Normocephalic, Atraumatic, EOMI, MMM
Respiratory: Clear to Auscultation bilaterally
Cardiac: Normal S1/S2, Regular Rate and Rhythm
GI: distended, tense
Extremities: No Clubbing, Cyanosis
Neuro: Awake alert conversant coherent
Anticipated Discharge: 24 - 48 hours
Subjective/Interval History
-
Date of Service: March 19, 2024
Sitting up comfortably in bed. Abdomen significantly distended. reports pain with exertion/movement. Reduced urine output noted. Patient also reports dysuria. May present during evaluation.
Objective Data
-
Labs:
Laboratory Results
03/19/24
04:32
WBC 6.0
Hgb 9.5 L
Hct 29.7 L
Plt Count 202
Sodium 129 L
Potassium 3.8
Chloride 101
Carbon Dioxide 22
BUN 11
Creatinine 0.6 L
Glucose 109 H
Calcium 7.8 L
Vital Signs:
Vital Signs
Temp Pulse Resp BP Pulse Ox
98.0 F 90 16 98/70 92
03/18/24 23:35 03/18/24 23:35 03/18/24 23:35 03/18/24 23:35 03/19/24 01:07
I&O
03/17/24 03/18/24 03/19/24
06:59 06:59 06:59
Intake Total 1870 / 1870 1775 / 1775 600 / 600
Output Total 200 / 200 150 / 150
Balance 1670 / 1670 1625 / 1625 600 / 600
[2024-03-19 07:20] VITALS: BP 101/70
--- NOTE | 2024-03-19 08:29 | W.PN.ONC2 ---
Today's Communication / Plan
-
Would consider chemotherapy only if performance status improves significantly, however, pt/ is now interested in meeting with hospice -consult placed
IR paracentesis diagnostic/therapeutic
Impression
Impression
pancreatic cancer complicated by gastric outlet obstruction S/p Gastrojejunostomy bypass 03/13, path diagnostic for adenocarcinoma
Numerous low-attenuation hepatic lesions most in keeping with metastases on most recent CT ab/pelvis 03/18 discussed with pt and at bedside
UGIB, possibly from previously identified ulcer
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
large volume ascites
Plan
Plan
advance diet per surgery
on IV PPI.
CBC daily
transfuse < 8.0 g/dl
Will reschedule Dr. Greer follow up closer to d/c.
encouraged OOB, PT, continued efforts with nutrition.
Pt requesting to meet with hospice
Palliative care following
Subjective/Objective
Subjective
no new complaints
Vital Signs:
Vital Signs
Temp Pulse Resp BP Pulse Ox
97.3 F 93 16 101/70 89
03/19/24 07:20 03/19/24 07:20 03/19/24 07:20 03/19/24 07:20 03/19/24 07:20
Lab Results:
Laboratory Data
WBC 6.0 10^3/uL (4.8-10.8) 03/19/24 04:32
Hgb 9.5 g/dL (13.0-18.0) L 03/19/24 04:32
Plt Count 202 10^3/uL (130-400) 03/19/24 04:32
PT 14.5 Sec (11.4-14.6) 03/11/24 09:53
INR 1.08 03/11/24 09:53
APTT 37.8 Sec (23.4-35.0) H 03/11/24 09:53
eGFR > 60.00 03/19/24 04:32
Physical Exam
HEENT: Moist Mucous Membranes; No Jaundice
Cardiology: Normal Sinus Rhythm
Pulmonary: Clear
GI: Soft and Distended
Extremities: Pulses Present; No Edema
[2024-03-19] MEDS: VIMPAT 100 MG PO ×2 (08:36→21:40)
[2024-03-19] MEDS: NSS (PRESERVATIVE FREE) 10 ML IV ×2 (08:36→21:39)
[2024-03-19] MEDS: COLACE 100 MG PO ×2 (08:36→21:38)
[2024-03-19] MEDS: PROTONIX IV 40 MG IV ×2 (08:36→21:38)
--- NOTE | 2024-03-19 10:36 | CM ---
Reviewed the chart notes. Per notes, IR consult for paracentesis eval today. Per PT notes, patient off floor for testing this morning. Patient on regular diet. CM continues to be available to patient/family and is monitoring medical plan for
needs at discharge.
Plan: Discharge to SNF/rehab once medically stable and bed secured. No precert required.
--- NOTE | 2024-03-19 12:29 | HOSPNOTE ---
Addendum entered by Venus Farfan RN 03/19/24 13:18:
Spouse called me back and would like a referral sent to palliative care. The spouse is a bit overwhelmed since the prognosis was just given to them today and the patient is presently down at a procedure. Spouse is requesting a palliative care
consult and then may transition to hospice at a later date if the patient is unable to tolerate any further chemo or treatments. Will continue to follow.
Original Note:
Left a message for spouse to call me in regards to hospice. Will await a call back to discuss hospice and the philosophy. More information to follow.
--- NOTE | 2024-03-19 12:45 | PTCARENOTE ---
Pt with no urine output since beginning of this RNs shift. Pt denies urge to void. Dr muller made aware and instructed RN to watch for now as pt is tentative for paracentesis. Care remains ongoing.
[2024-03-19 13:15] VITALS: BP 99/72; BP_SYST 92
[2024-03-19 14:05] VITALS: BP 92/70; BP_SYST 93
[2024-03-19 14:11] VITALS: BP 92/70
[2024-03-19] MEDS: STERILE WATER FOR INJECTION 10 ML IV (14:25)
[2024-03-19] MEDS: ROCEPHIN 1000 MG IV (14:25)
--- NOTE | 2024-03-19 14:32 | PTCARENOTE ---
Pt returned to 2S from IR. Bandaid to Q C/D/I. Bed locked and in the lowest position, safety maintained. Oriented to room and call blount, at bedside.
[2024-03-19 15:05] VITALS: BP 101/67
[2024-03-19 15:21] LABS: Body Fluid Albumin < 1.0 g/dl; Body Fluid Amylase < 30 U/L; Body Fluid LDH 96 U/L; Body Fluid Protein < 2.0 g/dl
[2024-03-19 17:14] LABS: Body Fluid Mononuclear 78.2 %; Body Fluid Polymorphonuclear 21.8 %; Body Fluid WBC 179 /CUMM
[2024-03-19 17:19] LABS: Body Fluid Second Tech FB
[2024-03-19] MEDS: FLEXBUMIN 100 IV (18:10)
[2024-03-19] MEDS: LAMICTAL 300 MG PO (21:39)
[2024-03-19] MEDS: LAMICTAL 50 MG PO (21:39)
[2024-03-19] MEDS: SEROQUEL 25 MG PO (21:40)
[2024-03-19 23:20] VITALS: BP 88/58
[2024-03-20 00:07] VITALS: BP 90/60
[2024-03-20 05:47] LABS: Hematocrit 26.3 % (39.0-52.0); Hemoglobin 8.5 g/dL (13.0-18.0); Mean Corp Hgb Conc. 32.3 g/dL (33.0-37.0); Mean Corpuscular Hgb 29.7 pg (27.0-31.0); Mean Platelet Volume 9.2 fL (7.4-10.4); Platelet Count 151 10^3/uL (130-400); Red Blood Cell Count 2.86 10^6/uL (4.70-6.10); Red Cell Dist. Width 16.5 % (11.5-14.5)
[2024-03-20 05:55] LABS: ALT (SGPT) 15 U/L (0-50); AST (SGOT) 25 U/L (17-59); Albumin 2.4 g/dl (3.5-5.0); Alkaline Phosphatase 182 U/L (38-126); Blood Urea Nitrogen 9 mg/dl (9-20); Calcium 7.9 mg/dl (8.4-10.2); Carbon Dioxide 24 mmol/L (22-30); Chloride 102 mmol/L (98-107); Estimated Creatinine Clearance 111 ml/min; Glucose 115 mg/dl (70-99); Magnesium 1.9 mg/dl (1.6-2.3); Phosphorus 2.8 mg/dl (2.5-4.5); Potassium 3.4 mmol/L (3.5-5.1); Sodium 132 mmol/L (135-145); Total Bilirubin 0.6 mg/dl (0.2-1.3); Total Protein 4.4 g/dl (6.3-8.2); eGFR > 60.00
--- NOTE | 2024-03-20 07:11 | W.PN.HOSP.TC ---
Today's Communication/Plan
-
cont current care
ongoing goals of care discussion
Assessment / Plan
Assessment / Plan
HPI: 73 yo man with hx recently diagnosed pancreatic cancer (01/04) with biliary and gastric outlet obstruction s/p GJ tube, s/p cholecystostomy, recent admission 02/10-02/22/24 for GIB (s/p EGD 02/16 showing fundus ulcer with visible vessel s/p epi,
cautery, clips), PE now off AC given risk with GIB presents to the ER with vomiting up 'black bile.'
Patient states he was nauseated yesterday and vomited bile. Then this morning he noticed black vomit and came to the ER. No fevers/chills. + a couple of days of cough/congestion. His last BM was 2 days ago, he has been passing gas. No chest
pain or shortness of breath. He was seen in the ER on 03/01, his cholecystotomy tube was dislodged.
A/P:
Gastric outlet obstruction
-Appreciate surgical oncology input, status post exploratory laparotomy and gastrojejunstomy bypass 03/[address] Fairchild
-NG tube removed 03/14, gastrostomy tube clamped, diet advanced to reg 03/17 -tolerating
-S/p IV Ancef, okay for oral meds as per surgical oncology
-Surgical oncology signed off, follow-up in the office in 1-2 weeks for staple removal
Dysuria
started empirically on Ceftriaxone for possible UTI
Bladder Renal US appreciated no hydronephrosis, nephrolithiasis, mild chronic b/l renal disease
Ascites
IR eval requested paracentesis
follow up fluid studies cultures
Albumin Infusion post-paracentesis
Acute Blood Loss Anemia
History of PUD with recent admission 02/10-02/22/24
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
-Pathology results confirm adenocarcinoma, likely from pancreatic malignancy
-Hemoglobin 9.3 status post 3rd unit of packed red blood cells, improved from 7.5
-Continue Protonix 40 mg twice daily, trend Hgb
Hyponatremia
-Patient reports drinking water although concern for dehydration with vomiting
-Urine Na < 5
-Hold Desvenlafaxine, gentle IV fluids, trend sodium
-Na since improved, IVF support completed
Bandemia
-COVID/flu negative, urine analysis negative, blood cultures NTD
-Infectious workup negative
-S/p IV Ancef postoperatively as per surgical oncology
Urinary retention
� [place] inserted 03/13 since discontinued, passed trial of void
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
-S/p GJ tube. Hold TF while undergoing GIB work up
-Hx cholecystostomy tube that fell out 03/01 - seen in ER
-Per last Oncology notes, functional status would need to improve in order to receive palliative chemotherapy
-Seen by oncology, patient wishes to continue palliative chemo when able
Anxiety
� IV Ativan as needed
Constipation
-Status post milk of molasses enema and glycerin suppository
-Continue glycerin suppository as needed
Hypokalemia
� Replete as needed
Hypophosphatemia
� Replete as needed
Hx PE
Brachial DVT
-AC stopped last admission given high bleeding risk
-IVC filter wasn't indicated as clot propagated from UE
DVT prophylaxis�subcu Lovenox
DNR - confirmed on admission
Ongoing goals of care discussion, hospice eval appreciated.
discussed with patient and patient's May
Total time spent to see the patient on the floor, examine the patient, review data and lab results, discuss treatment plan with patient, nursing staff around 42 minutes.
Physical Exam
General: Appears chronically ill, no acute distress
HEENT: Normocephalic, Atraumatic, EOMI, MMM
Respiratory: Clear to Auscultation bilaterally
Cardiac: Normal S1/S2, Regular Rate and Rhythm
GI: soft bowel sounds present, notably improved since paracentesis
Extremities: No Clubbing, Cyanosis
Neuro: Awake alert conversant coherent
Anticipated Discharge: 24 - 48 hours
Subjective/Interval History
-
Date of Service: March 20, 2024
No acute distress sitting up comfortably in bed. Reports overall improvement in symptoms since paracentesis. May present during evaluation.
Objective Data
-
Labs:
Laboratory Results
03/20/24
05:06
WBC 5.0
Hgb 8.5 L
Hct 26.3 L
Plt Count 151 D
Sodium 132 L
Potassium 3.4 L
Chloride 102
Carbon Dioxide 24
BUN 9
Creatinine 0.6 L
Glucose 115 H
Calcium 7.9 L
Total Bilirubin 0.6
AST 25
ALT 15
Alkaline Phosphatase 182 H
Vital Signs:
Vital Signs
Temp Pulse Resp BP Pulse Ox
98.2 F 86 16 90/60 94
03/19/24 23:20 03/19/24 23:20 03/19/24 23:20 03/20/24 00:07 03/19/24 23:20
I&O
03/19/24 03/20/24 03/21/24
06:59 06:59 06:59
Intake Total 840 / 840 1200 / 1200
Balance 840 / 840 1200 / 1200
[2024-03-20 07:17] VITALS: BP 107/71
--- NOTE | 2024-03-20 08:12 | W.PN.ONC2 ---
Today's Communication / Plan
-
continue GOC, discussed with case management that pt/ requesting a follow up meeting with hospice since pt was not present during visit
If opts for restorative goals at SNF then would request palliative care service continue to follow pt outpatient for continued symptoms support and GOC
Impression
Impression
pancreatic cancer complicated by gastric outlet obstruction S/p Gastrojejunostomy bypass 03/13, path diagnostic for adenocarcinoma
Numerous low-attenuation hepatic lesions most in keeping with metastases on most recent CT ab/pelvis 03/18 discussed with pt and at bedside
UGIB, possibly from previously identified ulcer
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
large volume ascites s/p paracentesis 03/19 3.1L drained, cytology pending
Plan
Plan
follow ascites cytology
advance diet per surgery
on IV PPI.
CBC daily
transfuse < 8.0 g/dl
Will reschedule Dr. Greer follow up closer to d/c.
encouraged OOB, PT, continued efforts with nutrition.
Palliative care following
Subjective/Objective
Subjective
no new complaints
Vital Signs:
Vital Signs
Temp Pulse Resp BP Pulse Ox
98.2 F 86 16 90/60 94
03/19/24 23:20 03/19/24 23:20 03/19/24 23:20 03/20/24 00:07 03/19/24 23:20
Lab Results:
Laboratory Data
WBC 5.0 10^3/uL (4.8-10.8) 03/20/24 05:06
Hgb 8.5 g/dL (13.0-18.0) L 03/20/24 05:06
Plt Count 151 10^3/uL (130-400) D 03/20/24 05:06
PT 14.5 Sec (11.4-14.6) 03/11/24 09:53
INR 1.08 03/11/24 09:53
APTT 37.8 Sec (23.4-35.0) H 03/11/24 09:53
eGFR > 60.00 03/20/24 05:06
Physical Exam
HEENT: Moist Mucous Membranes; No Jaundice
Cardiology: Normal Sinus Rhythm
Pulmonary: Clear
GI: Distended
Extremities: Pulses Present; No Edema
Neuro: Non Focal
Orders
Orders
Orders From Last 24 Hours
03/19/24 11:24
Case Management Consult ONCE
[2024-03-20] MEDS: VIMPAT 100 MG PO ×2 (09:55→19:46)
[2024-03-20] MEDS: COLACE 100 MG PO ×2 (09:56→19:45)
[2024-03-20] MEDS: PROTONIX IV 40 MG IV ×2 (09:56→19:45)
[2024-03-20] MEDS: NSS (PRESERVATIVE FREE) 10 ML IV ×2 (09:56→19:46)
[2024-03-20] MEDS: FLUSH (NSS) 2 FLUSH IV ×2 (09:57→13:17)
--- NOTE | 2024-03-20 10:04 | CM ---
Reviewed the chart notes. Patient had therapeutic paracentesis yesterday which yeilded 3100 cc of clear yellow ascitic fluid. continues to be available to patient/family and is monitoring medical plan for needs at discharge.
Plan: Discharge to SNF/rehab when medically stable. Referral sent to [facility]. [facility] accepted patient based on bed availability on day of discharge. No precert required.
--- NOTE | 2024-03-20 12:44 | HOSPNOTE ---
Met with patient and spouse to discuss hospice and the philosophy. The patient is extremely scared about dying and leaving his spouse and adult daughters. Emotional support provided. The plan is for me to discuss with patient and spouse tomorrow
after they had a chance to discuss hospice with their daughters. If the patient does not choose hospice then the patient will need to go to rehab and then home with hospice. Will update after our meeting tomorrow.
[2024-03-20] MEDS: STERILE WATER FOR INJECTION 10 ML IV (13:16)
[2024-03-20] MEDS: KCL 40 MEQ PO (13:16)
[2024-03-20] MEDS: ROCEPHIN 1000 MG IV (13:16)
[2024-03-20 15:30] VITALS: BP 94/66
[2024-03-20] MEDS: SEROQUEL 25 MG PO (21:43)
[2024-03-20] MEDS: LAMICTAL 50 MG PO (21:43)
[2024-03-20] MEDS: LAMICTAL 300 MG PO (21:43)
[2024-03-20 23:11] VITALS: BP 90/66
[2024-03-21 05:34] LABS: Hematocrit 27.5 % (39.0-52.0); Hemoglobin 9.1 g/dL (13.0-18.0); Mean Corp Hgb Conc. 33.1 g/dL (33.0-37.0); Mean Corpuscular Hgb 30.3 pg (27.0-31.0); Mean Corpuscular Volume 91.7 fL (80.0-94.0); Mean Platelet Volume 9.7 fL (7.4-10.4); Platelet Count 184 10^3/uL (130-400); Red Cell Dist. Width 16.4 % (11.5-14.5); White Blood Cell Count 5.4 10^3/uL (4.8-10.8)
[2024-03-21 05:47] LABS: Blood Urea Nitrogen 7 mg/dl (9-20); Calcium 7.8 mg/dl (8.4-10.2); Carbon Dioxide 23 mmol/L (22-30); Chloride 103 mmol/L (98-107); Estimated Creatinine Clearance 111 ml/min; Glucose 117 mg/dl (70-99); Phosphorus 2.6 mg/dl (2.5-4.5); Potassium 3.7 mmol/L (3.5-5.1); Sodium 132 mmol/L (135-145); eGFR > 60.00
[2024-03-21] MEDS: ROXICODONE 5 MG PO (05:57)
[2024-03-21] MEDS: LIDOCAINE 4% PATCH 1 PATCH TOPICAL (06:01)
[2024-03-21 07:45] VITALS: BP 96/62
--- NOTE | 2024-03-21 07:57 | W.PN.HOSP.TC ---
Today's Communication/Plan
-
albumin infusion
likely discharge tomorrow SNF rehab if remains stable
Assessment / Plan
Assessment / Plan
HPI: 73 yo man with hx recently diagnosed pancreatic cancer (01/04) with biliary and gastric outlet obstruction s/p GJ tube, s/p cholecystostomy, recent admission 02/10-02/22/24 for GIB (s/p EGD 02/16 showing fundus ulcer with visible vessel s/p epi,
cautery, clips), PE now off AC given risk with GIB presents to the ER with vomiting up 'black bile.'
Patient states he was nauseated yesterday and vomited bile. Then this morning he noticed black vomit and came to the ER. No fevers/chills. + a couple of days of cough/congestion. His last BM was 2 days ago, he has been passing gas. No chest
pain or shortness of breath. He was seen in the ER on 03/01, his cholecystotomy tube was dislodged.
A/P:
Gastric outlet obstruction
-Appreciate surgical oncology input, status post exploratory laparotomy and gastrojejunstomy bypass 03/[address] Fairchild
-NG tube removed 03/14, gastrostomy tube clamped, diet advanced to reg 03/17 -tolerating
-S/p IV Ancef, okay for oral meds as per surgical oncology
-Surgical oncology signed off, follow-up in the office in 1-2 weeks for staple removal
Dysuria
started empirically on Ceftriaxone for possible UTI
Bladder Renal US appreciated no hydronephrosis, nephrolithiasis, mild chronic b/l renal disease
Ascites
IR nabilal requested paracentesis
follow up fluid studies cultures
Albumin Infusion post-paracentesis
Acute Blood Loss Anemia
History of PUD with recent admission 02/10-02/22/24
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
-Pathology results confirm adenocarcinoma, likely from pancreatic malignancy
-Hemoglobin 9.3 status post 3rd unit of packed red blood cells, improved from 7.5
-Continue Protonix 40 mg twice daily, trend Hgb
Hyponatremia
-Patient reports drinking water although concern for dehydration with vomiting
-Urine Na < 5
-Hold Desvenlafaxine, gentle IV fluids, trend sodium
-Na since improved, IVF support completed
Bandemia
-COVID/flu negative, urine analysis negative, blood cultures NTD
-Infectious workup negative
-S/p IV Ancef postoperatively as per surgical oncology
Urinary retention
� [place] inserted 03/13 since discontinued, passed trial of void
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
-S/p GJ tube. Hold TF while undergoing GIB work up
-Hx cholecystostomy tube that fell out 03/01 - seen in ER
-Per last Oncology notes, functional status would need to improve in order to receive palliative chemotherapy
-Seen by oncology, patient wishes to continue palliative chemo when able
Anxiety
� IV Ativan as needed
Constipation
-Status post milk of molasses enema and glycerin suppository
-Continue glycerin suppository as needed
Hypokalemia
� Replete as needed
Hypophosphatemia
� Replete as needed
Hx PE
Brachial DVT
-AC stopped last admission given high bleeding risk
-IVC filter wasn't indicated as clot propagated from UE
DVT prophylaxis�subcu Lovenox
DNR
Ongoing goals of care discussion, hospice eval appreciated.
discussed with patient and patient's May
Total time spent to see the patient on the floor, examine the patient, review data and lab results, discuss treatment plan with patient, nursing staff around 40 minutes.
Physical Exam
General: Appears chronically ill, no acute distress
HEENT: Normocephalic, Atraumatic, EOMI, MMM
Respiratory: Clear to Auscultation bilaterally
Cardiac: Normal S1/S2, Regular Rate and Rhythm
GI: soft bowel sounds present, notably improved since paracentesis
Extremities: No Clubbing, Cyanosis
Neuro: Awake alert conversant coherent
Anticipated Discharge: Within 24 hours
Subjective/Interval History
-
Date of Service: March 21, 2024
Objective Data
-
Labs:
Laboratory Results
03/21/24
04:40
WBC 5.4
Hgb 9.1 L
Hct 27.5 L
Plt Count 184 D
Sodium 132 L
Potassium 3.7
Chloride 103
Carbon Dioxide 23
BUN 7 L
Creatinine 0.6 L
Glucose 117 H
Calcium 7.8 L
Vital Signs:
Vital Signs
Temp Pulse Resp BP Pulse Ox
97.6 F 82 18 90/66 93
03/20/24 23:11 03/20/24 23:11 03/20/24 23:11 03/20/24 23:11 03/20/24 23:11
I&O
03/20/24 03/21/24 03/22/24
06:59 06:59 06:59
Intake Total 1200 / 1200 480 / 480
Balance 1200 / 1200 480 / 480
--- NOTE | 2024-03-21 07:59 | W.PN.ONC2 ---
Today's Communication / Plan
-
D/C to SNF for restorative goals.
If improvement in PS, consider palliative chemotherapy.
If no improvement in PS, then hospice most appropriate.
Prognosis guarded. < 50% chance he'll ever be eligible for chemotherapy from perspective of poor PS but we need to wait to see.
Impression
Impression
pancreatic cancer complicated by gastric outlet obstruction S/p Gastrojejunostomy bypass 03/13, path diagnostic for adenocarcinoma
Numerous low-attenuation hepatic lesions most in keeping with metastases on most recent CT ab/pelvis 03/18 discussed with pt and at bedside
UGIB, possibly from previously identified ulcer
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
large volume ascites s/p paracentesis 03/19 3.1L drained, cytology pending
Plan
Plan
Post op supportive care.
S/P paracentesis 03/19 - 3100 cc
PS limited for palliative chemotherapy.
Prior conversations with patient and family noted.
Goals are restorative with plans noted for D/C to SNF/rehab and depending on his PS, consider palliative chemotherapy.
Palliative care following. If limited improvement post D/C, probably will be best served by hospice but wait and see how he does.
Subjective/Objective
Chief Complaint
ACS Heme Onc
Subjective
No pain. Quite weak.
Vital Signs:
Vital Signs
Temp Pulse Resp BP Pulse Ox
97.6 F 82 18 90/66 93
03/20/24 23:11 03/20/24 23:11 03/20/24 23:11 03/20/24 23:11 03/20/24 23:11
Lab Results:
Laboratory Data
WBC 5.4 10^3/uL (4.8-10.8) 03/21/24 04:40
Hgb 9.1 g/dL (13.0-18.0) L 03/21/24 04:40
Plt Count 184 10^3/uL (130-400) D 03/21/24 04:40
PT 14.5 Sec (11.4-14.6) 03/11/24 09:53
INR 1.08 03/11/24 09:53
APTT 37.8 Sec (23.4-35.0) H 03/11/24 09:53
eGFR > 60.00 03/21/24 04:40
Physical Exam
HEENT: Other (cachetic)
Cardiology: S1 and S2
Pulmonary: Clear
GI: Soft and Flat; No Distended
[2024-03-21] MEDS: COLACE 100 MG PO ×2 (08:43→20:14)
[2024-03-21] MEDS: VIMPAT 100 MG PO ×2 (08:43→20:15)
[2024-03-21] MEDS: NSS (PRESERVATIVE FREE) 10 ML IV ×2 (08:43→20:16)
[2024-03-21] MEDS: PROTONIX IV 40 MG IV ×2 (08:43→20:16)
--- NOTE | 2024-03-21 09:34 | HOSPNOTE ---
Spoke with spouse and they are planning on going to rehab and then will transition to home hospice. The spouse will continue to stay in touch with me and if the patient has a change of heart we will certainly be able to admit at home with hospice
services. CM made aware of plan.
[2024-03-21] MEDS: STERILE WATER FOR INJECTION 10 ML IV (13:59)
[2024-03-21] MEDS: ROCEPHIN 1000 MG IV (14:00)
--- NOTE | 2024-03-21 14:56 | CM ---
Reviewed the chart notes and spoke with the patient and spouse at the bedside. Patient has been declining therapy for the past six days. Explained to the patient and spouse that he needs to participate in therapy for insurance to cover SNF/rehab.
Patient and spouse understand. CM continues to be available to patient/family and is monitoring medical plan for needs at discharge.
Plan: Discharge to SNF/rehab once medically stable and able. No precert required. Patient and spouse wanting [facility]. Based on bed availability, this was explained to both.
[2024-03-21] MEDS: FLEXBUMIN 100 IV (14:58)
[2024-03-21 15:35] VITALS: PULSE 86
[2024-03-21 15:42] VITALS: BP 102/70
[2024-03-21 17:25] VITALS: BP 122/79
--- NOTE | 2024-03-21 19:40 | PTCARENOTE ---
Received patient from [address] [place] [id number])x3, forgetful and flat affect. Pt oriented to room. Made pt comfortable. Cont to assess patient status.
[2024-03-21] MEDS: LAMICTAL 50 MG PO (21:02)
[2024-03-21] MEDS: LAMICTAL 300 MG PO (21:04)
[2024-03-21] MEDS: SEROQUEL 25 MG PO (21:05)
[2024-03-21 23:12] VITALS: BP 102/71
--- NOTE | 2024-03-22 06:40 | W.PN.HOSP.TC ---
Today's Communication/Plan
-
low dose midodrine with holding parameters
last day IV abx for uti, total 5 days treatment
Discharge planning SNF rehab
Assessment / Plan
Assessment / Plan
HPI: 73 yo man with hx recently diagnosed pancreatic cancer (01/04) with biliary and gastric outlet obstruction s/p GJ tube, s/p cholecystostomy, recent admission 02/10-02/22/24 for GIB (s/p EGD 02/16 showing fundus ulcer with visible vessel s/p epi,
cautery, clips), PE now off AC given risk with GIB presents to the ER with vomiting up 'black bile.'
Patient states he was nauseated yesterday and vomited bile. Then this morning he noticed black vomit and came to the ER. No fevers/chills. + a couple of days of cough/congestion. His last BM was 2 days ago, he has been passing gas. No chest
pain or shortness of breath. He was seen in the ER on 03/01, his cholecystotomy tube was dislodged.
A/P:
Gastric outlet obstruction
-Appreciate surgical oncology input, status post exploratory laparotomy and gastrojejunstomy bypass 03/[address] Fairchild
-NG tube removed 03/14, gastrostomy tube clamped, diet advanced to reg 03/17 -tolerating
-S/p IV Ancef, okay for oral meds as per surgical oncology
-Surgical oncology signed off, follow-up in the office in 1-2 weeks, jared to be removed by surgical oncology prior to discharge
Dysuria
started empirically on Ceftriaxone for possible UTI
Bladder Renal US appreciated no hydronephrosis, nephrolithiasis, mild chronic b/l renal disease
completed 5 days Ceftriaxone
Ascites
IR nabilal requested paracentesis
follow up fluid studies cultures
Albumin Infusion post-paracentesis
Low normal pressures/borderline hypotensive
received Albumin infusions
started low dose midodrine 2.5 mg TID, cont
Acute Blood Loss Anemia
History of PUD with recent admission 02/10-02/22/24
-Hold [employer]ENT[employer] aspirin.
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
-Pathology results confirm adenocarcinoma, likely from pancreatic malignancy
-Hemoglobin 9.3 status post 3rd unit of packed red blood cells, improved from 7.5
-Continue Protonix 40 mg twice daily, trend Hgb
Hyponatremia
-Patient reports drinking water although concern for dehydration with vomiting
-Urine Na < 5
-Hold Desvenlafaxine, gentle IV fluids, trend sodium
-Na since improved, IVF support completed
Bandemia
-COVID/flu negative, urine analysis negative, blood cultures NTD
-Infectious workup negative
-S/p IV Ancef postoperatively as per surgical oncology
Urinary retention
� [place] inserted 03/13 since discontinued, passed trial of void
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
-S/p GJ tube. Hold TF while undergoing GIB work up
-Hx cholecystostomy tube that fell out 03/01 - seen in ER
-Per last Oncology notes, functional status would need to improve in order to receive palliative chemotherapy
-Seen by oncology, patient wishes to continue palliative chemo when able
Anxiety
� IV Ativan as needed
Constipation
-Status post milk of molasses enema and glycerin suppository
-Continue glycerin suppository as needed
Hypokalemia
� Replete as needed
Hypophosphatemia
� Replete as needed
Hx PE
Brachial DVT
-AC stopped last admission given high bleeding risk
-IVC filter wasn't indicated as clot propagated from UE
DVT prophylaxis�subcu Lovenox
DNR
hospice eval appreciated.
discussed with patient and patient's May
Total time spent to see the patient on the floor, examine the patient, review data and lab results, discuss treatment plan with patient, nursing staff around 40 minutes.
Physical Exam
General: Appears chronically ill, no acute distress
HEENT: Normocephalic, Atraumatic, EOMI, MMM
Respiratory: Clear to Auscultation bilaterally
Cardiac: Normal S1/S2, Regular Rate and Rhythm
GI: soft bowel sounds present, notably improved since paracentesis
Extremities: No Clubbing, Cyanosis
Neuro: Awake alert conversant coherent
Anticipated Discharge: Within 24 hours
Subjective/Interval History
-
Date of Service: March 22, 2024
No acute distress sitting up comfortably in bed. Pressures remain soft low normotensive. General fatigue persists. Denies Lightheadedness. Kristin present during evaluation
Objective Data
-
Vital Signs:
Vital Signs
Temp Pulse Resp BP Pulse Ox
97.6 F 83 19 102/71 97
03/21/24 23:12 03/21/24 23:12 03/21/24 23:12 03/21/24 23:12 03/21/24 23:12
I&O
03/20/24 03/21/24 03/22/24
06:59 06:59 06:59
Intake Total 1200 / 1200 480 / 480 480 / 480
Output Total 100 / 100
Balance 1200 / 1200 480 / 480 380 / 380
[2024-03-22 07:00] VITALS: BP 90/60
[2024-03-22] MEDS: COLACE 100 MG PO ×2 (08:04→19:39)
[2024-03-22] MEDS: VIMPAT 100 MG PO ×2 (08:04→19:39)
[2024-03-22] MEDS: NSS (PRESERVATIVE FREE) 10 ML IV ×2 (08:05→19:39)
[2024-03-22] MEDS: PROTONIX IV 40 MG IV ×2 (08:05→19:40)
--- NOTE | 2024-03-22 10:34 | W.PN.ONC2 ---
Today's Communication / Plan
-
D/C to SNF for restorative goals.
If improvement in PS, consider palliative chemotherapy.
If no improvement in PS, then hospice most appropriate.
Prognosis guarded. < 50% chance he'll ever be eligible for chemotherapy from perspective of poor PS but we need to wait to see.
Impression
Impression
pancreatic cancer complicated by gastric outlet obstruction S/p Gastrojejunostomy bypass 03/13, path diagnostic for adenocarcinoma
Numerous low-attenuation hepatic lesions most in keeping with metastases on most recent CT ab/pelvis 03/18 discussed with pt and at bedside
UGIB, possibly from previously identified ulcer
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
large volume ascites s/p paracentesis 03/19 3.1L drained, cytology pending
Plan
Plan
Post op supportive care.
S/P paracentesis 03/19 - 3100 cc
PS limited for palliative chemotherapy.
Prior conversations with patient and family noted.
Goals are restorative with plans noted for D/C to SNF/rehab and depending on his PS, consider palliative chemotherapy.
Palliative care following. If limited improvement post D/C, probably will be best served by hospice but wait and see how he does.
at bedside during visit
Subjective/Objective
Subjective
no new complaints
Vital Signs:
Vital Signs
Temp Pulse Resp BP Pulse Ox
97.5 F 87 18 90/60 94
03/22/24 07:00 03/22/24 07:00 03/22/24 07:00 03/22/24 07:00 03/22/24 07:00
Lab Results:
Laboratory Data
WBC 5.4 10^3/uL (4.8-10.8) 03/21/24 04:40
Hgb 9.1 g/dL (13.0-18.0) L 03/21/24 04:40
Plt Count 184 10^3/uL (130-400) D 03/21/24 04:40
PT 14.5 Sec (11.4-14.6) 03/11/24 09:53
INR 1.08 03/11/24 09:53
APTT 37.8 Sec (23.4-35.0) H 03/11/24 09:53
eGFR > 60.00 03/21/24 04:40
Physical Exam
HEENT: Moist Mucous Membranes; No Jaundice
Cardiology: Normal Sinus Rhythm
Pulmonary: Clear
GI: Soft and Distended, gastrostomy tube
Extremities: Pulses Present; No Edema
--- NOTE | 2024-03-22 12:09 | WOUNDNOTE ---
[facility] RN note: Patient seen d/t prevalence team reported a stage 1 sacral pressure injury. Patient's sacral/buttocks blanchable red with small dull red non blanchable area L sacral/buttocks. History as per physician report: 'recently diagnosed
pancreatic cancer (01/04) with biliary and gastric outlet obstruction s/p GJ tube, s/p cholecystostomy, recent admission 02/10-02/22/24 for GIB (s/p EGD 02/16 showing fundus ulcer with visible vessel s/p epi, cautery, clips), PE'. Patient's po intake
documented 50% or greater. Patient appears weak and turns with assistance. He has an air chair cushion. Silicone border foam changed on sacral/buttocks. Waffle air overlay applied and patient turned to L semi side lying position with help from RN
Zoe. Heels off bed with pillow. Instructed patient and pressure injury prevention measures. Care plan and discharge instructions updated.
[2024-03-22] MEDS: STERILE WATER FOR INJECTION 10 ML IV (14:17)
[2024-03-22] MEDS: ROCEPHIN 1000 MG IV (14:18)
[2024-03-22 15:58] VITALS: BP 107/77
--- NOTE | 2024-03-22 17:31 | CM ---
IMM completed with pt on chart.
PT OT reviewed with pt .
Pt requested [facility] sn[facility].
Referral placed
PLAN To SNf after located and medically stable
[2024-03-22] MEDS: ProAmatine 2.5 MG PO (17:44)
[2024-03-22] MEDS: SEROQUEL 25 MG PO (21:12)
[2024-03-22] MEDS: LAMICTAL 300 MG PO (21:12)
[2024-03-22] MEDS: LAMICTAL 50 MG PO (21:12)
[2024-03-22 23:08] VITALS: BP 107/71
--- NOTE | 2024-03-23 06:51 | W.PN.HOSP.TC ---
Addendum entered and electronically signed by Lety Diamond MD 03/23/24 10:14:
jared removed by surgeon 03/22/24. continue follow up in 1-2 weeks of discharge
Original Note:
Today's Communication/Plan
-
discharge
Assessment / Plan
Assessment / Plan
HPI: 73 yo man with hx recently diagnosed pancreatic cancer (01/04) with biliary and gastric outlet obstruction s/p GJ tube, s/p cholecystostomy, recent admission 02/10-02/22/24 for GIB (s/p EGD 02/16 showing fundus ulcer with visible vessel s/p epi,
cautery, clips), PE now off AC given risk with GIB presents to the ER with vomiting up 'black bile.' Patient states he was nauseated yesterday and vomited bile. Then this morning he noticed black vomit and came to the ER. No fevers/chills. + a
couple of days of cough/congestion. His last BM was 2 days ago, he has been passing gas. No chest pain or shortness of breath. He was seen in the ER on 03/01, his cholecystotomy tube was dislodged.
A/P:
Gastric outlet obstruction
-Appreciate surgical oncology input, status post exploratory laparotomy and gastrojejunstomy bypass 03/[address] Fairchild
-NG tube removed 03/14, gastrostomy tube clamped, diet advanced to reg 03/17 -tolerating
-S/p IV Ancef, okay for oral meds as per surgical oncology
-Surgical oncology signed off, follow-up in the office in 1-2 weeks, jared to be removed by surgical oncology prior to discharge
Dysuria
started empirically on Ceftriaxone for possible UTI
Bladder Renal US appreciated no hydronephrosis, nephrolithiasis, mild chronic b/l renal disease
completed 5 days Ceftriaxone
Ascites
IR lynette appreciated paracentesis performed 03/19/24 3L removed
Fluid Cultures neg for growth
received Albumin Infusion post-paracentesis
Low normal pressures/borderline hypotensive
received Albumin infusions
started low dose midodrine 2.5 mg TID, cont
Acute Blood Loss Anemia
History of PUD with recent admission 02/10-02/22/24
-Hold [employer] aspirin.
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
-Pathology results confirm adenocarcinoma, likely from pancreatic malignancy
-Hemoglobin 9.3 status post 3rd unit of packed red blood cells, improved from 7.5
-Continue Protonix 40 mg twice daily, H&H since stable
Hyponatremia
-Patient reports drinking water although concern for dehydration with vomiting
-Urine Na < 5
-Hold Desvenlafaxine, gentle IV fluids, trend sodium
-Na since improved, IVF support completed
Bandemia
-COVID/flu negative, urine analysis negative, blood cultures NTD
-Infectious workup negative
-S/p IV Ancef postoperatively as per surgical oncology
Urinary retention
� [place] inserted 03/13 since discontinued, passed trial of void
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
-S/p GJ tube. Hold TF while undergoing GIB work up
-Hx cholecystostomy tube that fell out 03/01 - seen in ER
-Per last Oncology notes, functional status would need to improve in order to receive palliative chemotherapy
-Seen by oncology, patient wishes to continue palliative chemo when able
Anxiety
� IV Ativan as needed has not required since 03/17/24
Constipation
-Status post milk of molasses enema and glycerin suppository
-Continue glycerin suppository as needed
Hypokalemia
� Replete as needed
Hypophosphatemia
� Replete as needed
Hx PE
Brachial DVT
-AC stopped last admission given high bleeding risk
-IVC filter wasn't indicated as clot propagated from UE
DVT prophylaxis�subcu Lovenox
DNR
hospice eval appreciated patient/family plan to attempt SNF rehab first before considering transition to home hospice
Medically stable for discharge SNF rehab with outpatient follow up recommendations
discussed with patient and patient's May
Total Time Preparing Discharge ___40____ minutes including examination of the patient, summary of the hospital stay, instructions for continuing care to all relevant caregivers; and preparation of discharge records, prescriptions, and referral
forms if necessary.
Physical Exam
General: Appears chronically ill, no acute distress
HEENT: Normocephalic, Atraumatic, EOMI, MMM
Respiratory: Clear to Auscultation bilaterally
Cardiac: Normal S1/S2, Regular Rate and Rhythm
GI: soft bowel sounds present, distended
Extremities: No Clubbing, Cyanosis
Neuro: Awake alert conversant coherent
Anticipated Discharge: Today
Subjective/Interval History
-
Date of Service: March 23, 2024
No acute distress. Appears comfortable at this time. Denies new acute issues.
Objective Data
-
Vital Signs:
Vital Signs
Temp Pulse Resp BP Pulse Ox
97.7 F 86 18 107/71 96
03/22/24 23:08 03/22/24 23:08 03/22/24 23:08 03/22/24 23:08 03/22/24 23:08
I&O
03/21/24 03/22/24 03/23/24
06:59 06:59 06:59
Intake Total 480 / 480 530 / 530 2500 / 2500
Output Total 300 / 300 3175 / 3175
Balance 480 / 480 230 / 230 -675 / -675
[2024-03-23 07:30] VITALS: BP 95/67
[2024-03-23] MEDS: PROTONIX IV 40 MG IV (08:18)
[2024-03-23] MEDS: NSS (PRESERVATIVE FREE) 10 ML IV (08:18)
[2024-03-23] MEDS: VIMPAT 100 MG PO (08:19)
[2024-03-23] MEDS: COLACE 100 MG PO (08:19)
[2024-03-23] MEDS: ProAmatine 2.5 MG PO ×2 (08:19→14:11)
--- NOTE | 2024-03-23 10:25 | W.DCSUMMARY ---
Discharge Summary
Discharge Data
Date of Admission: 03/11/24
Date of Discharge: 03/23/24
-
Pending Results: Yes
Additional Pending Results:
pathology results to be followed with Oncology
Hospital Course
73M recently diagnosed pancreatic cancer (01/04) with biliary and gastric outlet obstruction s/p GJ tube, s/p cholecystostomy, recent admission 02/10-02/22/24 for GIB (s/p EGD 02/16 showing fundus ulcer with visible vessel s/p epi, cautery, clips),
PE now off AC given risk with GIB presented to the ER with vomiting up 'black bile' one day duration. No fevers/chills. Reported a couple of days of cough/congestion. His last BM was 2 days ago, he had been passing gas. No chest pain or
shortness of breath. Gastric outlet obstruction, appreciate surgical oncology eval, status post exploratory laparotomy and gastrojejunstomy bypass 03/[address] Fairchild. NG tube removed 03/14, gastrostomy tube clamped, diet advanced to reg 03/17
-tolerating. S/p IV Ancef, okay for oral meds as per surgical oncology. Surgical oncology signed off, follow-up in the office in 1-2 weeks, jared removed by surgical oncology prior to discharge. Dysuria, started empirically on Ceftriaxone for
possible UTI, Bladder Renal US appreciated no hydronephrosis, nephrolithiasis, mild chronic b/l renal disease- completed 5 days Ceftriaxone. Ascites, IR eval appreciated paracentesis performed 03/19/24 3L removed.
Fluid Cultures neg for growth, received Albumin Infusion post-paracentesis. Low normal pressures/borderline hypotensive, started low dose midodrine 2.5 mg TID, continued on discharge. Metastatic pancreatic cancer, oncology eval appreciated,
functional status would need to improve in order to receive palliative chemotherapy. Hospice eval appreciated patient/family plan to attempt SNF rehab first before considering transition to home hospice. Medically stable patient was discharged to
SNF rehab with outpatient follow up recommendations.
Discharge Plan
-
Patient Disposition: [facility]/SNF
Discharge Diagnosis/Procedures: Metastatic pancreatic cancer with duodenal stricture/mass, gastric outlet obstruction status post Exploratory laparotomy and gastrojejunstomy bypass
Urinary Tract Infection
Ascites
Borderline Hypotension
Acute Blood Loss Anemia
Mild Hyponatremia
Acute Urinary Retention resolved
Condition: Serious
Diet: Regular
Activity: As tolerated
Driving Restrictions: No driving
Bathing Restrictions: None
Blood Work: Repeat CBC and CMP with primary care provider in 1 week of discharge.
Other Services: PT and OT
Activity Restrictions/Additional Instructions:
Follow-up with Dr. Fairchild 1-2 weeks discharge ([phone]).
Follow-up with your primary care doctor 1 week after you leave rehab, and oncology in 2-3 weeks.
Sacrum-Protective silicone border foam, change q 3 days and prn loosened dressing.
Evaluate for an air mattress.
Pressure redistributing chair cushion (i.e. Air chair cushion).
Elevate heels off bed with pillow/s.
Colace prescribed for constipation, hold if diarrhea.
Midodrine started for low blood pressures.
Desvenlafaxine was discontinued due to hyponatremia.
Aspirin discontinued due to acute blood loss anemia likely GI etiology, history peptic ulcer disease.
Please take medications as prescribed/recommended and follow up with primary care provider and/or other healthcare provider involved in your care for refills and/or further adjustment to your medication regimen as necessary.
Referrals:
Tanja Garcia CRNP [Family Provider] - in one week
Christiano Fairchild MD [Active] - in one to two weeks
Orlando Greer MD [Active] - in two to three weeks
Prescriptions:
New
docusate sodium 100 mg Capsule
100 mg PO BID Qty: 60 0RF
Rx Instructions:
hold if diarrhea
midodrine 2.5 mg Tablet
2.5 mg PO TID@0800,1300,1800 Qty: 90 0RF
Continued
acetaminophen [Tylenol] 325 mg Tablet
650 mg PO Q6HPRN PRN (Reason: mild pain)
therapeutic multivitamin Tablet
1 tab PO DAILY
simvastatin [Zocor] 20 mg Tablet
20 mg PO HS
quetiapine [Seroquel] 25 mg Tablet
25 mg PO HS
pantoprazole [address] for susp in packet
40 mg PO BID Qty: 0 0RF
lamotrigine [Lamictal] 150 mg Tablet
300 mg PO HS Qty: 14 0RF
lamotrigine [Lamictal] 25 mg Tablet
50 mg PO HS Qty: 14 0RF
lacosamide [Vimpat] 100 mg tablet
100 mg PO BID Qty: 14 0RF
Discontinued
aspirin 81 mg Tablet,Delayed Release (Dr/Ec)
81 mg PO DAILY
desvenlafaxine succinate 50 mg Tablet Extended Release 24 Hr
50 mg PO DAILY
Discharge Orders:
Discharge Patient (As Directed); Ordered 03/23/24
Ordered By: Lety Diamond
Discharge Date and Time
Discharge Date/Time: 03/23/24 16:48
Print Language: ROMANSH
--- NOTE | 2024-03-23 11:51 | CM ---
MD entered order for discharge.
Pt requested [facility] snf.Update entered . Spoke with Zoe from [facility] she reviewed and accept pt today.
Spoke with and pt .They agree with dc to [facility] today . requested ambulance .
Medical nec form completed.
[facility]
report [phone]
fax [phone]
PLAN To [facility]
[2024-03-23 14:10] VITALS: BP 96/64
[2024-03-23 16:18] VITALS: BP 95/67
--- NOTE | 2024-04-03 09:10 | OR.RPT ---
Operative Report
Operative Report
Date of Surgery:03/13/24
Preoperative Diagnosis: Gastric outlet obstruction from a pancreatic head tumor
Postoperative Diagnosis: Gastric outlet obstruction from a pancreatic head tumor
Surgeon: Dr. Christiano Fairchild M.D.
Operation: Exploratory laparotomy and gastrojejunal bypass of the gastric outlet obstruction
Anesthesia: General
Estimated Blood Loss: 5 cc
Drains: None
Specimen: None
Findings: Gastric obstruction with dilated stomach
Complications: None
Procedure: The patient was taken to the operating room and placed in the usual supine position. After adequate general endotracheal anesthesia was established, the patient's abdomen was prepped and draped in the usual sterile fashion. An upper
midline incision was made with a number 10 blade, extending through the skin and subcutaneous tissue. The fascia was divided, and the abdomen was carefully entered. Upon entering the abdomen, a significantly dilated stomach was noted. The proximal
jejunum was identified by running the small bowel to the ligament of Treitz. Approximately 20 centimeters distal to the ligament of Treitz was chosen for anastomosis to the stomach. A gastrotomy was performed, and an enterotomy was made on the small
bowel. A gastrojejunostomy anastomosis was performed using an Endo CAREN purple stapler. The remaining opening was closed with #3-0 Prolene in a running fashion. The anastomosis was reinforced with number 3-0 silk sutures in an interrupted fashion in
the serosal layer. The abdomen was further explored, and no obvious intraperitoneal disease was noted. The procedure was concluded. The fascia was approximated with 1 Vicryl in a running fashion. The subcutaneous tissue was re-approximated with
number 3-0 Vicryl in a running fashion, and the skin was re-approximated with number 4-0 Monocryl in a running subcuticular fashion. Steri-strips and sterile dressings were applied. The final needle, sponge, and instrument counts were correct. The
patient was extubated and transferred to the recovery room.
== END 2024-03-23 16:48 | DRG 326 ==
LOC: 4 EAST ACU 13:50
PROVIDERS: Emergency Medicine; Family Medicine; Nurse Practitioner; Radiology Vascular & Interventional Radiology; Registered Nurse; Student in an Organized Health Care Education/Training Program; Surgery; ADMITTING PHYSICIAN Student in an Organized Health Care Education/Training Program; ATTENDING PHYSICIAN Internal Medicine; CONSULT PHYSICIAN Internal Medicine Hospice and Palliative Medicine; EMERGENCY PHYSICIAN Emergency Medicine; FAMILY PHYSICIAN Nurse Practitioner Adult Health; OTHER PHYSICIAN Internal Medicine Gastroenterology; OTHER PHYSICIAN Internal Medicine Hematology & Oncology
PROC: 30233N1 Transfusion of Nonautologous Red Blood Cells into Peripheral Vein, Percutaneous Approach (ICD-10-PCS; 2024-03-11)
PROC: 5A09357 Assistance with Respiratory Ventilation, Less than 24 Consecutive Hours, Continuous Positive Airway Pressure (ICD-10-PCS; 2024-03-11)
PROC: 0D160ZA Bypass Stomach to Jejunum, Open Approach (ICD-10-PCS; 2024-03-13)
PROC: 0DB98ZX Excision of Duodenum, Via Natural or Artificial Opening Endoscopic, Diagnostic (ICD-10-PCS; 2024-03-13)
PROC: 0DP0XUZ Removal of Feeding Device from Upper Intestinal Tract, External Approach (ICD-10-PCS; 2024-03-14)
PROC: 30243N1 Transfusion of Nonautologous Red Blood Cells into Central Vein, Percutaneous Approach (ICD-10-PCS; 2024-03-16)
PROC: 0W9G3ZZ Drainage of Peritoneal Cavity, Percutaneous Approach (ICD-10-PCS; 2024-03-19)
DX: K31.1 Adult hypertrophic pyloric stenosis (principal); K25.4 Chronic or unspecified gastric ulcer with hemorrhage; E87.1 Hypo-osmolality and hyponatremia; R18.8 Other ascites; D62 Acute posthemorrhagic anemia; C78.01 Secondary malignant neoplasm of right lung; N39.0 Urinary tract infection, site not specified; K92.0 Hematemesis; C78.7 Secondary malignant neoplasm of liver and intrahepatic bile duct; K81.0 Acute cholecystitis; C25.0 Malignant neoplasm of head of pancreas; K21.9 Gastro-esophageal reflux disease without esophagitis; Z93.1 Gastrostomy status; K59.00 Constipation, unspecified; G40.909 Epilepsy, unspecified, not intractable, without status epilepticus; J61 Pneumoconiosis due to asbestos and other mineral fibers; D72.825 Bandemia; E78.00 Pure hypercholesterolemia, unspecified; F41.9 Anxiety disorder, unspecified; F32.A Depression, unspecified; E86.0 Dehydration; G89.29 Other chronic pain; E87.6 Hypokalemia; M54.9 Dorsalgia, unspecified; I95.9 Hypotension, unspecified; R33.9 Retention of urine, unspecified; E83.39 Other disorders of phosphorus metabolism; J45.909 Unspecified asthma, uncomplicated; K31.89 Other diseases of stomach and duodenum; Z66 Do not resuscitate; Z11.52 Encounter for screening for COVID-19; Z80.0 Family history of malignant neoplasm of digestive organs; Z82.49 Family history of ischemic heart disease and other diseases of the circulatory system; Z80.3 Family history of malignant neoplasm of breast; Z88.8 Allergy status to other drugs, medicaments and biological substances; Z79.82 Long term (current) use of aspirin; Z86.711 Personal history of pulmonary embolism; Z86.718 Personal history of other venous thrombosis and embolism; Z87.11 Personal history of peptic ulcer disease; Z87.19 Personal history of other diseases of the digestive system
CPT/HCPCS: 88305; 36430; 49083; 74177; 76770; 80048; 80053; 81003; 81015; 82042; 82150; 83615; 83690; 83735; 83935; 84100; 84157; 84295; 84300; 85018; 85025; 85027; 85610; 85730; 86850; 86900; 86901; 86920; 87015; 87040; 87070; 87086; 87205; 87502; 87811; 88112; 88341; 88342; 89051; 94660; 96361; 96374; 97110; 97163; 97166; 97530; 97535; 99285; C1776; P9016; P9047; Q9967

== ENCOUNTER → 2024-03-27 11:44 | Outpatient (REF) | payer OTHER, MEDICARE, SELFPAY ==
[2024-03-27 12:39] LABS: Hematocrit 27.3 % (39.0-52.0); Hemoglobin 8.4 g/dL (13.0-18.0); Mean Corp Hgb Conc. 30.8 g/dL (33.0-37.0); Mean Corpuscular Hgb 29.7 pg (27.0-31.0); Mean Corpuscular Volume 96.5 fL (80.0-94.0); Mean Platelet Volume 9.8 fL (7.4-10.4); Platelet Count 175 10^3/uL (130-400); Red Blood Cell Count 2.83 10^6/uL (4.70-6.10); Red Cell Dist. Width 16.4 % (11.5-14.5); White Blood Cell Count 4.2 10^3/uL (4.8-10.8)
[2024-03-27 13:17] LABS: ALT (SGPT) 16 U/L (0-50); AST (SGOT) 31 U/L (17-59); Albumin 2.4 g/dl (3.5-5.0); Alkaline Phosphatase 171 U/L (38-126); Blood Urea Nitrogen 10 mg/dl (9-20); Calcium 7.8 mg/dl (8.4-10.2); Carbon Dioxide 23 mmol/L (22-30); Chloride 105 mmol/L (98-107); Glucose 114 mg/dl (70-99); Potassium 3.6 mmol/L (3.5-5.1); Sodium 133 mmol/L (135-145); Total Bilirubin 0.5 mg/dl (0.2-1.3); Total Protein 4.3 g/dl (6.3-8.2); eGFR > 60.00
== END ==
LOC: OLABP 11:44
PROVIDERS: ATTENDING PHYSICIAN Family Medicine
DX: C25.9 Malignant neoplasm of pancreas, unspecified (principal); K81.0 Acute cholecystitis; E43 Unspecified severe protein-calorie malnutrition; G40.89 Other seizures; E87.1 Hypo-osmolality and hyponatremia; D62 Acute posthemorrhagic anemia; R18.8 Other ascites; J61 Pneumoconiosis due to asbestos and other mineral fibers; K31.1 Adult hypertrophic pyloric stenosis
CPT/HCPCS: 36415; 80053; 85027

== ENCOUNTER → 2024-03-28 13:59 | Outpatient (REF) | payer MEDICARE, OTHER, SELFPAY ==
[2024-03-28 14:30] VITALS: BP 108/77; BP_SYST 85
[2024-03-28 15:15] VITALS: BP 102/73
[2024-03-28 15:29] LABS: Body Fluid Mononuclear 93.9 %; Body Fluid Polymorphonuclear 6.1 %; Body Fluid WBC 199 /CUMM
[2024-03-28 15:50] LABS: Body Fluid Second Tech EYM
== END ==
LOC: RADI 13:59
PROVIDERS: ATTENDING PHYSICIAN Nurse Practitioner
DX: R18.8 Other ascites (principal)
CPT/HCPCS: 49083; 89051

== ENCOUNTER → 2024-04-04 12:34 | Outpatient (REF) | payer MEDICARE, OTHER, SELFPAY ==
[2024-04-04 12:51] VITALS: BP 106/80; BP_SYST 89
[2024-04-04 13:20] VITALS: BP 86/66; BP_SYST 85
[2024-04-04 14:07] LABS: Body Fluid Mononuclear 91.5 %; Body Fluid Polymorphonuclear 8.5 %; Body Fluid WBC 177 /CUMM
[2024-04-04 14:12] LABS: Body Fluid Second Tech HB
== END ==
LOC: RADI 12:34
PROVIDERS: ATTENDING PHYSICIAN Family Medicine; FAMILY PHYSICIAN Physician Assistant Medical
DX: C80.1 Malignant (primary) neoplasm, unspecified (principal); R18.0 Malignant ascites
CPT/HCPCS: 49083; 89051

== ENCOUNTER 2024-04-09 11:46 | Emergency (ER) | payer MEDICARE, OTHER, SELFPAY ==
[2024-04-09] VITALS (7 sets, daily range): BP systolic 101–117; BP diastolic 71–91; BMI 19.2
[2024-04-09 17:45] LABS: % Basophils 0.4 % (0-2); % Immature Granulocytes 0.6 % (0-0.5); % Lymphocytes 6.2 % (20.5-51.1); % Monocytes 6.5 % (1.7-9.3); % Neutrophils 85.3 % (42.2-75.2); Absolute Eosinophils 0.1 10^3/uL (0-0.7); Absolute Lymphocytes 0.4 10^3/uL (1.2-3.4); Absolute Monocytes 0.4 10^3/uL (0.1-0.6); Absolute Neutrophils 5.7 10^3/uL (1.4-6.5); Hematocrit 33.5 % (39.0-52.0); Hemoglobin 10.9 g/dL (13.0-18.0); Mean Corp Hgb Conc. 32.5 g/dL (33.0-37.0); Mean Corpuscular Hgb 29.9 pg (27.0-31.0); Mean Platelet Volume 9.4 fL (7.4-10.4); Nucleated Red Blood Cells % 0 % (-); Platelet Count 191 10^3/uL (130-400); Red Blood Cell Count 3.64 10^6/uL (4.70-6.10); Red Cell Dist. Width 16.3 % (11.5-14.5); White Blood Cell Count 6.7 10^3/uL (4.8-10.8)
--- NOTE | 2024-04-09 17:48 | ED.GENMED ---
History of Present Illness
General
Chief Complaint: Weakness
Time Seen by Provider: 04/09/24 16:37
History of Present Illness
History of Present Illness:
73-year-old male presents to the emergency department for evaluation of upper abdominal pain and generalized weakness. He has a history of pancreatic cancer with biliary and gastric outlet obstruction status post GJ tube, s/p cholecystectomy,
status post recent gastrojejunal bypass procedure. Patient states he was doing well and was able to tolerate small amounts of oral feeding after the bypass procedure was done last week however over the past 2 days has been increasingly weak with
poor tolerance to p.o. fluids. Hiccuping and vomiting multiple times this weekend. Still moving his bowels and passing gas. No fevers or night sweats
Past History
Past History
ED Past Medical History: Cancer (Pancreatic cancer), Hypercholesterolemia, Seizures (History of 1 seizure suspected to be related to sertraline), Psychiatric and Other (Asbestosis, diverticulosis, anxiety, depression)
ED Past Surgical History: Orthopedic and Other (PEG tube, cholecystotomy tube)
Social History
Tobacco: Non-smoker
Alcohol: None
Drug: None
Personal:
Living: with family (Currently residing at [facility] for rehab)
Employment: Retired
Family History
Family History: Other (Noncontributory)
Review of Systems
Review of Systems
Allergies reviewed?: Yes
All Other Systems: ROS reviewed and negative except as documented in HPI and ROS
Phy Exam
Physical Exam
Physical Exam:
GEN: Thin and cachectic, no immediate distress
HEENT: Oral mucosa moist, no scleral icterus
Cardiac: Regular rate
Lung: No respiratory distress, no tachypnea
Abdomen: Mildly distended with upper abdominal firmness mildly tender. Well-approximated midline laparotomy incision from recent surgery with no discharge or erythema. GJ tube site clean dry and intact
MSK: No gross deformity or injuries
Skin: Good color, no pallor or jaundice, no rashes
Neuro: AO x3, moves all extremities freely
Psych: Calm, cooperative
Course
Orders/Labs/Results
Orders:
Orders
04/09/24
CT Abd/pel W Iv And Oral Contr Urgent
Reason For Exam: upper abd pain, vomiting, recent GJ bypass
04/09/24 17:39
Complete Blood Count/With Diff Urgent
Comprehensive Metabolic Panel Urgent
04/09/24 17:48
0.9% Sodium Chloride 500 ml [Nss] 500 ml IV BOLUS
Iohexol [Omnipaque] See Protocol PO NOW STA
04/09/24 22:14
Straight cath- Treatment ONCE
04/09/24 22:19
Urinalysis Reflex To Culture Urgent
Date Specimen was Collected: 04/09/24
Time Specimen was Collected: 22:12
Abnormal Lab Results
04/09/24 04/09/24
17:39 22:19
RBC 3.64 L 10^6/uL
(4.70-6.10)
Hgb 10.9 L g/dL
(13.0-18.0)
Hct 33.5 L %
(39.0-52.0)
MCHC 32.5 L g/dL
(33.0-37.0)
RDW 16.3 H %
(11.5-14.5)
Absolute Lymphs (auto) 0.4 L 10^3/uL
(1.2-3.4)
Immature Gran % 0.6 H %
(0-0.5)
Neutrophils % 85.3 H %
(42.2-75.2)
Lymphocytes % 6.2 L %
(20.5-51.1)
Creatinine 0.6 L mg/dL
(0.7-1.3)
Glucose 125 H mg/dl
(70-99)
Alkaline Phosphatase 336 H U/L
(38-126)
Total Protein 5.3 L g/dl
(6.3-8.2)
Albumin 2.9 L g/dl
(3.5-5.0)
Urine Ketones 1+ A
(Negative)
04/09/24 17:39
04/09/24 17:39
Vital Signs
Initial and Last Documented VS:
Initial Vital Signs
Temp Pulse Resp BP Pulse Ox
97.6 F 92 20 101/71 93
04/09/24 12:17 04/09/24 12:17 04/09/24 12:17 04/09/24 12:17 04/09/24 12:17
Last Documented Vital Signs
Temp Pulse Resp BP Pulse Ox
98.3 F 92 15 102/78 92
04/09/24 19:59 04/09/24 22:00 04/09/24 22:00 04/09/24 22:00 04/09/24 22:00
MDM/Problems Addressed
MDM/Problems Addressed:
No clear etiology to the patient's weakness, would suspect this is related to poor p.o. intake in the setting of her recent upper GI surgery. No evidence of acute bowel obstruction ranging, labs otherwise reassuring. He was able to drink oral
contrast in the ED without difficulty. Will be discharged back to [facility]
*Critical Care Note
Total Time (30-74mins, 75-104mins- exclusive of procedures): Not Applicable
ED Attending Note
-
Portions of this chart may have been created with voice recognition software.� Occasional wrong word or��sound alike� substitutions may have occurred due to the inherent limitations of voice recognition software.
Discharge Plan
Departure
Patient Disposition: Home (Routine Discharge)
Date of Disposition: 04/09/24
Time of Disposition: 22:52
Patient with high blood pressure during this ER visit?: No
Discharge Problem:
Weakness
Instructions: Generalized Weakness (DC)
Prescriptions:
No Action
acetaminophen [Tylenol] 325 mg Tablet
650 mg PO Q6HPRN PRN (Reason: mild pain)
therapeutic multivitamin Tablet
1 tab PO DAILY
simvastatin [Zocor] 20 mg Tablet
20 mg PO HS
quetiapine [Seroquel] 25 mg Tablet
25 mg PO HS
docusate sodium 100 mg Capsule
100 mg PO BID Qty: 60 0RF
Rx Instructions:
hold if diarrhea
midodrine 2.5 mg Tablet
2.5 mg PO TID@0800,1300,1800 Qty: 90 0RF
pantoprazole [address] for susp in packet
40 mg PO BID Qty: 0 0RF
lamotrigine [Lamictal] 150 mg Tablet
300 mg PO HS Qty: 14 0RF
lamotrigine [Lamictal] 25 mg Tablet
50 mg PO HS Qty: 14 0RF
lacosamide [Vimpat] 100 mg tablet
100 mg PO BID Qty: 14 0RF
Referrals:
Tanja Garcia PA-C [Family Provider] -
Interventions
Interventions:
*Risk Screen - Suicide Last Done: 04/09/24 12:17
*General Assessment Last Done: 04/09/24 16:48
*Neglect/Abuse Screening Last Done: 04/09/24 16:48
ED- Fall Risk Assessment Last Done: 04/09/24 16:48
*ED COVID-19 Vaccine History Last Done: 04/09/24 16:48
ED- Cardiac Assessment Last Done: 04/09/24 16:48
ED- Neurological Assessment Last Done: 04/09/24 16:48
ED- Pulmonary Assessment Last Done: 04/09/24 16:48
Discharge Date and Time
Print Language: PERSIAN
[2024-04-09 17:58] LABS: ALT (SGPT) 29 U/L (0-50); AST (SGOT) 48 U/L (17-59); Albumin 2.9 g/dl (3.5-5.0); Alkaline Phosphatase 336 U/L (38-126); Blood Urea Nitrogen 11 mg/dl (9-20); Calcium 8.5 mg/dl (8.4-10.2); Carbon Dioxide 26 mmol/L (22-30); Chloride 103 mmol/L (98-107); Glucose 125 mg/dl (70-99); Potassium 3.8 mmol/L (3.5-5.1); Sodium 136 mmol/L (135-145); Total Bilirubin 0.8 mg/dl (0.2-1.3); Total Protein 5.3 g/dl (6.3-8.2); eGFR > 60.00
[2024-04-09] MEDS: OMNIPAQUE 50 ML PO (18:11)
[2024-04-09] MEDS: NSS 500 IV (18:16)
--- NOTE | 2024-04-09 20:03 | EDRN ---
Report received, introduced myself to patient and , rechecked vital signs, o2 is 89% on room air, patient placed on 2L nasal canula
--- NOTE | 2024-04-09 20:45 | EDRN ---
Updated the patients on the delay for CT, patient resting comfortably at this time with at bedside
--- NOTE | 2024-04-09 22:30 | EDRN ---
Updated patient to inform patient and that CT results are back and physician will be in shortly to go over results and plan
[2024-04-09 22:35] LABS: Urine Albumin Trace (Neg - Trace); Urine Bilirubin Negative (Negative); Urine Character Clear (Clear); Urine Color Yellow; Urine Glucose Negative (Negative); Urine Ketone 1+ (Negative); Urine Leukocyte Negative (Negative); Urine Nitrite Negative (Negative); Urine Occult Blood Negative (Negative); Urine Urobilinogen Negative (Neg - 1+)
[2024-04-10] VITALS: BP 101/81
[2024-04-10] MEDS: VIMPAT 100 MG PO (00:01)
[2024-04-10] MEDS: SEROQUEL 25 MG PO (00:01)
[2024-04-10] MEDS: LAMICTAL 350 MG PO (00:01)
--- NOTE | 2024-04-10 00:15 | EDRN ---
Rolled patient and placed pillow under left hand side for comfort
[2024-04-10 01:00] VITALS: BP 104/80
== END 2024-04-10 01:27 | disposition home or self-care (01) ==
LOC: EMR 11:46
PROVIDERS: Physician Assistant; Student in an Organized Health Care Education/Training Program; EMERGENCY PHYSICIAN Emergency Medicine; FAMILY PHYSICIAN Physician Assistant Medical
DX: R53.1 Weakness (principal)
CPT/HCPCS: 99285; 96360; 51701; 74177; 80053; 81003; 85025; Q9967

== ENCOUNTER → 2024-04-11 12:27 | Outpatient (REF) | payer MEDICARE, OTHER, SELFPAY ==
[2024-04-11 12:35] VITALS: BP 104/79; BP_SYST 89
[2024-04-11 13:45] VITALS: BP 94/73
[2024-04-11 14:01] LABS: Body Fluid Mononuclear 91.3 %; Body Fluid Polymorphonuclear 8.7 %; Body Fluid WBC 196 /CUMM
[2024-04-11 14:03] LABS: Body Fluid Second Tech EM
== END ==
LOC: RADI 12:27
PROVIDERS: ATTENDING PHYSICIAN Family Medicine
DX: C80.1 Malignant (primary) neoplasm, unspecified (principal); R18.0 Malignant ascites
CPT/HCPCS: 49083; 89051